=== PATIENT | female | born 1945 | race Caucasian/White ===

== ENCOUNTER 2016-07-28 17:13 | Inpatient (IN) | payer MEDICARE ==
[2016-07-28] MEDS ORDERED: IPRATROPIUM-ALBUTEROL 3 ML NEB INHALATION STA (17:16)
[2016-07-28] MEDS ORDERED: SODIUM CHLORIDE 0.9% 1,000 ML IV STA (17:16)
[2016-07-28] MEDS ORDERED: MAGNESIUM SULFATE-D5W PMX 1 GM in DEXTROSE/WATER 1 100ML.BAG IVPB STA (17:16)
--- NOTE | 2016-07-28 17:22 | ED ---
SOB HPI - General Stated Complaint: SOB Time Seen by Provider: 07/28/16 17:13 Source: patient, EMS, RN notes reviewed, old records reviewed Mode of arrival: EMS - History of Present Illness Initial Comments: This is a 71-year-old female with a history of COPD and chronic bronchitis was still smoking who presents with complaints of 9-10 days of shortness of just finished antibiotics this morning and was also on steroids. She complains of still being short of breath. She denies any overt chest pain. She does have a slight cough with clear phlegm. No overt fevers chills or sweats. She does feel hot at times. She was seen at a local outpatient clinic given IM steroids as well as DuoNeb treatment she was brought in by EMS when another DuoNeb treatment was done she still feeling short of breath still does have audible wheezing. Denies any chest pain or other symptoms at this time. MD Complaint: shortness of breath, cough - Related Data Home Medications Medication Instructions Recorded Confirmed Alendronate Sodium [Fosamax] 70 mg PO ENRIQUEZ 07/28/16 07/28/16 Calcium Carbonate/Vitamin D3 1 tab PO HS 07/28/16 07/28/16 [Calcium 600-Vit D3 200 Tablet] Calcium Carbonate/Vitamin D3 2 tab PO QAM 07/28/16 07/28/16 [Calcium 600-Vit D3 200 Tablet] Cetirizine HCl/Pseudoephedrine 1 tab PO BID PRN 07/28/16 07/28/16 [Zyrtec-D Tablet] Ipratropium-Albuterol Nebulize 3 ml INHALATION RT-QID 07/28/16 07/28/16 [Duoneb 0.5 mg-3 mg/3 ml Soln] Ipratropium/Albuterol Sulfate 1 puff INHALATION RT-QID PRN 07/28/16 07/28/16 [Combivent Respimat Inhaler] Levothyroxine Sodium [Synthroid] 88 mcg PO DAILY 07/28/16 07/28/16 Naproxen Sodium [Aleve] 220 mg PO BID PRN 07/28/16 07/28/16 Simvastatin [Zocor] 10 mg PO DAILY 07/28/16 07/28/16 metFORMIN HCL [Glucophage] 850 mg PO BID 07/28/16 07/28/16 Allergies Allergy/AdvReac Type Severity Reaction Status Date / Time bupropion [From Zyban] Allergy Rash/Hives Verified 07/28/16 17:26 cefaclor [From Ceclor] Allergy Rash/Hives Verified 07/28/16 17:26 Review of Systems ROS Statement: Those systems with pertinent positive or pertinent negative responses have been documented in the HPI. ROS Other: All systems not noted in ROS Statement are negative. General Exam - General Exam Comments Initial Comments: This is a well-developed well-nourished awake alert oriented history female she does appear to be dyspneic and does have audible wheezing. General appearance: alert, in no apparent distress Head exam: Present: atraumatic, normocephalic, normal inspection Eye exam: Present: normal appearance, PERRL, EOMI. Absent: scleral icterus, conjunctival injection, periorbital swelling ENT exam: Present: mucous membranes dry Neck exam: Present: normal inspection. Absent: tenderness, meningismus, lymphadenopathy Respiratory exam: Present: wheezes, accessory muscle use, decreased breath sounds. Absent: respiratory distress, rales, rhonchi, stridor Cardiovascular Exam: Present: regular rate, normal rhythm, normal heart sounds. Absent: systolic murmur, diastolic murmur, rubs, gallop, clicks GI/Abdominal exam: Present: soft, normal bowel sounds. Absent: distended, tenderness, guarding, rebound, rigid Extremities exam: Present: normal inspection, full ROM, normal capillary refill. Absent: tenderness, pedal edema, joint swelling, calf tenderness Back exam: Present: normal inspection Neurological exam: Present: alert, oriented X3, CN II-XII intact Psychiatric exam: Present: normal affect, normal mood Skin exam: Present: warm, dry, intact, normal color. Absent: rash Course Vital Signs 07/28/16 07/28/16 17:14 17:22 Temperature 97.7 F Pulse Rate 116 H Respiratory 24 Rate Blood Pressure 188/87 O2 Sat by Pulse 85 L 96 Oximetry Medical Decision Making - Lab Data Result diagrams: 07/28/16 17:20 07/28/16 17:20 Lab Results 07/28/16 07/28/16 07/28/16 Range/Units 17:20 17:20 17:20 WBC 15.2 H (3.8-10.6) k/uL RBC 5.25 (3.80-5.40) m/uL Hgb 15.3 (11.4-16.0) gm/dL Hct 47.9 H (34.0-46.0) % MCV 91.2 (80.0-100.0) fL MCH 29.1 (25.0-35.0) pg MCHC 31.9 (31.0-37.0) g/dL RDW 12.5 (11.5-15.5) % Plt Count 305 (150-450) k/uL Neutrophils % 78 % Lymphocytes % 14 % Monocytes % 6 % Eosinophils % 1 % Basophils % 1 % Neutrophils # 11.8 H (1.3-7.7) k/uL Lymphocytes # 2.1 (1.0-4.8) k/uL Monocytes # 0.8 (0-1.0) k/uL Eosinophils # 0.1 (0-0.7) k/uL Basophils # 0.1 (0-0.2) k/uL PT 10.4 (9.0-12.0) sec INR 1.0 (<1.1) APTT 24.0 (22.0-30.0) sec D-Dimer 0.31 (<0.60) mg/L FEU Sodium 141 (137-145) mmol/L Potassium 4.6 (3.5-5.1) mmol/L Chloride 99 (98-107) mmol/L Carbon Dioxide 34 H (22-30) mmol/L Anion Gap 8 mmol/L BUN 25 H (7-17) mg/dL Creatinine 0.90 (0.52-1.04) mg/dL Est GFR (MDRD) Af Amer >60 (>60 ml/min/1.73 sqM) Est GFR (MDRD) Non-Af >60 (>60 ml/min/1.73 sqM) Glucose 121 H (74-99) mg/dL Calcium 10.3 H (8.4-10.2) mg/dL Magnesium 1.7 (1.6-2.3) mg/dL Total Bilirubin 0.6 (0.2-1.3) mg/dL AST 20 (14-36) U/L ALT 31 (9-52) U/L Alkaline Phosphatase 84 (38-126) U/L NT-Pro-B Natriuret Pep pg/mL Total Protein 7.2 (6.3-8.2) g/dL Albumin 4.1 (3.5-5.0) g/dL 07/28/16 Range/Units 17:20 WBC (3.8-10.6) k/uL RBC (3.80-5.40) m/uL Hgb (11.4-16.0) gm/dL Hct (34.0-46.0) % MCV (80.0-100.0) fL MCH (25.0-35.0) pg MCHC (31.0-37.0) g/dL RDW (11.5-15.5) % Plt Count (150-450) k/uL Neutrophils % % Lymphocytes % % Monocytes % % Eosinophils % % Basophils % % Neutrophils # (1.3-7.7) k/uL Lymphocytes # (1.0-4.8) k/uL Monocytes # (0-1.0) k/uL Eosinophils # (0-0.7) k/uL Basophils # (0-0.2) k/uL PT (9.0-12.0) sec INR (<1.1) APTT (22.0-30.0) sec D-Dimer (<0.60) mg/L FEU Sodium (137-145) mmol/L Potassium (3.5-5.1) mmol/L Chloride (98-107) mmol/L Carbon Dioxide (22-30) mmol/L Anion Gap mmol/L BUN (7-17) mg/dL Creatinine (0.52-1.04) mg/dL Est GFR (MDRD) Af Amer (>60 ml/min/1.73 sqM) Est GFR (MDRD) Non-Af (>60 ml/min/1.73 sqM) Glucose (74-99) mg/dL Calcium (8.4-10.2) mg/dL Magnesium (1.6-2.3) mg/dL Total Bilirubin (0.2-1.3) mg/dL AST (14-36) U/L ALT (9-52) U/L Alkaline Phosphatase (38-126) U/L NT-Pro-B Natriuret Pep 61 pg/mL Total Protein (6.3-8.2) g/dL Albumin (3.5-5.0) g/dL - EKG Data EKG shows normal: sinus rhythm (Sinus rhythm a rate of 104. Interval 140 QRS duration 82 QT/QTC of 326/428 evidence of biatrial enlargement. No acute ST-T wave elevation or depressions noted.) Critical Care Time Critical Care Time: Yes Disposition Clinical Impression: Acute exacerbation of chronic obstructive airways disease, Adult respiratory distress syndrome, Failure of outpatient treatment Disposition: ADMITTED IP TO THIS HOSP Condition: Stable
[2016-07-28 17:38] LABS: Basophils # (A) 0.1 k/uL (0-0.2); Basophils % (A) 1 %; CH 29.2; CHCM 32.2; Eosinophils # (A) 0.1 k/uL (0-0.7); Eosinophils % (A) 1 %; HCT 47.9 % (34.0-46.0); HDW 2.56; HGB 15.3 gm/dL (11.4-16.0); Luc # (Auto) 0.19; Luc % (Auto) 1; Lymphocytes # (A) 2.1 k/uL (1.0-4.8); Lymphocytes % (A) 14 %; MCH 29.1 pg (25.0-35.0); MCHC 31.9 g/dL (31.0-37.0); MCV 91.2 fL (80.0-100.0); Mean Platelet Volume 6.5; Monocytes # (A) 0.8 k/uL (0-1.0); Monocytes % (A) 6 %; Neutrophils # (A) 11.8 k/uL (1.3-7.7); Neutrophils % (A) 78 %; RBC 5.25 m/uL (3.80-5.40); RDW 12.5 % (11.5-15.5); WBC 15.2 k/uL (3.8-10.6)
[2016-07-28 17:46] LABS: ALT 31 U/L (9-52); AST 20 U/L (14-36); Alkaline Phosphatase 84 U/L (38-126); Anion Gap 8 mmol/L; Blood Urea Nitrogen 25 mg/dL (7-17); Calcium 10.3 mg/dL (8.4-10.2); Carbon Dioxide 34 mmol/L (22-30); Chloride 99 mmol/L (98-107); Glucose 121 mg/dL (74-99); Magnesium 1.7 mg/dL (1.6-2.3); Non-African American GFR(MDRD) >60 (>60 ml/min/1.73 sqM); Potassium 4.6 mmol/L (3.5-5.1); Sodium 141 mmol/L (137-145); Total Bilirubin 0.6 mg/dL (0.2-1.3); Total Protein 7.2 g/dL (6.3-8.2)
[2016-07-28 17:51] LABS: Prothrombin Time 10.4 sec (9.0-12.0)
[2016-07-28 17:56] LABS: Creatine Kinase 70 U/L (30-135)
[2016-07-28 18:10] LABS: Troponin I <0.012 ng/mL (0.000-0.034)
[2016-07-28 18:13] LABS: Creatine Kinase MB 3.9 ng/mL (0.0-2.4)
[2016-07-28] MEDS ORDERED: LORATADINE-PSEUDOEPH 5-120 MG 1 EACH TAB.ER.12H PO PRN (18:16)
[2016-07-28] MEDS ORDERED: NON-FORMULARY DRUG (Alendronate Sodium [Fosamax] 70 MG) PO SCH (18:30)
[2016-07-28] MEDS ORDERED: IPRATROPIUM-ALBUTEROL 3 ML NEB INHALATION SCH (20:00)
[2016-07-28] MEDS: IPRATROPIUM-ALBUTEROL 3 ML NEB INHALATION SCH (20:16)
[2016-07-28] MEDS: CALCIUM CARB-VIT D 500MG-200UN 1 EACH TAB PO SCH (21:56)
[2016-07-28] MEDS: LEVOFLOXACIN 500 MG TAB PO SCH (21:57)
[2016-07-28] MEDS: metFORMIN 850 MG TAB PO SCH (21:57)
[2016-07-28 22:14] LABS: Glucose,Whole Blood 312 mg/dL (75-99)
[2016-07-28] MEDS: IPRATROPIUM-ALBUTEROL 3 ML NEB INHALATION PRN (22:53)
[2016-07-28] MEDS ORDERED: ACETAMINOPHEN TAB 500 MG TAB PO PRN (22:59)
[2016-07-28] MEDS ORDERED: TEMAZEPAM 15 MG CAP PO PRN (22:59)
--- NOTE | 2016-07-29 00:30 | XR ---
EXAM: XR Chest, 1 View CLINICAL HISTORY: Reason: pneumonia TECHNIQUE: Frontal view of the chest. COMPARISON: No relevant prior studies available. FINDINGS: Lungs: No consolidation. Calcified granuloma projecting over the left midlung. Pleural space: No pleural effusion. No pneumothorax. Heart: Unremarkable. No cardiomegaly. Mediastinum: Unremarkable. Bones/joints: Degenerative changes of the bilateral AC joints. IMPRESSION: No acute cardiopulmonary disease.
[2016-07-29 00:41] LABS: Glucose,Whole Blood 329 mg/dL (75-99)
[2016-07-29] MEDS: INSULIN LISPRO (humaLOG) 300 UNIT/3 ML VIAL SQ SCH ×5 (00:41→21:48)
[2016-07-29] MEDS: methylPREDNISolone SOD SUCCI 125 MG/2 ML VIAL IV SCH ×4 (01:00→18:00)
[2016-07-29 02:42] LABS: Glucose,Whole Blood 129 mg/dL (75-99)
[2016-07-29] MEDS: NAPROXEN 250 MG TAB PO PRN (02:47)
[2016-07-29] MEDS: LEVOTHYROXINE 88 MCG TAB PO SCH (05:32)
[2016-07-29 07:07] LABS: Glucose,Whole Blood 152 mg/dL (75-99)
[2016-07-29] MEDS ORDERED: FORMOTEROL FUMARATE 20 MCG/2 ML NEBU INHALATION SCH (08:00)
[2016-07-29] MEDS: PANTOPRAZOLE 40 MG TABLET PO SCH (08:30)
[2016-07-29] MEDS: HEPARIN SODIUM,PORCINE 5,000 UNIT/ML 1 ML VIAL SQ SCH ×2 (08:31→21:48)
[2016-07-29] MEDS: metFORMIN 850 MG TAB PO SCH ×2 (08:33→18:00)
[2016-07-29] MEDS: ATORVASTATIN 10 MG TAB PO SCH (08:33)
[2016-07-29] MEDS: CALCIUM CARB-VIT D 500MG-200UN 1 EACH TAB PO SCH ×2 (08:33→21:49)
[2016-07-29] MEDS: BUDESONIDE 1 MG/2 ML NEBU INHALATION SCH ×2 (09:20→19:55)
[2016-07-29] MEDS: IPRATROPIUM-ALBUTEROL 3 ML NEB INHALATION SCH ×4 (09:20→19:54)
--- NOTE | 2016-07-29 09:25 | P.HPIM ---
History of Present Illness H&P Date: 07/29/16 Chief Complaint: Dyspnea This is a history and physical on this 71-year-old white female who has essentially failed outpatient treatment related to COPD exacerbation. The patient's last week in the office, however there was some delay getting her medications and she did not improve once starting the medication. She smokes about half-pack cigarettes a day and has secondhand smoke exposure. She is now admitted after having decrease in pulse oximetry and dyspnea on exertion. Review of Systems Constitutional: Reports fatigue, Reports weakness Eyes: denies blurred vision, denies pain Ears, nose, mouth and throat: Denies headache, Denies sore throat Cardiovascular: Reports shortness of breath, Denies chest pain Respiratory: Reports as per HPI, Reports cough, Reports dyspnea Gastrointestinal: Denies abdominal pain, Denies diarrhea, Denies nausea, Denies vomiting Genitourinary: Denies dysuria, Denies hematuria Musculoskeletal: Denies myalgias Past Medical History Past Medical History: Asthma, COPD, Diabetes Mellitus, Eye Disorder, Thyroid Disorder Additional Past Medical History / Comment(s): Cataracts; planned surgery right eye 08/13/2016 History of Any Multi-Drug Resistant Organisms: None Reported Past Surgical History: Adenoidectomy, Appendectomy, Hysterectomy, Tonsillectomy Additional Past Surgical History / Comment(s): several lumpectomies-benign, D&C Past Anesthesia/Blood Transfusion Reactions: No Reported Reaction Past Psychological History: No Psychological Hx Reported Smoking Status: Current every day smoker Past Alcohol Use History: Occasional Past Drug Use History: None Reported - Past Family History Mother Family Medical History: Cancer Additional Family Medical History / Comment(s): Mac deg, blind; abdominal tumor ; colon cancer in old age, at 86 Father Family Medical History: Cancer Additional Family Medical History / Comment(s): Prostate CA mets to lungs Medications and Allergies Home Medications Medication Instructions Recorded Confirmed Type Alendronate Sodium [Fosamax] 70 mg PO ENRIQUEZ 07/28/16 07/28/16 History Calcium Carbonate/Vitamin D3 1 tab PO HS 07/28/16 07/28/16 History [Calcium 600-Vit D3 200 Tablet] Calcium Carbonate/Vitamin D3 2 tab PO QAM 07/28/16 07/28/16 History [Calcium 600-Vit D3 200 Tablet] Cetirizine HCl/Pseudoephedrine 1 tab PO BID PRN 07/28/16 07/28/16 History [Zyrtec-D Tablet] Ipratropium-Albuterol Nebulize 3 ml INHALATION RT-QID 07/28/16 07/28/16 History [Duoneb 0.5 mg-3 mg/3 ml Soln] Ipratropium/Albuterol Sulfate 1 puff INHALATION RT-QID PRN 07/28/16 07/28/16 History [Combivent Respimat Inhaler] Levothyroxine Sodium [Synthroid] 88 mcg PO DAILY 07/28/16 07/28/16 History Naproxen Sodium [Aleve] 220 mg PO BID PRN 07/28/16 07/28/16 History Simvastatin [Zocor] 10 mg PO DAILY 07/28/16 07/28/16 History metFORMIN HCL [Glucophage] 850 mg PO BID 07/28/16 07/28/16 History Allergies Allergy/AdvReac Type Severity Reaction Status Date / Time bupropion [From Zyban] Allergy Rash/Hives Verified 07/28/16 17:26 cefaclor [From Ceclor] Allergy Rash/Hives Verified 07/28/16 17:26 Physical Exam Vitals: Vital Signs Temp Pulse Pulse Resp BP BP Pulse Ox 07/29/16 07:00 96.8 F L 86 16 154/78 92 L 07/29/16 01:35 97.8 F 105 H 20 140/75 91 L 07/28/16 23:00 84 07/28/16 22:53 84 07/28/16 19:35 97.3 F L 104 H 20 138/71 89 L 07/28/16 18:39 97.6 F 99 16 169/94 95 07/28/16 18:19 99 Intake and Output 07/28/16 07/29/16 07/29/16 22:59 06:59 14:59 Intake Total 800 100 Balance 800 100 Intake: Oral 800 100 Other: # Voids 1 # Bowel Movements 0 0 Weight 81.647 kg - Constitutional General appearance: obese - EENT Eyes: EOMI - Neck Neck: no lymphadenopathy - Respiratory Respiratory: bilateral: wheezing - Cardiovascular Rhythm: regular - Gastrointestinal General gastrointestinal: soft, no tenderness - Neurologic Neurologic: CNII-XII intact - Psychiatric Psychiatric: A&O x's 3, appropriate affect, intact judgment & insight Results CBC & Chem 7: 07/28/16 17:20 07/28/16 17:20 Labs: Abnormal Lab Results - Last 24 Hours (Table) 07/28/16 07/29/16 07/29/16 Range/Units 21:47 00:36 02:36 POC Glucose (mg/dL) 312 H 329 H 129 H (75-99) mg/dL 07/29/16 Range/Units 07:05 POC Glucose (mg/dL) 152 H (75-99) mg/dL Thrombosis Risk Factor Assmnt - Choose All That Apply Any of the Below Risk Factors Present?: Yes Each Factor Represents 1 point: Abnormal pulmonary function (COPD), Obesity ( BMI >25) Other Risk Factors: Yes Each Risk Factor Represents 2 Points: Age 61-74 years Other congenital or acquired thrombophilia - If yes, enter type in comment: No Thrombosis Risk Factor Assessment Total Risk Factor Score: 4 Thrombosis Risk Factor Assessment Level: Moderate Risk Assessment and Plan (1) Tobacco abuse counseling Status: Acute (2) Acute exacerbation of chronic obstructive airways disease Status: Acute (3) Failure of outpatient treatment Status: Acute Plan: We'll go ahead and continue son Medrol with appropriate antibiotic treatment. Insulin sliding scale as necessary. Otherwise, anticipate improvement in the next 48 hours. Reconcile home medications as necessary. Check CBC and CMP in a.m. Time with Patient: Greater than 30
[2016-07-29 09:34] LABS: Basophils % (A) 0 %; CHCM 30.8; Eosinophils % (A) 0 %; HCT 47.4 % (34.0-46.0); HDW 2.41; HGB 14.6 gm/dL (11.4-16.0); Hypochromasia Slight; Luc # (Auto) 0.06; Luc % (Auto) 0; Lymphocytes # (A) 1.4 k/uL (1.0-4.8); Lymphocytes % (A) 10 %; MCH 29.2 pg (25.0-35.0); MCHC 30.9 g/dL (31.0-37.0); MCV 94.6 fL (80.0-100.0); Mean Platelet Volume 6.9; Monocytes # (A) 0.2 k/uL (0-1.0); Monocytes % (A) 1 %; Neutrophils # (A) 13.1 k/uL (1.3-7.7); Neutrophils % (A) 89 %; RBC 5.01 m/uL (3.80-5.40); RDW 12.8 % (11.5-15.5); WBC 14.8 k/uL (3.8-10.6); WBC (Perox) 14.78
[2016-07-29] MEDS: NICOTINE 14MG/24HR PATCH TRANSDERM SCH (09:57)
[2016-07-29 10:15] LABS: Anion Gap 11 mmol/L; Blood Urea Nitrogen 25 mg/dL (7-17); Calcium 9.7 mg/dL (8.4-10.2); Carbon Dioxide 32 mmol/L (22-30); Chloride 98 mmol/L (98-107); Glucose 214 mg/dL (74-99); Non-African American GFR(MDRD) >60 (>60 ml/min/1.73 sqM); Potassium 5.5 mmol/L (3.5-5.1); Sodium 141 mmol/L (137-145)
[2016-07-29 12:02] LABS: Glucose,Whole Blood 161 mg/dL (75-99)
[2016-07-29 13:35] LABS: Hemoglobin A1C 6.7 % (4.2-6.1)
--- NOTE | 2016-07-29 13:55 | HP ---
DATE OF ADMISSION: DATE OF SERVICE: 07/28/2016 I am covering for Dr. Puckett. CHIEF COMPLAINT: Shortness of breath HISTORY OF PRESENT ILLNESS: This 71-year-old woman with a past medical history of multiple medical COPD, history of diabetes, history of cataracts, history of planned on eye surgery on 08/13/2016, history of appendectomy, adenoidectomy, history of nicotine dependence, being followed by Dr. Puckett in the outpatient setting, not feeling well for the past several days. The patient initially had outpatient antibiotics and as well as tapering dose of steroids. Because of lack of improvement of shortness of breath patient came to [facility] and was admitted for further evaluation and treatment. There is no history of any fever, rigors. No history of headache, loss of consciousness or seizures at this time. The patient also has features of respiratory failure on admission. The pulse ox was 89% on 3-L. PAST MEDICAL HISTORY: History of COPD, history of asthma, history of nicotine dependence, history of diabetes mellitus, history hypothyroidism, cataracts, adenoidectomy, history of nicotine dependence. Medications prior to admission include home medications are: 1. Glucophage 850 mg p.o. b.i.d. 2. Zocor 10 mg p.o. daily. 3. Aleve 220 mcg p.o. b.i.d. p.r.n. 4. Synthroid 80 mcg p.o. daily. 5. Combivent 1 puff q.i.d. p.r.n. 6. DuoNeb q.i.d. 7. Zyrtec 1 b.i.d. p.r.n. 8. Calcium carbonate 1 tablet p.o. q.h.s. 9. Calcium with vitamin D q.a.m. 10. Fosamax 70 mg p.o. Friday. ALLERGIES: ZYBAN, CEFACLOR. FAMILY HISTORY: History of cancer, macular degeneration, abdominal tumor, colon cancer. SOCIAL HISTORY: History of smoking. Continued ongoing. No history of alcohol intake. REVIEW OF SYSTEMS: ENT: No diminishing hearing or diminished vision. CARDIOVASCULAR: No angina. RESPIRATORY: As mentioned earlier. GI: As mentioned earlier. : No dysuria. NERVOUS SYSTEM: No numbness or weakness. ALLERGY/IMMUNOLOGY: Asthma present. MUSCULOSKELETAL: As mentioned earlier. HEMATOLOGY/ONCOLOGY: No history of anemia. ENDOCRINE: History of diabetes and hypothyroidism present. CONSTITUTIONAL: As mentioned earlier. DERMATOLOGY: Negative. RHEUMATOLOGY: Negative. PSYCHIATRY: As mentioned earlier. PHYSICAL EXAMINATION: Patient is alert and oriented x3. Pulse is 104, blood pressure 130/70, respirations 20, temperature 97.3, pulse ox 89% on 3-L. The patient is extremely short of breath. Accessory muscles of respirations acting. Patient is unable to complete full sentence. CARDIOVASCULAR: S1, S2 normal. No S3, no S4. RESPIRATORY: Breath sounds diminished in the bases. Bilateral scattered rhonchi and expiratory wheezing and crackles also present. ABDOMEN: Soft, nontender. No mass palpable. LEGS: No edema. No swelling. NERVOUS SYSTEM: Higher function as mentioned. Moves all limbs. No focal motor deficits. LYMPHATIC: No lymphadenopathy in the neck, axillae or groin. SKIN: No ulcer, rash or bleeding. JOINTS: No active deforming arthropathy. LABS: WBC 15.2, sodium 141, potassium 4.6, glucose 312 and CK-MB 3.9. ASSESSMENT: 1. Chronic obstructive pulmonary disease and bronchial asthma, acute exacerbation with acute purulent tracheobronchitis with acute hypoxic respiratory failure present on admission with failure of outpatient treatment. 2. Increased WBC. 3. Diabetes mellitus type 2. 4. History of asthma, chronic obstructive pulmonary disease. 5. History of hypothyroidism. 6. History of cataracts. 7. History of adenoidectomy. 8. History of appendectomy. 9. History of continued ongoing nicotine dependence. 10. FULL CODE. RECOMMENDATIONS AND DISCUSSION: In this 71-year-old who presented with multiple complex medical issues, we will monitor the patient closely. Continue the current medications, continue the symptomatic treatment. Otherwise, at this time I recommend to continue with bronchodilators. Otherwise, also recommend steroids, IV insulin drip, monitor closely. Empiric antibiotics. Guarded prognosis because of multiple complex medical issues. Dr. Puckett will follow.
[2016-07-29 17:09] LABS: Glucose,Whole Blood 144 mg/dL (75-99)
[2016-07-29] MEDS: LEVOFLOXACIN 500 MG TAB PO SCH (18:00)
[2016-07-29 21:17] LABS: Glucose,Whole Blood 181 mg/dL (75-99)
[2016-07-29] MEDS: IPRATROPIUM-ALBUTEROL 3 ML NEB INHALATION PRN (23:31)
[2016-07-30] MEDS: ALPRAZolam 0.25 MG TAB PO PRN (00:11)
[2016-07-30] MEDS: methylPREDNISolone SOD SUCCI 125 MG/2 ML VIAL IV SCH ×4 (00:11→17:51)
[2016-07-30] MEDS: LEVOTHYROXINE 88 MCG TAB PO SCH (07:04)
[2016-07-30] MEDS: BUDESONIDE 1 MG/2 ML NEBU INHALATION SCH ×2 (07:38→19:44)
[2016-07-30] MEDS: IPRATROPIUM-ALBUTEROL 3 ML NEB INHALATION SCH ×4 (07:39→19:44)
[2016-07-30 07:41] LABS: Glucose,Whole Blood 162 mg/dL (75-99)
[2016-07-30] MEDS: INSULIN LISPRO (humaLOG) 300 UNIT/3 ML VIAL SQ SCH ×4 (08:25→21:20)
[2016-07-30] MEDS: HEPARIN SODIUM,PORCINE 5,000 UNIT/ML 1 ML VIAL SQ SCH ×2 (08:25→21:20)
[2016-07-30] MEDS: NICOTINE 14MG/24HR PATCH TRANSDERM SCH (08:26)
[2016-07-30] MEDS: PANTOPRAZOLE 40 MG TABLET PO SCH (08:26)
[2016-07-30] MEDS: metFORMIN 850 MG TAB PO SCH ×2 (08:26→17:51)
[2016-07-30] MEDS: CALCIUM CARB-VIT D 500MG-200UN 1 EACH TAB PO SCH ×2 (08:27→21:20)
[2016-07-30] MEDS: ATORVASTATIN 10 MG TAB PO SCH (08:27)
--- NOTE | 2016-07-30 08:44 | P.PN ---
Subjective Principal diagnosis: Acute exacerbation of COPD. This is a continue progress on a 8-year-old white female essentially been for acute exacerbation of COPD. She has requested consultation from Dr. Almodovar however, she has significant improvement with Solu-Medrol. She is voiding without difficulty. No fever or chills. But she actually had decent sleep yesterday. Again, we had a long discussion regarding smoking cessation. Objective - Vital Signs Vital signs: Vital Signs Temp 97 F L 07/30/16 07:00 Pulse 98 07/30/16 08:03 Resp 20 07/30/16 07:39 BP 128/60 07/30/16 07:00 Pulse Ox 95 07/30/16 07:00 Intake & Output 07/29/16 07/30/16 07/30/16 18:59 06:59 18:59 Intake Total 100 400 Balance 100 400 Weight 81.647 kg Intake: Oral 100 400 Other: # Voids 1 2 - Constitutional General appearance: Present: obese - EENT Eyes: Absent: abnormal pupil - Respiratory Respiratory: bilateral: diminished - Cardiovascular Rhythm: regular Heart sounds: normal: S1, S2 - Gastrointestinal General gastrointestinal: Present: soft. Absent: tenderness - Psychiatric Psychiatric: Present: A&O x's 3 - Labs CBC & Chem 7: 07/29/16 08:33 07/29/16 08:55 Labs: Abnormal Lab Results - Last 24 Hours (Table) 07/29/16 07/29/16 07/29/16 Range/Units 08:33 08:55 08:55 WBC 14.8 H (3.8-10.6) k/uL Hct 47.4 H (34.0-46.0) % MCHC 30.9 L (31.0-37.0) g/dL Neutrophils # 13.1 H (1.3-7.7) k/uL Potassium 5.5 H (3.5-5.1) mmol/L Carbon Dioxide 32 H (22-30) mmol/L BUN 25 H (7-17) mg/dL Glucose 214 H (74-99) mg/dL POC Glucose (mg/dL) (75-99) mg/dL Hemoglobin A1c 6.7 H (4.2-6.1) % 07/29/16 07/29/16 07/29/16 Range/Units 11:59 17:01 21:06 WBC (3.8-10.6) k/uL Hct (34.0-46.0) % MCHC (31.0-37.0) g/dL Neutrophils # (1.3-7.7) k/uL Potassium (3.5-5.1) mmol/L Carbon Dioxide (22-30) mmol/L BUN (7-17) mg/dL Glucose (74-99) mg/dL POC Glucose (mg/dL) 161 H 144 H 181 H (75-99) mg/dL Hemoglobin A1c (4.2-6.1) % 07/30/16 Range/Units 07:17 WBC (3.8-10.6) k/uL Hct (34.0-46.0) % MCHC (31.0-37.0) g/dL Neutrophils # (1.3-7.7) k/uL Potassium (3.5-5.1) mmol/L Carbon Dioxide (22-30) mmol/L BUN (7-17) mg/dL Glucose (74-99) mg/dL POC Glucose (mg/dL) 162 H (75-99) mg/dL Hemoglobin A1c (4.2-6.1) % Microbiology - Last 24 Hours (Table) 07/28/16 17:20 Blood Culture - Preliminary Blood No Growth after 24 hours Assessment and Plan (1) Tobacco abuse counseling Status: Acute (2) Acute exacerbation of chronic obstructive airways disease Status: Acute (3) Failure of outpatient treatment Status: Acute Plan: Continue Solu-Medrol 60 mg IV every 6 hours. Check CBC and CMP in a.m. per Consult Dr. Almodovar as requested. Appreciate input. See orders otherwise. Time with Patient: Less than 30
[2016-07-30 10:20] LABS: CH 29.1; CHCM 30.9; HCT 44.7 % (34.0-46.0); HDW 2.42; HGB 13.8 gm/dL (11.4-16.0); Hypochromasia Slight; MCH 29.1 pg (25.0-35.0); MCHC 30.8 g/dL (31.0-37.0); MCV 94.4 fL (80.0-100.0); Mean Platelet Volume 6.7; RBC 4.73 m/uL (3.80-5.40); RDW 12.9 % (11.5-15.5); WBC 20.2 k/uL (3.8-10.6)
[2016-07-30 11:00] LABS: Chloride 99 mmol/L (98-107); Glucose 256 mg/dL (74-99); Total Protein 6.5 g/dL (6.3-8.2)
[2016-07-30 11:01] LABS: ALT 31 U/L (9-52); AST 31 U/L (14-36); Alkaline Phosphatase 57 U/L (38-126); Anion Gap 10 mmol/L; Blood Urea Nitrogen 35 mg/dL (7-17); Calcium 9.6 mg/dL (8.4-10.2); Carbon Dioxide 30 mmol/L (22-30); Non-African American GFR(MDRD) >60 (>60 ml/min/1.73 sqM); Potassium 4.7 mmol/L (3.5-5.1); Sodium 139 mmol/L (137-145); Total Bilirubin 0.5 mg/dL (0.2-1.3)
[2016-07-30 12:38] LABS: Glucose,Whole Blood 190 mg/dL (75-99)
--- NOTE | 2016-07-30 14:09 | P.CNPUL ---
History of Present Illness Consult date: 07/30/16 Requesting physician: Sung Puckett Reason for consult: COPD Chief complaint: Shortness of breath, cough, congestion History of present illness: This is a very pleasant 71-year-old female patient who follows with Dr. Puckett as her primary care physician. She has a history of chronic obstructive pulmonary disease, chronic and ongoing nicotine addiction, diabetes mellitus, hypothyroidism. Possibly 1 week ago she developed increasing shortness of breath, cough and congestion. She was treated with steroids and azithromycin. She did not have much improvement and presented here on 07/28/2016 with worsening of symptoms. She has a loose nonproductive cough. No fever, chills or night sweats. Her chest x-ray revealed no acute pulmonary process. She's been obtaining good O2 saturations in the 90s on 3 L/m per nasal cannula. She' s been afebrile. Minimal leukocytosis. Hemodynamically stable. She is seen today in consultation on the regular medical floor. She is awake and alert in no acute distress. She states she is breathing somewhat easier today as compared to yesterday but not quite back to her baseline. She is dyspneic with minimal conversation and dyspneic on minimal exertion. Still quite bronchospastic and wheezy. Review of Systems 14 point review of system was conducted. All negative other than as mentioned in the HPI. Past Medical History Past Medical History: Asthma, COPD, Diabetes Mellitus, Eye Disorder, Thyroid Disorder Additional Past Medical History / Comment(s): Cataracts; planned surgery right eye 08/13/2016 History of Any Multi-Drug Resistant Organisms: None Reported Past Surgical History: Adenoidectomy, Appendectomy, Hysterectomy, Tonsillectomy Additional Past Surgical History / Comment(s): several lumpectomies-benign, D&C Past Anesthesia/Blood Transfusion Reactions: No Reported Reaction Past Psychological History: No Psychological Hx Reported Smoking Status: Current every day smoker Past Alcohol Use History: Occasional Past Drug Use History: None Reported - Past Family History Mother Family Medical History: Cancer Additional Family Medical History / Comment(s): Mac deg, blind; abdominal tumor ; colon cancer in old age, at 86 Father Family Medical History: Cancer Additional Family Medical History / Comment(s): Prostate CA mets to lungs Medications and Allergies Home Medications Medication Instructions Recorded Confirmed Type Alendronate Sodium [Fosamax] 70 mg PO ENRIQUEZ 07/28/16 07/28/16 History Calcium Carbonate/Vitamin D3 1 tab PO HS 07/28/16 07/28/16 History [Calcium 600-Vit D3 200 Tablet] Calcium Carbonate/Vitamin D3 2 tab PO QAM 07/28/16 07/28/16 History [Calcium 600-Vit D3 200 Tablet] Cetirizine HCl/Pseudoephedrine 1 tab PO BID PRN 07/28/16 07/28/16 History [Zyrtec-D Tablet] Ipratropium-Albuterol Nebulize 3 ml INHALATION RT-QID 07/28/16 07/28/16 History [Duoneb 0.5 mg-3 mg/3 ml Soln] Ipratropium/Albuterol Sulfate 1 puff INHALATION RT-QID PRN 07/28/16 07/28/16 History [Combivent Respimat Inhaler] Levothyroxine Sodium [Synthroid] 88 mcg PO DAILY 07/28/16 07/28/16 History Naproxen Sodium [Aleve] 220 mg PO BID PRN 07/28/16 07/28/16 History Simvastatin [Zocor] 10 mg PO DAILY 07/28/16 07/28/16 History metFORMIN HCL [Glucophage] 850 mg PO BID 07/28/16 07/28/16 History Allergies Allergy/AdvReac Type Severity Reaction Status Date / Time bupropion [From Zyban] Allergy Rash/Hives Verified 07/28/16 17:26 cefaclor [From Ceclor] Allergy Rash/Hives Verified 07/28/16 17:26 Physical Exam Vitals: Vital Signs Temp Pulse Pulse Resp BP Pulse Ox 07/30/16 11:44 100 07/30/16 11:27 100 07/30/16 08:03 98 07/30/16 07:39 100 20 07/30/16 07:00 97 F L 95 19 128/60 95 07/29/16 23:41 96 07/29/16 23:31 96 07/29/16 23:00 97.1 F L 108 H 20 134/67 93 L 07/29/16 20:14 100 07/29/16 19:55 104 H 92 L 07/29/16 16:41 92 07/29/16 16:28 100 07/29/16 16:00 113 H 16 07/29/16 15:00 96.5 F L 113 H 16 149/73 93 L Intake and Output 07/29/16 07/30/16 07/30/16 22:59 06:59 14:59 Intake Total 300 100 200 Balance 300 100 200 Intake: Oral 300 100 200 Other: # Voids 1 2 Weight 81.647 kg GENERAL EXAM: Alert, comfortable in no apparent distress. HEAD: Normocephalic. EYES: Normal reaction of pupils, equal size. NOSE: Clear with pink turbinates. THROAT: No erythema or exudates. NECK: No masses, no JVD. CHEST: No chest wall deformity. LUNGS: Equal air entry with bilateral wheezing. Diminished throughout. CVS: S1 and S2 normal with no audible murmurs, regular rhythm. ABDOMEN: No hepatosplenomegaly, normal bowel sounds, no guarding or rigidity. SPINE: No scoliosis or deformity SKIN: No rashes CENTRAL NERVOUS SYSTEM: No focal deficits, tone is normal in all 4 extremities. Results - Laboratory Findings CBC and BMP: 07/30/16 09:54 07/30/16 09:54 PT/INR, D-dimer PT 10.4 sec (9.0-12.0) 07/28/16 17:20 INR 1.0 (<1.1) 07/28/16 17:20 D-Dimer 0.31 mg/L FEU (<0.60) 07/28/16 17:20 Abnormal lab findings: Abnormal Labs 07/28/16 07/28/16 07/28/16 17:20 17:20 17:20 WBC 15.2 H Hct 47.9 H MCHC Neutrophils # 11.8 H Potassium Carbon Dioxide 34 H BUN 25 H Glucose 121 H POC Glucose (mg/dL) Hemoglobin A1c Calcium 10.3 H CK-MB (CK-2) 3.9 H* 07/28/16 07/29/16 07/29/16 21:47 00:36 02:36 WBC Hct MCHC Neutrophils # Potassium Carbon Dioxide BUN Glucose POC Glucose (mg/dL) 312 H 329 H 129 H Hemoglobin A1c Calcium CK-MB (CK-2) 07/29/16 07/29/16 07/29/16 07:05 08:33 08:55 WBC 14.8 H Hct 47.4 H MCHC 30.9 L Neutrophils # 13.1 H Potassium Carbon Dioxide BUN Glucose POC Glucose (mg/dL) 152 H Hemoglobin A1c 6.7 H Calcium CK-MB (CK-2) 07/29/16 07/29/16 07/29/16 08:55 11:59 17:01 WBC Hct MCHC Neutrophils # Potassium 5.5 H Carbon Dioxide 32 H BUN 25 H Glucose 214 H POC Glucose (mg/dL) 161 H 144 H Hemoglobin A1c Calcium CK-MB (CK-2) 07/29/16 07/30/16 07/30/16 21:06 07:17 09:54 WBC 20.2 H Hct MCHC 30.8 L Neutrophils # Potassium Carbon Dioxide BUN Glucose POC Glucose (mg/dL) 181 H 162 H Hemoglobin A1c Calcium CK-MB (CK-2) 07/30/16 07/30/16 09:54 12:19 WBC Hct MCHC Neutrophils # Potassium Carbon Dioxide BUN 35 H Glucose 256 H POC Glucose (mg/dL) 190 H Hemoglobin A1c Calcium CK-MB (CK-2) - Diagnostic Findings Chest x-ray: image reviewed (No acute pulmonary process.) Assessment and Plan Plan: Impression: #1 Acute exacerbation of chronic obstructive pulmonary disease. #2 Chronic and ongoing tobacco dependence. #3 Acute hypoxic respiratory failure secondary to above. #4 Diabetes mellitus. #5 Hypothyroidism. Plan: The patient was seen and evaluated by Dr. Almodovar. We'll go ahead and continue her treatment for COPD exacerbation including bronchodilators, Pulmicort and Perforomist inhalations twice a day, IV Solu-Medrol. She is on empiric antibiotics in the form of Levaquin. She is on heparin for DVT prophylaxis and Protonix for GI prophylaxis and she is educated regarding the importance of complete smoking cessation. At [facility] patch has been applied. We will titrate down her FiO2 will maintaining O2 saturations greater than 90%. She would benefit from mild workup in our office including full pulmonary function testing and 6 minute walk test to evaluate the severity of her COPD and make recommendations for her maintenance medications. In the interim we will increase her activity as tolerated. We'll continue to follow and make recommendations based on her clinical status. Time with Patient: Greater than 30
[2016-07-30 17:28] LABS: Glucose,Whole Blood 146 mg/dL (75-99)
[2016-07-30] MEDS: LEVOFLOXACIN 500 MG TAB PO SCH (17:51)
[2016-07-30 21:17] LABS: Glucose,Whole Blood 195 mg/dL (75-99)
[2016-07-31] MEDS: NAPROXEN 250 MG TAB PO PRN (00:42)
[2016-07-31] MEDS: ALPRAZolam 0.25 MG TAB PO PRN (00:43)
[2016-07-31] MEDS: methylPREDNISolone SOD SUCCI 125 MG/2 ML VIAL IV SCH ×2 (00:43→06:35)
[2016-07-31] MEDS: IPRATROPIUM-ALBUTEROL 3 ML NEB INHALATION SCH ×4 (07:19→20:08)
[2016-07-31] MEDS: BUDESONIDE 1 MG/2 ML NEBU INHALATION SCH ×2 (07:19→20:08)
[2016-07-31 07:22] LABS: Glucose,Whole Blood 139 mg/dL (75-99)
[2016-07-31] MEDS: ATORVASTATIN 10 MG TAB PO SCH (08:10)
[2016-07-31] MEDS: PANTOPRAZOLE 40 MG TABLET PO SCH (08:10)
[2016-07-31] MEDS: CALCIUM CARB-VIT D 500MG-200UN 1 EACH TAB PO SCH ×2 (08:10→21:53)
[2016-07-31] MEDS: HEPARIN SODIUM,PORCINE 5,000 UNIT/ML 1 ML VIAL SQ SCH ×2 (08:11→21:53)
[2016-07-31] MEDS: INSULIN LISPRO (humaLOG) 300 UNIT/3 ML VIAL SQ SCH ×4 (08:11→21:53)
[2016-07-31] MEDS: LEVOTHYROXINE 88 MCG TAB PO SCH (08:11)
[2016-07-31] MEDS: metFORMIN 850 MG TAB PO SCH ×2 (08:11→17:48)
[2016-07-31] MEDS: NICOTINE 14MG/24HR PATCH TRANSDERM SCH (08:11)
--- NOTE | 2016-07-31 08:26 | P.PN ---
Subjective Principal diagnosis: Exacerbation of COPD. This is a continuing progress on a 71-year-old white female with 30+ pack year smoking history who is essentially admitted for exacerbation of COPD. The patient states significant improvement after having 2 full days of son Chayo AGUILLON. Appreciate pulmonology input. No voiding difficulty. Appetite is nominal. Objective - Vital Signs Vital signs: Vital Signs Temp 97.2 F L 07/31/16 07:00 Pulse 104 H 07/31/16 07:45 Resp 17 07/31/16 07:00 BP 134/79 07/31/16 07:00 Pulse Ox 95 07/31/16 07:00 Intake & Output 07/30/16 07/31/16 07/31/16 18:59 06:59 18:59 Intake Total 200 340 Balance 200 340 Weight 81.647 kg Intake: Oral 200 340 Other: Voiding Method Toilet # Voids 4 0 - Constitutional General appearance: Present: obese - EENT Eyes: Absent: abnormal pupil - Respiratory Respiratory: bilateral: diminished - Cardiovascular Rhythm: regular - Gastrointestinal General gastrointestinal: Present: soft. Absent: tenderness - Neurologic Neurologic: Present: CNII-XII intact - Psychiatric Psychiatric: Present: A&O x's 3, appropriate affect - Labs CBC & Chem 7: 07/30/16 09:54 07/30/16 09:54 Labs: Abnormal Lab Results - Last 24 Hours (Table) 07/30/16 07/30/16 07/30/16 Range/Units 09:54 09:54 12:19 WBC 20.2 H (3.8-10.6) k/uL MCHC 30.8 L (31.0-37.0) g/dL BUN 35 H (7-17) mg/dL Glucose 256 H (74-99) mg/dL POC Glucose (mg/dL) 190 H (75-99) mg/dL 07/30/16 07/30/16 07/31/16 Range/Units 17:13 21:13 07:10 WBC (3.8-10.6) k/uL MCHC (31.0-37.0) g/dL BUN (7-17) mg/dL Glucose (74-99) mg/dL POC Glucose (mg/dL) 146 H 195 H 139 H (75-99) mg/dL Microbiology - Last 24 Hours (Table) 07/28/16 17:20 Blood Culture - Preliminary Blood No Growth after 48 hours Assessment and Plan (1) Tobacco abuse counseling Status: Acute (2) Acute exacerbation of chronic obstructive airways disease Status: Acute (3) Failure of outpatient treatment Status: Acute Plan: Cymetra taper today. Anticipate discharge in next 24-48 hours. Check CBC and CMP with appropriate magnesium level in the a.m. Appreciate pulmonology input. She orders otherwise. Time with Patient: Less than 30
[2016-07-31 10:08] LABS: CH 28.8; CHCM 30.5; HCT 46.3 % (34.0-46.0); HDW 2.47; HGB 14.2 gm/dL (11.4-16.0); Hypochromasia Moderate; MCHC 30.6 g/dL (31.0-37.0); MCV 94.8 fL (80.0-100.0); Mean Platelet Volume 7.5; RBC 4.88 m/uL (3.80-5.40); RDW 12.8 % (11.5-15.5); WBC 19.9 k/uL (3.8-10.6)
[2016-07-31] MEDS: methylPREDNISolone SOD SUCCI 40 MG/ML 1 ML VIAL IV SCH ×3 (10:15→23:41)
[2016-07-31 10:50] LABS: ALT 39 U/L (9-52); AST 31 U/L (14-36); Alkaline Phosphatase 62 U/L (38-126); Anion Gap 12 mmol/L; Blood Urea Nitrogen 39 mg/dL (7-17); Calcium 9.7 mg/dL (8.4-10.2); Carbon Dioxide 29 mmol/L (22-30); Chloride 99 mmol/L (98-107); Glucose 208 mg/dL (74-99); Non-African American GFR(MDRD) >60 (>60 ml/min/1.73 sqM); Potassium 5.2 mmol/L (3.5-5.1); Sodium 140 mmol/L (137-145); Total Bilirubin 0.6 mg/dL (0.2-1.3); Total Protein 6.7 g/dL (6.3-8.2)
[2016-07-31 11:35] LABS: Glucose,Whole Blood 190 mg/dL (75-99)
--- NOTE | 2016-07-31 16:54 | P.PN ---
Subjective This is a very pleasant 71-year-old female patient who follows with Dr. Puckett as her primary care physician. She has a history of chronic obstructive pulmonary disease, chronic and ongoing nicotine addiction, diabetes mellitus, hypothyroidism. Possibly 1 week ago she developed increasing shortness of breath, cough and congestion. She was treated with steroids and azithromycin. She did not have much improvement and presented here on 07/28/2016 with worsening of symptoms. She has a loose nonproductive cough. No fever, chills or night sweats. Her chest x-ray revealed no acute pulmonary process. She's been obtaining good O2 saturations in the 90s on 3 L/m per nasal cannula. She' s been afebrile. Minimal leukocytosis. Hemodynamically stable. She is seen today in consultation on the regular medical floor. She is awake and alert in no acute distress. She states she is breathing somewhat easier today as compared to yesterday but not quite back to her baseline. She is dyspneic with minimal conversation and dyspneic on minimal exertion. Still quite bronchospastic and wheezy. The patient was seen again today 07/31/2016 in follow-up on the regular medical floor. She is awake and alert in no acute distress. She is doing quite a bit better today as compared to yesterday but still not back to her baseline. She denies any worsening shortness of breath. She continues with a dry nonproductive cough. She is maintaining good O2 saturations in the low 90s on 2 L/m per nasal cannula. She's been afebrile. Blood cultures revealed no growth to date. Objective - Vital Signs Vital signs: Vital Signs Temp 97.2 F L 07/31/16 07:00 Pulse 104 H 07/31/16 16:40 Resp 17 07/31/16 07:00 BP 134/79 07/31/16 07:00 Pulse Ox 93 L 07/31/16 16:27 Intake & Output 07/30/16 07/31/16 07/31/16 18:59 06:59 18:59 Intake Total 200 340 Balance 200 340 Weight 81.647 kg Intake: Oral 200 340 Other: Voiding Method Toilet # Voids 4 0 2 - Exam GENERAL EXAM: Alert, comfortable in no apparent distress. HEAD: Normocephalic. EYES: Normal reaction of pupils, equal size. NOSE: Clear with pink turbinates. THROAT: No erythema or exudates. NECK: No masses, no JVD. CHEST: No chest wall deformity. LUNGS: Equal air entry with bilateral wheezing. Diminished throughout. CVS: S1 and S2 normal with no audible murmurs, regular rhythm. ABDOMEN: No hepatosplenomegaly, normal bowel sounds, no guarding or rigidity. SPINE: No scoliosis or deformity SKIN: No rashes CENTRAL NERVOUS SYSTEM: No focal deficits, tone is normal in all 4 extremities. Extremities: There is trace peripheral edema. No clubbing, no cyanosis. Peripheral pulses are intact. - Labs CBC & Chem 7: 07/31/16 09:06 07/31/16 09:06 Labs: Abnormal Lab Results - Last 24 Hours (Table) 07/30/16 07/30/16 07/31/16 Range/Units 17:13 21:13 07:10 WBC (3.8-10.6) k/uL Hct (34.0-46.0) % MCHC (31.0-37.0) g/dL Potassium (3.5-5.1) mmol/L BUN (7-17) mg/dL Glucose (74-99) mg/dL POC Glucose (mg/dL) 146 H 195 H 139 H (75-99) mg/dL 07/31/16 07/31/16 07/31/16 Range/Units 09:06 09:06 11:27 WBC 19.9 H (3.8-10.6) k/uL Hct 46.3 H (34.0-46.0) % MCHC 30.6 L (31.0-37.0) g/dL Potassium 5.2 H (3.5-5.1) mmol/L BUN 39 H (7-17) mg/dL Glucose 208 H (74-99) mg/dL POC Glucose (mg/dL) 190 H (75-99) mg/dL Microbiology - Last 24 Hours (Table) 07/28/16 17:20 Blood Culture - Preliminary Blood No Growth after 48 hours Assessment and Plan Plan: Impression: #1 Acute exacerbation of chronic obstructive pulmonary disease. #2 Chronic and ongoing tobacco dependence. #3 Acute hypoxic respiratory failure secondary to above. #4 Diabetes mellitus. #5 Hypothyroidism. Plan: The patient was seen and evaluated by Dr. Almodovar. We'll go ahead and continue her treatment for COPD exacerbation including bronchodilators, Pulmicort and Perforomist inhalations twice a day, IV Solu-Medrol. She is on empiric antibiotics in the form of Levaquin. She is improved today as compared to yesterday. Possible discharge tomorrow. We'll continue to follow and make further recommendations based on her clinical status.
[2016-07-31 17:42] LABS: Glucose,Whole Blood 171 mg/dL (75-99)
[2016-07-31] MEDS: LEVOFLOXACIN 500 MG TAB PO SCH (17:48)
[2016-07-31 21:26] LABS: Glucose,Whole Blood 138 mg/dL (75-99)
[2016-08-01] MEDS: NAPROXEN 250 MG TAB PO PRN (01:00)
[2016-08-01] MEDS: ALPRAZolam 0.25 MG TAB PO PRN (01:01)
[2016-08-01] MEDS: LEVOTHYROXINE 88 MCG TAB PO SCH (06:29)
[2016-08-01 07:54] LABS: Glucose,Whole Blood 138 mg/dL (75-99)
[2016-08-01] MEDS: BUDESONIDE 1 MG/2 ML NEBU INHALATION SCH ×2 (08:12→19:27)
[2016-08-01] MEDS: IPRATROPIUM-ALBUTEROL 3 ML NEB INHALATION SCH ×4 (08:12→19:27)
[2016-08-01] MEDS: NICOTINE 14MG/24HR PATCH TRANSDERM SCH (08:16)
[2016-08-01] MEDS: PANTOPRAZOLE 40 MG TABLET PO SCH (08:16)
[2016-08-01] MEDS: metFORMIN 850 MG TAB PO SCH ×2 (08:16→17:22)
[2016-08-01] MEDS: HEPARIN SODIUM,PORCINE 5,000 UNIT/ML 1 ML VIAL SQ SCH ×2 (08:16→20:39)
[2016-08-01] MEDS: CALCIUM CARB-VIT D 500MG-200UN 1 EACH TAB PO SCH ×2 (08:17→20:39)
[2016-08-01] MEDS: methylPREDNISolone SOD SUCCI 40 MG/ML 1 ML VIAL IV SCH ×2 (08:17→16:10)
[2016-08-01] MEDS: INSULIN LISPRO (humaLOG) 300 UNIT/3 ML VIAL SQ SCH ×4 (08:18→21:59)
[2016-08-01] MEDS: ATORVASTATIN 10 MG TAB PO SCH (08:18)
[2016-08-01 09:16] LABS: CH 28.5; CHCM 30.9; HCT 45.8 % (34.0-46.0); HDW 2.43; HGB 14.3 gm/dL (11.4-16.0); Hypochromasia Slight; MCHC 31.3 g/dL (31.0-37.0); MCV 92.8 fL (80.0-100.0); Mean Platelet Volume 6.9; RBC 4.94 m/uL (3.80-5.40); RDW 12.7 % (11.5-15.5); WBC 14.9 k/uL (3.8-10.6)
[2016-08-01 09:39] LABS: ALT 42 U/L (9-52); AST 26 U/L (14-36); Alkaline Phosphatase 56 U/L (38-126); Anion Gap 7 mmol/L; Blood Urea Nitrogen 43 mg/dL (7-17); Calcium 9.5 mg/dL (8.4-10.2); Carbon Dioxide 33 mmol/L (22-30); Chloride 100 mmol/L (98-107); Glucose 139 mg/dL (74-99); Non-African American GFR(MDRD) >60 (>60 ml/min/1.73 sqM); Potassium 5.1 mmol/L (3.5-5.1); Sodium 140 mmol/L (137-145); Total Bilirubin 0.7 mg/dL (0.2-1.3); Total Protein 6.4 g/dL (6.3-8.2)
[2016-08-01] MEDS: guaiFENesin 600 MG TABLET.ER PO SCH ×2 (10:07→20:39)
[2016-08-01 11:56] LABS: Glucose,Whole Blood 186 mg/dL (75-99)
--- NOTE | 2016-08-01 15:37 | P.PN ---
Subjective Principal diagnosis: Acute exacerbation of chronic obstructive pulmonary disease. This is a very pleasant 71-year-old female patient who follows with Dr. Puckett as her primary care physician. She has a history of chronic obstructive pulmonary disease, chronic and ongoing nicotine addiction, diabetes mellitus, hypothyroidism. Possibly 1 week ago she developed increasing shortness of breath, cough and congestion. She was treated with steroids and azithromycin. She did not have much improvement and presented here on 07/28/2016 with worsening of symptoms. She has a loose nonproductive cough. No fever, chills or night sweats. Her chest x-ray revealed no acute pulmonary process. She's been obtaining good O2 saturations in the 90s on 3 L/m per nasal cannula. She' s been afebrile. Minimal leukocytosis. Hemodynamically stable. She is seen today in consultation on the regular medical floor. She is awake and alert in no acute distress. She states she is breathing somewhat easier today as compared to yesterday but not quite back to her baseline. She is dyspneic with minimal conversation and dyspneic on minimal exertion. Still quite bronchospastic and wheezy. The patient was seen again today 07/31/2016 in follow-up on the regular medical floor. She is awake and alert in no acute distress. She is doing quite a bit better today as compared to yesterday but still not back to her baseline. She denies any worsening shortness of breath. She continues with a dry nonproductive cough. She is maintaining good O2 saturations in the low 90s on 2 L/m per nasal cannula. She's been afebrile. Blood cultures revealed no growth to date. The patient is seen again today 08/01/2016 in follow-up. She is awake and alert in no acute distress. She has been slow to progress. She's feels quite short of breath on minimal exertion today. We will continue with her current medications including bronchodilators, Pulmicort and IV Solu-Medrol. She's not quite ready for discharge. She is requiring 3 L/m per nasal cannula to maintain O2 saturations in the 90s. She did drop to 84% on room air. Objective - Vital Signs Vital signs: Vital Signs Temp 97.4 F L 08/01/16 07:00 Pulse 100 08/01/16 11:40 Resp 21 08/01/16 07:00 BP 141/80 08/01/16 07:00 Pulse Ox 94 L 08/01/16 08:13 Intake & Output 07/31/16 08/01/16 08/01/16 18:59 06:59 18:59 Intake Total 200 Balance 200 Intake: Oral 200 Other: # Voids 2 1 - Exam GENERAL EXAM: Alert, comfortable in no apparent distress. HEAD: Normocephalic. EYES: Normal reaction of pupils, equal size. NOSE: Clear with pink turbinates. THROAT: No erythema or exudates. NECK: No masses, no JVD. CHEST: No chest wall deformity. LUNGS: Equal air entry with bilateral wheezing. Diminished throughout. CVS: S1 and S2 normal with no audible murmurs, regular rhythm. ABDOMEN: No hepatosplenomegaly, normal bowel sounds, no guarding or rigidity. SPINE: No scoliosis or deformity SKIN: No rashes CENTRAL NERVOUS SYSTEM: No focal deficits, tone is normal in all 4 extremities. Extremities: There is trace peripheral edema. No clubbing, no cyanosis. Peripheral pulses are intact. - Labs CBC & Chem 7: 08/01/16 08:18 08/01/16 08:18 Labs: Abnormal Lab Results - Last 24 Hours (Table) 07/31/16 07/31/16 08/01/16 Range/Units 17:40 21:22 07:46 WBC (3.8-10.6) k/uL Carbon Dioxide (22-30) mmol/L BUN (7-17) mg/dL Glucose (74-99) mg/dL POC Glucose (mg/dL) 171 H 138 H 138 H (75-99) mg/dL 08/01/16 08/01/16 08/01/16 Range/Units 08:18 08:18 11:37 WBC 14.9 H (3.8-10.6) k/uL Carbon Dioxide 33 H (22-30) mmol/L BUN 43 H (7-17) mg/dL Glucose 139 H (74-99) mg/dL POC Glucose (mg/dL) 186 H (75-99) mg/dL Microbiology - Last 24 Hours (Table) 07/28/16 17:20 Blood Culture - Preliminary Blood No Growth after 72 hours Assessment and Plan Plan: Impression: #1 Acute exacerbation of chronic obstructive pulmonary disease. #2 Chronic and ongoing tobacco dependence. #3 Acute hypoxic respiratory failure secondary to above. #4 Diabetes mellitus. #5 Hypothyroidism. Plan: The patient was seen and evaluated by Dr. Almodovar. We'll go ahead and continue her treatment for COPD exacerbation including bronchodilators, Pulmicort inhalations twice a day, IV Solu-Medrol. She is on empiric antibiotics in the form of Levaquin. She has been slow to progress. A little worse today as compared to yesterday. She does drop to 84% O2 saturations on room air. She is maintaining a good O2 saturations in the 90s on 3 L currently. We'll continue to follow.
[2016-08-01] MEDS: LEVOFLOXACIN 500 MG TAB PO SCH (17:22)
[2016-08-01 17:50] LABS: Glucose,Whole Blood 128 mg/dL (75-99)
[2016-08-01 21:26] LABS: Glucose,Whole Blood 157 mg/dL (75-99)
[2016-08-02] MEDS: methylPREDNISolone SOD SUCCI 40 MG/ML 1 ML VIAL IV SCH ×4 (00:26→23:26)
[2016-08-02] MEDS: LEVOTHYROXINE 88 MCG TAB PO SCH (06:23)
[2016-08-02 07:26] LABS: Glucose,Whole Blood 146 mg/dL (75-99)
[2016-08-02] MEDS: CALCIUM CARB-VIT D 500MG-200UN 1 EACH TAB PO SCH ×2 (08:02→20:15)
[2016-08-02] MEDS: PANTOPRAZOLE 40 MG TABLET PO SCH (08:02)
[2016-08-02] MEDS: NICOTINE 14MG/24HR PATCH TRANSDERM SCH (08:02)
[2016-08-02] MEDS: HEPARIN SODIUM,PORCINE 5,000 UNIT/ML 1 ML VIAL SQ SCH ×2 (08:02→20:15)
[2016-08-02] MEDS: guaiFENesin 600 MG TABLET.ER PO SCH ×2 (08:02→20:15)
[2016-08-02] MEDS: metFORMIN 850 MG TAB PO SCH ×2 (08:02→17:00)
[2016-08-02] MEDS: ATORVASTATIN 10 MG TAB PO SCH (08:03)
[2016-08-02] MEDS: INSULIN LISPRO (humaLOG) 300 UNIT/3 ML VIAL SQ SCH ×4 (08:06→21:46)
[2016-08-02] MEDS: IPRATROPIUM-ALBUTEROL 3 ML NEB INHALATION SCH ×4 (08:23→19:21)
[2016-08-02] MEDS: BUDESONIDE 1 MG/2 ML NEBU INHALATION SCH ×2 (08:23→19:19)
--- NOTE | 2016-08-02 08:40 | P.PN ---
Subjective Principal diagnosis: This is a continue progress on a 71-year-old white female essentially admitted for exacerbation of COPD. She still is struggling in is requiring about 3 L of nasal oxygen. She states she is able and willing to go the bathroom but then gets somewhat worn out if she needs to take a shower. She does clinically states she feels better. No voiding difficulties are stated. Objective - Vital Signs Vital signs: Vital Signs Temp 97.3 F L 08/02/16 07:00 Pulse 102 H 08/02/16 08:25 Resp 20 08/02/16 07:00 BP 122/76 08/02/16 07:00 Pulse Ox 94 L 08/02/16 08:25 Intake & Output 08/01/16 08/02/16 08/02/16 18:59 06:59 18:59 Intake Total 360 Balance 360 Weight 81.647 kg Intake: Oral 360 Other: Voiding Method Toilet # Voids 3 1 - Constitutional General appearance: Present: obese - EENT Eyes: Absent: abnormal pupil - Respiratory Respiratory: bilateral: diminished, wheezing - Cardiovascular Rhythm: regular Heart sounds: normal: S1, S2 - Gastrointestinal General gastrointestinal: Present: soft. Absent: tenderness - Musculoskeletal Musculoskeletal: Present: generalized weakness - Psychiatric Psychiatric: Present: A&O x's 3, appropriate affect - Labs CBC & Chem 7: 08/01/16 08:18 08/01/16 08:18 Labs: Abnormal Lab Results - Last 24 Hours (Table) 08/01/16 08/01/16 08/01/16 Range/Units 08:18 08:18 11:37 WBC 14.9 H (3.8-10.6) k/uL Carbon Dioxide 33 H (22-30) mmol/L BUN 43 H (7-17) mg/dL Glucose 139 H (74-99) mg/dL POC Glucose (mg/dL) 186 H (75-99) mg/dL 08/01/16 08/01/16 08/02/16 Range/Units 17:39 21:12 07:14 WBC (3.8-10.6) k/uL Carbon Dioxide (22-30) mmol/L BUN (7-17) mg/dL Glucose (74-99) mg/dL POC Glucose (mg/dL) 128 H 157 H 146 H (75-99) mg/dL Microbiology - Last 24 Hours (Table) 07/28/16 17:20 Blood Culture - Preliminary Blood No Growth after 96 hours Assessment and Plan (1) Tobacco abuse counseling Status: Acute (2) Acute exacerbation of chronic obstructive airways disease Status: Acute (3) Failure of outpatient treatment Status: Acute Plan: Continue current regimen of treatment. Question need to bump up her Solu- Medrol back up to 60 mg every 6 hours. Appreciate pulmonology input. Dr. Marley's group will be covering for the weekend. Anticipate discharge in the next 48-72 hours if she continues this trajectory. Check CBC and CMP in a.m. Time with Patient: Less than 30
[2016-08-02 12:20] LABS: Glucose,Whole Blood 157 mg/dL (75-99)
[2016-08-02 13:15] VITALS: BMI 29.0
--- NOTE | 2016-08-02 14:14 | P.PN ---
Subjective Principal diagnosis: Acute exacerbation of chronic obstructive pulmonary disease. This is a very pleasant 71-year-old female patient who follows with Dr. Puckett as her primary care physician. She has a history of chronic obstructive pulmonary disease, chronic and ongoing nicotine addiction, diabetes mellitus, hypothyroidism. Possibly 1 week ago she developed increasing shortness of breath, cough and congestion. She was treated with steroids and azithromycin. She did not have much improvement and presented here on 07/28/2016 with worsening of symptoms. She has a loose nonproductive cough. No fever, chills or night sweats. Her chest x-ray revealed no acute pulmonary process. She's been obtaining good O2 saturations in the 90s on 3 L/m per nasal cannula. She' s been afebrile. Minimal leukocytosis. Hemodynamically stable. She is seen today in consultation on the regular medical floor. She is awake and alert in no acute distress. She states she is breathing somewhat easier today as compared to yesterday but not quite back to her baseline. She is dyspneic with minimal conversation and dyspneic on minimal exertion. Still quite bronchospastic and wheezy. The patient was seen again today 07/31/2016 in follow-up on the regular medical floor. She is awake and alert in no acute distress. She is doing quite a bit better today as compared to yesterday but still not back to her baseline. She denies any worsening shortness of breath. She continues with a dry nonproductive cough. She is maintaining good O2 saturations in the low 90s on 2 L/m per nasal cannula. She's been afebrile. Blood cultures revealed no growth to date. The patient is seen again today 08/01/2016 in follow-up. She is awake and alert in no acute distress. She has been slow to progress. She's feels quite short of breath on minimal exertion today. We will continue with her current medications including bronchodilators, Pulmicort and IV Solu-Medrol. She's not quite ready for discharge. She is requiring 3 L/m per nasal cannula to maintain O2 saturations in the 90s. She did drop to 84% on room air. The patient is seen again today 08/02/2016 and follow-up on the regular medical floor. She is awake and alert in no acute distress. She is breathing better today as compared to yesterday but still not quite back to her baseline. She does qualify for home oxygen and is being arranged prior to her discharge. She denies any worsening shortness of breath, cough or congestion. She is still dyspneic on minimal exertion. Objective - Vital Signs Vital signs: Vital Signs Temp 97.3 F L 08/02/16 07:00 Pulse 100 08/02/16 11:51 Resp 20 08/02/16 08:00 BP 122/76 08/02/16 07:00 Pulse Ox 94 L 08/02/16 08:25 Intake & Output 08/01/16 08/02/16 08/02/16 18:59 06:59 18:59 Intake Total 360 350 Balance 360 350 Weight 81.647 kg 81.647 kg Intake: Oral 360 350 Other: Voiding Method Toilet Toilet # Voids 3 1 - Exam GENERAL EXAM: Alert, comfortable in no apparent distress. HEAD: Normocephalic. EYES: Normal reaction of pupils, equal size. NOSE: Clear with pink turbinates. THROAT: No erythema or exudates. NECK: No masses, no JVD. CHEST: No chest wall deformity. LUNGS: Equal air entry with bilateral wheezing. Diminished throughout. CVS: S1 and S2 normal with no audible murmurs, regular rhythm. ABDOMEN: No hepatosplenomegaly, normal bowel sounds, no guarding or rigidity. SPINE: No scoliosis or deformity SKIN: No rashes CENTRAL NERVOUS SYSTEM: No focal deficits, tone is normal in all 4 extremities. Extremities: There is trace peripheral edema. No clubbing, no cyanosis. Peripheral pulses are intact. - Labs CBC & Chem 7: 08/01/16 08:18 08/01/16 08:18 Labs: Abnormal Lab Results - Last 24 Hours (Table) 08/01/16 08/01/16 08/02/16 Range/Units 17:39 21:12 07:14 POC Glucose (mg/dL) 128 H 157 H 146 H (75-99) mg/dL 08/02/16 Range/Units 11:54 POC Glucose (mg/dL) 157 H (75-99) mg/dL Microbiology - Last 24 Hours (Table) 07/28/16 17:20 Blood Culture - Preliminary Blood No Growth after 96 hours Assessment and Plan Plan: Impression: #1 Acute exacerbation of chronic obstructive pulmonary disease. #2 Chronic and ongoing tobacco dependence. #3 Acute hypoxic respiratory failure secondary to above. #4 Diabetes mellitus. #5 Hypothyroidism. Plan: The patient was seen and evaluated by Dr. Almodovar. We'll go ahead and continue her treatment for COPD exacerbation including bronchodilators, Pulmicort inhalations twice a day, IV Solu-Medrol. She is on empiric antibiotics in the form of Levaquin. She has been slow to progress. She is doing a little better today as compared to yesterday but not quite back to her baseline. She does drop to 84% O2 saturations on room air. Home oxygen has been arranged. Probable discharge in the a.m. We'll continue to follow.
[2016-08-02] MEDS: LEVOFLOXACIN 500 MG TAB PO SCH (17:00)
[2016-08-02 17:14] LABS: Glucose,Whole Blood 115 mg/dL (75-99)
[2016-08-02 21:05] LABS: Glucose,Whole Blood 180 mg/dL (75-99)
[2016-08-02] MEDS: NAPROXEN 250 MG TAB PO PRN ×2 (23:24)
[2016-08-02] MEDS: ALPRAZolam 0.25 MG TAB PO PRN ×2 (23:32)
[2016-08-02] MEDS: IPRATROPIUM-ALBUTEROL 3 ML NEB INHALATION PRN (23:33)
[2016-08-03] MEDS ORDERED: SODIUM CHLORIDE 0.9% 1,000 ML IV ONE (01:17)
[2016-08-03] MEDS: LEVOTHYROXINE 88 MCG TAB PO SCH (06:48)
[2016-08-03 07:25] LABS: Glucose,Whole Blood 138 mg/dL (75-99)
[2016-08-03] MEDS: IPRATROPIUM-ALBUTEROL 3 ML NEB INHALATION SCH ×4 (07:44→19:18)
[2016-08-03] MEDS: BUDESONIDE 1 MG/2 ML NEBU INHALATION SCH ×2 (07:44→19:16)
[2016-08-03] MEDS: methylPREDNISolone SOD SUCCI 40 MG/ML 1 ML VIAL IV SCH (08:02)
[2016-08-03] MEDS: NICOTINE 14MG/24HR PATCH TRANSDERM SCH (08:02)
[2016-08-03] MEDS: guaiFENesin 600 MG TABLET.ER PO SCH ×2 (08:03→21:28)
[2016-08-03] MEDS: HEPARIN SODIUM,PORCINE 5,000 UNIT/ML 1 ML VIAL SQ SCH ×2 (08:03→21:29)
[2016-08-03] MEDS: metFORMIN 850 MG TAB PO SCH ×2 (08:03→17:26)
[2016-08-03] MEDS: PANTOPRAZOLE 40 MG TABLET PO SCH (08:03)
[2016-08-03] MEDS: CALCIUM CARB-VIT D 500MG-200UN 1 EACH TAB PO SCH ×2 (08:04→21:28)
[2016-08-03] MEDS: INSULIN LISPRO (humaLOG) 300 UNIT/3 ML VIAL SQ SCH ×4 (08:05→21:27)
[2016-08-03] MEDS: ATORVASTATIN 10 MG TAB PO SCH (08:05)
[2016-08-03 12:49] LABS: Glucose,Whole Blood 144 mg/dL (75-99)
--- NOTE | 2016-08-03 14:29 | P.PN ---
Subjective Principal diagnosis: Acute exacerbation of chronic obstructive pulmonary disease. This is a very pleasant 71-year-old female patient who follows with Dr. Puckett as her primary care physician. She has a history of chronic obstructive pulmonary disease, chronic and ongoing nicotine addiction, diabetes mellitus, hypothyroidism. Possibly 1 week ago she developed increasing shortness of breath, cough and congestion. She was treated with steroids and azithromycin. She did not have much improvement and presented here on 07/28/2016 with worsening of symptoms. She has a loose nonproductive cough. No fever, chills or night sweats. Her chest x-ray revealed no acute pulmonary process. She's been obtaining good O2 saturations in the 90s on 3 L/m per nasal cannula. She' s been afebrile. Minimal leukocytosis. Hemodynamically stable. She is seen today in consultation on the regular medical floor. She is awake and alert in no acute distress. She states she is breathing somewhat easier today as compared to yesterday but not quite back to her baseline. She is dyspneic with minimal conversation and dyspneic on minimal exertion. Still quite bronchospastic and wheezy. The patient was seen again today 07/31/2016 in follow-up on the regular medical floor. She is awake and alert in no acute distress. She is doing quite a bit better today as compared to yesterday but still not back to her baseline. She denies any worsening shortness of breath. She continues with a dry nonproductive cough. She is maintaining good O2 saturations in the low 90s on 2 L/m per nasal cannula. She's been afebrile. Blood cultures revealed no growth to date. The patient is seen again today 08/01/2016 in follow-up. She is awake and alert in no acute distress. She has been slow to progress. She's feels quite short of breath on minimal exertion today. We will continue with her current medications including bronchodilators, Pulmicort and IV Solu-Medrol. She's not quite ready for discharge. She is requiring 3 L/m per nasal cannula to maintain O2 saturations in the 90s. She did drop to 84% on room air. The patient is seen again today 08/02/2016 and follow-up on the regular medical floor. She is awake and alert in no acute distress. She is breathing better today as compared to yesterday but still not quite back to her baseline. She does qualify for home oxygen and is being arranged prior to her discharge. She denies any worsening shortness of breath, cough or congestion. She is still dyspneic on minimal exertion. The patient is seen again today 08/03/2016 in follow-up in the regular medical floor. She is currently sitting up in at the bedside. She denies any worsening shortness of breath, cough or congestion. She has continued to utilize oxygen while ambulating as she does have desaturations into the 80s. She has had oxygen for home arranged and a concentrator was there yesterday. Objective - Vital Signs Vital signs: Vital Signs Temp 97.4 F L 08/03/16 07:00 Pulse 108 H 08/03/16 12:12 Resp 18 08/03/16 07:00 BP 136/75 08/03/16 07:00 Pulse Ox 97 08/03/16 07:00 Intake & Output 08/02/16 08/03/16 08/03/16 18:59 06:59 18:59 Intake Total 350 240 Balance 350 240 Weight 81.647 kg Intake: Oral 350 240 Other: Voiding Method Toilet # Voids 1 1 - Exam GENERAL EXAM: Alert, comfortable in no apparent distress. HEAD: Normocephalic. EYES: Normal reaction of pupils, equal size. NOSE: Clear with pink turbinates. THROAT: No erythema or exudates. NECK: No masses, no JVD. CHEST: No chest wall deformity. LUNGS: Equal air entry with bilateral wheezing. Diminished throughout. CVS: S1 and S2 normal with no audible murmurs, regular rhythm. ABDOMEN: No hepatosplenomegaly, normal bowel sounds, no guarding or rigidity. SPINE: No scoliosis or deformity SKIN: No rashes CENTRAL NERVOUS SYSTEM: No focal deficits, tone is normal in all 4 extremities. Extremities: There is trace peripheral edema. No clubbing, no cyanosis. Peripheral pulses are intact. - Labs CBC & Chem 7: 08/01/16 08:18 08/01/16 08:18 Labs: Abnormal Lab Results - Last 24 Hours (Table) 08/02/16 08/02/16 08/02/16 Range/Units 16:52 21:01 23:56 POC Glucose (mg/dL) 115 H 180 H (75-99) mg/dL Plasma Lactic Acid Cristi 3.6 H* (0.7-2.0) mmol/L 08/03/16 08/03/16 Range/Units 07:16 12:14 POC Glucose (mg/dL) 138 H 144 H (75-99) mg/dL Plasma Lactic Acid Cristi (0.7-2.0) mmol/L Microbiology - Last 24 Hours (Table) 07/28/16 17:20 Blood Culture - Preliminary Blood No Growth after 120 hours Assessment and Plan Plan: Impression: #1 Acute exacerbation of chronic obstructive pulmonary disease. #2 Chronic and ongoing tobacco dependence. #3 Acute hypoxic respiratory failure secondary to above. #4 Diabetes mellitus. #5 Hypothyroidism. Plan: The patient was seen and evaluated by Dr. Almodovar. We'll go ahead and continue her treatment for COPD exacerbation including bronchodilators, Pulmicort inhalations twice a day, IV Solu-Medrol. She is on empiric antibiotics in the form of Levaquin. She is doing better today as compared to yesterday but not quite back to her baseline. She does drop to 84% O2 saturations on room air. Home oxygen has been arranged. She could be discharged later today or tomorrow morning. We'll continue with a prednisone taper and complete her course of antibiotics. She'll be seen in our office in 1 week postdischarge. She is however encouraged to call sooner with any recurrence of symptoms or other questions or concerns.
[2016-08-03 17:01] LABS: Glucose,Whole Blood 149 mg/dL (75-99)
[2016-08-03] MEDS: LEVOFLOXACIN 500 MG TAB PO SCH (17:27)
--- NOTE | 2016-08-03 19:11 | PN ---
Mrs. Jernigan is a 71-year-old female with a past medical history of chronic obstructive pulmonary disease ongoing nicotine dependence, diabetes mellitus, hypothyroidism, admitted with the chief complaint of difficulty in breathing, cough and congestion. She is currently being treated for acute COPD exacerbation. She is showing improvement with IV steroids and breathing treatments but at a very slow rate. Overall, the patient states that her difficulty in breathing is better, but not back to her baseline as of now. REVIEW OF SYSTEMS: CONSTITUTIONAL: Denies having fever, chills, or rigors. RESPIRATORY: Slight improvement in difficulty in breathing. No cough. CARDIAC: No chest pain or palpitations. GI: No abdominal pain, nausea, vomiting, or diarrhea. : No dysuria or hematuria. Patient's medications have been reviewed. On examination, patient's vital signs temperature 97.8, heart rate 90 to 100. Respiratory rate 20, blood pressure 133/68, saturating at 93% on 3 liters of nasal cannula. GENERAL EXAMINATION: Obese female, lying in bed, appears to be no acute distress. HEAD: Atraumatic, and reactive to light. NECK: No JVD. No. CARDIAC: S1, S2 heard. LUNGS: Diminished breath sounds in all lung luevano. No wheezes. No crackles. ABDOMEN: Soft, nontender. Bowel sounds positive. Difficult to appreciate organomegaly due to huge body habitus. SKIN: No rash. DIRECTOR OF EXHIBITS: Alert, awake, oriented x3. No focal neurological deficits. PSYCHIATRIC: Appropriate mood and affect. Patient's labs: No new labs from this morning. ASSESSMENT AND PLAN: 1. Acute exacerbation of chronic obstructive pulmonary disease. 2. Acute hypoxic respiratory failure secondary to above. 3. Type 2 diabetes mellitus. 4. Hypothyroidism acquired. 5. Chronic nicotine dependence. 6. Hyperlipidemia. PLAN: The plan is to continue the patient on antibiotics in the form of Levaquin. The patient's IV steroids have been changed to p.o. prednisone tomorrow. Continue with breathing treatments. Continue the rest of her medication regimen and further recommendations to follow depending on the progress of the patient. Anticipate discharge in the next 24 to 48 hours.
[2016-08-03 20:58] LABS: Glucose,Whole Blood 136 mg/dL (75-99)
[2016-08-03] MEDS: diphenhydrAMINE 25 MG CAP PO PRN (22:43)
[2016-08-03] MEDS: NAPROXEN 250 MG TAB PO PRN (23:06)
[2016-08-03] MEDS: IPRATROPIUM-ALBUTEROL 3 ML NEB INHALATION PRN (23:46)
[2016-08-04] MEDS: LEVOTHYROXINE 88 MCG TAB PO SCH (06:40)
[2016-08-04] MEDS: BUDESONIDE 1 MG/2 ML NEBU INHALATION SCH ×2 (07:30→20:33)
[2016-08-04] MEDS: IPRATROPIUM-ALBUTEROL 3 ML NEB INHALATION SCH ×4 (07:30→20:33)
[2016-08-04 07:44] LABS: Glucose,Whole Blood 90 mg/dL (75-99)
[2016-08-04] MEDS: INSULIN LISPRO (humaLOG) 300 UNIT/3 ML VIAL SQ SCH ×4 (07:49→21:16)
[2016-08-04] MEDS: metFORMIN 850 MG TAB PO SCH ×2 (08:12→18:02)
[2016-08-04] MEDS: PANTOPRAZOLE 40 MG TABLET PO SCH (08:12)
[2016-08-04] MEDS: CALCIUM CARB-VIT D 500MG-200UN 1 EACH TAB PO SCH ×2 (08:12→21:17)
[2016-08-04] MEDS: NICOTINE 14MG/24HR PATCH TRANSDERM SCH (08:12)
[2016-08-04] MEDS: ATORVASTATIN 10 MG TAB PO SCH (08:12)
[2016-08-04] MEDS: HEPARIN SODIUM,PORCINE 5,000 UNIT/ML 1 ML VIAL SQ SCH ×2 (08:13→21:17)
[2016-08-04] MEDS: guaiFENesin 600 MG TABLET.ER PO SCH ×2 (08:13→21:17)
[2016-08-04] MEDS: predniSONE 20 MG TAB PO SCH (08:13)
[2016-08-04] MEDS ORDERED: Potassium Replacement Protocol 1 EACH MISC MISCELLANE PRN (08:43)
[2016-08-04] MEDS: diphenhydrAMINE 25 MG CAP PO PRN ×2 (08:50→23:42)
[2016-08-04] MEDS ORDERED: POTASSIUM CHLORIDE ER 20 MEQ TAB.ER PO SCH (09:00)
[2016-08-04] MEDS ORDERED: POTASSIUM CHLORIDE 10 MEQ, LIDOCAINE 2% INJ 10 MG in SODIUM CHLORIDE 0.9% 100 ML IV SCH (09:00)
[2016-08-04 09:42] LABS: Basophils % (A) 0 %; CH 28.9; CHCM 30.7; Eosinophils # (A) 0.1 k/uL (0-0.7); Eosinophils % (A) 0 %; HCT 46.6 % (34.0-46.0); HDW 2.32; HGB 14.3 gm/dL (11.4-16.0); Hypochromasia Slight; Luc # (Auto) 0.18; Luc % (Auto) 1; Lymphocytes # (A) 2.2 k/uL (1.0-4.8); Lymphocytes % (A) 15 %; MCH 29.1 pg (25.0-35.0); MCHC 30.8 g/dL (31.0-37.0); MCV 94.5 fL (80.0-100.0); Mean Platelet Volume 6.7; Monocytes % (A) 7 %; Neutrophils % (A) 76 %; RBC 4.93 m/uL (3.80-5.40); RDW 12.6 % (11.5-15.5); WBC 14.5 k/uL (3.8-10.6); WBC (Perox) 14.49
[2016-08-04 10:07] LABS: Anion Gap 6 mmol/L; Blood Urea Nitrogen 33 mg/dL (7-17); Calcium 9.4 mg/dL (8.4-10.2); Carbon Dioxide 38 mmol/L (22-30); Chloride 96 mmol/L (98-107); Glucose 134 mg/dL (74-99); Non-African American GFR(MDRD) >60 (>60 ml/min/1.73 sqM); Potassium 4.2 mmol/L (3.5-5.1); Sodium 140 mmol/L (137-145)
[2016-08-04 12:47] LABS: Glucose,Whole Blood 150 mg/dL (75-99)
--- NOTE | 2016-08-04 14:38 | P.PN ---
Subjective This is a very pleasant 71-year-old female patient who follows with Dr. Puckett as her primary care physician. She has a history of chronic obstructive pulmonary disease, chronic and ongoing nicotine addiction, diabetes mellitus, hypothyroidism. Possibly 1 week ago she developed increasing shortness of breath, cough and congestion. She was treated with steroids and azithromycin. She did not have much improvement and presented here on 07/28/2016 with worsening of symptoms. She has a loose nonproductive cough. No fever, chills or night sweats. Her chest x-ray revealed no acute pulmonary process. She's been obtaining good O2 saturations in the 90s on 3 L/m per nasal cannula. She' s been afebrile. Minimal leukocytosis. Hemodynamically stable. She is seen today in consultation on the regular medical floor. She is awake and alert in no acute distress. She states she is breathing somewhat easier today as compared to yesterday but not quite back to her baseline. She is dyspneic with minimal conversation and dyspneic on minimal exertion. Still quite bronchospastic and wheezy. The patient was seen again today 07/31/2016 in follow-up on the regular medical floor. She is awake and alert in no acute distress. She is doing quite a bit better today as compared to yesterday but still not back to her baseline. She denies any worsening shortness of breath. She continues with a dry nonproductive cough. She is maintaining good O2 saturations in the low 90s on 2 L/m per nasal cannula. She's been afebrile. Blood cultures revealed no growth to date. The patient is seen again today 08/01/2016 in follow-up. She is awake and alert in no acute distress. She has been slow to progress. She's feels quite short of breath on minimal exertion today. We will continue with her current medications including bronchodilators, Pulmicort and IV Solu-Medrol. She's not quite ready for discharge. She is requiring 3 L/m per nasal cannula to maintain O2 saturations in the 90s. She did drop to 84% on room air. The patient is seen again today 08/02/2016 and follow-up on the regular medical floor. She is awake and alert in no acute distress. She is breathing better today as compared to yesterday but still not quite back to her baseline. She does qualify for home oxygen and is being arranged prior to her discharge. She denies any worsening shortness of breath, cough or congestion. She is still dyspneic on minimal exertion. The patient is seen again today 08/03/2016 in follow-up in the regular medical floor. She is currently sitting up in at the bedside. She denies any worsening shortness of breath, cough or congestion. She has continued to utilize oxygen while ambulating as she does have desaturations into the 80s. She has had oxygen for home arranged and a concentrator was there yesterday. On the patient is feeling better. She is less short of breath. Discharge planning is in progress. We're arranging home O2 for this patient. No chest pain. No nausea or vomiting. No change in mental status. No new complaints otherwise for now. Objective - Vital Signs Vital signs: Vital Signs Temp 97.2 F L 08/04/16 07:00 Pulse 108 H 08/04/16 11:54 Resp 20 08/04/16 07:00 BP 106/62 08/04/16 07:00 Pulse Ox 96 08/04/16 07:00 Intake & Output 08/03/16 08/04/16 08/04/16 18:59 06:59 18:59 Intake Total 480 320 Balance 480 320 Weight 81.647 kg Intake: Oral 480 320 Other: Voiding Method Toilet # Voids 2 1 - Exam GENERAL EXAM: Alert, comfortable in no apparent distress. HEAD: Normocephalic. EYES: Normal reaction of pupils, equal size. NOSE: Clear with pink turbinates. THROAT: No erythema or exudates. NECK: No masses, no JVD. CHEST: No chest wall deformity. LUNGS: Equal air entry with bilateral wheezing. Diminished throughout. CVS: S1 and S2 normal with no audible murmurs, regular rhythm. ABDOMEN: No hepatosplenomegaly, normal bowel sounds, no guarding or rigidity. SPINE: No scoliosis or deformity SKIN: No rashes CENTRAL NERVOUS SYSTEM: No focal deficits, tone is normal in all 4 extremities. Extremities: There is trace peripheral edema. No clubbing, no cyanosis. Peripheral pulses are intact. - Labs CBC & Chem 7: 08/04/16 09:14 08/04/16 09:14 Labs: Abnormal Lab Results - Last 24 Hours (Table) 08/03/16 08/03/1617 Range/Units 16:51 20:56 09:14 WBC 14.5 H (3.8-10.6) k/uL Hct 46.6 H (34.0-46.0) % MCHC 30.8 L (31.0-37.0) g/dL Neutrophils # 11.0 H (1.3-7.7) k/uL Chloride (98-107) mmol/L Carbon Dioxide (22-30) mmol/L BUN (7-17) mg/dL Glucose (74-99) mg/dL POC Glucose (mg/dL) 149 H 136 H (75-99) mg/dL 08/04/16 08/04/16 Range/Units 09:14 12:34 WBC (3.8-10.6) k/uL Hct (34.0-46.0) % MCHC (31.0-37.0) g/dL Neutrophils # (1.3-7.7) k/uL Chloride 96 L (98-107) mmol/L Carbon Dioxide 38 H (22-30) mmol/L BUN 33 H (7-17) mg/dL Glucose 134 H (74-99) mg/dL POC Glucose (mg/dL) 150 H (75-99) mg/dL Microbiology - Last 24 Hours (Table) 07/28/16 17:20 Blood Culture - Final Blood No Growth after 144 hours Assessment and Plan Plan: Impression: #1 Acute exacerbation of chronic obstructive pulmonary disease. #2 Chronic and ongoing tobacco dependence. #3 Acute hypoxic respiratory failure secondary to above. #4 Diabetes mellitus. #5 Hypothyroidism. Plan The patient is improving. Will need to go home on home O2 along with a prednisone burst taper. Outpatient follow-up. Discharge planning per primary care. Anticipate discharge next 24-48 hours. Clinically improving.
[2016-08-04 17:18] LABS: Glucose,Whole Blood 158 mg/dL (75-99)
[2016-08-04] MEDS: LEVOFLOXACIN 500 MG TAB PO SCH (18:02)
--- NOTE | 2016-08-04 20:01 | PN ---
DATE OF SERVICE: 08/04/2016. INTERVAL HISTORY: Ms. Jernigan is a 71-year-old female with a past medical history of COPD , ongoing nicotine dependence, diabetes mellitus, hypothyroidism, admitted to the hospital with the chief complaint of difficulty breathing, cough and congestion. She is currently being treated for acute COPD exacerbation. She is currently showing improvement with IV steroids that are changed to p.o. steroids today. She is still on breathing treatments. Overall, patient states that her difficulty in breathing is better, but not back to her baseline. REVIEW OF SYSTEMS: CONSTITUTIONAL: Denies having fever, chills, or rigors. RESPIRATORY: Improvement in difficulty of breathing. No cough. CARDIAC: No chest pain or palpitations. GI: No abdominal pain, nausea, vomiting, or diarrhea. : No dysuria or hematuria. The patient's medications have been reviewed. On examination, patient's vital signs temperature 97.1, heart rate 90 to 100, respiratory rate 20, blood pressure 124/69, saturating at 95% on 2 liters of nasal cannula. GENERAL EXAMINATION: Obese female, lying in bed, appears to be no acute distress. HEAD: Atraumatic, normocephalic. NECK: No JVD. No thyromegaly. CARDIOVASCULAR: S1, S2 heard. LUNGS: Diminished breath sounds in all lung luevano. Slight wheeze, expiratory wheezes bilateral lung luevano. No crackles. ABDOMEN: Soft and nontender. Bowel sounds are positive. EXTREMITIES: No edema. SKIN: No rash. CLIENT DIRECTOR alert, awake, oriented x3. No focal neurological deficits. PSYCHIATRIC: Appropriate mood and affect. Patient's labs: White count of 14.5, hemoglobin 14.3, platelets of 240. Sodium 140, potassium 4.2, chloride 96, bicarb 38, BUN 33, creatinine 0.80. ASSESSMENT AND PLAN: 1. Acute exacerbation of chronic obstructive pulmonary disease. 2. Acute hypoxic respiratory failure secondary to #1. 3. Type 2 diabetes mellitus. 4. Hypothyroidism. 5. Gastroesophageal reflux disease. 6. Chronic nicotine dependence. 7. Hyperlipidemia. PLAN: The plan is to continue the patient on antibiotics in the form of Levaquin and she is changed to p.o. prednisone today. She still has mild bilateral expiratory wheezes. We will continue the current medication regimen and further recommendations to follow depending on the progress of the patient. MTDD
[2016-08-04 21:26] LABS: Glucose,Whole Blood 103 mg/dL (75-99)
[2016-08-04] MEDS: NAPROXEN 250 MG TAB PO PRN (23:42)
[2016-08-05] MEDS: LEVOTHYROXINE 88 MCG TAB PO SCH (06:30)
[2016-08-05] MEDS: INSULIN LISPRO (humaLOG) 300 UNIT/3 ML VIAL SQ SCH (07:36)
[2016-08-05] MEDS: BUDESONIDE 1 MG/2 ML NEBU INHALATION SCH (07:46)
[2016-08-05] MEDS: IPRATROPIUM-ALBUTEROL 3 ML NEB INHALATION SCH ×2 (07:47→12:16)
[2016-08-05 07:54] VITALS: BP 132/64; RESP 20; TEMP 97.1
[2016-08-05 08:06] LABS: Glucose,Whole Blood 85 mg/dL (75-99)
[2016-08-05] MEDS: metFORMIN 850 MG TAB PO SCH (08:09)
[2016-08-05] MEDS: PANTOPRAZOLE 40 MG TABLET PO SCH (08:09)
[2016-08-05] MEDS: NICOTINE 14MG/24HR PATCH TRANSDERM SCH (08:10)
[2016-08-05] MEDS: guaiFENesin 600 MG TABLET.ER PO SCH (08:10)
[2016-08-05] MEDS: HEPARIN SODIUM,PORCINE 5,000 UNIT/ML 1 ML VIAL SQ SCH (08:10)
[2016-08-05] MEDS: ATORVASTATIN 10 MG TAB PO SCH (08:10)
[2016-08-05] MEDS: CALCIUM CARB-VIT D 500MG-200UN 1 EACH TAB PO SCH (08:10)
[2016-08-05] MEDS: predniSONE 20 MG TAB PO SCH (08:11)
--- NOTE | 2016-08-05 08:26 | P.DS ---
Providers Date of admission: 07/28/16 18:13 Attending physician: Sung Puckett Consults: 07/30/16 08:41 Consult Physician Routine Consulting Provider: Cyndie Almodovar Consult Reason/Comments: acute exacerbation of COPD/patient has requested Do you want consulting provider notified?: Yes Primary care physician: Sung Puckett - Discharge Diagnosis(es) (1) Tobacco abuse counseling Current Visit: Yes Status: Acute (2) Acute exacerbation of chronic obstructive airways disease Current Visit: Yes Status: Acute (3) Failure of outpatient treatment Current Visit: Yes Status: Acute Hospital Course: This is a discharge summary this 71-year-old white female essentially admitted for exacerbation of COPD. The patient was stabilized after being placed on appropriate protocol pulmonology was consulted. She is unfortunately, being discharged on oxygen dependency. She'll follow-up with me in approximately 3 days or so. Patient Condition at Discharge: Stable Plan - Discharge Summary New Discharge Prescriptions: ALPRAZolam [Xanax] 0.25 mg PO TID PRN #60 tab PRN Reason: Anxiety Budesonide 1 mg INHALATION BID #60 neb guaiFENesin [Mucinex] 600 mg PO Q12HR #60 tab Nicotine 14Mg/24Hr Patch [Habitrol] 1 patch TRANSDERM DAILY #30 patch predniSONE 0 mg PO DIRECTED #18 tab Discharge Medication List Alendronate Sodium [Fosamax] 70 mg PO ENRIQUEZ 07/28/16 [History] Calcium Carbonate/Vitamin D3 [Calcium 600-Vit D3 200 Tablet] 1 tab PO HS [History] Calcium Carbonate/Vitamin D3 [Calcium 600-Vit D3 200 Tablet] 2 tab PO QAM [History] Cetirizine HCl/Pseudoephedrine [Zyrtec-D Tablet] 1 tab PO BID PRN 07/28/16 [ History] Ipratropium-Albuterol Nebulize [Duoneb 0.5 mg-3 mg/3 ml Soln] 3 ml INHALATION RT -QID 07/28/16 [History] Ipratropium/Albuterol Sulfate [Combivent Respimat Inhaler] 1 puff INHALATION RT- QID PRN 07/28/16 [History] Levothyroxine Sodium [Synthroid] 88 mcg PO DAILY 07/28/16 [History] Naproxen Sodium [Aleve] 220 mg PO BID PRN 07/28/16 [History] Simvastatin [Zocor] 10 mg PO DAILY 07/28/16 [History] metFORMIN HCL [Glucophage] 850 mg PO BID 07/28/16 [History] ALPRAZolam [Xanax] 0.25 mg PO TID PRN #60 tab 08/05/16 [Rx] Budesonide 1 mg INHALATION BID #60 neb 08/05/16 [Rx] Nicotine 14Mg/24Hr Patch [Habitrol] 1 patch TRANSDERM DAILY #30 patch 08/05/16 [ Rx] Pantoprazole [Protonix] 40 mg PO [id number] tab 08/05/16 [Rx] guaiFENesin [Mucinex] 600 mg PO Q12HR #60 tab 08/05/16 [Rx] predniSONE 0 mg PO DIRECTED #18 tab 08/05/16 [Rx] Follow up Appointment(s)/Referral(s): Sung Puckett MD [Primary Care Provider] - 3 Days Activity/Diet/Wound Care/Special Instructions: [facility] (Home Oxygen/ call once home to have concentrator delivered) #[phone]
[2016-08-05 09:31] LABS: Basophils % (A) 0 %; CHCM 30.6; Eosinophils # (A) 0.1 k/uL (0-0.7); Eosinophils % (A) 1 %; HCT 46.3 % (34.0-46.0); HDW 2.25; HGB 14.1 gm/dL (11.4-16.0); Hypochromasia Slight; Luc # (Auto) 0.17; Luc % (Auto) 1; Lymphocytes # (A) 2.7 k/uL (1.0-4.8); Lymphocytes % (A) 18 %; MCHC 30.4 g/dL (31.0-37.0); MCV 95.4 fL (80.0-100.0); Mean Platelet Volume 6.9; Monocytes # (A) 0.9 k/uL (0-1.0); Monocytes % (A) 6 %; Neutrophils # (A) 11.1 k/uL (1.3-7.7); Neutrophils % (A) 74 %; RBC 4.85 m/uL (3.80-5.40); RDW 12.8 % (11.5-15.5)
[2016-08-05 09:39] LABS: Blood Urea Nitrogen 33 mg/dL (7-17); Calcium 9.4 mg/dL (8.4-10.2); Chloride 94 mmol/L (98-107); Glucose 87 mg/dL (74-99); Non-African American GFR(MDRD) >60 (>60 ml/min/1.73 sqM); Potassium 4.6 mmol/L (3.5-5.1); Sodium 139 mmol/L (137-145)
[2016-08-05 09:44] LABS: Anion Gap 7 mmol/L; Carbon Dioxide 38 mmol/L (22-30)
[2016-08-05 12:19] LABS: Glucose,Whole Blood 130 mg/dL (75-99)
[2016-08-05 12:35] VITALS: PULSE 100
== END 2016-08-05 12:39 | disposition home or self-care (01) | DRG 189 ==
LOC: EC 17:13 → 4MS4W 18:13
PROVIDERS: ADMIT Family Medicine; ATTEND Family Medicine
DX: J96.01 Acute respiratory failure with hypoxia (principal); J44.1 Chronic obstructive pulmonary disease with (acute) exacerbation; E11.9 Type 2 diabetes mellitus without complications; J45.901 Unspecified asthma with (acute) exacerbation; F17.210 Nicotine dependence, cigarettes, uncomplicated; H26.9 Unspecified cataract; E03.9 Hypothyroidism, unspecified; E78.5 Hyperlipidemia, unspecified; K21.9 Gastro-esophageal reflux disease without esophagitis; Z77.22 Contact with and (suspected) exposure to environmental tobacco smoke (acute) (chronic); Z90.49 Acquired absence of other specified parts of digestive tract; Z90.710 Acquired absence of both cervix and uterus; Z79.84 Long term (current) use of oral hypoglycemic drugs; Z79.83 Long term (current) use of bisphosphonates; Z79.899 Other long term (current) drug therapy
CPT/HCPCS: 36415; 71010; 80048; 80053; 82550; 82553; 83036; 83605; 83735; 83880; 84484; 85025; 85027; 85379; 85610; 85730; 87040; 93005; 94640; 94760

== ENCOUNTER 2016-08-27 07:42 | Day surgery (SDC) | payer MEDICARE ==
[2016-08-22 15:56] VITALS: BMI 29.0
[~2016-08-27 07:42] MED LIST: LACTATED RINGERS 1,000 ML IV SCH; LIDOCAINE 1% 20 ML VIAL (10MG/ML) FOR IV START INTRADERMA PRN; ONDANSETRON 4 MG/2 ML VIAL IVP PRN
[2016-08-27] MEDS: CYCLOPENTOLATE 1% OPHTH SOLN 2 ML BTL OP ONE ×3 (08:43→09:01)
[2016-08-27] MEDS: FLURBIPROFEN 0.03% OPHTH DROPS 2.5 ML BTL OP ONE ×3 (08:46→09:04)
[2016-08-27 08:48] VITALS: RESP 16; TEMP 96.3
[2016-08-27] MEDS: PHENYLEPHRINE 10% OPHTH DROPS 5 ML BTL OP ONE ×3 (08:49→09:07)
[2016-08-27 08:55] LABS: Glucose,Whole Blood 123 mg/dL (75-99)
[2016-08-27] MEDS ORDERED: LIDOCAINE 1% INJ 10MG/ML (20 ML MDV) ONE (09:21)
[2016-08-27] MEDS ORDERED: PROPOFOL 10 MG/ML 20 ML VIAL IV ONE (09:21)
[2016-08-27] MEDS ORDERED: EPINEPHrine (PF) 0.5 ML in BALANCED SALT IRRIG SOLN COMB2 500 ML IRRIGATION ONE (09:31)
[2016-08-27] MEDS ORDERED: BALANCED SALT IRRIG SOLN COMB2 15 ML IRRIG.SOLN INTRAOCULA ONE (09:32)
[2016-08-27] MEDS ORDERED: HYALURONATE SODIUM INTRAOCULAR 1 EACH SYRINGE (10MG/ML) INTRAOCULA ONE (09:33)
[2016-08-27] MEDS ORDERED: TETRACAINE 0.5% OPHTH (PF) DROPS 4 ML BTL RIGHT EYE ONE (09:34)
--- NOTE | 2016-08-27 09:50 | P.OP ---
Date of Procedure: 08/27/16 Preoperative Diagnosis: Postoperative Diagnosis: Procedure(s) Performed: PREOPERATIVE DIAGNOSIS: Cataract, right eye. POSTOPERATIVE DIAGNOSIS: Cataract, right eye. OPERATION: Phacoemulsification cataract, right eye. DESCRIPTION OF PROCEDURE: The patient was taken to the preoperative holding area. Intravenous Propofol was given so as to bring about adequate sedation. The following mixture was given for local anesthesia: 5 mL of 2% lidocaine, 5 mL of 0.75% Marcaine, and 1 mL of Wydase. Approximately 4 mL was injected in the retrobulbar space of the surgical eye. Additional 1 mL was then directed to the temporal area of the surgical eye. This was performed to allow adequate neurological block of the facial muscles. The patient was revived and then taken into the operative room. The patient was prepped and draped in the usual sterile manner for the operative eye. A lid speculum was put into position. The conjunctiva was resected back from the limbus in the 12 o'clock position. Bleeding was controlled with electrocautery. A #69 blade was then used and a half-thickness scleral incision approximately 1-mm posterior to the limbus was made on bare sclera. This was shelved in the clear cornea using a crescent knife. The steep axis of astigmatism was marked using a pre-inked corneal marking device. Next a 15-degree blade was used to make a stab incision at the 3 o'clock position at the corneolimbal interface. Keratome blade was then used and the superior wound was extended into the anterior chamber. Viscoelastic was injected into the anterior chamber and to maintain its form. Next, a cystotome was used and a continuous anterior capsulotomy was made without difficulty. Hydrodissection using a blunt cannula and BSS was performed. Phaco probe was then employed and a groove extending from 12 to 6 o' clock in the lens was created. A Rufus wand was used through the stab incision so as to perform a divide and conquer technique. Next an irrigation aspiration probe was utilized and any residual cortex was removed from the eye. Again, viscoelastic was injected into the anterior chamber. An Shahram toric posterior chamber lens implant was placed in the cartridge and injected into the anterior chamber without difficulty. The Sinskey hook was utilized to spin the lens into position and this was again performed without any difficulty. The irrigation and aspiration probe was again employed and any residual viscoelastic was removed from the eye. Then BSS was injected into the limbal stab incision and the anterior chamber re-inflated. The conjunctiva was reapproximated using electrocautery. One drop of 0.25% Timoptic was placed over the corneal along with TobraDex ophthalmic ointment. Two sterile patches and a Jimenez eye shield were taped into position. The patient was transported to the recovery room in stable condition. Implants: Pathology: none sent Condition: stable Disposition: same day Indications for Procedure: Operative Findings: Description of Procedure:
[2016-08-27 10:12] VITALS: BP 122/80; PULSE 88
[2016-08-27] MEDS ORDERED: TIMOLOL 0.5% OPHTH SOLN (PF) 0.2 ML DROPERETTE OP ONE (23:00)
[2016-08-27] MEDS ORDERED: GENTAMICIN/PREDNISOL AC OPHTH OINT 3.5GM OPHTHALMIC ONE (23:00)
[2016-08-27] MEDS ORDERED: BUPIVACAINE (PF) 0.75% 5 ML, LIDOCAINE 4% (PF) 5 ML, HYALURONIDASE, HUMAN RECOMB 150 UNIT MISCELLANE ONE ×3 (23:00)
== END 2016-08-27 10:28 | disposition home or self-care (01) ==
LOC: OR 07:42
PROVIDERS: ATTEND Ophthalmology
DX: E11.36 Type 2 diabetes mellitus with diabetic cataract (principal); J44.9 Chronic obstructive pulmonary disease, unspecified; E07.9 Disorder of thyroid, unspecified; M19.90 Unspecified osteoarthritis, unspecified site; Z99.81 Dependence on supplemental oxygen; Z88.1 Allergy status to other antibiotic agents; Z88.8 Allergy status to other drugs, medicaments and biological substances; Z79.84 Long term (current) use of oral hypoglycemic drugs; Z79.83 Long term (current) use of bisphosphonates; Z79.52 Long term (current) use of systemic steroids; Z79.1 Long term (current) use of non-steroidal anti-inflammatories (NSAID); Z79.899 Other long term (current) drug therapy; Z87.891 Personal history of nicotine dependence; Z90.710 Acquired absence of both cervix and uterus; Z90.49 Acquired absence of other specified parts of digestive tract
CPT/HCPCS: 66984; V2787; C1780; J2001 ×2; J3470; J0171; J2704

== ENCOUNTER 2016-10-15 10:14 | Day surgery (SDC) | payer MEDICARE ==
[2016-10-09 10:42] VITALS: BMI 29.8
[~2016-10-15 10:14] MED LIST changes: -LIDOCAINE 1% 20 ML VIAL (10MG/ML) FOR IV START INTRADERMA PRN; -ONDANSETRON 4 MG/2 ML VIAL IVP PRN
[2016-10-15 11:22] VITALS: TEMP 98
[2016-10-15] MEDS: PHENYLEPHRINE 10% OPHTH DROPS 5 ML BTL OP ONE ×4 (11:23→11:43)
[2016-10-15] MEDS: CYCLOPENTOLATE 1% OPHTH SOLN 2 ML BTL OP ONE ×3 (11:26→11:46)
[2016-10-15] MEDS: FLURBIPROFEN 0.03% OPHTH DROPS 2.5 ML BTL OP ONE ×3 (11:29→11:49)
[2016-10-15] MEDS ORDERED: LIDOCAINE 1% 20 ML VIAL (10MG/ML) FOR IV START INTRADERMA ONE (11:31)
[2016-10-15 11:36] LABS: Glucose,Whole Blood 124 mg/dL (75-99)
[2016-10-15] MEDS ORDERED: MIDAZOLAM 2 MG/2 ML VIAL ONE (11:53)
[2016-10-15] MEDS ORDERED: PROPOFOL 10 MG/ML 20 ML VIAL IV ONE (11:53)
[2016-10-15] MEDS ORDERED: fentaNYL (PF) 50 MCG/ML 2 ML AMP ONE (11:53)
[2016-10-15] MEDS ORDERED: BALANCED SALT IRRIG SOLN COMB2 15 ML IRRIG.SOLN IRRIGATION ONE (12:08)
[2016-10-15] MEDS ORDERED: HYALURONATE SODIUM INTRAOCULAR 1 EACH SYRINGE (10MG/ML) INTRAOCULA ONE (12:08)
[2016-10-15] MEDS ORDERED: EPINEPHrine (PF) 0.5 ML in BALANCED SALT IRRIG SOLN COMB2 500 ML IRRIGATION ONE (12:09)
--- NOTE | 2016-10-15 12:19 | P.OP ---
Date of Procedure: 10/15/16 Preoperative Diagnosis: Postoperative Diagnosis: Procedure(s) Performed: PREOPERATIVE DIAGNOSIS: Cataract, left eye. POSTOPERATIVE DIAGNOSIS: Cataract, left eye. OPERATION: Phacoemulsification cataract, left eye. DESCRIPTION OF PROCEDURE: The patient was taken to the preoperative holding area. Intravenous Propofol was given so as to bring about adequate sedation. The following mixture was given for local anesthesia: 5 mL of 2% lidocaine, 5 mL of 0.75% Marcaine, and 1 mL of Wydase. Approximately 4 mL was injected in the retrobulbar space of the surgical eye. Additional 1 mL was then directed to the temporal area of the surgical eye. This was performed to allow adequate neurological block of the facial muscles. The patient was revived and then taken into the operative room. The patient was prepped and draped in the usual sterile manner for the operative eye. A lid speculum was put into position. The conjunctiva was resected back from the limbus in the 12 o'clock position. Bleeding was controlled with electrocautery. A #69 blade was then used and a half-thickness scleral incision approximately 1-mm posterior to the limbus was made on bare sclera. This was shelved in the clear cornea using a crescent knife. The steep axis of astigmatism was marked using a pre-inked corneal markinjg device. Next a 15-degree blade was used to make a stab incision at the 3 o'clock position at the corneolimbal interface. Keratome blade was then used and the superior wound was extended into the anterior chamber. Viscoelastic was injected into the anterior chamber and to maintain its form. Next, a cystotome was used and a continuous anterior capsulotomy was made without difficulty. Hydrodissection using a blunt cannula and BSS was performed. Phaco probe was then employed and a groove extending from 12 to 6 o' clock in the lens was created. A Rufus wand was used through the stab incision so as to perform a divide and conquer technique. Next an irrigation aspiration probe was utilized and any residual cortex was removed from the eye. Again, viscoelastic was injected into the anterior chamber. An Shahram toric posterior chamber lens implant was placed in the cartridge and injected into the anterior chamber without difficulty. The Sinskey hook was utilized to spin the lens into position and this was again performed without any difficulty. The irrigation and aspiration probe was again employed and any residual viscoelastic was removed from the eye. Then BSS was injected into the limbal stab incision and the anterior chamber re-inflated. The conjunctiva was reapproximated using electrocautery. One drop of 0.25% Timoptic was placed over the corneal along with TobraDex ophthalmic ointment. Two sterile patches and a Jimenez eye shield were taped into position. The patient was transported to the recovery room in stable condition. Implants: Pathology: none sent Condition: stable Disposition: same day Indications for Procedure: Operative Findings: Description of Procedure:
[2016-10-15 12:49] VITALS: BP 113/56; PULSE 90; RESP 20
[2016-10-15] MEDS ORDERED: GENTAMICIN/PREDNISOL AC OPHTH OINT 3.5GM OPHTHALMIC ONE (23:00)
[2016-10-15] MEDS ORDERED: TIMOLOL 0.5% OPHTH SOLN (PF) 0.2 ML DROPERETTE OP ONE (23:00)
[2016-10-15] MEDS ORDERED: BUPIVACAINE (PF) 0.75% 5 ML, LIDOCAINE 4% (PF) 5 ML, HYALURONIDASE, HUMAN RECOMB 150 UNIT MISCELLANE ONE ×3 (23:00)
== END 2016-10-15 13:00 | disposition home or self-care (01) ==
LOC: OR 10:14
PROVIDERS: ATTEND Ophthalmology
DX: H26.9 Unspecified cataract (principal); E11.9 Type 2 diabetes mellitus without complications; Z79.84 Long term (current) use of oral hypoglycemic drugs; E07.9 Disorder of thyroid, unspecified; J44.9 Chronic obstructive pulmonary disease, unspecified; F17.200 Nicotine dependence, unspecified, uncomplicated; G51.0 Bell's palsy; E78.5 Hyperlipidemia, unspecified; Z79.1 Long term (current) use of non-steroidal anti-inflammatories (NSAID); Z79.51 Long term (current) use of inhaled steroids; Z79.899 Other long term (current) drug therapy; Z88.1 Allergy status to other antibiotic agents; Z88.8 Allergy status to other drugs, medicaments and biological substances
CPT/HCPCS: 66984; V2787; C1780; J2001; J2250; J3470; J0171; J3010; J2704

== ENCOUNTER → 2016-11-04 | Outpatient (CLI) | payer MEDICARE ==
[2016-11-04 10:16] LABS: Blood Urea Nitrogen 24 mg/dL (7-17); Non-African American GFR(MDRD) >60 (>60 ml/min/1.73 sqM)
--- NOTE | 2016-11-04 11:08 | CT ---
EXAMINATION TYPE: CT chest w con DATE OF EXAM: 11/04/2016 COMPARISON: 01/01/2016 HISTORY: SOB, cough, pain CT DLP: 416.6 mGycm Automated exposure control for dose reduction was used. CONTRAST: CT scan of the chest is performed with IV Contrast, patient injected with 100 mL of Omnipaque 300. FINDINGS: LUNGS: Emphysematous changes in the lungs are noted. Subsegmental changes in the anterior segment rig ht upper lobe is most likely related to atelectasis. Density within the trachea may be related to muc ous or secretions. Previously noted pulmonary nodules appear to be stable. Pleural-based calcificatio n within the left lung as noted. No focal pneumonia. Calcified granuloma in the anterior segment of t he left upper lobe. MEDIASTINUM: There are no greater than 1 cm hilar or mediastinal lymph nodes. No pericardial effusi on is seen. Coronary artery atherosclerotic changes are seen. OTHER: Mild fatty infiltration of the liver noted. Small gallstone seen. There is nodularity as rega rd to the left adrenal gland and right adrenal gland measuring less than 5 mm and too small to charac terize. Degenerative change of the spine noted with a complete compression fracture appears chronic i n the midthoracic level and unchanged from the previous CT scan. Calcified thyroid nodules on the lef t. IMPRESSION: 1. COPD. Note is made that exam was performed with standard CT chest technique. Assessment for pulmon new embolism is nondiagnostic if there is concern for pulmonary embolism dedicated CTA would be recom mended 2. Previously described pulmonary nodules appear to be stable relative to the previous exam. 3. Stable cyst complete compression fracture mid to lower thoracic spine unchanged from previous exam compatible with chronic deformity. 4. Cholelithiasis. 5. Nonspecific subcentimeter adrenal October 13. 6. fatty infiltration of the liver. 7. coronary artery calcification.. 8. granulomas.
== END | disposition home or self-care (01) ==
LOC: RADCTMAIN 09:45
PROVIDERS: ATTEND Internal Medicine Critical Care Medicine
DX: J44.9 Chronic obstructive pulmonary disease, unspecified (principal); J84.10 Pulmonary fibrosis, unspecified; I25.10 Atherosclerotic heart disease of native coronary artery without angina pectoris; R91.1 Solitary pulmonary nodule
CPT/HCPCS: 82565; 84520; 71260; 36415; Q9967

== ENCOUNTER 2017-01-24 17:34 | Inpatient (IN) | payer MEDICARE ==
[2017-01-24] MEDS ORDERED: SODIUM CHLORIDE 0.9% 1,000 ML IV STA (17:52)
[2017-01-24] MEDS ORDERED: methylPREDNISolone SOD SUCCI 125 MG/2 ML VIAL IV STA (17:52)
[2017-01-24] MEDS ORDERED: ALBUTEROL NEBULIZED 2.5 MG/3 ML INHALATION STA (17:52)
[2017-01-24] MEDS ORDERED: SODIUM CHLORIDE 0.9% 500 ML IV STA (17:52)
[2017-01-24] MEDS ORDERED: AZITHROMYCIN 500 MG in SODIUM CHLORIDE 0.9% 250 ML IVPB STA (17:57)
[2017-01-24 18:07] LABS: Basophils # (A) 0.1 k/uL (0-0.2); Basophils % (A) 1 %; CH 29.3; CHCM 31.5; Eosinophils # (A) 0.3 k/uL (0-0.7); Eosinophils % (A) 3 %; HCT 29.1 % (34.0-46.0); HDW 2.81; Hypochromasia Slight; Luc # (Auto) 0.17; Luc % (Auto) 2; Lymphocytes # (A) 1.4 k/uL (1.0-4.8); Lymphocytes % (A) 14 %; MCH 30.2 pg (25.0-35.0); MCHC 32.2 g/dL (31.0-37.0); MCV 93.6 fL (80.0-100.0); Mean Platelet Volume 10.7; Monocytes # (A) 1.1 k/uL (0-1.0); Monocytes % (A) 11 %; Neutrophils % (A) 70 %; RBC 3.11 m/uL (3.80-5.40); RDW 14.4 % (11.5-15.5); WBC 10.1 k/uL (3.8-10.6); WBC (Perox) 10.85
[2017-01-24 18:16] LABS: HGB 9.4 gm/dL (11.4-16.0)
[2017-01-24] MEDS: IPRATROPIUM 0.5 MG/2.5 ML NEBU INHALATION STA ×2 (18:17→18:25)
[2017-01-24 18:34] LABS: Manual Review Performed
[2017-01-24 18:35] LABS: RBC Morphology Normal
[2017-01-24 18:50] LABS: Partial Thromboplastin Time 25.7 sec (22.0-30.0); Prothrombin Time 10.2 sec (9.0-12.0)
[2017-01-24 18:54] LABS: ALT 45 U/L (9-52); AST 20 U/L (14-36); Alkaline Phosphatase 80 U/L (38-126); Anion Gap 8 mmol/L; Blood Urea Nitrogen 9 mg/dL (7-17); Calcium 9.4 mg/dL (8.4-10.2); Carbon Dioxide 30 mmol/L (22-30); Chloride 99 mmol/L (98-107); Glucose 154 mg/dL (74-99); Magnesium 1.5 mg/dL (1.6-2.3); Non-African American GFR(MDRD) >60 (>60 ml/min/1.73 sqM); Potassium 4.3 mmol/L (3.5-5.1); Sodium 137 mmol/L (137-145); Total Bilirubin 0.5 mg/dL (0.2-1.3); Total Protein 6.1 g/dL (6.3-8.2)
--- NOTE | 2017-01-24 18:54 | ED ---
General Adult HPI - General Chief complaint: Shortness of Breath Stated complaint: RADHA Time Seen by Provider: 01/24/17 17:39 Source: patient, EMS, RN notes reviewed, old records reviewed Mode of arrival: EMS Limitations: no limitations - History of Present Illness Initial comments: This is a 71-year-old female to the ER for evaluation. Patient has a for evaluation regarding shortness of breath cough and congestion. Patient history of known COPD. Was just discharged from the hospital about a month ago and has progressive worsening of her so she stopped taking steroids. Patient denies fever does admit to increased cough and congestion [facility] patient states she has not continued to smoke. Denies chest pain no abdominal pain. No other complaints - Related Data Home Medications Medication Instructions Recorded Confirmed Alendronate Sodium [Fosamax] 70 mg PO ENRIQUEZ 07/28/16 01/24/17 Calcium Carbonate/Vitamin D3 1 tab PO HS 07/28/16 01/24/17 [Calcium 600-Vit D3 200 Tablet] Calcium Carbonate/Vitamin D3 2 tab PO QAM 07/28/16 01/24/17 [Calcium 600-Vit D3 200 Tablet] Ipratropium/Albuterol Sulfate 1 puff INHALATION RT-QID PRN 07/28/16 01/24/17 [Combivent Respimat Inhaler] Levothyroxine Sodium [Synthroid] 88 mcg PO DAILY 07/28/16 01/24/17 metFORMIN HCL [Glucophage] 850 mg PO BID 07/28/16 01/24/17 Simvastatin [Zocor] 10 mg PO DAILY 08/22/16 01/24/17 Albuterol Nebulized [Ventolin 2.5 mg INHALATION RT-QID PRN 10/09/16 01/24/17 Nebulized] Budesonide [Pulmicort] 0.5 mg INHALATION RT-BID 10/09/16 01/24/17 Furosemide [Lasix] 20 mg PO DAILY PRN 12/02/16 01/24/17 Ipratropium Nebulized [Atrovent 0.5 mg INHALATION RT-QID PRN 12/02/16 01/24/17 Nebulized] guaiFENesin-DM 600/30MG [Mucinex 1 tab PO Q12H PRN 12/02/16 01/24/17 Dm] ALPRAZolam [Xanax] 0.25 mg PO DAILY PRN 01/24/17 01/24/17 Cetirizine HCl/Pseudoephedrine 1 tab PO BID PRN 01/24/17 01/24/17 [Zyrtec-D Tablet] Cyclobenzaprine [Flexeril] 5 mg PO TID PRN 01/24/17 01/24/17 Glycopyrrolate/Formoterol Fum 1 puff INHALATION RT-BID 01/24/17 01/24/17 [Bevespi Aerosphere Inhaler] Allergies Allergy/AdvReac Type Severity Reaction Status Date / Time bupropion [From Zyban] Allergy Rash/Hives Verified 01/24/17 18:11 cefaclor [From Ceclor] Allergy Rash/Hives Verified 01/24/17 18:11 Review of Systems ROS Statement: Those systems with pertinent positive or pertinent negative responses have been documented in the HPI. ROS Other: All systems not noted in ROS Statement are negative. Past Medical History Past Medical History: Asthma, COPD, Diabetes Mellitus, Eye Disorder, Hyperlipidemia, Osteoarthritis (OA), Thyroid Disorder Additional Past Medical History / Comment(s): Cataracts; recent admission for exacerbation of COPD, home oxygen. 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 History of Any Multi-Drug Resistant Organisms: None Reported Past Surgical History: Adenoidectomy, Appendectomy, Breast Surgery, Hysterectomy , Tonsillectomy Additional Past Surgical History / Comment(s): several lumpectomies-benign, D&C , MARIO CATARACTS Past Anesthesia/Blood Transfusion Reactions: No Reported Reaction Past Psychological History: No Psychological Hx Reported Smoking Status: Former smoker Past Alcohol Use History: Rare Past Drug Use History: None Reported - Past Family History Mother Family Medical History: Cancer Additional Family Medical History / Comment(s): Mac deg, blind; abdominal tumor ; colon cancer in old age, at 86 Father Family Medical History: Cancer Additional Family Medical History / Comment(s): Prostate CA mets to lungs General Exam Limitations: no limitations General appearance: alert, in no apparent distress Head exam: Present: atraumatic, normocephalic, normal inspection Eye exam: Present: normal appearance, PERRL, EOMI. Absent: scleral icterus, conjunctival injection, periorbital swelling ENT exam: Present: normal exam, mucous membranes moist Neck exam: Present: normal inspection. Absent: tenderness, meningismus, lymphadenopathy Respiratory exam: Present: normal lung sounds bilaterally, wheezes. Absent: respiratory distress, rales, rhonchi, stridor Cardiovascular Exam: Present: normal rhythm, tachycardia, normal heart sounds. Absent: systolic murmur, diastolic murmur, rubs, gallop, clicks GI/Abdominal exam: Present: soft, normal bowel sounds. Absent: distended, tenderness, guarding, rebound, rigid Extremities exam: Present: normal inspection, full ROM, normal capillary refill. Absent: tenderness, pedal edema, joint swelling, calf tenderness Back exam: Present: normal inspection Neurological exam: Present: alert, oriented X3, CN II-XII intact Psychiatric exam: Present: normal affect, normal mood Skin exam: Present: warm, dry, intact, normal color. Absent: rash Course Vital Signs 01/24/17 01/24/17 01/24/17 17:36 17:39 17:52 Temperature 98.2 F Pulse Rate 126 H 117 H Respiratory 18 18 24 Rate Blood Pressure 163/74 O2 Sat by Pulse 93 L 95 Oximetry 01/24/17 01/24/17 01/24/17 18:15 18:25 18:35 Temperature 98.6 F Pulse Rate 110 H 110 H 112 H Respiratory 18 Rate Blood Pressure 139/68 O2 Sat by Pulse 98 Oximetry 01/24/17 01/24/17 01/24/17 18:36 18:55 19:06 Temperature Pulse Rate 112 H 114 H 126 H Respiratory 22 Rate Blood Pressure O2 Sat by Pulse 96 Oximetry - Reevaluation(s) Reevaluation #1: 01/24/17 19:16 Patient has no significant improvement after breathing treatment EKG Findings - EKG Comments: EKG Findings:: EKG shows sinus tachycardia rate 119, VA 132, QRS 80, QTC 433 Medical Decision Making - Medical Decision Making 71 female the ER for evaluation of shortness of breath, COPD exacerbation chronic and worsening. Patient be admitted for steroids IV fluids, continuous breathing treatments - Lab Data Result diagrams: 01/24/17 17:45 01/24/17 18:25 Lab Results 01/24/17 01/24/17 01/24/17 Range/Units 17:45 17:45 18:25 WBC 10.1 (3.8-10.6) k/uL RBC 3.11 L (3.80-5.40) m/uL Hgb 9.4 L D (11.4-16.0) gm/dL Hct 29.1 L (34.0-46.0) % MCV 93.6 (80.0-100.0) fL MCH 30.2 (25.0-35.0) pg MCHC 32.2 (31.0-37.0) g/dL RDW 14.4 (11.5-15.5) % Plt Count 196 (150-450) k/uL Neutrophils % 70 % Lymphocytes % 14 % Monocytes % 11 % Eosinophils % 3 % Basophils % 1 % Neutrophils # 7.0 (1.3-7.7) k/uL Lymphocytes # 1.4 (1.0-4.8) k/uL Monocytes # 1.1 H (0-1.0) k/uL Eosinophils # 0.3 (0-0.7) k/uL Basophils # 0.1 (0-0.2) k/uL Manual Slide Review Performed RBC Morphology Normal Hypochromasia Slight PT (9.0-12.0) sec INR (<1.2) APTT (22.0-30.0) sec Sodium 137 (137-145) mmol/L Potassium 4.3 (3.5-5.1) mmol/L Chloride 99 (98-107) mmol/L Carbon Dioxide 30 (22-30) mmol/L Anion Gap 8 mmol/L BUN 9 (7-17) mg/dL Creatinine 0.60 (0.52-1.04) mg/dL Est GFR (MDRD) Af Amer >60 (>60 ml/min/1.73 sqM) Est GFR (MDRD) Non-Af >60 (>60 ml/min/1.73 sqM) Glucose 154 H (74-99) mg/dL Calcium 9.4 (8.4-10.2) mg/dL Magnesium 1.5 L (1.6-2.3) mg/dL Total Bilirubin 0.5 (0.2-1.3) mg/dL AST 20 (14-36) U/L ALT 45 (9-52) U/L Alkaline Phosphatase 80 (38-126) U/L Total Creatine Kinase (30-135) U/L CK-MB (CK-2) (0.0-2.4) ng/mL CK-MB (CK-2) Rel Index Troponin I (0.000-0.034) ng/mL NT-Pro-B Natriuret Pep 39 pg/mL Total Protein 6.1 L (6.3-8.2) g/dL Albumin 3.4 L (3.5-5.0) g/dL 01/24/17 01/24/17 Range/Units 18:25 18:25 WBC (3.8-10.6) k/uL RBC (3.80-5.40) m/uL Hgb (11.4-16.0) gm/dL Hct (34.0-46.0) % MCV (80.0-100.0) fL MCH (25.0-35.0) pg MCHC (31.0-37.0) g/dL RDW (11.5-15.5) % Plt Count (150-450) k/uL Neutrophils % % Lymphocytes % % Monocytes % % Eosinophils % % Basophils % % Neutrophils # (1.3-7.7) k/uL Lymphocytes # (1.0-4.8) k/uL Monocytes # (0-1.0) k/uL Eosinophils # (0-0.7) k/uL Basophils # (0-0.2) k/uL Manual Slide Review RBC Morphology Hypochromasia PT 10.2 (9.0-12.0) sec INR 1.0 (<1.2) APTT 25.7 (22.0-30.0) sec Sodium (137-145) mmol/L Potassium (3.5-5.1) mmol/L Chloride (98-107) mmol/L Carbon Dioxide (22-30) mmol/L Anion Gap mmol/L BUN (7-17) mg/dL Creatinine (0.52-1.04) mg/dL Est GFR (MDRD) Af Amer (>60 ml/min/1.73 sqM) Est GFR (MDRD) Non-Af (>60 ml/min/1.73 sqM) Glucose (74-99) mg/dL Calcium (8.4-10.2) mg/dL Magnesium (1.6-2.3) mg/dL Total Bilirubin (0.2-1.3) mg/dL AST (14-36) U/L ALT (9-52) U/L Alkaline Phosphatase (38-126) U/L Total Creatine Kinase 58 (30-135) U/L CK-MB (CK-2) 2.3 (0.0-2.4) ng/mL CK-MB (CK-2) Rel Index 4.0 Troponin I <0.012 (0.000-0.034) ng/mL NT-Pro-B Natriuret Pep pg/mL Total Protein (6.3-8.2) g/dL Albumin (3.5-5.0) g/dL - Radiology Data Radiology results: report reviewed (Chest x-ray is negative for acute disease), image reviewed Disposition Clinical Impression: Acute exacerbation of chronic obstructive airways disease, Failure of outpatient treatment Disposition: ADMITTED IP TO THIS HOSP Condition: Fair Referrals: Sung Puckett MD [Primary Care Provider] - 1-2 days
[2017-01-24 18:55] LABS: Creatine Kinase 58 U/L (30-135)
[2017-01-24 19:07] LABS: Creatine Kinase MB 2.3 ng/mL (0.0-2.4); Troponin I <0.012 ng/mL (0.000-0.034)
--- NOTE | 2017-01-24 19:07 | XR ---
EXAMINATION TYPE: XR chest 1V portable DATE OF EXAM: 01/24/2017 COMPARISON: 12/02/2016 HISTORY: Short of breath TECHNIQUE: Single frontal view of the chest is obtained. FINDINGS: There is no heart failure nor confluent pneumonic infiltrate. There is coarsening of inter stitial markings. There are chest leads. There is no sign of pleural effusion. IMPRESSION: Mild pulmonary fibrotic changes. No change compared to old exam. No heart failure.
[2017-01-24] MEDS ORDERED: ALBUTEROL NEBULIZED 2.5 MG/3 ML INHALATION PRN (19:58)
[2017-01-24] MEDS ORDERED: IPRATROPIUM-ALBUTEROL 3 ML NEB INHALATION SCH (20:00)
[2017-01-24] MEDS: ALBUTEROL NEBULIZED 2.5 MG/3 ML INHALATION SCH (20:25)
[2017-01-24 21:16] LABS: Glucose,Whole Blood 221 mg/dL (75-99)
[2017-01-24] MEDS ORDERED: CYCLOBENZAPRINE 5 MG TAB PO PRN (21:34)
[2017-01-24] MEDS ORDERED: ALPRAZolam 0.25 MG TAB PO PRN (21:34)
[2017-01-24] MEDS: SODIUM CHLORIDE 0.9% 1,000 ML IV SCH (22:50)
[2017-01-24] MEDS: FUROSEMIDE 10 MG/ML 4 ML VIAL IV SCH (22:50)
[2017-01-24] MEDS: metFORMIN 850 MG TAB PO SCH (22:50)
[2017-01-24] MEDS: guaiFENesin-DM 600/30MG 1 EACH TAB.ER.12H PO PRN (22:50)
[2017-01-25] MEDS: methylPREDNISolone SOD SUCCI 125 MG/2 ML VIAL IV SCH ×4 (00:16→18:09)
[2017-01-25] MEDS: INSULIN ASPART 100 UNIT/ML 1 ML 10 ML VIAL SQ SCH ×5 (00:16→22:00)
[2017-01-25 02:43] LABS: Glucose,Whole Blood 247 mg/dL (75-99)
[2017-01-25] MEDS: SODIUM CHLORIDE 0.9% 1,000 ML IV SCH ×2 (06:22→21:59)
[2017-01-25] MEDS: LEVOTHYROXINE 88 MCG TAB PO SCH (06:32)
[2017-01-25 07:05] LABS: Glucose,Whole Blood 202 mg/dL (75-99)
[2017-01-25] MEDS: ALBUTEROL NEBULIZED 2.5 MG/3 ML INHALATION SCH ×4 (07:23→20:55)
[2017-01-25] MEDS ORDERED: INSULIN ASPART 100 UNIT/ML 1 ML 10 ML VIAL SQ SCH ×2 (07:30→23:35)
[2017-01-25] MEDS: ATORVASTATIN 10 MG TAB PO SCH (09:11)
[2017-01-25] MEDS: metFORMIN 850 MG TAB PO SCH ×2 (09:12→22:00)
[2017-01-25] MEDS: FUROSEMIDE 10 MG/ML 4 ML VIAL IV SCH ×2 (09:28→22:00)
[2017-01-25] MEDS: ENOXAPARIN 40 MG/0.4 ML SYRINGE SQ SCH (09:29)
[2017-01-25 11:11] VITALS: BMI 29.3
--- NOTE | 2017-01-25 11:44 | P.CNPUL ---
History of Present Illness Consult date: 01/25/17 Requesting physician: King Marley Reason for consult: dyspnea Chief complaint: Shortness of breath, cough, congestion History of present illness: This is a very pleasant 71-year-old female patient who follows with Dr. Puckett as her primary care physician. She has a history of diabetes mellitus, hypothyroidism, hyperlipidemia. She also has a history of severe oxygen dependent chronic obstructive pulmonary disease with a 50 year pack per day smoking history. She states she quit in July 2016. She follows with Dr. Almodovar in our office. He is recently discharged from here in November for COPD exacerbation. She states she was doing fairly well until her breath prednisone taper completed. Approximately 3-4 days ago she started having increasing shortness of breath cough and congestion. Wheezing with exertion. Presented here yesterday to the emergency room for the same. Chest x-ray does not reveal any acute pulmonary process. There is mild fibrotic changes. No leukocytosis. Afebrile. Maintaining O2 saturations in the 90s on 4 L/m per nasal cannula. She is hemodynamically stable. She has been initiated on Duo nebs, Symbicort and IV Solu-Medrol Review of Systems 14 point review of system was conducted. All negative other than as mentioned in the HPI. Past Medical History Past Medical History: Asthma, COPD, Diabetes Mellitus, Eye Disorder, Hyperlipidemia, Osteoarthritis (OA), Thyroid Disorder Additional Past Medical History / Comment(s): Cataracts; recent admission for exacerbation of COPD, home oxygen 3.5-4 LITERS [place]. 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, T-8 FX IN 2012 History of Any Multi-Drug Resistant Organisms: None Reported Past Surgical History: Adenoidectomy, Appendectomy, Breast Surgery, Hysterectomy , Tonsillectomy Additional Past Surgical History / Comment(s): several lumpectomies-benign, D&C , MARIO CATARACTS Past Anesthesia/Blood Transfusion Reactions: No Reported Reaction Smoking Status: Former smoker - Past Family History Mother Family Medical History: Cancer Additional Family Medical History / Comment(s): Mac deg, blind; abdominal tumor ; colon cancer in old age, at 86 Father Family Medical History: Cancer Additional Family Medical History / Comment(s): Prostate CA mets to lungs Medications and Allergies Home Medications Medication Instructions Recorded Confirmed Type Alendronate Sodium [Fosamax] 70 mg PO ENRIQUEZ 07/28/16 01/24/17 History Calcium Carbonate/Vitamin D3 1 tab PO HS 07/28/16 01/24/17 History [Calcium 600-Vit D3 200 Tablet] Calcium Carbonate/Vitamin D3 2 tab PO QAM 07/28/16 01/24/17 History [Calcium 600-Vit D3 200 Tablet] Ipratropium/Albuterol Sulfate 1 puff INHALATION RT-QID PRN 07/28/16 01/24/17 History [Combivent Respimat Inhaler] Levothyroxine Sodium [Synthroid] 88 mcg PO DAILY 07/28/16 01/24/17 History metFORMIN HCL [Glucophage] 850 mg PO BID 07/28/16 01/24/17 History Simvastatin [Zocor] 10 mg PO DAILY 08/22/16 01/24/17 History Albuterol Nebulized [Ventolin 2.5 mg INHALATION RT-QID PRN 10/09/16 01/24/17 History Nebulized] Budesonide [Pulmicort] 0.5 mg INHALATION RT-BID 10/09/16 01/24/17 History Furosemide [Lasix] 20 mg PO DAILY PRN 12/02/16 01/24/17 History Ipratropium Nebulized [Atrovent 0.5 mg INHALATION RT-QID PRN 12/02/16 01/24/17 History Nebulized] guaiFENesin-DM 600/30MG [Mucinex 1 tab PO Q12H PRN 12/02/16 01/24/17 History Dm] ALPRAZolam [Xanax] 0.25 mg PO DAILY PRN 01/24/17 01/24/17 History Cetirizine HCl/Pseudoephedrine 1 tab PO BID PRN 01/24/17 01/24/17 History [Zyrtec-D Tablet] Cyclobenzaprine [Flexeril] 5 mg PO TID PRN 01/24/17 01/24/17 History Glycopyrrolate/Formoterol Fum 1 puff INHALATION RT-BID 01/24/17 01/24/17 History [Bevespi Aerosphere Inhaler] Allergies Allergy/AdvReac Type Severity Reaction Status Date / Time bupropion [From Zyban] Allergy Rash/Hives Verified 01/24/17 18:11 cefaclor [From [facility]] Allergy Rash/Hives Verified 01/24/17 18:11 Physical Exam Vitals: Vital Signs Temp Pulse Pulse Pulse Resp BP BP 01/25/17 11:21 110 H 01/25/17 11:12 110 H 01/25/17 09:20 101 H 18 01/25/17 08:37 97.9 F 101 H 18 124/72 01/25/17 08:00 88 101 H 18 01/25/17 07:30 118 H 01/25/17 07:20 108 H 01/25/17 03:20 97.7 F 88 18 116/55 01/24/17 23:09 98.3 F 116 H 18 145/63 01/24/17 20:10 97.8 F 115 H 22 158/67 01/24/17 19:19 116 H 24 146/64 01/24/17 19:06 126 H 22 01/24/17 18:55 114 H 01/24/17 18:36 112 H 01/24/17 18:35 112 H 01/24/17 18:25 110 H 01/24/17 18:15 98.6 F 110 H 18 139/68 01/24/17 17:52 24 01/24/17 17:39 117 H 18 01/24/17 17:36 98.2 F 126 H 18 163/74 Pulse Ox 01/25/17 11:21 01/25/17 11:12 01/25/17 09:20 01/25/17 08:37 95 01/25/17 08:00 01/25/17 07:30 01/25/17 07:20 96 01/25/17 03:20 96 01/24/17 23:09 93 L 01/24/17 20:10 97 01/24/17 19:19 96 01/24/17 19:06 96 01/24/17 18:55 01/24/17 18:36 01/24/17 18:35 01/24/17 18:25 01/24/17 18:15 98 01/24/17 17:52 01/24/17 17:39 95 01/24/17 17:36 93 L Intake and Output 01/24/17 01/25/17 01/25/17 22:59 06:59 14:59 Intake Total 1000 Output Total 2800 Balance -1800 Intake: IV 1000 Sodium Chloride 0.9% 1, 1000 000 ml @ 100 mls/hr IV . Q10H [facility] Rx#:[id number] Output: Urine 2800 Uretheral (Mendez) 1800 Other: Voiding Method Bedpan Indwelling Catheter Weight 75.07 kg 82.5 kg 82.5 kg Patient Weight 01/26/17 06:59 Weight 82.5 kg GENERAL EXAM: Alert, fairly comfortable in no apparent distress. HEAD: Normocephalic. EYES: Normal reaction of pupils, equal size. NOSE: Clear with pink turbinates. THROAT: No erythema or exudates. NECK: No masses, no JVD. CHEST: No chest wall deformity. LUNGS: Equal air entry with no wheezing. Diminished. CVS: S1 and S2 normal with no audible murmur, regular rhythm. ABDOMEN: No hepatosplenomegaly, normal bowel sounds, no guarding or rigidity. SPINE: No scoliosis or deformity SKIN: No rashes CENTRAL NERVOUS SYSTEM: No focal deficits, tone is normal in all 4 extremities. EXTREMITIES: There is no peripheral edema. No clubbing, no cyanosis. Peripheral pulses are intact. Results - Laboratory Findings CBC and BMP: 01/24/17 17:45 01/24/17 18:25 PT/INR, D-dimer PT 10.2 sec (9.0-12.0) 01/24/17 18:25 INR 1.0 (<1.2) 01/24/17 18:25 Abnormal lab findings: Abnormal Labs 01/24/17 01/24/17 01/24/17 17:45 18:25 21:10 RBC 3.11 L Hgb 9.4 L D Hct 29.1 L Monocytes # 1.1 H Glucose 154 H POC Glucose (mg/dL) 221 H Magnesium 1.5 L Total Protein 6.1 L Albumin 3.4 L 01/25/17 01/25/17 02:41 07:04 RBC Hgb Hct Monocytes # Glucose POC Glucose (mg/dL) 247 H 202 H Magnesium Total Protein Albumin - Diagnostic Findings Chest x-ray: image reviewed Assessment and Plan Assessment: Impression: #1 Acute exacerbation of chronic obstructive pulmonary disease. #2 Chronic tobacco dependence, quit July 2016 after 50+ year pack per day smoking. #3 Acute on chronic hypoxic respiratory failure secondary to above. #4 Diabetes mellitus with steroid-induced hyperglycemia. #5 Hypothyroidism. #6 Anemia of unclear etiology. Plan: The patient was seen and evaluated by Dr. Cabrera. Her chest x-ray and labs were reviewed. Ahead and treat her for her COPD exacerbation. She is on DuoNeb inhalations, Symbicort and IV Solu-Medrol. No need for empiric antibiotics at this time. She is on Lovenox for DVT prophylaxis. We will increase her activity as tolerated. We'll continue to follow and make further recommendations based on her clinical status. I, the cosigning physician, have performed a history and physical examination on the patient. Lung sounds bilateral wheezing. Diminished throughout. Maintaining good O2 saturations in the 90s on liters per minute per nasal cannula.. I have discussed the assessment and plan of care with my nurse practitioner, Tanisha Garcia. I attest to the above consultation as dictated by her. Time with Patient: Greater than 30
[2017-01-25 12:03] LABS: Glucose,Whole Blood 262 mg/dL (75-99)
[2017-01-25] MEDS: guaiFENesin-DM 600/30MG 1 EACH TAB.ER.12H PO PRN (13:22)
[2017-01-25] MEDS ORDERED: LORATADINE 10 MG TAB PO PRN ×2 (15:28→16:09)
[2017-01-25] MEDS ORDERED: PSEUDOEPHEDRINE 12HR 120 MG TABLET.ER PO PRN (16:07)
--- NOTE | 2017-01-25 16:25 | HP ---
HISTORY AND PHYSICAL CHIEF COMPLAINT: Shortness of breath. HISTORY OF PRESENT ILLNESS: This 71-year-old woman with a past medical history of COPD, diabetes mellitus type 2, hypertension, hyperlipidemia, history of adenoidectomy, being followed by Dr. Puckett in the outpatient setting is complaining of shortness of breath and cough for the past several days, at least 3-1/2 weeks. The patient also seen by Dr. Almodovar in the outpatient setting. For the lack of improvement, the patient came to [facility] and admitted for further evaluation and treatment. The worsening started after stopping the steroids, according to her. The chest x-ray was done, which I personally reviewed, which showed mild pulmonary fibrotic changes. Otherwise, no other changes are noted. There is no history of any fever, rigors. No history of headache, loss of conscious or seizures. PAST MEDICAL HISTORY: Asthma, COPD, diabetes mellitus, hypertension, hyperlipidemia, adenoidectomy, appendectomy. MEDICATIONS: Home medications: 1. Glucophage 850 mg p.o. b.i.d. 2. Mucinex 1 tablet p.o. b.i.d. p.r.n. 3. Zocor 20 mg p.o. daily. 4. Synthroid 88 mg p.o. daily. 5. Combivent 1 puff q.i.d. p.r.n. 6. Atrovent 0.5 q.i.d. p.r.n. 7. Glycopyrrolate formoterol Bevespi 1 puff b.i.d. 8. Lasix 20 mg p.o. daily. 9. Flexeril 5 mg p.o. t.i.d. 10.Zyrtec 1 tablet p.o. b.i.d. p.r.n. 11.Calcium with vitamin D 1 tablet p.o. q.h.s. 12.Calcium carbonate with vitamin D 2 tablets q.a.m. 13.Pulmicort 0.5 mg b.i.d. 15.Ventolin 2.5 q.i.d. p.r.n. 16.Xanax 0.5 daily p.r.n. ALLERGIES: BUPROPION AND CEFACLOR. FAMILY HISTORY: History of cancer in the family. SOCIAL HISTORY: Previous history of smoking. Occasional alcohol intake. REVIEW OF SYSTEMS: ENT: No diminished hearing, diminished vision. CARDIOVASCULAR: No angina, palpitations. RESPIRATORY: As mentioned earlier. GI: No nausea, vomiting. : No dysuria. NERVOUS: No numbness or weakness. ALLERGY/IMMUNOLOGY: No asthma or hay fever. MUSCULOSKELETAL: As mentioned earlier. HEMATOLOGY/ONCOLOGY: No history of anemia. ENDOCRINE: No history of diabetes, hypothyroidism. CONSTITUTIONAL: As mentioned earlier. DERMATOLOGY: Negative. RHEUMATOLOGY: Negative. PSYCHIATRY: As mentioned earlier. PHYSICAL EXAMINATION: Alert and oriented x3. Pulse is 110, blood pressure is 124/72, respiration 18, temperature 97.9, pulse ox 94% on 4L. HEENT: Conjunctivae normal. Oral mucosa moist. NECK: No jugular venous distention. No carotid bruits. No lymph node enlargement. CARDIOVASCULAR: S1, S2 muffled. No S3. No S4. RESPIRATORY: Breath sounds diminished in the bases. A few scattered rhonchi and crackles. Expiratory wheezing also present. ABDOMEN: Soft, nontender. No mass palpable. LEGS: No edema. No swelling. NERVOUS SYSTEM: Higher functions as mentioned earlier. Moves all 4 limbs. No focal deficits LYMPHATIC: No lymphadenopathy in neck, axillae or groin. SKIN: No ulcers, rash or bleeding. LABS: CBC within normal limits. Glucose 154. Albumin 3.4. ASSESSMENT: 1. Chronic obstructive pulmonary disease acute exacerbation with acute purulent tracheobronchitis. 2. History of asthma, chronic obstructive pulmonary disease. 3. Diabetes mellitus type 2. 4. Hyperlipidemia. 5. Hypothyroidism. 6. Chronic hypoxic respiratory failure on home O2 3.5L to 4L. 7. History of adenoidectomy, appendectomy. RECOMMENDATIONS AND DISCUSSION: In this 71-year-old woman who presented with multiple complex medical issues, we will monitor the patient closely, continue the current medical management and symptomatic treatment. Will optimize the bronchodilator treatment, pulmonary consultation, steroids, antibiotics. Monitor blood sugars closely. DVT prophylaxis. Guarded prognosis because of multiple complex medical issues. Further recommendations to follow. MMODL / IJN: [id number] / MTDD
[2017-01-25 17:07] LABS: Glucose,Whole Blood 111 mg/dL (75-99)
[2017-01-25 20:20] LABS: Glucose,Whole Blood 245 mg/dL (75-99)
[2017-01-25] MEDS: SYMBICORT 160-4.5 MCG INHALER INHALATION SCH (20:55)
[2017-01-26] MEDS: methylPREDNISolone SOD SUCCI 125 MG/2 ML VIAL IV SCH ×3 (00:35→13:01)
[2017-01-26 02:35] LABS: Glucose,Whole Blood 147 mg/dL (75-99)
[2017-01-26] MEDS: LEVOTHYROXINE 88 MCG TAB PO SCH (06:24)
[2017-01-26 06:58] LABS: Basophils % (A) 0 %; CH 28.8; CHCM 31.1; Eosinophils % (A) 0 %; HCT 34.5 % (34.0-46.0); HDW 2.68; HGB 10.8 gm/dL (11.4-16.0); Hypochromasia Slight; Luc # (Auto) 0.07; Luc % (Auto) 0; Lymphocytes % (A) 6 %; MCH 29.1 pg (25.0-35.0); MCHC 31.2 g/dL (31.0-37.0); MCV 93.2 fL (80.0-100.0); Mean Platelet Volume 7.2; Monocytes # (A) 0.4 k/uL (0-1.0); Monocytes % (A) 2 %; Neutrophils # (A) 16.2 k/uL (1.3-7.7); Neutrophils % (A) 92 %; RDW 13.7 % (11.5-15.5); WBC 17.7 k/uL (3.8-10.6); WBC (Perox) 18.57
[2017-01-26 07:10] LABS: Anion Gap 4 mmol/L; Blood Urea Nitrogen 23 mg/dL (7-17); Carbon Dioxide 36 mmol/L (22-30); Chloride 99 mmol/L (98-107); Glucose 228 mg/dL (74-99); Non-African American GFR(MDRD) >60 (>60 ml/min/1.73 sqM); Potassium 4.8 mmol/L (3.5-5.1); Sodium 139 mmol/L (137-145)
[2017-01-26] MEDS: SYMBICORT 160-4.5 MCG INHALER INHALATION SCH ×2 (07:27→19:44)
[2017-01-26] MEDS: ALBUTEROL NEBULIZED 2.5 MG/3 ML INHALATION SCH ×4 (07:27→19:47)
[2017-01-26 07:30] LABS: Glucose,Whole Blood 224 mg/dL (75-99)
[2017-01-26] MEDS: ATORVASTATIN 10 MG TAB PO SCH (08:11)
[2017-01-26] MEDS: metFORMIN 850 MG TAB PO SCH ×2 (08:11→20:33)
[2017-01-26] MEDS: ENOXAPARIN 40 MG/0.4 ML SYRINGE SQ SCH (08:11)
[2017-01-26] MEDS: FUROSEMIDE 10 MG/ML 4 ML VIAL IV SCH ×2 (08:11→20:33)
[2017-01-26] MEDS: INSULIN ASPART 100 UNIT/ML 1 ML 10 ML VIAL SQ SCH ×4 (08:47→20:32)
--- NOTE | 2017-01-26 11:55 | P.PN ---
Subjective Progress Note Date: 01/26/17 Principal diagnosis: Acute exacerbation of COPD This is a very pleasant 71-year-old female patient who follows with Dr. Puckett as her primary care physician. She has a history of diabetes mellitus, hypothyroidism, hyperlipidemia. She also has a history of severe oxygen dependent chronic obstructive pulmonary disease with a 50 year pack per day smoking history. She states she quit in July 2016. She follows with Dr. Almodovar in our office. He is recently discharged from here in November for COPD exacerbation. She states she was doing fairly well until her breath prednisone taper completed. Approximately 3-4 days ago she started having increasing shortness of breath cough and congestion. Wheezing with exertion. Presented here yesterday to the emergency room for the same. Chest x-ray does not reveal any acute pulmonary process. There is mild fibrotic changes. No leukocytosis. Afebrile. Maintaining O2 saturations in the 90s on 4 L/m per nasal cannula. She is hemodynamically stable. She has been initiated on Duo nebs, Symbicort and IV Solu-Medrol Patient was reevaluated today on 01/2017, feeling better, breathing a lot easier, no cough no wheezing, continues to have shortness of breath which is chronic with any activity. Compared to how she felt on admission, patient tells me today that she is feeling much better. Remains on IV Solu-Medrol, remains on multiple bronchodilators, and the patient will likely could be considered for discharge planning in the next 24-48 hours. Objective - Vital Signs Vital signs: Vital Signs Temp 97.9 F 01/26/17 07:12 Pulse 96 01/26/17 11:26 Resp 16 01/26/17 09:23 BP 125/64 01/26/17 07:12 Pulse Ox 99 01/26/17 07:12 Intake & Output 01/25/17 01/26/17 01/26/17 18:59 06:59 18:59 Intake Total 560 Output Total 1999 1000 Balance -1999 -440 Weight 82.5 kg 83.4 kg Intake: IV 360 Sodium Chloride 0.9% 1, 360 000 ml @ 40 mls/hr IV . Q24H [facility] Rx#:[id number] Oral 200 Output: Urine 1999 999 Uretheral (Mendez) 1999 999 Other: Voiding Method Indwelling Catheter Indwelling Catheter Indwelling Catheter # Voids 1 # Bowel Movements 1 - Exam GENERAL EXAM: Alert, fairly comfortable in no apparent distress. HEAD: Normocephalic. EYES: Normal reaction of pupils, equal size. NOSE: Clear with pink turbinates. THROAT: No erythema or exudates. NECK: No masses, no JVD. CHEST: No chest wall deformity. LUNGS: Diminished breath sounds at the bases, no rhonchi crackles or wheezes. CVS: S1 and S2 normal with no audible murmur, regular rhythm. ABDOMEN: No hepatosplenomegaly, normal bowel sounds, no guarding or rigidity. SPINE: No scoliosis or deformity SKIN: No rashes CENTRAL NERVOUS SYSTEM: No focal deficits, tone is normal in all 4 extremities. EXTREMITIES: There is no peripheral edema. No clubbing, no cyanosis. Peripheral pulses are intact. - Labs CBC & Chem 7: 01/26/17 06:31 01/26/17 06:31 Labs: Abnormal Lab Results - Last 24 Hours (Table) 01/24/17 01/25/17 01/25/17 Range/Units 17:45 12:00 17:06 WBC (3.8-10.6) k/uL RBC (3.80-5.40) m/uL Hgb (11.4-16.0) gm/dL Neutrophils # (1.3-7.7) k/uL Carbon Dioxide (22-30) mmol/L BUN (7-17) mg/dL Glucose (74-99) mg/dL POC Glucose (mg/dL) 262 H 111 H (75-99) mg/dL Hemoglobin A1c 7.3 H (4.0-6.0) % 01/25/17 01/26/17 01/26/17 Range/Units 20:18 02:14 06:31 WBC 17.7 H (3.8-10.6) k/uL RBC 3.70 L (3.80-5.40) m/uL Hgb 10.8 L (11.4-16.0) gm/dL Neutrophils # 16.2 H (1.3-7.7) k/uL Carbon Dioxide (22-30) mmol/L BUN (7-17) mg/dL Glucose (74-99) mg/dL POC Glucose (mg/dL) 245 H 147 H (75-99) mg/dL Hemoglobin A1c (4.0-6.0) % 01/26/17 01/26/17 Range/Units 06:31 07:25 WBC (3.8-10.6) k/uL RBC (3.80-5.40) m/uL Hgb (11.4-16.0) gm/dL Neutrophils # (1.3-7.7) k/uL Carbon Dioxide 36 H (22-30) mmol/L BUN 23 H (7-17) mg/dL Glucose 228 H (74-99) mg/dL POC Glucose (mg/dL) 224 H (75-99) mg/dL Hemoglobin A1c (4.0-6.0) % Microbiology - Last 24 Hours (Table) 01/24/17 18:25 Blood Culture - Preliminary Blood No Growth after 24 hours Assessment and Plan Assessment: #1 Acute exacerbation of chronic obstructive pulmonary disease. #2 Chronic tobacco dependence, quit July 2016 after 50+ year pack per day smoking. #3 Acute on chronic hypoxic respiratory failure secondary to above. #4 Diabetes mellitus with steroid-induced hyperglycemia. #5 Hypothyroidism. #6 Anemia of unclear etiology. Recommendation: Continue present meds as listed, continue IV Solu-Medrol, antibiotics, steroids, consider discharge planning in the next 24 hours. However the patient needs to be on a higher dose of prednisone tapered over a prolonged period of time. Patient is not to stop the prednisone until she follows up with Dr. Almodovar. Time with Patient: Less than 30
[2017-01-26 12:00] LABS: Glucose,Whole Blood 253 mg/dL (75-99)
[2017-01-26] MEDS ORDERED: NON-FORMULARY DRUG (Alendronate Sodium [Fosamax] 70 MG) PO SCH (15:28)
[2017-01-26 17:44] LABS: Glucose,Whole Blood 176 mg/dL (75-99)
--- NOTE | 2017-01-26 17:51 | PN ---
PROGRESS NOTE I am covering for Dr. Puckett. DATE OF SERVICE: 01/26/2017 This 71-year-old woman who was admitted with shortness of breath and COPD exacerbation. Also has history of asthma, also. Patient being closely monitored. No chest pain. No palpitations. No fever. PHYSICAL EXAM: Alert and oriented x3. The pulse is 92, blood pressure is 125/64, respirations 16, temp 97.9, pulse ox 98% on 4 L. HEENT: Conjunctivae normal. Neck: No jugular venous distention. Cardiovascular: S1, S2 muffled. Respiratory: Breath sounds diminished in the bases. A few scattered rhonchi and crackles. ABDOMEN: Soft, nontender. No mass palpable. Legs no edema. No swelling. Central nervous system: Higher functions as mentioned earlier. Moves all four limbs. No focal motor deficits. Lymphatics: No lymph nodes palpable in the neck, axillae or groin. Skin: No ulcers, rashes or bleeding. LABS: WBC 7.2, hemoglobin 10.8. Accu-Cheks noted. ASSESSMENT: 1. Chronic obstructive pulmonary disease acute exacerbation with acute purulent tracheobronchitis. 2. History of asthma, chronic obstructive pulmonary disease. 3. Diabetes type 2. 4. Hyperlipidemia. 5. Hypothyroid. 6. Chronic hypoxic respiratory failure on home O2 3.5 L 4 L. 7. History of adenoidectomy, appendectomy. RECOMMENDATIONS AND DISCUSSION: Recommend to continue current medications, current management and symptomatic treatment. Continue bronchodilators. We will recommend to cut down the steroids to 40 IV q.8h and continue to monitor. Otherwise Dr. Puckett will follow tomorrow. MMODL / IJN: [id number] /
[2017-01-26] MEDS: SODIUM CHLORIDE 0.9% 1,000 ML IV SCH (18:49)
[2017-01-26 20:24] LABS: Glucose,Whole Blood 223 mg/dL (75-99)
[2017-01-26] MEDS: methylPREDNISolone SOD SUCCI 40 MG/ML 1 ML VIAL IV SCH (23:29)
[2017-01-27] MEDS: LEVOTHYROXINE 88 MCG TAB PO SCH (06:07)
[2017-01-27 07:18] LABS: Glucose,Whole Blood 213 mg/dL (75-99)
[2017-01-27] MEDS: ATORVASTATIN 10 MG TAB PO SCH (07:51)
[2017-01-27] MEDS: INSULIN ASPART 100 UNIT/ML 1 ML 10 ML VIAL SQ SCH ×4 (07:51→21:06)
[2017-01-27] MEDS: FUROSEMIDE 10 MG/ML 4 ML VIAL IV SCH ×2 (07:51→21:06)
[2017-01-27] MEDS: metFORMIN 850 MG TAB PO SCH ×2 (07:51→21:06)
[2017-01-27] MEDS: ENOXAPARIN 40 MG/0.4 ML SYRINGE SQ SCH (07:51)
[2017-01-27] MEDS: methylPREDNISolone SOD SUCCI 40 MG/ML 1 ML VIAL IV SCH ×3 (07:52→23:42)
--- NOTE | 2017-01-27 08:02 | P.PN ---
Subjective Progress Note Date: 01/27/17 Principal diagnosis: Exacerbation of COPD This is a continue pressure 71-year-old white female essentially admitted for exacerbation of COPD. She states that she was actually cleaning very ninfa closets and had exacerbation. She, usually is a 3.5 L of oxygen at home and she still is struggling. Otherwise, no voiding difficulties. Objective - Vital Signs Vital signs: Vital Signs Temp 98.1 F 01/26/17 21:24 Pulse 106 H 01/26/17 21:24 Resp 20 01/26/17 21:24 BP 143/90 01/26/17 21:24 Pulse Ox 97 01/26/17 21:24 Intake & Output 01/26/17 01/27/17 01/27/17 18:59 06:59 18:59 Intake Total 240 620 Output Total 1650 1750 Balance -1410 -1130 Weight 82 kg Intake: Intake, IV Titration 320 Amount Sodium Chloride 0.9% 1, 320 000 ml @ 40 mls/hr IV . Q24H [facility] Rx#:[id number] Oral 240 300 Output: Urine 1650 1750 Other: Voiding Method Indwelling Catheter Indwelling Catheter # Voids 1 # Bowel Movements 1 - Constitutional General appearance: Present: obese - EENT Eyes: Absent: abnormal pupil - Respiratory Respiratory: bilateral: diminished, prolonged expiration - Cardiovascular Rhythm: regular Abnormal Heart Sounds: Absent: S3 Gallop - Gastrointestinal General gastrointestinal: Present: soft. Absent: tenderness - Neurologic Neurologic: Present: CNII-XII intact - Labs CBC & Chem 7: 01/26/17 06:31 01/26/17 06:31 Labs: Abnormal Lab Results - Last 24 Hours (Table) 01/26/17 01/26/17 01/26/17 Range/Units 11:59 17:42 20:23 POC Glucose (mg/dL) 253 H 176 H 223 H (75-99) mg/dL 01/27/17 Range/Units 07:17 POC Glucose (mg/dL) 213 H (75-99) mg/dL Microbiology - Last 24 Hours (Table) 01/24/17 18:25 Blood Culture - Preliminary Blood No Growth after 48 hours Assessment and Plan (1) Acute exacerbation of chronic obstructive airways disease Current Visit: Yes Status: Acute Code(s): J44.1 - CHRONIC OBSTRUCTIVE PULMONARY DISEASE W (ACUTE) EXACERBATION SNOMED Code(s): 858422534 (2) Failure of outpatient treatment Current Visit: Yes Status: Acute Code(s): Z78.9 - OTHER SPECIFIED HEALTH STATUS SNOMED Code(s): 983902299 (3) Adult respiratory distress syndrome Current Visit: No Status: Acute Code(s): J80 - ACUTE RESPIRATORY DISTRESS SYNDROME SNOMED Code(s): 94744150 (4) Tobacco abuse counseling Current Visit: No Status: Acute Code(s): Z71.6 - TOBACCO ABUSE COUNSELING SNOMED Code(s): 396367480 Plan: Continue current regimen of treatment. Slowly weaned from steroids therapy. Been Discussion regarding her prognosis which is very guarded given her overall baseline. Check CBC and CMP in a.m. Time with Patient: Greater than 30
[2017-01-27] MEDS: SYMBICORT 160-4.5 MCG INHALER INHALATION SCH ×2 (09:15→19:40)
[2017-01-27] MEDS: ALBUTEROL NEBULIZED 2.5 MG/3 ML INHALATION SCH ×4 (09:15→19:40)
[2017-01-27 09:29] LABS: Basophils % (A) 0 %; CH 28.8; CHCM 30.8; Eosinophils % (A) 0 %; HCT 34.3 % (34.0-46.0); HDW 2.62; HGB 10.8 gm/dL (11.4-16.0); Hypochromasia Moderate; Luc # (Auto) 0.11; Luc % (Auto) 1; Lymphocytes # (A) 0.9 k/uL (1.0-4.8); Lymphocytes % (A) 6 %; MCH 29.6 pg (25.0-35.0); MCHC 31.4 g/dL (31.0-37.0); MCV 94.2 fL (80.0-100.0); Mean Platelet Volume 7.6; Monocytes # (A) 0.6 k/uL (0-1.0); Monocytes % (A) 4 %; Neutrophils # (A) 13.8 k/uL (1.3-7.7); Neutrophils % (A) 89 %; RBC 3.64 m/uL (3.80-5.40); RDW 13.8 % (11.5-15.5); WBC 15.5 k/uL (3.8-10.6); WBC (Perox) 16.19
[2017-01-27 09:40] LABS: Anion Gap 10 mmol/L; Blood Urea Nitrogen 31 mg/dL (7-17); Carbon Dioxide 35 mmol/L (22-30); Chloride 95 mmol/L (98-107); Glucose 215 mg/dL (74-99); Non-African American GFR(MDRD) 58 (>60 ml/min/1.73 sqM); Potassium 4.2 mmol/L (3.5-5.1); Sodium 140 mmol/L (137-145)
[2017-01-27 11:27] LABS: Glucose,Whole Blood 177 mg/dL (75-99)
--- NOTE | 2017-01-27 12:21 | P.PN ---
Subjective Progress Note Date: 01/27/17 Principal diagnosis: COPD exacerbation Progress note dated 01/27/2017 71-year-old female admitted on January 24 with a COPD exacerbation. She sees our partner in the office. Her primary physician is Dr. Puckett. Doing much better. Still very short of breath with any activity. Does have some tight tightness in her chest coughing and wheezing. Not producing much or any phlegm. Again feeling much better. Hopefully for discharge in next day or 2. Has really been seen by the primary. No plans for discharge today according to him. Medications are reviewed. X-rays and labs are reviewed. Everything seems appropriate. Objective - Vital Signs Vital signs: Vital Signs Temp 97.6 F 01/27/17 07:00 Pulse 107 H 01/27/17 09:25 Resp 18 01/27/17 08:00 BP 127/62 01/27/17 07:00 Pulse Ox 97 01/27/17 09:15 Intake & Output 01/26/17 01/27/17 01/27/17 18:59 06:59 18:59 Intake Total 240 620 Output Total 1650 1750 Balance -1410 -1130 Weight 82 kg Intake: Intake, IV Titration 320 Amount Sodium Chloride 0.9% 1, 320 000 ml @ 40 mls/hr IV . Q24H [facility] Rx#:[id number] Oral 240 300 Output: Urine 1650 1750 Other: Voiding Method Indwelling Catheter Indwelling Catheter Bedside Commode # Voids 1 # Bowel Movements 1 1 - Exam No acute distress, oriented 3. HEENT examination is grossly unremarkable. Mucous membranes are moist. No oral lesions. Neck supple. Full range of motion. No adenopathy or thyromegaly. Neck veins are flat. Cardiovascular examination reveals regular rhythm rate. S1-S2 normal. No S3- S4 or murmur. Lungs reveal severely diminished breath sounds. A few scattered rhonchi. No wheezes or crackles. Abdomen soft bowel sounds are heard. No masses or tenderness. Extremities are intact. No cyanosis clubbing or edema. Skin without rash. Neurologic examination is nonfocal. - Labs CBC & Chem 7: 01/27/17 07:00 01/27/17 07:00 Labs: Abnormal Lab Results - Last 24 Hours (Table) 01/26/17 01/26/17 01/27/17 Range/Units 17:42 20:23 07:00 WBC 15.5 H (3.8-10.6) k/uL RBC 3.64 L (3.80-5.40) m/uL Hgb 10.8 L (11.4-16.0) gm/dL Neutrophils # 13.8 H (1.3-7.7) k/uL Lymphocytes # 0.9 L (1.0-4.8) k/uL Chloride (98-107) mmol/L Carbon Dioxide (22-30) mmol/L BUN (7-17) mg/dL Glucose (74-99) mg/dL POC Glucose (mg/dL) 176 H 223 H (75-99) mg/dL 01/27/17 01/27/17 01/27/17 Range/Units 07:00 07:17 11:17 WBC (3.8-10.6) k/uL RBC (3.80-5.40) m/uL Hgb (11.4-16.0) gm/dL Neutrophils # (1.3-7.7) k/uL Lymphocytes # (1.0-4.8) k/uL Chloride 95 L (98-107) mmol/L Carbon Dioxide 35 H (22-30) mmol/L BUN 31 H (7-17) mg/dL Glucose 215 H (74-99) mg/dL POC Glucose (mg/dL) 213 H 177 H (75-99) mg/dL Microbiology - Last 24 Hours (Table) 01/24/17 18:25 Blood Culture - Preliminary Blood No Growth after 48 hours Assessment and Plan (1) Diabetes mellitus Current Visit: Yes Status: Acute Code(s): E11.9 - TYPE 2 DIABETES MELLITUS WITHOUT COMPLICATIONS SNOMED Code(s): 70942083 (2) Hypothyroidism Current Visit: Yes Status: Acute Code(s): E03.9 - HYPOTHYROIDISM, UNSPECIFIED SNOMED Code(s): 50608981 (3) Hypoxemia Current Visit: Yes Status: Acute Code(s): R09.02 - HYPOXEMIA SNOMED Code(s ): 473943780 (4) Tobacco dependence Current Visit: Yes Status: Acute Code(s): F17.200 - NICOTINE DEPENDENCE, UNSPECIFIED, UNCOMPLICATED SNOMED Code(s): 53414848 (5) Anemia Current Visit: Yes Status: Acute Code(s): D64.9 - ANEMIA, UNSPECIFIED SNOMED Code(s): 014025381 (6) Acute exacerbation of chronic obstructive airways disease Current Visit: Yes Status: Acute Code(s): J44.1 - CHRONIC OBSTRUCTIVE PULMONARY DISEASE W (ACUTE) EXACERBATION SNOMED Code(s): 584753253 (7) Tobacco abuse counseling Current Visit: No Status: Acute Code(s): Z71.6 - TOBACCO ABUSE COUNSELING SNOMED Code(s): 611775897 Plan: Plan dated 01/27/2017 The patient's doing well. I the patient is improving albeit slowly. Current medications. Hopefully the patient can be discharged in the next day or so. The patient should be discharged home on prednisone with a burst and taper beginning with 40 or 50 mg a day for 4 days and tapering down by 10 mg every fourth day. The patient should follow with Dr. Almodovar in the office. Time with Patient: Less than 30
[2017-01-27 17:17] LABS: Glucose,Whole Blood 229 mg/dL (75-99)
[2017-01-27 20:03] LABS: Glucose,Whole Blood 304 mg/dL (75-99)
[2017-01-28] MEDS: LEVOTHYROXINE 88 MCG TAB PO SCH (06:19)
[2017-01-28] MEDS: SYMBICORT 160-4.5 MCG INHALER INHALATION SCH (07:17)
[2017-01-28] MEDS: ALBUTEROL NEBULIZED 2.5 MG/3 ML INHALATION SCH ×3 (07:17→15:20)
[2017-01-28 07:19] LABS: Glucose,Whole Blood 251 mg/dL (75-99)
[2017-01-28 07:48] LABS: CH 29.3; HCT 36.8 % (34.0-46.0); HDW 2.77; HGB 11.4 gm/dL (11.4-16.0); Hypochromasia Moderate; MCH 29.4 pg (25.0-35.0); MCV 94.8 fL (80.0-100.0); Mean Platelet Volume 6.8; RBC 3.89 m/uL (3.80-5.40); RDW 12.7 % (11.5-15.5); WBC 15.6 k/uL (3.8-10.6)
[2017-01-28] MEDS: ENOXAPARIN 40 MG/0.4 ML SYRINGE SQ SCH (08:11)
[2017-01-28] MEDS: metFORMIN 850 MG TAB PO SCH (08:11)
[2017-01-28] MEDS: FUROSEMIDE 10 MG/ML 4 ML VIAL IV SCH (08:11)
[2017-01-28] MEDS: ATORVASTATIN 10 MG TAB PO SCH (08:12)
[2017-01-28] MEDS: methylPREDNISolone SOD SUCCI 40 MG/ML 1 ML VIAL IV SCH (08:13)
[2017-01-28] MEDS: SODIUM CHLORIDE 0.9% 1,000 ML IV SCH (08:14)
[2017-01-28] MEDS: INSULIN ASPART 100 UNIT/ML 1 ML 10 ML VIAL SQ SCH ×2 (08:32→13:06)
[2017-01-28 08:39] LABS: ALT 38 U/L (9-52); AST 20 U/L (14-36); Alkaline Phosphatase 64 U/L (38-126); Anion Gap 7 mmol/L; Blood Urea Nitrogen 32 mg/dL (7-17); Calcium 9.3 mg/dL (8.4-10.2); Carbon Dioxide 38 mmol/L (22-30); Chloride 95 mmol/L (98-107); Glucose 226 mg/dL (74-99); Non-African American GFR(MDRD) >60 (>60 ml/min/1.73 sqM); Potassium 4.5 mmol/L (3.5-5.1); Sodium 140 mmol/L (137-145); Total Bilirubin 0.3 mg/dL (0.2-1.3); Total Protein 6.2 g/dL (6.3-8.2)
[2017-01-28 12:28] LABS: Glucose,Whole Blood 191 mg/dL (75-99)
--- NOTE | 2017-01-28 12:49 | P.DS ---
Providers Date of admission: 01/24/17 19:16 Attending physician: Sung Puckett Consults: 01/24/17 19:13 Consult Physician Routine Consulting Provider: Cyndie Almodovar Consult Reason/Comments: known Do you want consulting provider notified?: Yes Primary care physician: Sung Puckett - Discharge Diagnosis(es) (1) Acute exacerbation of chronic obstructive airways disease Current Visit: Yes Status: Acute (2) Failure of outpatient treatment Current Visit: Yes Status: Acute (3) Adult respiratory distress syndrome Current Visit: No Status: Acute (4) Tobacco abuse counseling Current Visit: No Status: Acute Hospital Course: This is a discharge summary a 71-year-old white female essentially admitted for exacerbation of COPD. She placed on appropriate protocol. Pulmonology was consulted and the patient was stabilized. Unfortunately, she requires high level oxygen as a home treatment. I discussed with her trying to figure out the right form of humidification. She is discharged in guarded condition to follow-up with me in approximately 5-7 days. Patient Condition at Discharge: Fair Plan - Discharge Summary Discharge Rx Participant: No New Discharge Prescriptions: New predniSONE 10 mg PO DAILY #60 tab Continue Calcium Carbonate/Vitamin D3 [Calcium 600-Vit D3 200 Tablet] 2 tab PO QAM Ipratropium/Albuterol Sulfate [Combivent Respimat Inhaler] 1 puff INHALATION RT-QID PRN PRN Reason: Shortness Of Breath Alendronate Sodium [Fosamax] 70 mg PO ENRIQUEZ metFORMIN HCL [Glucophage] 850 mg PO BID Levothyroxine Sodium [Synthroid] 88 mcg PO DAILY Calcium Carbonate/Vitamin D3 [Calcium 600-Vit D3 200 Tablet] 1 tab PO HS Simvastatin [Zocor] 10 mg PO DAILY Albuterol Nebulized [Ventolin Nebulized] 2.5 mg INHALATION RT-QID PRN PRN Reason: Shortness Of Breath Budesonide [Pulmicort] 0.5 mg INHALATION RT-BID Ipratropium Nebulized [Atrovent Nebulized] 0.5 mg INHALATION RT-QID PRN PRN Reason: Shortness Of Breath guaiFENesin-DM 600/30MG [Mucinex Dm] 1 tab PO Q12H PRN PRN Reason: Congestion Furosemide [Lasix] 20 mg PO DAILY PRN PRN Reason: edema Cetirizine HCl/Pseudoephedrine [Zyrtec-D Tablet] 1 tab PO BID PRN PRN Reason: Congestion ALPRAZolam [Xanax] 0.25 mg PO DAILY PRN PRN Reason: Anxiety Glycopyrrolate/Formoterol Fum [Bevespi Aerosphere Inhaler] 1 puff INHALATION RT-BID Cyclobenzaprine [Flexeril] 5 mg PO TID PRN PRN Reason: Muscle Spasm Discharge Medication List Alendronate Sodium [Fosamax] 70 mg PO ENRIQUEZ 07/28/16 [History] Calcium Carbonate/Vitamin D3 [Calcium 600-Vit D3 200 Tablet] 1 tab PO HS [History] Calcium Carbonate/Vitamin D3 [Calcium 600-Vit D3 200 Tablet] 2 tab PO QAM [History] Ipratropium/Albuterol Sulfate [Combivent Respimat Inhaler] 1 puff INHALATION RT- QID PRN 07/28/16 [History] Levothyroxine Sodium [Synthroid] 88 mcg PO DAILY 07/28/16 [History] metFORMIN HCL [Glucophage] 850 mg PO BID 07/28/16 [History] Simvastatin [Zocor] 10 mg PO DAILY 08/22/16 [History] Albuterol Nebulized [Ventolin Nebulized] 2.5 mg INHALATION RT-QID PRN 10/09/16 [ History] Budesonide [Pulmicort] 0.5 mg INHALATION RT-BID 10/09/16 [History] Furosemide [Lasix] 20 mg PO DAILY PRN 12/02/16 [History] Ipratropium Nebulized [Atrovent Nebulized] 0.5 mg INHALATION RT-QID PRN [History] guaiFENesin-DM 600/30MG [Mucinex Dm] 1 tab PO Q12H PRN 12/02/16 [History] ALPRAZolam [Xanax] 0.25 mg PO DAILY PRN 01/24/17 [History] Cetirizine HCl/Pseudoephedrine [Zyrtec-D Tablet] 1 tab PO BID PRN 01/24/17 [ History] Cyclobenzaprine [Flexeril] 5 mg PO TID PRN 01/24/17 [History] Glycopyrrolate/Formoterol Fum [Bevespi Aerosphere Inhaler] 1 puff INHALATION RT- BID 01/24/17 [History] predniSONE 10 mg PO DAILY #60 tab 01/28/17 [Rx] Follow up Appointment(s)/Referral(s): Sung Puckett MD [Primary Care Provider] - 1-2 days [facility], [NON-STAFF] -
[2017-01-28] MEDS ORDERED: predniSONE 50 MG TAB PO SCH (13:30)
--- NOTE | 2017-01-28 13:46 | P.PN ---
Subjective Progress Note Date: 01/28/17 Principal diagnosis: Acute exacerbation of COPD, acute on chronic hypoxic rest failure secondary to COPD This is a very pleasant 71-year-old female patient who follows with Dr. Puckett as her primary care physician. She has a history of diabetes mellitus, hypothyroidism, hyperlipidemia. She also has a history of severe oxygen dependent chronic obstructive pulmonary disease with a 50 year pack per day smoking history. She states she quit in July 2016. She follows with Dr. Almodovar in our office. He is recently discharged from here in November for COPD exacerbation. She states she was doing fairly well until her breath prednisone taper completed. Approximately 3-4 days ago she started having increasing shortness of breath cough and congestion. Wheezing with exertion. Presented here yesterday to the emergency room for the same. Chest x-ray does not reveal any acute pulmonary process. There is mild fibrotic changes. No leukocytosis. Afebrile. Maintaining O2 saturations in the 90s on 4 L/m per nasal cannula. She is hemodynamically stable. She has been initiated on Duo nebs, Symbicort and IV Solu-Medrol Patient was reevaluated today on 01/2017, feeling better, breathing a lot easier, no cough no wheezing, continues to have shortness of breath which is chronic with any activity. Compared to how she felt on admission, patient tells me today that she is feeling much better. Remains on IV Solu-Medrol, remains on multiple bronchodilators, and the patient will likely could be considered for discharge planning in the next 24-48 hours. On 01/28/2017 patient states she is improved, she can more air. She is on 4 L of oxygen per nasal cannula with O2 sat 95-97%. Lung sounds are extremely diminished throughout the lung [place], no rhonchi no wheezes or rales auscultated. No significant sputum production. Patient has been afebrile. She still has episodes of desaturation with activity, accompanied by tachycardia , but recovers with rest. From pulmonary standpoint she has reached her baseline, and stable for discharge home on her maintenance inhalers and medications and a prednisone taper starting at 50 mg daily. Follow-up with Dr. Almodovar in the office in one week. Objective - Vital Signs Vital signs: Vital Signs Temp 97.4 F L 01/28/17 07:00 Pulse 113 H 01/28/17 11:16 Resp 20 01/28/17 08:10 BP 112/79 01/28/17 07:00 Pulse Ox 97 01/28/17 07:00 Intake & Output 01/27/17 01/28/17 01/28/17 18:59 06:59 18:59 Intake Total 280 320 Output Total 200 Balance 280 320 -200 Weight 81.5 kg Intake: Intake, IV Titration 280 320 Amount Sodium Chloride 0.9% 1, 280 320 000 ml @ 40 mls/hr IV . Q24H [facility] Rx#:[id number] Output: Urine 200 Other: Voiding Method Bedside Commode Bedside Commode Bedside Commode # Voids 3 3 1 # Bowel Movements 1 - Exam GENERAL EXAM: Alert, fairly comfortable in no apparent distress. HEAD: Normocephalic. EYES: Normal reaction of pupils, equal size. NOSE: Clear with pink turbinates. THROAT: No erythema or exudates. NECK: No masses, no JVD. CHEST: No chest wall deformity. LUNGS: Diminished breath sounds at the bases, no rhonchi crackles or wheezes. CVS: S1 and S2 normal with no audible murmur, regular rhythm. ABDOMEN: No hepatosplenomegaly, normal bowel sounds, no guarding or rigidity. SPINE: No scoliosis or deformity SKIN: No rashes CENTRAL NERVOUS SYSTEM: No focal deficits, tone is normal in all 4 extremities. EXTREMITIES: There is no peripheral edema. No clubbing, no cyanosis. Peripheral pulses are intact. - Labs CBC & Chem 7: 01/28/17 07:22 01/28/17 07:22 Labs: Abnormal Lab Results - Last 24 Hours (Table) 01/27/17 01/27/17 01/28/17 Range/Units 17:13 20:02 07:17 WBC (3.8-10.6) k/uL Plt Count (150-450) k/uL Chloride (98-107) mmol/L Carbon Dioxide (22-30) mmol/L BUN (7-17) mg/dL Glucose (74-99) mg/dL POC Glucose (mg/dL) 229 H 304 H 251 H (75-99) mg/dL Total Protein (6.3-8.2) g/dL Albumin (3.5-5.0) g/dL 11/14/17 11/14/17 11/14/17 Range/Units 07:22 07:22 12:19 WBC 15.6 H (3.8-10.6) k/uL Plt Count 456 H (150-450) k/uL Chloride 95 L (98-107) mmol/L Carbon Dioxide 38 H (22-30) mmol/L BUN 32 H (7-17) mg/dL Glucose 226 H (74-99) mg/dL POC Glucose (mg/dL) 191 H (75-99) mg/dL Total Protein 6.2 L (6.3-8.2) g/dL Albumin 3.3 L (3.5-5.0) g/dL Microbiology - Last 24 Hours (Table) 01/24/17 18:25 Blood Culture - Preliminary Blood No Growth after 72 hours Assessment and Plan Plan: #1 Acute exacerbation of chronic obstructive pulmonary disease. #2 Chronic tobacco dependence, quit July 2016 after 50+ year pack per day smoking. #3 Acute on chronic hypoxic respiratory failure secondary to above. #4 Diabetes mellitus with steroid-induced hyperglycemia. #5 Hypothyroidism. #6 Anemia of unclear etiology. Recommendation: Patient has significant improved from pulmonary standpoint, almost at her baseline. Patient is stable for discharge home from pulmonary standpoint on prednisone slow taper starting at 50 mg daily. Patient is not to stop the prednisone until she follows up with Dr. Almodovar. I performed a history & physical examination of the patient and discussed their management with my nurse practitioner, Halle Saucedo. I reviewed the nurse practitioner's note and agree with the documented findings and plan of care. Lung sounds are extremely diminished, no rhonchi, no wheezes. Stable for discharge home today, follow up with Dr. Almodovar in the office in one week. The findings and the impression was discussed with the patient. I attest to the documentation by the nurse practitioner. Time with Patient: Less than 30
[2017-01-28 14:59] VITALS: BP 127/76; RESP 18; TEMP 97.8
[2017-01-28 15:36] VITALS: PULSE 111
[2017-01-28 17:22] LABS: Glucose,Whole Blood 181 mg/dL (75-99)
== END 2017-01-28 17:50 | disposition home or self-care (01) | DRG 190 ==
LOC: SUPCPDRO 17:34 → EC 17:34 → 5MS5E 19:16
PROVIDERS: ADMIT Family Medicine; ATTEND Family Medicine
DX: J44.1 Chronic obstructive pulmonary disease with (acute) exacerbation (principal); J96.21 Acute and chronic respiratory failure with hypoxia; E11.65 Type 2 diabetes mellitus with hyperglycemia; I10 Essential (primary) hypertension; G51.0 Bell's palsy; D64.9 Anemia, unspecified; T38.0X5A Adverse effect of glucocorticoids and synthetic analogues, initial encounter; E78.5 Hyperlipidemia, unspecified; R00.0 Tachycardia, unspecified; E03.9 Hypothyroidism, unspecified; Z79.899 Other long term (current) drug therapy; Z79.84 Long term (current) use of oral hypoglycemic drugs; Z90.49 Acquired absence of other specified parts of digestive tract; Z90.89 Acquired absence of other organs; Z71.6 Tobacco abuse counseling; Z98.41 Cataract extraction status, right eye; Z99.81 Dependence on supplemental oxygen; Z98.42 Cataract extraction status, left eye; Z87.891 Personal history of nicotine dependence; Z80.0 Family history of malignant neoplasm of digestive organs; Z82.1 Family history of blindness and visual loss; Z79.83 Long term (current) use of bisphosphonates; Z80.42 Family history of malignant neoplasm of prostate; Z80.1 Family history of malignant neoplasm of trachea, bronchus and lung; Z90.710 Acquired absence of both cervix and uterus
CPT/HCPCS: 36415; 71010; 80048; 80053; 82550; 82553; 83036; 83605; 83735; 83880; 84484; 85025; 85027; 85610; 85730; 87040; 93005; 94640; 94644; 94760; 96361; 96365; 96375; 99285

== ENCOUNTER 2017-08-21 06:36 | Day surgery (SDC) | payer MEDICARE ==
[2017-08-18 12:39] VITALS: BMI 28.5
[~2017-08-21 06:36] MED LIST changes: +LIDOCAINE 1% 20 ML VIAL (10MG/ML) FOR IV START INTRADERMA PRN; +MIDAZOLAM 2 MG/2 ML VIAL IV PRN
[2017-08-21] MEDS ORDERED: LACTATED RINGERS 1,000 ML IV ONE (07:00)
[2017-08-21 07:05] VITALS: RESP 18; TEMP 97.7
[2017-08-21 07:11] LABS: Glucose,Whole Blood 128 mg/dL (75-99)
[2017-08-21] MEDS ORDERED: GLUCAGON 1 MG/ML VIAL ONE (07:45)
[2017-08-21] MEDS ORDERED: PROPOFOL 10 MG/ML 20 ML VIAL IV ONE (07:45)
--- NOTE | 2017-08-21 07:54 | P.GSHP ---
History of Present Illness H&P Date: 08/21/17 Chief Complaint: Screening colonoscopy This is a 72-year-old female who presents today for screening colonoscopy. A shunt has had complaints of rectal bleeding. Past Medical History Past Medical History: Asthma, COPD, Diabetes Mellitus, Hyperlipidemia, Osteoarthritis (OA), Thyroid Disorder Additional Past Medical History / Comment(s): recent admission for exacerbation of COPD, home oxygen 3 [place]ITERS [place]. 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, T-8 FX IN 2013 History of Any Multi-Drug Resistant Organisms: None Reported Past Surgical History: Adenoidectomy, Appendectomy, Breast Surgery, Hysterectomy , Tonsillectomy Additional Past Surgical History / Comment(s): several lumpectomies-benign, D&C , MARIO CATARACTS Past Anesthesia/Blood Transfusion Reactions: No Reported Reaction Smoking Status: Former smoker - Past Family History Mother Family Medical History: Cancer Additional Family Medical History / Comment(s): Mac deg, blind; abdominal tumor ; colon cancer in old age, at 86 Father Family Medical History: Cancer Additional Family Medical History / Comment(s): Prostate CA mets to lungs Medications and Allergies Home Medications Medication Instructions Recorded Confirmed Type Alendronate Sodium [Fosamax] 70 mg PO ENRIQUEZ 07/28/16 08/21/17 History Ipratropium/Albuterol Sulfate 1 puff INHALATION TID PRN 07/28/16 08/21/17 History [Combivent Respimat Inhaler] Levothyroxine Sodium [Synthroid] 88 mcg PO DAILY 07/28/16 08/21/17 History metFORMIN HCL [Glucophage] 1,000 mg PO BID 07/28/16 08/21/17 History Budesonide [Pulmicort] 0.5 mg INHALATION RT-BID 10/09/16 08/21/17 History Furosemide [Lasix] 20 mg PO DAILY PRN 12/02/16 08/21/17 History Ipratropium Nebulized [Atrovent 0.5 mg INHALATION RT-QID PRN 12/02/16 08/21/17 History Nebulized] Glycopyrrolate/Formoterol Fum 2 puff INHALATION RT-BID 01/24/17 08/21/17 History [Bevespi Aerosphere Inhaler] Atorvastatin [Lipitor] 40 mg PO DAILY 08/18/17 08/21/17 History Diltiazem Cd [Cardizem Cd] 120 mg PO DAILY 08/18/17 08/21/17 History Empagliflozin [Jardiance] 10 mg PO DAILY 08/18/17 08/21/17 History Allergies Allergy/AdvReac Type Severity Reaction Status Date / Time bupropion [From Zyban] Allergy Rash/Hives Verified 08/21/17 07:00 cefaclor [From Ceclor] Allergy Rash/Hives Verified 08/21/17 07:00 Surgical - Exam Vital Signs Temp Pulse Resp BP Pulse Ox 97.7 F 95 18 127/72 96 08/21/17 07:02 08/21/17 07:02 08/21/17 07:02 08/21/17 07:02 08/21/17 07:02 - General well developed, no distress - Eyes PERRL - ENT normal pinna - Neck no masses - Respiratory normal expansion - Cardiovascular Rhythm: regular - Abdomen Abdomen: soft, non tender Results - Labs Abnormal Lab Results - Last 24 Hours (Table) 08/21/17 Range/Units 07:06 POC Glucose (mg/dL) 128 H (75-99) mg/dL Assessment and Plan Assessment: GI bleed. We'll perform colonoscopy.
[2017-08-21 08:42] VITALS: BP 146/80; PULSE 91
--- NOTE | 2017-08-21 10:27 | P.OP ---
Date of Procedure: 08/21/17 Preoperative Diagnosis: GI bleed Postoperative Diagnosis: GI bleed Procedure(s) Performed: Colonoscopy Anesthesia: MAC Surgeon: Lucien Warner Pathology: other (Multiple colonic polyps) Condition: stable Disposition: PACU Description of Procedure: The patient's placed on the endoscopy table in the lateral position. She received IV sedation. Digital rectal exam was performed this was normal. The possible colonoscope was then placed patient anus passed rotator colon. The ileocecal valve was visualized. The cecum there was a small polyp seen this removed with the cold forcep. Scope was then withdrawn and the area of had a flexure there was another polyp seen this removed with a cold forcep. Scope was then brought back and at the 65 cm hitesh there was another polyp seen this was removed with the snare biopsy another polyp was seen in the 55 cm hitesh and this was very large and unable to be removed with the snare. A biopsy of the polyp was performed. The polyp occupying approximately two thirds of the lumen of the colon. Scope was brought back and at the 50 cm hitesh there was another polyp seen this removed with cold forcep. Scope was withdrawn and then in the sigmoid colon there is diverticular changes. Scope then brought back the rectum this appeared normal. Scope was withdrawn for patient..
== END 2017-08-21 09:14 | disposition home or self-care (01) ==
LOC: ORWHC2ENDO 06:36
PROVIDERS: ATTEND Surgery
DX: D12.0 Benign neoplasm of cecum (principal); D12.3 Benign neoplasm of transverse colon; D12.6 Benign neoplasm of colon, unspecified; D37.4 Neoplasm of uncertain behavior of colon; E11.9 Type 2 diabetes mellitus without complications; E78.5 Hyperlipidemia, unspecified; E07.9 Disorder of thyroid, unspecified; I10 Essential (primary) hypertension; M19.90 Unspecified osteoarthritis, unspecified site; J44.1 Chronic obstructive pulmonary disease with (acute) exacerbation; Z88.1 Allergy status to other antibiotic agents; Z88.8 Allergy status to other drugs, medicaments and biological substances; Z79.83 Long term (current) use of bisphosphonates; Z79.890 Hormone replacement therapy; Z79.84 Long term (current) use of oral hypoglycemic drugs; Z79.51 Long term (current) use of inhaled steroids; Z79.899 Other long term (current) drug therapy; Z99.81 Dependence on supplemental oxygen; Z87.891 Personal history of nicotine dependence; Z90.49 Acquired absence of other specified parts of digestive tract; Z80.0 Family history of malignant neoplasm of digestive organs; Z80.42 Family history of malignant neoplasm of prostate; Z80.1 Family history of malignant neoplasm of trachea, bronchus and lung
CPT/HCPCS: 88305; 45380; 45385; J1610; J2704; 44404

== ENCOUNTER → 2017-09-18 | Outpatient (CLI) | payer MEDICARE ==
[2017-09-18 15:06] LABS: HCT 38.8 % (34.0-46.0); HGB 11.9 gm/dL (11.4-16.0); Hypochromasia Slight; MCH 27.4 pg (25.0-35.0); MCHC 30.7 g/dL (31.0-37.0); MCV 89.3 fL (80.0-100.0); Mean Platelet Volume 6.9; Platelet Count 308 k/uL (150-450); RBC 4.34 m/uL (3.80-5.40); RDW 14.1 % (11.5-15.5); WBC 10.4 k/uL (3.8-10.6)
[2017-09-18 15:11] LABS: Potassium 4.1 mmol/L (3.5-5.1)
== END | disposition home or self-care (01) ==
LOC: LABPAT 14:21
PROVIDERS: ATTEND Surgery
DX: Z01.812 Encounter for preprocedural laboratory examination (principal); K63.5 Polyp of colon
CPT/HCPCS: 80051; 85027

== ENCOUNTER 2017-09-25 08:00 | Inpatient (IN) | payer MEDICARE ==
[2017-09-18 12:41] VITALS: BMI 27.8
[~2017-09-25 08:00] MED LIST changes: +CLINDAMYCIN 900 MG in DEXTROSE 5% IN WATER 50 ML IVPB ONE; +DEXAMETHASONE SOD PHOSPHATE 10 MG/ML 1 ML VIAL IV ONE; +GENTAMICIN 400 MG in SODIUM CHLORIDE 0.9% 100 ML IVPB ONE; +HEPARIN SODIUM,PORCINE 5,000 UNIT/ML 1 ML VIAL SQ ONE; +HYDROmorphone 0.5 MG/0.5 ML SYRINGE IVP PRN; +IPRATROPIUM-ALBUTEROL 3 ML NEB INHALATION SCH; -LACTATED RINGERS 1,000 ML IV SCH; -LIDOCAINE 1% 20 ML VIAL (10MG/ML) FOR IV START INTRADERMA PRN; +ONDANSETRON 4 MG/2 ML VIAL IVP ONE
[2017-09-25 10:02] LABS: Glucose,Whole Blood 124 mg/dL (75-99)
--- NOTE | 2017-09-25 10:15 | P.GSHP ---
History of Present Illness H&P Date: 09/25/17 Chief Complaint: Colon polyps Cyst 72-year-old female who presents today for low anterior resection. Patient had a previous colonoscopy performed which showed a very large colonic polyp which could not be removed via the colonoscope. 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 Patient rents today for low anterior section for colonic polyps. Past Medical History Past Medical History: Asthma, COPD, Diabetes Mellitus, Hyperlipidemia, Osteoarthritis (OA), Thyroid Disorder Additional Past Medical History / Comment(s): HX HYPERTHYROID, HAD IODINE TX. ON home oxygen 3 [place]. 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 T-8 COMPRESSION FX IN 2012. EDEMA MARIO ANKLES, LT WORSE. MULT COLON POLYPS 08/21/17. History of Any Multi-Drug Resistant Organisms: None Reported Past Surgical History: Adenoidectomy, Appendectomy, Breast Surgery, Hysterectomy , Tonsillectomy Additional Past Surgical History / Comment(s): Several lumpectomies MARIO - benign , D&C, MARIO CATARACTS; COLONOSCOPY 08/21/17 Past Anesthesia/Blood Transfusion Reactions: No Reported Reaction Smoking Status: Former smoker - Past Family History Mother Family Medical History: Cancer Additional Family Medical History / Comment(s): Mac deg, blind; abdominal tumor ; colon cancer in old age, at 86 Father Family Medical History: Cancer Additional Family Medical History / Comment(s): Prostate CA mets to lungs Medications and Allergies Home Medications Medication Instructions Recorded Confirmed Type Alendronate Sodium [Fosamax] 70 mg PO ENRIQUEZ 07/28/16 09/18/17 History Ipratropium/Albuterol Sulfate 1 puff INHALATION TID PRN 07/28/16 09/18/17 History [Combivent Respimat Inhaler] Levothyroxine Sodium [Synthroid] 88 mcg PO DAILY 07/28/16 09/25/17 History metFORMIN HCL [Glucophage] 1,000 mg PO BID 07/28/16 09/18/17 History Budesonide [Pulmicort] 0.5 mg INHALATION RT-BID 10/09/16 09/18/17 History Furosemide [Lasix] 20 mg PO DAILY PRN 12/02/16 09/18/17 History Glycopyrrolate/Formoterol Fum 2 puff INHALATION RT-BID 01/24/17 09/18/17 History [Bevespi Aerosphere Inhaler] Atorvastatin [Lipitor] 40 mg PO DAILY 08/18/17 09/18/17 History Diltiazem Cd [Cardizem Cd] 120 mg PO DAILY 08/18/17 09/25/17 History Empagliflozin [Jardiance] 10 mg PO DAILY 08/18/17 09/18/17 History Ipratropium-Albuterol Nebulize 3 ml INHALATION TID PRN 09/18/17 09/18/17 History [Duoneb 0.5 mg-3 mg/3 ml Soln] guaiFENesin-DM 600/30MG [Mucinex 1 each PO Q12HR PRN 09/18/17 09/18/17 History Dm] Ipratropium/Albuterol Sulfate 1 puff INHALATION DAILY 09/25/17 09/25/17 History [Combivent Respimat Inhaler] Allergies Allergy/AdvReac Type Severity Reaction Status Date / Time bupropion [From Zyban] Allergy Rash/Hives Verified 09/25/17 09:39 cefaclor [From Ceclor] Allergy Rash/Hives Verified 09/25/17 09:39 formoterol [From Perforomist] Allergy Rapid Verified 09/25/17 09:39 Heart Rate, LOW O2 SATURATION Surgical - Exam Vital Signs Temp Pulse Resp BP Pulse Ox 98.4 F 84 18 123/58 99 09/25/17 09:31 09/25/17 09:31 09/25/17 09:31 09/25/17 09:31 09/25/17 09:31 - General well developed, no distress - Eyes PERRL - ENT normal pinna - Neck no masses - Respiratory normal expansion - Cardiovascular Rhythm: regular - Abdomen Abdomen: soft, non tender Results - Labs 09/25/17 09:36 Abnormal Lab Results - Last 24 Hours (Table) 09/25/17 Range/Units 09:42 POC Glucose (mg/dL) 124 H (75-99) mg/dL Diabetes panel 09/25/17 Range/Units 09:36 Potassium 3.8 (3.5-5.1) mmol/L Pituitary panel 09/25/17 Range/Units 09:36 Potassium 3.8 (3.5-5.1) mmol/L Adrenal panel 09/25/17 Range/Units 09:36 Potassium 3.8 (3.5-5.1) mmol/L Assessment and Plan Assessment: Colonic polyp. We'll perform O anterior section. Patient aware the risks of surgery including bleeding, wound infection and possible colostomy.
[2017-09-25] MEDS ORDERED: NALOXONE 0.4 MG/ML 1 ML VIAL IV PRN (10:17)
[2017-09-25] MEDS: LACTATED RINGERS 1,000 ML IV SCH (10:22)
[2017-09-25] MEDS ORDERED: LIDOCAINE 1% 20 ML VIAL (10MG/ML) FOR IV START INTRADERMA ONE (10:31)
[2017-09-25] MEDS ORDERED: PROPOFOL 10 MG/ML 20 ML VIAL IV ONE (10:37)
[2017-09-25] MEDS ORDERED: LIDOCAINE 1% INJ 10MG/ML (20 ML MDV) ONE (10:37)
[2017-09-25] MEDS ORDERED: PHENYLEPHRINE-0.9% NACL SYG 1 MG/10 ML SYRINGE ONE (10:37)
[2017-09-25] MEDS ORDERED: fentaNYL (PF) 50 MCG/ML 2 ML AMP ONE (10:37)
[2017-09-25] MEDS ORDERED: NEOSTIGMINE 1 MG/ML 10 ML VIAL ONE (10:37)
[2017-09-25] MEDS ORDERED: MIDAZOLAM 2 MG/2 ML VIAL ONE (10:37)
[2017-09-25] MEDS ORDERED: GLYCOPYRROLATE 0.2 MG/ML 2 ML VIAL ONE (10:37)
[2017-09-25] MEDS ORDERED: SUCCINYLCHOLINE CHLORIDE 100 MG/5 ML SYR IV ONE (10:37)
[2017-09-25] MEDS ORDERED: ePHEDrine SULFATE/0.9% NACL/PF 50 MG/5 ML SYRINGE IV ONE (10:37)
[2017-09-25] MEDS ORDERED: ROCURONIUM BROMIDE 10 MG/ML 10 ML VIAL IV ONE (10:37)
[2017-09-25] MEDS ORDERED: LACTATED RINGERS 1,000 ML IV ONE (11:52)
[2017-09-25] MEDS ORDERED: ONDANSETRON 4 MG/2 ML VIAL IVP PRN (11:54)
[2017-09-25] MEDS ORDERED: BENZOCAINE/MENTHOL LOZENG 1 EACH LOZENGE MUCOUS MEM PRN (11:54)
[2017-09-25] MEDS ORDERED: METOCLOPRAMIDE 5 MG/ML 2 ML VIAL IVP PRN (11:54)
--- NOTE | 2017-09-25 12:01 | P.OP ---
Date of Procedure: 09/25/17 Preoperative Diagnosis: Colon polyp Postoperative Diagnosis: Colon polyp Procedure(s) Performed: Exploratory laparotomy Takedown of splenic flexure Transverse colectomy Anesthesia: KENYA Surgeon: Lucien Warner Pathology: other (Transverse colon polyp) Condition: stable Disposition: PACU Description of Procedure: The patient's placed the operative table in the supine position. Her abdomen was prepped and draped in usual sterile fashion. The abdomen was entered through a midline incision. The Montez wound protector was used. The Bookwalter tract with wound. The colon was examined. And in the mid transverse colon there was evidence of a tattoo hitesh on the colon. The polyp could be palpated through the colonic wall. At this point the splenic flexure was taken down using the Enseal device and cautery. And then the left colon was mobilized. The transverse colon was transected using the linear stapler proximally and distally to the polyp. And then using the AMARI and TA staplers a [id number] functional end-to-end staple anastomosis created. A 3-0 GI silk sutures placed as a crotch stitch. The abdomen was irrigated. There is no bleeding seen. There is no other evidence of any colonic abnormality. The abdomen was then closed using clean and sterile. OPS suture was used to close the fascia. The skin was closed archie. Patient sent to recovery in stable condition.
[2017-09-25 12:42] LABS: Glucose,Whole Blood 140 mg/dL (75-99)
[2017-09-25] MEDS: ROPIVACAINE 250 MG, fentaNYL (PF) 1,250 MCG in SODIUM CHLORIDE 0.9% 175 ML EPIDURAL PRN (13:03)
[2017-09-25 17:18] LABS: Basophils % (A) 0 %; Eosinophils % (A) 0 %; HCT 39.3 % (34.0-46.0); HGB 12.4 gm/dL (11.4-16.0); Hypochromasia Slight; Lymphocytes # (A) 0.7 k/uL (1.0-4.8); Lymphocytes % (A) 4 %; MCH 27.9 pg (25.0-35.0); MCHC 31.5 g/dL (31.0-37.0); MCV 88.4 fL (80.0-100.0); Mean Platelet Volume 7.1; Monocytes # (A) 0.8 k/uL (0-1.0); Monocytes % (A) 5 %; Neutrophils # (A) 16.5 k/uL (1.3-7.7); Neutrophils % (A) 91 %; Platelet Count 310 k/uL (150-450); RBC 4.44 m/uL (3.80-5.40); RDW 14.1 % (11.5-15.5); WBC 18.1 k/uL (3.8-10.6)
[2017-09-25 17:23] LABS: Anion Gap 7 mmol/L; Blood Urea Nitrogen 11 mg/dL (7-17); Calcium 8.9 mg/dL (8.4-10.2); Carbon Dioxide 32 mmol/L (22-30); Chloride 101 mmol/L (98-107); Glucose 170 mg/dL (74-99); Potassium 4.8 mmol/L (3.5-5.1); Sodium 140 mmol/L (137-145)
[2017-09-25 17:43] LABS: Glucose,Whole Blood 174 mg/dL (75-99)
[2017-09-25] MEDS ORDERED: IPRATROPIUM-ALBUTEROL 3 ML NEB INHALATION PRN ×3 (19:55→20:26)
[2017-09-25] MEDS ORDERED: guaiFENesin-DM 600/30MG 1 EACH TAB.ER.12H PO PRN (19:55)
[2017-09-25] MEDS ORDERED: FUROSEMIDE 20 MG TAB PO PRN (19:55)
[2017-09-25] MEDS: HEPARIN SODIUM,PORCINE 5,000 UNIT/ML 1 ML VIAL SQ SCH (19:55)
[2017-09-25 20:05] LABS: Glucose,Whole Blood 285 mg/dL (75-99)
[2017-09-25] MEDS: BUDESONIDE 0.5 MG/2 ML NEBU INHALATION SCH (20:20)
[2017-09-25] MEDS: FORMOTEROL FUMARATE 20 MCG/2 ML NEBU INHALATION SCH (20:22)
[2017-09-25] MEDS: IPRATROPIUM-ALBUTEROL 3 ML NEB INHALATION SCH (20:26)
[2017-09-25] MEDS: D5-0.45% NACL WITH KCL 20MEQ/L 1,000 ML IV SCH ×2 (21:42→22:12)
[2017-09-25] MEDS: FAMOTIDINE 20 MG/2 ML VIAL IV SCH (21:42)
[2017-09-25] MEDS: ATORVASTATIN 40 MG TAB PO SCH (21:42)
[2017-09-25] MEDS: INSULIN ASPART 100 UNIT/ML 1 ML 10 ML VIAL SQ SCH (21:44)
[2017-09-26] MEDS: HEPARIN SODIUM,PORCINE 5,000 UNIT/ML 1 ML VIAL SQ SCH ×3 (00:08→17:49)
[2017-09-26 03:33] LABS: Hemoglobin A1C 6.2 % (4.0-6.0)
[2017-09-26] MEDS: D5-0.45% NACL WITH KCL 20MEQ/L 1,000 ML IV SCH ×3 (05:32→22:42)
[2017-09-26] MEDS: LEVOTHYROXINE 88 MCG TAB PO SCH (05:32)
[2017-09-26] MEDS: FORMOTEROL FUMARATE 20 MCG/2 ML NEBU INHALATION SCH ×3 (07:03→20:40)
[2017-09-26] MEDS: BUDESONIDE 0.5 MG/2 ML NEBU INHALATION SCH ×2 (07:03→20:23)
[2017-09-26] MEDS: IPRATROPIUM-ALBUTEROL 3 ML NEB INHALATION SCH ×3 (07:03→20:22)
--- NOTE | 2017-09-26 07:09 | P.PN ---
Progress Note - Text 09/26 657am 72-year-old female status post low anterior resection. Patient has an epidural catheter for postop pain control with the solution running at 5 mL an hour. She has 0 pain at rest with a minor discomfort in moving and coughing. She has no motor or sensory deficits. Plan to continue epidural infusion
[2017-09-26 07:10] LABS: Glucose,Whole Blood 214 mg/dL (75-99)
--- NOTE | 2017-09-26 08:05 | P.CONS ---
History of Present Illness - Reason for Consult Consult date: 09/26/17 Postop medical management. Requesting physician: Lucien Warner - Chief Complaint Status post resection of colon polyp. - History of Present Illness This is a continue prednisone/consultation note on a 72-year-old white female who is postop day #1 for 1 Navin resection secondary to large colon polyp. 6 significant family history of colon polyp is noted. She hasn't underlying baseline of severe COPD which is improved with pulmonary rehab. Patient is now seen postoperatively with minimal pain. No flatus is noted. No significant fever or chills. No nausea, vomiting or diarrhea. She seems to be tolerating clear liquids at this time. Review of Systems Constitutional: Reports as per HPI Eyes: denies blurred vision, denies pain Ears, nose, mouth and throat: Denies headache, Denies sore throat Cardiovascular: Denies chest pain, Denies shortness of breath Respiratory: Reports cough, Reports home oxygen Gastrointestinal: Denies abdominal pain, Denies diarrhea, Denies nausea, Denies vomiting Genitourinary: Denies dysuria, Denies hematuria Musculoskeletal: Denies myalgias Past Medical History Past Medical History: Asthma, COPD, Diabetes Mellitus, Hyperlipidemia, Osteoarthritis (OA), Thyroid Disorder Additional Past Medical History / Comment(s): HX HYPERTHYROID, HAD IODINE TX. ON home oxygen 3 LITERS [place]. 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 T-8 COMPRESSION FX IN 2012. EDEMA MARIO ANKLES, LT WORSE. MULT COLON POLYPS 08/21/17. 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 Past Drug Use History: None Reported - Past Family History Mother Family Medical History: Cancer Additional Family Medical History / Comment(s): Mac deg, blind; abdominal tumor ; colon cancer in old age, at 86 Father Family Medical History: Cancer Additional Family Medical History / Comment(s): Prostate CA mets to lungs Medications and Allergies Home Medications Medication Instructions Recorded Confirmed Type Alendronate Sodium [Fosamax] 70 mg PO ENRIQUEZ 07/28/16 09/25/17 History Ipratropium/Albuterol Sulfate 1 puff INHALATION RT-TID PRN 07/28/16 09/25/17 History [Combivent Respimat Inhaler] Levothyroxine Sodium [Synthroid] 88 mcg PO DAILY 07/28/16 09/25/17 History Budesonide [Pulmicort] 0.5 mg INHALATION RT-BID 10/09/16 09/25/17 History Furosemide [Lasix] 20 mg PO DAILY PRN 12/02/16 09/25/17 History Glycopyrrolate/Formoterol Fum 2 puff INHALATION RT-BID 01/24/17 09/25/17 History [Bevespi Aerosphere Inhaler] Atorvastatin [Lipitor] 40 mg PO DAILY 08/18/17 09/25/17 History Diltiazem Cd [Cardizem Cd] 120 mg PO DAILY 08/18/17 09/25/17 History Empagliflozin [Jardiance] 10 mg PO DAILY 08/18/17 09/25/17 History Ipratropium-Albuterol Nebulize 3 ml INHALATION RT-TID PRN 09/18/17 09/25/17 History [Duoneb 0.5 mg-3 mg/3 ml Soln] guaiFENesin-DM 600/30MG [Mucinex 1 tab PO Q12HR PRN 09/18/17 09/25/17 History Dm] Ipratropium/Albuterol Sulfate 1 puff INHALATION RT-DAILY 09/25/17 09/25/17 History [Combivent Respimat Inhaler] metFORMIN HCL 1,000 mg PO BID 09/25/17 09/25/17 History Allergies Allergy/AdvReac Type Severity Reaction Status Date / Time bupropion [From Zyban] Allergy Rash/Hives Verified 09/25/17 16:51 cefaclor [From Ceclor] Allergy Rash/Hives Verified 09/25/17 16:51 formoterol [From Perforomist] Allergy Rapid Verified 09/25/17 16:51 Heart Rate, LOW O2 SATURATION Physical Exam Vitals: Vital Signs Temp Pulse Pulse Resp BP Pulse Ox 09/26/17 07:17 78 09/26/17 07:03 76 09/26/17 05:21 98.8 F 87 17 101/62 95 09/25/17 21:10 98.9 F 93 16 100/55 94 L 09/25/17 20:33 84 09/25/17 20:20 83 09/25/17 18:06 98 F 80 16 109/88 97 09/25/17 16:31 81 16 119/70 97 09/25/17 15:31 83 16 126/59 97 09/25/17 15:05 83 16 103/58 96 09/25/17 14:45 81 16 122/56 98 09/25/17 14:15 80 18 119/58 95 09/25/17 13:30 82 16 128/63 95 09/25/17 13:04 79 16 134/62 94 L 09/25/17 12:45 81 16 142/63 96 09/25/17 12:30 79 16 152/70 100 09/25/17 12:15 81 16 155/70 100 09/25/17 12:06 97.8 F 83 16 160/72 100 09/25/17 09:47 98.4 F 84 18 123/58 99 09/25/17 09:31 98.4 F 84 18 123/58 99 Intake and Output 09/25/17 09/26/17 09/26/17 22:59 06:59 14:59 Output Total 200 700 Balance -200 -700 Output: Urine 200 700 Other: Voiding Method Indwelling Catheter - Constitutional General appearance: no no acute distress, obese - EENT Eyes: EOMI - Neck Neck: no lymphadenopathy - Respiratory Respiratory: bilateral: diminished - Cardiovascular Rhythm: regular Heart sounds: normal: S1, S2 Abnormal Heart Sounds: no S3 Gallop - Gastrointestinal General gastrointestinal: soft, no tenderness - Integumentary Integumentary: no cellulitis - Neurologic Neurologic: CNII-XII intact - Psychiatric Psychiatric: A&O x's 3, no appropriate affect Results CBC & Chem 7: 09/25/17 16:55 09/25/17 16:55 Labs: Abnormal Lab Results - Last 24 Hours (Table) 09/25/17 09/25/17 09/25/17 Range/Units 09:42 12:40 16:55 WBC 18.1 H (3.8-10.6) k/uL Neutrophils # 16.5 H (1.3-7.7) k/uL Lymphocytes # 0.7 L (1.0-4.8) k/uL Carbon Dioxide (22-30) mmol/L Glucose (74-99) mg/dL POC Glucose (mg/dL) 124 H 140 H (75-99) mg/dL 09/25/17 09/25/17 09/25/17 Range/Units 16:55 17:22 20:04 WBC (3.8-10.6) k/uL Neutrophils # (1.3-7.7) k/uL Lymphocytes # (1.0-4.8) k/uL Carbon Dioxide 32 H (22-30) mmol/L Glucose 170 H (74-99) mg/dL POC Glucose (mg/dL) 174 H 285 H (75-99) mg/dL 09/26/17 Range/Units 07:09 WBC (3.8-10.6) k/uL Neutrophils # (1.3-7.7) k/uL Lymphocytes # (1.0-4.8) k/uL Carbon Dioxide (22-30) mmol/L Glucose (74-99) mg/dL POC Glucose (mg/dL) 214 H (75-99) mg/dL Assessment and Plan (1) COPD (chronic obstructive pulmonary disease) Current Visit: Yes Status: Acute Code(s): J44.9 - CHRONIC OBSTRUCTIVE PULMONARY DISEASE, UNSPECIFIED SNOMED Code(s): 89385685 (2) Colon polyp Current Visit: Yes Status: Acute Code(s): K63.5 - POLYP OF COLON SNOMED Code(s): 41753299 (3) Hypothyroidism Current Visit: No Status: Acute Code(s): E03.9 - HYPOTHYROIDISM, UNSPECIFIED SNOMED Code(s): 09639712 Plan: Continue to follow postoperatively. Dr. Donell gutierrez is covering for the weekend. Check CBC and CMP in a.m. per Pain control per anesthesia/surgery. Reconcile home medications. We will anticipate discharge in 3-4 days if she follows appropriate postoperative course.
[2017-09-26] MEDS: INSULIN ASPART 100 UNIT/ML 1 ML 10 ML VIAL SQ SCH ×4 (08:09→20:19)
[2017-09-26] MEDS: DILTIAZEM CD 120 MG CAP.ER.24H PO SCH (08:11)
[2017-09-26] MEDS: ATORVASTATIN 40 MG TAB PO SCH (08:11)
[2017-09-26] MEDS: metFORMIN 500 MG TAB PO SCH ×2 (08:11→17:48)
[2017-09-26] MEDS: FAMOTIDINE 20 MG/2 ML VIAL IV SCH ×2 (08:12→21:19)
[2017-09-26] MEDS: Empagliflozin [Jardiance] PO SCH (08:14)
[2017-09-26] MEDS: LACTATED RINGERS 1,000 ML IV SCH (08:20)
[2017-09-26 12:03] LABS: Glucose,Whole Blood 202 mg/dL (75-99)
--- NOTE | 2017-09-26 14:42 | P.PN ---
Progress Note - Text Progress Note Date: 09/26/17 The patient's postoperative day 1 from transverse colectomy for colonic polyp. She's doing quite well. She has minimal complaints of was of pain. On exam her vital signs are stable. Her abdomen soft. Her incision site is clean dry and intact. Patient will continue clear liquid diet. Dr. Xie will be covering me the remainder of her admission..
[2017-09-26 17:08] LABS: Glucose,Whole Blood 154 mg/dL (75-99)
[2017-09-26 20:08] LABS: Glucose,Whole Blood 121 mg/dL (75-99)
[2017-09-27] MEDS: HEPARIN SODIUM,PORCINE 5,000 UNIT/ML 1 ML VIAL SQ SCH ×3 (00:26→17:27)
[2017-09-27] MEDS: LEVOTHYROXINE 88 MCG TAB PO SCH (06:29)
[2017-09-27] MEDS: FORMOTEROL FUMARATE 20 MCG/2 ML NEBU INHALATION SCH (07:27)
[2017-09-27] MEDS: IPRATROPIUM-ALBUTEROL 3 ML NEB INHALATION SCH ×4 (07:27→21:01)
[2017-09-27] MEDS: BUDESONIDE 0.5 MG/2 ML NEBU INHALATION SCH ×2 (07:27→21:00)
[2017-09-27 07:32] LABS: Glucose,Whole Blood 132 mg/dL (75-99)
[2017-09-27] MEDS: D5-0.45% NACL WITH KCL 20MEQ/L 1,000 ML IV SCH ×3 (07:49→17:26)
[2017-09-27] MEDS: metFORMIN 500 MG TAB PO SCH ×2 (07:59→17:27)
[2017-09-27] MEDS: INSULIN ASPART 100 UNIT/ML 1 ML 10 ML VIAL SQ SCH ×4 (07:59→21:41)
[2017-09-27] MEDS: ATORVASTATIN 40 MG TAB PO SCH (07:59)
[2017-09-27] MEDS: DILTIAZEM CD 120 MG CAP.ER.24H PO SCH (07:59)
[2017-09-27] MEDS: FAMOTIDINE 20 MG/2 ML VIAL IV SCH ×2 (08:00→21:52)
[2017-09-27] MEDS: Empagliflozin [Jardiance] PO SCH (08:00)
--- NOTE | 2017-09-27 11:12 | P.PN ---
Subjective Progress Note Date: 09/27/17 The patient is a 72-year-old female status post transverse colectomy by Dr. Warner. She reports nausea. No vomiting. She passed flatus once. She has the prevena wound Vac. No fevers or chills. She is tolerating liquids. Epidural is still present. Objective - Vital Signs Vital signs: Vital Signs Temp 98.0 F 09/27/17 05:00 Pulse 82 09/27/17 07:37 Resp 16 09/27/17 05:00 BP 113/58 09/27/17 05:00 Pulse Ox 97 09/27/17 05:00 Intake & Output 09/26/17 09/27/17 09/27/17 18:59 06:59 18:59 Output Total 900 Balance -900 Weight 78.109 kg Output: Urine 900 Uretheral (Mendez) 900 Other: Voiding Method Indwelling Catheter Indwelling Catheter - Exam ABDOMEN: Soft, nontender, nondistended. Dressing without cellulitis. Prevena wound VAC intact. GENERAL: Well developed and in no acute distress. Pleasant. HEENT: No sclera icterus. Extraocular movements grossly intact. Moist buccal mucosa. Head is atraumatic, normocephalic. Hears conversational speech. No nasal drainage. NECK: Supple without lymphadenopathy. CHEST: Non-labored respirations and equal bilateral excursions. CARDIOVASCULAR: Regular rate and rhythm. Palpable 2+ radial pulses. MUSCULOSKELETAL: No clubbing, cyanosis or edema. NEUROLOGIC: No focal or lateralizing signs. PSYCH: Appropriate affect. Alert and oriented to person, place and time. SKIN: Good skin turgor. Well perfused. - Labs CBC & Chem 7: 09/25/17 16:55 09/25/17 16:55 Labs: Abnormal Lab Results - Last 24 Hours (Table) 09/26/17 09/26/17 09/26/17 Range/Units 12:02 17:06 20:07 POC Glucose (mg/dL) 202 H 154 H 121 H (75-99) mg/dL 09/27/17 Range/Units 07:20 POC Glucose (mg/dL) 132 H (75-99) mg/dL Assessment and Plan (1) COPD (chronic obstructive pulmonary disease) Current Visit: Yes Status: Acute Code(s): J44.9 - CHRONIC OBSTRUCTIVE PULMONARY DISEASE, UNSPECIFIED SNOMED Code(s): 30988049 (2) Colon polyp Current Visit: Yes Status: Acute Code(s): K63.5 - POLYP OF COLON SNOMED Code(s): 58193364 (3) Diabetes mellitus Current Visit: No Status: Acute Code(s): E11.9 - TYPE 2 DIABETES MELLITUS WITHOUT COMPLICATIONS SNOMED Code(s): 48175565 (4) History of colectomy Current Visit: Yes Status: Acute Code(s): Z90.49 - ACQUIRED ABSENCE OF OTHER SPECIFIED PARTS OF DIGESTIVE TRACT SNOMED Code(s): 749977330 Plan: 1. Epidural discontinuation per anesthesia protocol. 2. Reglan for nausea. 3. Entereg for ileus. 4. Ambulation advised. 5. Repeat CBC and BMP for correction of electrolyte dyscrasia.
[2017-09-27] MEDS ORDERED: SCOPOLAMINE 1.5MG/72HR PATCH TRANSDERM STA (11:13)
[2017-09-27 11:21] LABS: Glucose,Whole Blood 140 mg/dL (75-99)
[2017-09-27] MEDS: METOCLOPRAMIDE 5 MG/ML 2 ML VIAL IVP SCH ×2 (12:02→17:27)
[2017-09-27] MEDS: ROPIVACAINE 250 MG, fentaNYL (PF) 1,250 MCG in SODIUM CHLORIDE 0.9% 175 ML EPIDURAL PRN (12:18)
[2017-09-27 17:14] LABS: Glucose,Whole Blood 155 mg/dL (75-99)
--- NOTE | 2017-09-27 18:56 | P.PN ---
Progress Note - Text Progress Note Date: 09/27/17 Postoperative day # 2 status post transverse colectomy/epidural catheter placed for postoperative analgesia, patient doing well epidural site okay, patient currently on combination of epidural infusion solution of ropivacaine 0.0625% and Dilaudid 20 g per mL the infusion rate at 5 ml per hour , patient had no motor deficit epidural site okay , vital signs stable ,VAS 2-3 / 10 , Assessment and plan= post operative day #2 patient doing well ,pain well controlled , there is no anesthesia related complications
[2017-09-27 21:36] LABS: Glucose,Whole Blood 127 mg/dL (75-99)
[2017-09-27] MEDS: ALVIMOPAN 12 MG CAPSULE PO SCH (21:51)
--- NOTE | 2017-09-27 22:16 | P.PN ---
Subjective Progress Note Date: 09/27/17 Principal diagnosis: Colon polyps Patient is a 72-year-old white female with a known history of COPD was admitted to hospital for transverse colectomy on 09/25/2017 due to large colon polyp. Patient has secured family history of colon polyp. 09/27/2017 Patient is currently on epidural which is being DC'd for anesthesia. Still complaining of nausea. Otherwise tolerating liquid diet. No fever no chills. No commerce of chest pain or shortness of breath. Patient is able to pass flatness this morning. No other acute overnight issues. All other review of systems negative except the above Current medications reviewed Objective - Vital Signs Vital signs: Vital Signs Temp 98.1 F 09/27/17 14:40 Pulse 78 09/27/17 16:37 Resp 16 09/27/17 14:40 BP 116/56 09/27/17 14:40 Pulse Ox 99 09/27/17 14:40 Intake & Output 09/26/17 09/27/17 09/27/17 18:59 06:59 18:59 Output Total 900 Balance -900 Weight 78.109 kg Output: Urine 900 Uretheral (Mendez) 900 Other: Voiding Method Indwelling Catheter Indwelling Catheter Indwelling Catheter - Exam PHYSICAL EXAMINATION: Patient is lying in the bed comfortably, no acute distress, awake alert and oriented.. HEENT: Normocephalic. Neck is supple. Pupils reactive. Nostrils clear. Oral cavity is moist. Ears reveal no drainage. Neck reveals no JVD, carotid bruits, or thyromegaly. CHEST EXAMINATION: Trachea is central. Symmetrical expansion. Lung luevano clear to auscultation and percussion. CARDIAC: Normal S1, S2 with no gallops. No murmurs ABDOMEN: Soft. Bowel sounds present. Patient does have a wound VAC. No organomegaly. No abdominal bruits. Extremities: reveal no edema. No clubbing or cyanosis Neurologically awake, alert, oriented x3 with well-coordinated movements. No focal deficits noted Skin: No rash or skin lesions. Psychiatric: Coperative. Nonsuicidal Musculoskeletal: No joint swelling or deformity. Normal range of motion. - Labs CBC & Chem 7: 09/25/17 16:55 09/25/17 16:55 Labs: Abnormal Lab Results - Last 24 Hours (Table) 07/09/27/17 09/27/17 Range/Units 20:07 07:20 11:19 POC Glucose (mg/dL) 121 H 132 H 140 H (75-99) mg/dL 09/27/17 Range/Units 17:11 POC Glucose (mg/dL) 155 H (75-99) mg/dL Assessment and Plan Assessment: Status post transverse colectomy due to large colon polyp Family history of colon polyp COPD stable condition with the breathing treatments Hypothyroidism Diabetes type 2 [id number] Hyperlipidemia Hypertension DVT prophylaxis Plan: Patient will be continued on clear liquid diet and IV fluids. Continue with Cardizem and metformin. As well as levothyroxine. Pain management. And DVT prophylaxis. Continue the current management and further recommendations based on the clinical course. Time with Patient: Greater than 30
[2017-09-28] MEDS: HEPARIN SODIUM,PORCINE 5,000 UNIT/ML 1 ML VIAL SQ SCH ×4 (00:52→23:17)
[2017-09-28] MEDS: METOCLOPRAMIDE 5 MG/ML 2 ML VIAL IVP SCH ×5 (00:52→23:17)
[2017-09-28] MEDS: LEVOTHYROXINE 88 MCG TAB PO SCH (06:05)
[2017-09-28] MEDS: D5-0.45% NACL WITH KCL 20MEQ/L 1,000 ML IV SCH ×3 (06:06→18:27)
[2017-09-28] MEDS ORDERED: Alendronate Sodium [Fosamax] 70 MG PO SCH (06:30)
[2017-09-28 07:18] LABS: Glucose,Whole Blood 132 mg/dL (75-99)
[2017-09-28] MEDS: INSULIN ASPART 100 UNIT/ML 1 ML 10 ML VIAL SQ SCH ×4 (07:29→20:57)
[2017-09-28 07:39] LABS: Basophils % (A) 0 %; Eosinophils # (A) 0.2 k/uL (0-0.7); Eosinophils % (A) 2 %; HCT 32.2 % (34.0-46.0); Hypochromasia Moderate; Lymphocytes # (A) 1.5 k/uL (1.0-4.8); Lymphocytes % (A) 17 %; MCH 27.1 pg (25.0-35.0); MCHC 30.3 g/dL (31.0-37.0); MCV 89.3 fL (80.0-100.0); Mean Platelet Volume 7.2; Monocytes # (A) 0.7 k/uL (0-1.0); Monocytes % (A) 8 %; Neutrophils # (A) 6.4 k/uL (1.3-7.7); Neutrophils % (A) 72 %; Platelet Count 244 k/uL (150-450); WBC 8.9 k/uL (3.8-10.6)
[2017-09-28 07:45] LABS: HGB 9.8 gm/dL (11.4-16.0)
[2017-09-28] MEDS: IPRATROPIUM-ALBUTEROL 3 ML NEB INHALATION SCH ×3 (07:49→20:30)
[2017-09-28 07:55] LABS: Anion Gap 5 mmol/L; Blood Urea Nitrogen 5 mg/dL (7-17); Calcium 8.5 mg/dL (8.4-10.2); Carbon Dioxide 28 mmol/L (22-30); Chloride 107 mmol/L (98-107); Glucose 129 mg/dL (74-99); Potassium 4.9 mmol/L (3.5-5.1); Sodium 140 mmol/L (137-145)
[2017-09-28] MEDS: BUDESONIDE 0.5 MG/2 ML NEBU INHALATION SCH ×2 (07:56→20:30)
[2017-09-28] MEDS: Empagliflozin [Jardiance] PO SCH (08:22)
[2017-09-28] MEDS: metFORMIN 500 MG TAB PO SCH ×2 (08:25→17:31)
[2017-09-28] MEDS: ALVIMOPAN 12 MG CAPSULE PO SCH ×2 (08:25→20:57)
[2017-09-28] MEDS: FAMOTIDINE 20 MG/2 ML VIAL IV SCH ×2 (08:25→21:30)
[2017-09-28] MEDS: DILTIAZEM CD 120 MG CAP.ER.24H PO SCH (08:25)
[2017-09-28] MEDS: ATORVASTATIN 40 MG TAB PO SCH (08:25)
--- NOTE | 2017-09-28 11:35 | P.PN ---
Subjective Progress Note Date: 09/28/17 The patient is a 72-year-old female status post transverse colectomy by Dr. Warner. Her nausea has resolved after adjustment of her medications. Epidural intact. Pain is well controlled. She is yet to ambulate. She reports increased rumbling in the stomach consistent with resumption of bowel function. Objective - Vital Signs Vital signs: Vital Signs Temp 98.7 F 09/28/17 07:09 Pulse 94 09/28/17 08:08 Resp 16 09/28/17 07:09 BP 112/53 09/28/17 07:09 Pulse Ox 94 L 09/28/17 07:09 Intake & Output 09/27/17 09/28/17 09/28/17 18:59 06:59 18:59 Intake Total 1000 Output Total 900 2150 Balance -900 -1150 Intake: Intake, IV Titration 1000 Amount D5-0.45% NaCl with KCl 1000 20Meq/l 1,000 ml @ 125 mls/hr IV .Q8H [facility] Rx#: [id number] Output: Urine 900 2150 Uretheral (Mendez) 900 Other: Voiding Method Indwelling Catheter Indwelling Catheter Indwelling Catheter - Exam ABDOMEN: Soft, nontender, nondistended. Dressing without cellulitis. Prevena wound VAC intact. GENERAL: Well developed and in no acute distress. Pleasant. HEENT: No sclera icterus. Extraocular movements grossly intact. Moist buccal mucosa. Head is atraumatic, normocephalic. Hears conversational speech. No nasal drainage. NECK: Supple without lymphadenopathy. CHEST: Non-labored respirations and equal bilateral excursions. CARDIOVASCULAR: Regular rate and rhythm. Palpable 2+ radial pulses. MUSCULOSKELETAL: No clubbing, cyanosis or edema. NEUROLOGIC: No focal or lateralizing signs. PSYCH: Appropriate affect. Alert and oriented to person, place and time. SKIN: Good skin turgor. Well perfused. - Labs CBC & Chem 7: 09/28/17 07:09 09/28/17 07:09 Labs: Abnormal Lab Results - Last 24 Hours (Table) 09/27/17 09/27/17 09/28/17 Range/Units 17:11 21:35 07:08 RBC (3.80-5.40) m/uL Hgb (11.4-16.0) gm/dL Hct (34.0-46.0) % MCHC (31.0-37.0) g/dL BUN (7-17) mg/dL Glucose (74-99) mg/dL POC Glucose (mg/dL) 155 H 127 H 132 H (75-99) mg/dL 09/28/17 09/28/17 Range/Units 07:09 07:09 RBC 3.60 L (3.80-5.40) m/uL Hgb 9.8 L D (11.4-16.0) gm/dL Hct 32.2 L (34.0-46.0) % MCHC 30.3 L (31.0-37.0) g/dL BUN 5 L (7-17) mg/dL Glucose 129 H (74-99) mg/dL POC Glucose (mg/dL) (75-99) mg/dL Assessment and Plan (1) COPD (chronic obstructive pulmonary disease) Current Visit: Yes Status: Acute Code(s): J44.9 - CHRONIC OBSTRUCTIVE PULMONARY DISEASE, UNSPECIFIED SNOMED Code(s): 04147449 (2) Colon polyp Current Visit: Yes Status: Acute Code(s): K63.5 - POLYP OF COLON SNOMED Code(s): 48179797 (3) Diabetes mellitus Current Visit: No Status: Acute Code(s): E11.9 - TYPE 2 DIABETES MELLITUS WITHOUT COMPLICATIONS SNOMED Code(s): 49501905 (4) History of colectomy Current Visit: Yes Status: Acute Code(s): Z90.49 - ACQUIRED ABSENCE OF OTHER SPECIFIED PARTS OF DIGESTIVE TRACT SNOMED Code(s): 877796056 Plan: 1. Laboratory blood work is improved. 2. Remove epidural by tomorrow. 3. Start soft diet today. 4. Oral pain medications available. 5. Anticipated disposition home in 24-48 hours.
[2017-09-28 11:48] LABS: Glucose,Whole Blood 181 mg/dL (75-99)
--- NOTE | 2017-09-28 14:05 | P.PN ---
Subjective Progress Note Date: 09/28/17 Principal diagnosis: Colon polyps Patient is a 72-year-old white female with a known history of COPD was admitted to hospital for transverse colectomy on 09/25/2017 due to large colon polyp. Patient has secured family history of colon polyp. 09/27/2017 Patient is currently on epidural which is being DC'd for anesthesia. Still complaining of nausea. Otherwise tolerating liquid diet. No fever no chills. No commerce of chest pain or shortness of breath. Patient is able to pass flatness this morning. No other acute overnight issues. 09/28/2017 Patient denied any complaints of nausea. Patient did pass flatness. Having rambling sound in the stomach and otherwise tolerating oral diet. Advance is soft and now. Patient is being continued on epidural. Anesthesia and the surgery is following. All other review of systems negative except the above Current medications reviewed Objective - Vital Signs Vital signs: Vital Signs Temp 98.7 F 09/28/17 07:09 Pulse 94 09/28/17 08:08 Resp 16 09/28/17 07:09 BP 112/53 09/28/17 07:09 Pulse Ox 94 L 09/28/17 07:09 Intake & Output 09/27/17 09/28/17 09/28/17 18:59 06:59 18:59 Intake Total 1000 Output Total 900 2150 Balance -900 -1150 Intake: Intake, IV Titration 1000 Amount D5-0.45% NaCl with KCl 1000 20Meq/l 1,000 ml @ 125 mls/hr IV .Q8H [facility] Rx#: [id number] Output: Urine 900 2150 Uretheral (Mendez) 900 Other: Voiding Method Indwelling Catheter Indwelling Catheter Indwelling Catheter - Exam PHYSICAL EXAMINATION: Patient is lying in the bed comfortably, no acute distress, awake alert and oriented.. HEENT: Normocephalic. Neck is supple. Pupils reactive. Nostrils clear. Oral cavity is moist. Ears reveal no drainage. Neck reveals no JVD, carotid bruits, or thyromegaly. CHEST EXAMINATION: Trachea is central. Symmetrical expansion. Lung luevano clear to auscultation and percussion. CARDIAC: Normal S1, S2 with no gallops. No murmurs ABDOMEN: Soft. Bowel sounds present. Patient does have a wound VAC. No organomegaly. No abdominal bruits. Extremities: reveal no edema. No clubbing or cyanosis Neurologically awake, alert, oriented x3 with well-coordinated movements. No focal deficits noted Skin: No rash or skin lesions. Psychiatric: Coperative. Nonsuicidal Musculoskeletal: No joint swelling or deformity. Normal range of motion. - Labs CBC & Chem 7: 09/28/17 07:09 09/28/17 07:09 Labs: Abnormal Lab Results - Last 24 Hours (Table) 09/27/17 09/27/17 09/28/17 Range/Units 17:11 21:35 07:08 RBC (3.80-5.40) m/uL Hgb (11.4-16.0) gm/dL Hct (34.0-46.0) % MCHC (31.0-37.0) g/dL BUN (7-17) mg/dL Glucose (74-99) mg/dL POC Glucose (mg/dL) 155 H 127 H 132 H (75-99) mg/dL 09/28/17 09/28/17 09/28/17 Range/Units 07:09 07:09 10:52 RBC 3.60 L (3.80-5.40) m/uL Hgb 9.8 L D (11.4-16.0) gm/dL Hct 32.2 L (34.0-46.0) % MCHC 30.3 L (31.0-37.0) g/dL BUN 5 L (7-17) mg/dL Glucose 129 H (74-99) mg/dL POC Glucose (mg/dL) 181 H (75-99) mg/dL Assessment and Plan Assessment: Status post transverse colectomy due to large colon polyp Family history of colon polyp COPD stable condition with the breathing treatments Hypothyroidism Diabetes type 2 [id number] Hyperlipidemia Hypertension DVT prophylaxis Plan: Patient will be continued on clear liquid diet and IV fluids. Advance to soft diet. Continue with Cardizem and metformin. As well as levothyroxine. Pain management. And DVT prophylaxis. Continue the current management and further recommendations based on the clinical course. Time with Patient: Greater than 30
--- NOTE | 2017-09-28 14:35 | P.PN ---
Progress Note - Text Progress Note Date: 09/28/17 Postoperative day # 3 status post low anterior resection /epidural catheter placed for postoperative analgesia, patient doing well epidural site okay, patient currently on combination of epidural infusion solution of Ropivacaine 0.0625% and Dilaudid 20 g per mL the infusion rate at 5 ml per hour , patient had no motor deficit epidural site okay , vital signs stable ,VAS 2/ 10 , Assessment and plan= post operative day #3 patient doing well ,pain well controlled , there is no anesthesia related complications
[2017-09-28 17:13] LABS: Glucose,Whole Blood 143 mg/dL (75-99)
[2017-09-28] MEDS: TAMSULOSIN 0.4 MG CAP.ER.24H PO SCH (17:31)
[2017-09-28 20:28] LABS: Glucose,Whole Blood 144 mg/dL (75-99)
[2017-09-29] MEDS: METOCLOPRAMIDE 5 MG/ML 2 ML VIAL IVP SCH ×4 (06:21→23:50)
[2017-09-29] MEDS: LEVOTHYROXINE 88 MCG TAB PO SCH (06:21)
[2017-09-29] MEDS: D5-0.45% NACL WITH KCL 20MEQ/L 1,000 ML IV SCH ×2 (06:21→12:17)
[2017-09-29] MEDS: BUDESONIDE 0.5 MG/2 ML NEBU INHALATION SCH ×2 (07:15→20:44)
[2017-09-29] MEDS: IPRATROPIUM-ALBUTEROL 3 ML NEB INHALATION SCH ×3 (07:15→20:44)
[2017-09-29 07:30] LABS: Glucose,Whole Blood 177 mg/dL (75-99)
[2017-09-29] MEDS: INSULIN ASPART 100 UNIT/ML 1 ML 10 ML VIAL SQ SCH ×4 (07:48→21:50)
[2017-09-29] MEDS: ATORVASTATIN 40 MG TAB PO SCH (07:50)
[2017-09-29] MEDS: HEPARIN SODIUM,PORCINE 5,000 UNIT/ML 1 ML VIAL SQ SCH ×3 (07:50→23:10)
[2017-09-29] MEDS: Empagliflozin [Jardiance] PO SCH (07:50)
[2017-09-29] MEDS: DILTIAZEM CD 120 MG CAP.ER.24H PO SCH (07:50)
[2017-09-29] MEDS: FAMOTIDINE 20 MG/2 ML VIAL IV SCH ×3 (07:50→23:48)
[2017-09-29] MEDS: ALVIMOPAN 12 MG CAPSULE PO SCH ×2 (07:50→21:49)
[2017-09-29] MEDS: metFORMIN 500 MG TAB PO SCH ×2 (07:50→17:06)
--- NOTE | 2017-09-29 07:56 | P.PN ---
Subjective Progress Note Date: 09/29/17 Discontinue proximal [id number]-srb white female essentially admitted postoperative day #4 for colon polyp removal. Bowel movement and flatus is noted. She is tolerating diet at this time. Potassium is now stabilizing. We will go ahead and saline/Hep-Lock her IV at this time. Urine output is appropriate. No significant chest pain or shortness of breath. Objective - Vital Signs Vital signs: Vital Signs Temp 98.2 F 09/29/17 06:31 Pulse 90 09/29/17 07:28 Resp 20 09/29/17 06:31 BP 115/54 09/29/17 06:31 Pulse Ox 98 09/29/17 06:31 Intake & Output 09/28/17 09/29/17 09/29/17 18:59 06:59 18:59 Output Total 1400 Balance -1400 Output: Urine 1400 Uretheral (Mendez) 1400 Other: Voiding Method Indwelling Catheter Indwelling Catheter # Bowel Movements 1 - Constitutional General appearance: Present: average body habitus - EENT Eyes: Absent: abnormal pupil - Respiratory Respiratory: bilateral: diminished - Cardiovascular Rhythm: regular Heart sounds: normal: S1, S2 Abnormal Heart Sounds: Absent: S3 Gallop - Gastrointestinal General gastrointestinal: Present: soft. Absent: tenderness - Musculoskeletal Musculoskeletal: Present: gait normal - Psychiatric Psychiatric: Present: A&O x's 3 - Labs CBC & Chem 7: 09/28/17 07:09 09/28/17 07:09 Labs: Abnormal Lab Results - Last 24 Hours (Table) 09/28/17 09/28/17 09/28/17 Range/Units 07:09 10:52 16:58 BUN 5 L (7-17) mg/dL Glucose 129 H (74-99) mg/dL POC Glucose (mg/dL) 181 H 143 H (75-99) mg/dL 09/28/17 09/29/17 Range/Units 20:26 07:12 BUN (7-17) mg/dL Glucose (74-99) mg/dL POC Glucose (mg/dL) 144 H 177 H (75-99) mg/dL Assessment and Plan (1) COPD (chronic obstructive pulmonary disease) Current Visit: Yes Status: Acute Code(s): J44.9 - CHRONIC OBSTRUCTIVE PULMONARY DISEASE, UNSPECIFIED SNOMED Code(s): 14121301 (2) Colon polyp Current Visit: Yes Status: Acute Code(s): K63.5 - POLYP OF COLON SNOMED Code(s): 54517971 (3) Hypothyroidism Current Visit: No Status: Acute Code(s): E03.9 - HYPOTHYROIDISM, UNSPECIFIED SNOMED Code(s): 68829379 Plan: Continue current regimen of treatment. DC epidural placed on appropriate oral medication per surgery. Diet seems to be tolerated. Discharge in a.m. if continues this trajectory. See orders otherwise.
[2017-09-29 08:16] LABS: Basophils % (A) 0 %; Eosinophils # (A) 0.2 k/uL (0-0.7); Eosinophils % (A) 2 %; HCT 32.7 % (34.0-46.0); HGB 10.2 gm/dL (11.4-16.0); Hypochromasia Moderate; Lymphocytes # (A) 1.9 k/uL (1.0-4.8); Lymphocytes % (A) 20 %; MCH 27.7 pg (25.0-35.0); MCHC 31.1 g/dL (31.0-37.0); Mean Platelet Volume 7.2; Monocytes # (A) 0.7 k/uL (0-1.0); Monocytes % (A) 7 %; Neutrophils # (A) 6.4 k/uL (1.3-7.7); Neutrophils % (A) 69 %; Platelet Count 265 k/uL (150-450); RBC 3.67 m/uL (3.80-5.40); RDW 14.1 % (11.5-15.5); WBC 9.3 k/uL (3.8-10.6)
[2017-09-29 12:06] LABS: Glucose,Whole Blood 104 mg/dL (75-99)
[2017-09-29 14:37] LABS: Glucose,Whole Blood 111 mg/dL (75-99)
[2017-09-29] MEDS: TAMSULOSIN 0.4 MG CAP.ER.24H PO SCH (17:06)
[2017-09-29] MEDS: HYDROcodone/APAP 5-325MG 1 EACH TAB PO PRN (17:06)
[2017-09-29 17:14] LABS: Glucose,Whole Blood 122 mg/dL (75-99)
--- NOTE | 2017-09-29 18:31 | P.PN ---
Subjective Progress Note Date: 09/29/17 The patient is a 72-year-old female status post transverse colectomy by Dr. Warner. She has urinated. She had 3 bowel movements. She had some intolerance to her regular diet. She passed flatus. No fevers or chills. Her family is at bedside who reports follow-up with her surgeon this week. Objective - Vital Signs Vital signs: Vital Signs Temp 98.5 F 09/29/17 13:51 Pulse 90 09/29/17 13:51 Resp 16 09/29/17 13:51 BP 169/73 09/29/17 13:51 Pulse Ox 97 09/29/17 13:51 Intake & Output 09/28/17 09/29/17 09/29/17 18:59 06:59 18:59 Output Total 1400 Balance -1400 Output: Urine 1400 Uretheral (Mendez) 1400 Other: Voiding Method Indwelling Catheter Indwelling Catheter Toilet # Bowel Movements 1 - Exam ABDOMEN: Soft, nontender, nondistended. Dressing without cellulitis. Prevena wound VAC intact. GENERAL: Well developed and in no acute distress. Pleasant. HEENT: No sclera icterus. Extraocular movements grossly intact. Moist buccal mucosa. Head is atraumatic, normocephalic. Hears conversational speech. No nasal drainage. NECK: Supple without lymphadenopathy. CHEST: Non-labored respirations and equal bilateral excursions. CARDIOVASCULAR: Regular rate and rhythm. Palpable 2+ radial pulses. MUSCULOSKELETAL: No clubbing, cyanosis or edema. NEUROLOGIC: No focal or lateralizing signs. PSYCH: Appropriate affect. Alert and oriented to person, place and time. SKIN: Good skin turgor. Well perfused. - Labs CBC & Chem 7: 09/29/17 07:35 09/28/17 07:09 Labs: Abnormal Lab Results - Last 24 Hours (Table) 09/28/17 09/29/17 09/29/17 Range/Units 20:26 07:12 07:35 RBC 3.67 L (3.80-5.40) m/uL Hgb 10.2 L (11.4-16.0) gm/dL Hct 32.7 L (34.0-46.0) % POC Glucose (mg/dL) 144 H 177 H (75-99) mg/dL 09/29/17 09/29/1718 Range/Units 11:45 14:17 17:03 RBC (3.80-5.40) m/uL Hgb (11.4-16.0) gm/dL Hct (34.0-46.0) % POC Glucose (mg/dL) 104 H 111 H 122 H (75-99) mg/dL Assessment and Plan (1) COPD (chronic obstructive pulmonary disease) Current Visit: Yes Status: Acute Code(s): J44.9 - CHRONIC OBSTRUCTIVE PULMONARY DISEASE, UNSPECIFIED SNOMED Code(s): 38474301 (2) Colon polyp Current Visit: Yes Status: Acute Code(s): K63.5 - POLYP OF COLON SNOMED Code(s): 35866513 (3) Diabetes mellitus Current Visit: No Status: Acute Code(s): E11.9 - TYPE 2 DIABETES MELLITUS WITHOUT COMPLICATIONS SNOMED Code(s): 75055178 (4) History of colectomy Current Visit: Yes Status: Acute Code(s): Z90.49 - ACQUIRED ABSENCE OF OTHER SPECIFIED PARTS OF DIGESTIVE TRACT SNOMED Code(s): 449875876 Plan: 1. Anticipate discharge home however on full liquid diet. 2. Wound care instructions include continue with wound VAC which may be discontinued at the office. 3. Discharge home tomorrow. 4. Discharge instructions reviewed with patient and family.
[2017-09-29 20:09] LABS: Glucose,Whole Blood 111 mg/dL (75-99)
[2017-09-30] MEDS: METOCLOPRAMIDE 5 MG/ML 2 ML VIAL IVP SCH (06:18)
[2017-09-30] MEDS: LEVOTHYROXINE 88 MCG TAB PO SCH (06:18)
[2017-09-30 06:39] LABS: Glucose,Whole Blood 133 mg/dL (75-99)
--- NOTE | 2017-09-30 06:46 | P.DS ---
Providers Date of admission: 09/25/17 08:39 Expected date of discharge: 09/30/17 Attending physician: Lucien Warner Consults: 09/25/17 11:54 Consult Physician Routine Consulting Provider: Sung Puckett Consult Reason/Comments: Medical management Do you want consulting provider notified?: Yes Primary care physician: Sung Puckett - Discharge Diagnosis(es) (1) COPD (chronic obstructive pulmonary disease) Current Visit: Yes Status: Acute (2) Colon polyp Current Visit: Yes Status: Acute (3) Diabetes mellitus Current Visit: No Status: Acute (4) History of colectomy Current Visit: Yes Status: Acute Hospital Course: The patient underwent transverse colectomy by for malignant colon polyp. Postprocedure, she had an epidural. Prior to discharge. Pain was controlled. She tolerated liquid diet. Procedures: Colectomy Patient Condition at Discharge: Stable Plan - Discharge Summary Discharge Rx Participant: No New Discharge Prescriptions: New Docusate [Colace] 100 mg PO BID #20 capsule HYDROcodone/APAP 7.5-325MG [[place] 7.5-325] 1 tab PO Q4H PRN 3 Days #18 tab PRN Reason: Pain Continue Ipratropium/Albuterol Sulfate [Combivent Respimat Inhaler] 1 puff INHALATION RT-TID PRN PRN Reason: Shortness Of Breath Alendronate Sodium [Fosamax] 70 mg PO ENRIQUEZ Levothyroxine Sodium [Synthroid] 88 mcg PO DAILY Budesonide [Pulmicort] 0.5 mg INHALATION RT-BID Furosemide [Lasix] 20 mg PO DAILY PRN PRN Reason: edema Glycopyrrolate/Formoterol Fum [Bevespi Aerosphere Inhaler] 2 puff INHALATION RT-BID Diltiazem Cd [Cardizem CD] 120 mg PO DAILY Atorvastatin [Lipitor] 40 mg PO DAILY Empagliflozin [Jardiance] 10 mg PO DAILY guaiFENesin-DM 600/30MG [Mucinex Dm] 1 tab PO Q12HR PRN PRN Reason: LUNG CONGESTION Ipratropium-Albuterol Nebulize [Duoneb 0.5 mg-3 mg/3 ml Soln] 3 ml INHALATION RT-TID PRN PRN Reason: Shortness Of Breath Ipratropium/Albuterol Sulfate [Combivent Respimat Inhaler] 1 puff INHALATION RT-DAILY metFORMIN HCL 1,000 mg PO BID Discharge Medication List Alendronate Sodium [Fosamax] 70 mg PO ENRIQUEZ 07/28/16 [History] Ipratropium/Albuterol Sulfate [Combivent Respimat Inhaler] 1 puff INHALATION RT- TID PRN 07/28/16 [History] Levothyroxine Sodium [Synthroid] 88 mcg PO DAILY 07/28/16 [History] Budesonide [Pulmicort] 0.5 mg INHALATION RT-BID 10/09/16 [History] Furosemide [Lasix] 20 mg PO DAILY PRN 12/02/16 [History] Glycopyrrolate/Formoterol Fum [Bevespi Aerosphere Inhaler] 2 puff INHALATION RT- BID 01/24/17 [History] Atorvastatin [Lipitor] 40 mg PO DAILY 08/18/17 [History] Diltiazem Cd [Cardizem CD] 120 mg PO DAILY 08/18/17 [History] Empagliflozin [Jardiance] 10 mg PO DAILY 08/18/17 [History] Ipratropium-Albuterol Nebulize [Duoneb 0.5 mg-3 mg/3 ml Soln] 3 ml INHALATION RT -TID PRN 09/18/17 [History] guaiFENesin-DM 600/30MG [Mucinex Dm] 1 tab PO Q12HR PRN 09/18/17 [History] Ipratropium/Albuterol Sulfate [Combivent Respimat Inhaler] 1 puff INHALATION RT- DAILY 09/25/17 [History] metFORMIN HCL 1,000 mg PO BID 09/25/17 [History] Docusate [Colace] 100 mg PO BID #20 capsule 09/26/17 [Rx] HYDROcodone/APAP 7.5-325MG [[place] 7.5-325] 1 tab PO Q4H PRN 3 Days #18 tab 09/26 [Rx] Follow up Appointment(s)/Referral(s): Lucien Warner MD [STAFF PHYSICIAN] - 1 Week Patient Instructions/Handouts: Colectomy (GEN), Colectomy Diet (DC) Activity/Diet/Wound Care/Special Instructions: Sponge bath only with wound VAC. No bath tub soaks. No showering with dressing. No lifting over 5 pounds in 2 weeks. Discharge Disposition: HOME WITH HOME HEALTH SERVICES
[2017-09-30] MEDS: DILTIAZEM CD 120 MG CAP.ER.24H PO SCH (08:25)
[2017-09-30] MEDS: ALVIMOPAN 12 MG CAPSULE PO SCH (08:26)
[2017-09-30] MEDS: metFORMIN 500 MG TAB PO SCH (08:26)
[2017-09-30] MEDS: ATORVASTATIN 40 MG TAB PO SCH (08:26)
[2017-09-30] MEDS: INSULIN ASPART 100 UNIT/ML 1 ML 10 ML VIAL SQ SCH (08:29)
[2017-09-30] MEDS: FAMOTIDINE 20 MG/2 ML VIAL IV SCH (08:30)
[2017-09-30] MEDS: HEPARIN SODIUM,PORCINE 5,000 UNIT/ML 1 ML VIAL SQ SCH (08:31)
[2017-09-30 08:50] LABS: Basophils % (A) 0 %; Eosinophils # (A) 0.1 k/uL (0-0.7); Eosinophils % (A) 1 %; HCT 35.9 % (34.0-46.0); HGB 11.1 gm/dL (11.4-16.0); Hypochromasia Slight; Lymphocytes # (A) 1.1 k/uL (1.0-4.8); Lymphocytes % (A) 12 %; MCH 27.2 pg (25.0-35.0); MCV 87.5 fL (80.0-100.0); Mean Platelet Volume 7.2; Monocytes # (A) 0.4 k/uL (0-1.0); Monocytes % (A) 5 %; Neutrophils # (A) 7.3 k/uL (1.3-7.7); Neutrophils % (A) 81 %; Platelet Count 288 k/uL (150-450); RDW 14.1 % (11.5-15.5); WBC 9.1 k/uL (3.8-10.6)
[2017-09-30 09:07] LABS: ALT 27 U/L (9-52); AST 14 U/L (14-36); Albumin 3.4 g/dL (3.5-5.0); Alkaline Phosphatase 73 U/L (38-126); Anion Gap 6 mmol/L; Blood Urea Nitrogen 6 mg/dL (7-17); Calcium 9.9 mg/dL (8.4-10.2); Carbon Dioxide 30 mmol/L (22-30); Chloride 102 mmol/L (98-107); Glucose 146 mg/dL (74-99); Potassium 4.9 mmol/L (3.5-5.1); Sodium 138 mmol/L (137-145); Total Bilirubin 0.6 mg/dL (0.2-1.3); Total Protein 5.7 g/dL (6.3-8.2)
[2017-09-30] MEDS: BUDESONIDE 0.5 MG/2 ML NEBU INHALATION SCH (10:13)
[2017-09-30] MEDS: Empagliflozin [Jardiance] PO SCH (10:13)
[2017-09-30] MEDS: IPRATROPIUM-ALBUTEROL 3 ML NEB INHALATION SCH (10:13)
[2017-09-30] MEDS: HYDROcodone/APAP 5-325MG 1 EACH TAB PO PRN (10:39)
[2017-09-30 12:34] VITALS: BP 143/64; PULSE 82; RESP 20; TEMP 97
== END 2017-09-30 12:18 | disposition home health service (06) | DRG 331 ==
LOC: 2ORMAIN 08:39 → 5MS5E 16:42
PROVIDERS: ADMIT Surgery; ATTEND Surgery
PROC: 0DBL0ZZ Excision of Transverse Colon, Open Approach (ICD-10-PCS; principal; 2017-09-25 10:40)
DX: K63.5 Polyp of colon (principal); J44.9 Chronic obstructive pulmonary disease, unspecified; E11.9 Type 2 diabetes mellitus without complications; E03.9 Hypothyroidism, unspecified; E78.5 Hyperlipidemia, unspecified; I10 Essential (primary) hypertension; Z83.71 Family history of colonic polyps; Z79.83 Long term (current) use of bisphosphonates; Z79.84 Long term (current) use of oral hypoglycemic drugs; Z79.899 Other long term (current) drug therapy; Z79.890 Hormone replacement therapy; Z80.0 Family history of malignant neoplasm of digestive organs; Z87.891 Personal history of nicotine dependence; Z90.710 Acquired absence of both cervix and uterus; Z99.81 Dependence on supplemental oxygen
CPT/HCPCS: 80048; 80053; 83036; 84132; 85025; 86850; 86900; 86901; 88309; 94640

== ENCOUNTER 2017-10-06 10:43 | Emergency (ER) | payer MEDICARE ==
[2017-10-06 10:57] VITALS: RESP 18
[2017-10-06] MEDS ORDERED: SODIUM CHLORIDE 0.9% 500 ML IV ONE (11:34)
--- NOTE | 2017-10-06 12:04 | ED ---
General Adult HPI <Luis F Valiente - Last Filed: 10/06/17 14:47> - General Source: patient, RN notes reviewed Mode of arrival: wheelchair Limitations: no limitations <Maury Pena - Last Filed: 10/06/17 14:50> - General Chief complaint: Wound/Laceration Stated complaint: Leaking from incision/post surgery Time Seen by Provider: 10/06/17 11:01 - History of Present Illness Initial comments: This a 72-year-old female presents emergency Department chief complaint of abdominal pain. Patient states that she had a bowel resection [address] Warner for colon polyp. Patient states that she had a large amount of drainage which was bloody tinged clear drainage. She also states that she's been having on and off fevers and which she was advised to take Tylenol for. Patient states that she does have some pain and swelling to the incision site she also noticed some increased redness. Patient states she has appointment tomorrow and which she was supposed to have her archie removed. Patient states that she called today in his office advised her to come emergency department. (Maury Pena) - Related Data Home Medications Medication Instructions Recorded Confirmed Alendronate Sodium [Fosamax] 70 mg PO ENRIQUEZ 07/28/16 10/06/17 Ipratropium/Albuterol Sulfate 1 puff INHALATION RT-TID PRN 07/28/16 10/06/17 [Combivent Respimat Inhaler] Levothyroxine Sodium [Synthroid] 88 mcg PO DAILY 07/28/16 10/06/17 Budesonide [Pulmicort] 0.5 mg INHALATION RT-BID 10/09/16 10/06/17 Furosemide [Lasix] 20 mg PO DAILY PRN 12/02/16 10/06/17 Glycopyrrolate/Formoterol Fum 2 puff INHALATION RT-BID 01/24/17 10/06/17 [Bevespi Aerosphere Inhaler] Atorvastatin [Lipitor] 40 mg PO DAILY 08/18/17 10/06/17 Diltiazem Cd [Cardizem CD] 120 mg PO DAILY 08/18/17 10/06/17 Empagliflozin [Jardiance] 10 mg PO DAILY 08/18/17 10/06/17 Ipratropium-Albuterol Nebulize 3 ml INHALATION RT-TID PRN 09/18/17 10/06/17 [Duoneb 0.5 mg-3 mg/3 ml Soln] guaiFENesin-DM 600/30MG [Mucinex 1 tab PO Q12HR PRN 09/18/17 10/06/17 Dm] Ipratropium/Albuterol Sulfate 1 puff INHALATION RT-DAILY 09/25/17 10/06/17 [Combivent Respimat Inhaler] metFORMIN HCL 1,000 mg PO BID 09/25/17 10/06/17 Previous Rx's Medication Instructions Recorded Docusate [Colace] 100 mg PO BID #20 capsule 09/26/17 HYDROcodone/APAP 7.5-325MG [[place] 1 tab PO Q4H PRN 3 Days #18 tab 09/26/17 7.5-325] Allergies Allergy/AdvReac Type Severity Reaction Status Date / Time bupropion [From Zyban] Allergy Rash/Hives Verified 10/06/17 11:42 cefaclor [From Ceclor] Allergy Rash/Hives Verified 10/06/17 11:42 formoterol [From Perforomist] Allergy Rapid Verified 10/06/17 11:42 Heart Rate, LOW O2 SATURATION Review of Systems ROS Other: All systems not noted in ROS Statement are negative. <Luis F Valiente - Last Filed: 10/06/17 14:47> ROS Other: All systems not noted in ROS Statement are negative. <Maury Pena - Last Filed: 10/06/17 14:50> ROS Statement: Those systems with pertinent positive or pertinent negative responses have been documented in the HPI. Past Medical History Past Medical History: Asthma, COPD, Diabetes Mellitus, Hyperlipidemia, Osteoarthritis (OA), Thyroid Disorder Additional Past Medical History / Comment(s): HX HYPERTHYROID, HAD IODINE [place]. [place] home oxygen [place]ITERS [place] 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 T-8 COMPRESSION FX IN 2012. EDEMA MARIO ANKLES, LT WORSE. MULT COLON POLYPS 08/21/17. History of Any Multi-Drug Resistant Organisms: None Reported Past Surgical History: Adenoidectomy, Appendectomy, Bowel Resection, Breast Surgery, Hysterectomy, Tonsillectomy Additional Past Surgical History / Comment(s): Several lumpectomies MARIO - benign , D&C, MARIO CATARACTS; COLONOSCOPY 08/21/17 Past Anesthesia/Blood Transfusion Reactions: No Reported Reaction Past Psychological History: No Psychological Hx Reported Smoking Status: Former smoker Past Alcohol Use History: Rare Past Drug Use History: None Reported - Past Family History Mother Family Medical History: Cancer Additional Family Medical History / Comment(s): Mac deg, blind; abdominal tumor ; colon cancer in old age, at 86 Father Family Medical History: Cancer Additional Family Medical History / Comment(s): Prostate CA mets to lungs <Maury Pena - Last Filed: 10/06/17 14:50> General Exam Limitations: no limitations General appearance: alert, in no apparent distress Neck exam: Present: normal inspection. Absent: tenderness, meningismus, lymphadenopathy Respiratory exam: Present: normal lung sounds bilaterally. Absent: respiratory distress, wheezes, rales, rhonchi, stridor Cardiovascular Exam: Present: regular rate, normal rhythm, normal heart sounds. Absent: systolic murmur, diastolic murmur, rubs, gallop, clicks GI/Abdominal exam: Present: soft, tenderness, normal bowel sounds, other (There is a midline incision with archie noted there is mild swelling to the middle lower aspect with surrounding induration mild erythema). Absent: distended, guarding, rebound, rigid Skin exam: Present: warm, dry, intact, normal color. Absent: rash <Maury Pena - Last Filed: 10/06/17 14:50> Course <Luis F Valiente - Last Filed: 10/06/17 14:47> <Maury Pena - Last Filed: 10/06/17 14:50> Vital Signs 10/06/17 10/06/17 10:53 13:22 Temperature 98.1 F 98.3 F Pulse Rate 78 67 Respiratory 18 18 Rate Blood Pressure 112/59 114/53 O2 Sat by Pulse 93 L 100 Oximetry - Reevaluation(s) Reevaluation #1: 10/06/17 14:48 PA supervision: I personally saw and examined the patient and I have reviewed and agree with the PA findings including all diagnostic interpretations and treatment plans as written less otherwise stated. Patient did demonstrate evidence clinically of a hematoma/seroma to the mid to lower surgical site surgery site is intact archie are intact no drainage at this time. Minimal evidence of any erythema. No localized increased temperature at this time. I did discuss case Dr. Warner who will see the patient in the office tomorrow. ( Luis F Valiente) Medical Decision Making - Lab Data Result diagrams: 10/06/17 12:02 10/06/17 12:02 <Luis F Valiente - Last Filed: 10/06/17 14:47> - Lab Data Result diagrams: 10/06/17 12:02 10/06/17 12:02 <Maury Pena - Last Filed: 10/06/17 14:50> - Medical Decision Making 72-year-old female presented for drainage from her incision site. Patient was found have a sternal versus, on CT. Patient's case discussed with Dr. Warner. Patient will follow-up tomorrow return parameters were discussed. ( Maury Pena) - Lab Data Lab Results 10/06/17 10/06/17 10/06/17 Range/Units 12:02 12:02 12:02 WBC 11.7 H (3.8-10.6) k/uL RBC 4.14 (3.80-5.40) m/uL Hgb 11.2 L (11.4-16.0) gm/dL Hct 36.4 (34.0-46.0) % MCV 88.0 (80.0-100.0) fL MCH 27.1 (25.0-35.0) pg MCHC 30.8 L (31.0-37.0) g/dL RDW 14.3 (11.5-15.5) % Plt Count 338 (150-450) k/uL Neutrophils % 79 % Lymphocytes % 13 % Monocytes % 6 % Eosinophils % 1 % Basophils % 0 % Neutrophils # 9.2 H (1.3-7.7) k/uL Lymphocytes # 1.5 (1.0-4.8) k/uL Monocytes # 0.7 (0-1.0) k/uL Eosinophils # 0.2 (0-0.7) k/uL Basophils # 0.0 (0-0.2) k/uL Hypochromasia Slight PT (9.0-12.0) sec INR (<1.2) APTT (22.0-30.0) sec Sodium 138 (137-145) mmol/L Potassium 3.6 (3.5-5.1) mmol/L Chloride 100 (98-107) mmol/L Carbon Dioxide 30 (22-30) mmol/L Anion Gap 8 mmol/L BUN 11 (7-17) mg/dL Creatinine 0.70 (0.52-1.04) mg/dL Est GFR (CKD-EPI)AfAm >90 (>60 ml/min/1.73 sqM) Est GFR (CKD-EPI)NonAf 87 (>60 ml/min/1.73 sqM) Glucose 121 H (74-99) mg/dL Plasma Lactic Acid Cristi 0.9 (0.7-2.0) mmol/L Calcium 8.6 (8.4-10.2) mg/dL Total Bilirubin 0.6 (0.2-1.3) mg/dL AST 16 (14-36) U/L ALT 32 (9-52) U/L Alkaline Phosphatase 71 (38-126) U/L Total Protein 5.8 L (6.3-8.2) g/dL Albumin 3.5 (3.5-5.0) g/dL 10/06/17 Range/Units 12:02 WBC (3.8-10.6) k/uL RBC (3.80-5.40) m/uL Hgb (11.4-16.0) gm/dL Hct (34.0-46.0) % MCV (80.0-100.0) fL MCH (25.0-35.0) pg MCHC (31.0-37.0) g/dL RDW (11.5-15.5) % Plt Count (150-450) k/uL Neutrophils % % Lymphocytes % % Monocytes % % Eosinophils % % Basophils % % Neutrophils # (1.3-7.7) k/uL Lymphocytes # (1.0-4.8) k/uL Monocytes # (0-1.0) k/uL Eosinophils # (0-0.7) k/uL Basophils # (0-0.2) k/uL Hypochromasia PT 10.0 (9.0-12.0) sec INR 1.0 (<1.2) APTT 20.9 L (22.0-30.0) sec Sodium (137-145) mmol/L Potassium (3.5-5.1) mmol/L Chloride (98-107) mmol/L Carbon Dioxide (22-30) mmol/L Anion Gap mmol/L BUN (7-17) mg/dL Creatinine (0.52-1.04) mg/dL Est GFR (CKD-EPI)AfAm (>60 ml/min/1.73 sqM) Est GFR (CKD-EPI)NonAf (>60 ml/min/1.73 sqM) Glucose (74-99) mg/dL Plasma Lactic Acid Cristi (0.7-2.0) mmol/L Calcium (8.4-10.2) mg/dL Total Bilirubin (0.2-1.3) mg/dL AST (14-36) U/L ALT (9-52) U/L Alkaline Phosphatase (38-126) U/L Total Protein (6.3-8.2) g/dL Albumin (3.5-5.0) g/dL Disposition <Luis F Valiente - Last Filed: 10/06/17 14:47> Is patient prescribed a controlled substance at d/c from ED?: No Time of Disposition: 14:50 <Maury Pena - Last Filed: 10/06/17 14:50> Clinical Impression: Postoperative seroma Disposition: HOME SELF-CARE Condition: Stable Instructions: Surgical Site Infections (ED), Postoperative Bleeding (ED) Additional Instructions: Please return to the Emergency Department if symptoms worsen or any other concerns. Referrals: Sung Puckett MD [Primary Care Provider] - 1-2 days Lucien Warner MD [STAFF PHYSICIAN] - 1-2 days
[2017-10-06 12:24] LABS: Basophils % (A) 0 %; Eosinophils # (A) 0.2 k/uL (0-0.7); Eosinophils % (A) 1 %; HCT 36.4 % (34.0-46.0); HGB 11.2 gm/dL (11.4-16.0); Hypochromasia Slight; Lymphocytes # (A) 1.5 k/uL (1.0-4.8); Lymphocytes % (A) 13 %; MCH 27.1 pg (25.0-35.0); MCHC 30.8 g/dL (31.0-37.0); Mean Platelet Volume 7.1; Monocytes # (A) 0.7 k/uL (0-1.0); Monocytes % (A) 6 %; Neutrophils # (A) 9.2 k/uL (1.3-7.7); Neutrophils % (A) 79 %; Platelet Count 338 k/uL (150-450); RBC 4.14 m/uL (3.80-5.40); RDW 14.3 % (11.5-15.5); WBC 11.7 k/uL (3.8-10.6)
[2017-10-06 12:26] LABS: ALT 32 U/L (9-52); AST 16 U/L (14-36); Albumin 3.5 g/dL (3.5-5.0); Alkaline Phosphatase 71 U/L (38-126); Anion Gap 8 mmol/L; Blood Urea Nitrogen 11 mg/dL (7-17); Calcium 8.6 mg/dL (8.4-10.2); Carbon Dioxide 30 mmol/L (22-30); Chloride 100 mmol/L (98-107); Glucose 121 mg/dL (74-99); Potassium 3.6 mmol/L (3.5-5.1); Sodium 138 mmol/L (137-145); Total Bilirubin 0.6 mg/dL (0.2-1.3); Total Protein 5.8 g/dL (6.3-8.2)
[2017-10-06 12:31] LABS: Partial Thromboplastin Time 20.9 sec (22.0-30.0)
--- NOTE | 2017-10-06 14:01 | CT ---
EXAMINATION TYPE: CT abdomen pelvis w con DATE OF EXAM: 10/06/2017 COMPARISON: None INDICATION: Patient complains of fluid leaking from post op incision., Pain DLP: 615.6 mGycm, Automated exposure control for dose reduction was used. CONTRAST: 100 mL of Isovue 300. Study performed without Oral Contrast TECHNIQUE: Axial images were obtained from above the diaphragm to the pubic rami in the axial plane a t 5 mm thick sections. Reconstructed images are reviewed on the computer in the coronal plane. FINDINGS: Limited CT sections are obtained the lung bases. The lung bases are clear. There is a 0.5 cm nodule in the base of the right middle lobe. This may lie along the major fissure. Series 4 image 2. Visual ized lung bases are otherwise clear. CT ABDOMEN: Liver: Normal Spleen: Normal Pancreas: Normal Adrenal glands: The adrenal glands are normal. Gallbladder: Normal Kidneys: No masses are evident. No hydronephrosis is present. No cysts are present. Delayed images were obtained through the kidneys, which remain unremarkable. Aorta: Vascular calcification is within the aorta. Inferior vena cava: Normal. CT PELVIS: Post bowel surgery is evident within the left midabdomen. The colon proximal and distal to the anasto mosis has some mild wall thickening which may be related to post operative edema. Some ischemic chappell es not excluded. Mild inflammatory changes are adjacent. Obstruction is not identified. Air extends t o the distal colon. Note is made of a couple of diverticuli within the sigmoid colon region. Study is without oral contrast. Post surgical skin archie are present. There is some fluid within the subcutaneous tissues. A small hematoma or seroma could be considered. Some layering in the supine views evident in the periumbilica l region of this collection. Appendix: Normal as visualized. Urinary bladder: Normal. Genitourinary structures: Uterus and ovaries are not identified. Osseous structures: No suspicious lytic or sclerotic lesions. IMPRESSIONS: 1. Some wall thickening with minimal stranding adjacent to the mid transverse colon region appears t o correspond to the patient's surgery site. Findings are likely postoperative. Mild ischemia however is not excluded. 2. No evidence of bowel obstruction. Remaining portions of the abdomen and pelvis study appear unrema rkable. 3. Suspected hematoma in the subcutaneous tissues below the surgical skin archie.
[2017-10-06 15:00] VITALS: BP 107/59; PULSE 70; TEMP 98.5
== END 2017-10-06 15:00 | disposition home or self-care (01) ==
LOC: EC 10:43
DX: K91.872 Postprocedural seroma of a digestive system organ or structure following a digestive system procedure (principal); R10.9 Unspecified abdominal pain; R50.9 Fever, unspecified; J44.9 Chronic obstructive pulmonary disease, unspecified; E11.9 Type 2 diabetes mellitus without complications; E78.5 Hyperlipidemia, unspecified; E05.90 Thyrotoxicosis, unspecified without thyrotoxic crisis or storm; Z87.891 Personal history of nicotine dependence; Z79.51 Long term (current) use of inhaled steroids; Z79.899 Other long term (current) drug therapy; Z88.1 Allergy status to other antibiotic agents; Z88.8 Allergy status to other drugs, medicaments and biological substances; Z90.49 Acquired absence of other specified parts of digestive tract; Z98.890 Other specified postprocedural states
CPT/HCPCS: 36415; 80053; 83605; 85025; 85610; 85730; 87040; 74177; 99284; Q9967

== ENCOUNTER → 2018-07-09 | Outpatient (CLI) | payer MEDICARE ==
--- NOTE | 2018-07-10 08:21 | NM ---
EXAMINATION TYPE: NM hepatobiliary w CCK DATE OF EXAM: 07/09/2018 COMPARISON: CT abdomen pelvis dated 10/06/2017 HISTORY: Abdominal pain, chronic cholecystitis TECHNIQUE: After the intravenous administration of 4.46 mCi Tc 99m Mebrofenin hepatobiliary scintigra phy is performed. Immediate images post injection. FINDINGS: There is satisfactory initial accumulation of tracer by the liver. The gallbladder is visualized wit hin 10 minutes. The small bowel activity is noted within 18 minutes. At one hour CCK was administer ed, patient was injected with 1.66 mcg of Kinevac, and gallbladder ejection fraction is calculated at 87 %, elevated. Therefore there is no scintigraphic evidence of cystic or common bile duct obstruct ion to suggest acute cholecystitis or gallbladder dyskinesia. IMPRESSION: Abnormally elevated biliary ejection fraction compatible with biliary hyperkinesia. No sc intigraphic evidence of acute or chronic cholecystitis.
== END | disposition home or self-care (01) ==
LOC: RADNMMAIN 13:34
PROVIDERS: ATTEND Surgery
DX: K82.8 Other specified diseases of gallbladder (principal)
CPT/HCPCS: 78227; A9537; J2805

== ENCOUNTER → 2018-11-02 | Day surgery (SDC) | payer MEDICARE ==
[2018-10-28 11:00] VITALS: BMI 29.0
[~2018-11-02] MED LIST changes: -CLINDAMYCIN 900 MG in DEXTROSE 5% IN WATER 50 ML IVPB ONE; -DEXAMETHASONE SOD PHOSPHATE 10 MG/ML 1 ML VIAL IV ONE; -GENTAMICIN 400 MG in SODIUM CHLORIDE 0.9% 100 ML IVPB ONE; -HEPARIN SODIUM,PORCINE 5,000 UNIT/ML 1 ML VIAL SQ ONE; -HYDROmorphone 0.5 MG/0.5 ML SYRINGE IVP PRN; -IPRATROPIUM-ALBUTEROL 3 ML NEB INHALATION SCH; +LACTATED RINGERS 1,000 ML IV SCH; +LIDOCAINE 1% 20 ML VIAL (10MG/ML) FOR IV START INTRADERMA PRN; +LIDOCAINE 1% INJ 10MG/ML (20 ML MDV) ONE; -MIDAZOLAM 2 MG/2 ML VIAL IV PRN; -ONDANSETRON 4 MG/2 ML VIAL IVP ONE; +PROPOFOL 10 MG/ML 20 ML VIAL IV ONE
[2018-11-02 07:19] VITALS: TEMP 97.8
[2018-11-02 07:24] LABS: Glucose,Whole Blood 118 mg/dL (75-99)
--- NOTE | 2018-11-02 07:52 | P.GSHP ---
History of Present Illness H&P Date: 11/02/18 Chief Complaint: History of colon polyps This a 73-year-old female with previous history of colon polyps. She is undergone partial colectomy for colon polyps in the past. Past Medical History Past Medical History: Asthma, COPD, Diabetes Mellitus, Hyperlipidemia, Hypertension, Osteoarthritis (OA), Thyroid Disorder Additional Past Medical History / Comment(s): HX HYPERTHYROID, HAD IODINE [place]. [place] home oxygen [place] 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 T-8 COMPRESSION FX IN 2012. EDEMA MARIO ANKLES, LT WORSE. MULT COLON POLYPS 08/21/17. History of Any Multi-Drug Resistant Organisms: None Reported Past Surgical History: Adenoidectomy, Appendectomy, Bowel Resection, Breast Surgery, Hysterectomy, Tonsillectomy Additional Past Surgical History / Comment(s): Several lumpectomies MARIO - benign, D&C, MARIO CATARACTS; COLONOSCOPY 08/21/17 Past Anesthesia/Blood Transfusion Reactions: No Reported Reaction Smoking Status: Former smoker - Past Family History Mother Family Medical History: Cancer Additional Family Medical History / Comment(s): Mac deg, blind; abdominal tumor; colon cancer in old age, at 86 Father Family Medical History: Cancer Additional Family Medical History / Comment(s): Prostate CA mets to lungs Medications and Allergies Home Medications Medication Instructions Recorded Confirmed Type Ipratropium/Albuterol Sulfate 1 puff INHALATION RT-TID PRN 07/28/16 11/02/18 History [Combivent Respimat Inhaler] Levothyroxine Sodium [Synthroid] 88 mcg PO DAILY 07/28/16 11/02/18 History Budesonide [Pulmicort] 0.5 mg INHALATION RT-BID 10/09/16 11/02/18 History Furosemide [Lasix] 20 mg PO DAILY PRN 12/02/16 11/02/18 History Atorvastatin [Lipitor] 40 mg PO DAILY 08/18/17 11/02/18 History Diltiazem Cd [Cardizem CD] 120 mg PO DAILY 08/18/17 11/02/18 History Ipratropium-Albuterol Nebulize 3 ml INHALATION RT-TID PRN 09/18/17 11/02/18 History [Duoneb 0.5 mg-3 mg/3 ml Soln] metFORMIN HCL 1,000 mg PO BID 09/25/17 11/02/18 History Docusate [Colace] 100 mg PO BID #20 capsule 09/26/17 11/02/18 Rx Calcium Citrate/Vitamin D3 1 each PO DAILY 10/28/18 11/02/18 History [Calcitrate + Vit D Caplet] Cetirizine HCl [Zyrtec] 10 mg PO DAILY 10/28/18 11/02/18 History Famotidine 40 mg PO HS 10/28/18 11/02/18 History Multivit-Min/Iron/Folic/Lutein 1 tab PO DAILY 10/28/18 11/02/18 History [Centrum Silver Women Tablet] Tiotropium Br/Olodaterol HCl 1 spray INHALATION DAILY 10/28/18 11/02/18 History [Stiolto Respimat Inhal [place]] Allergies Allergy/AdvReac Type Severity Reaction Status Date / Time bupropion [From Zyban] Allergy Rash/Hives Verified 11/02/18 07:17 cefaclor [From Ceclor] Allergy Rash/Hives Verified 11/02/18 07:17 formoterol [From Perforomist] Allergy Rapid Verified 11/02/18 07:17 Heart Rate, LOW O2 SATURATION Surgical - Exam Vital Signs Temp Pulse Resp BP Pulse Ox 97.8 F 71 16 119/59 99 11/02/18 07:17 11/02/18 07:17 11/02/18 07:17 11/02/18 07:17 11/02/18 07:17 - General well developed, well nourished, no distress - Eyes PERRL - ENT normal pinna - Neck no masses - Respiratory normal expansion - Cardiovascular Rhythm: regular - Abdomen Abdomen: soft, non tender Results - Labs Abnormal Lab Results - Last 24 Hours (Table) 11/02/18 Range/Units 07:19 POC Glucose (mg/dL) 118 H (75-99) mg/dL Assessment and Plan Plan: History of colon polyps. We'll perform colonoscopy.
--- NOTE | 2018-11-02 08:11 | P.OP ---
Date of Procedure: 11/02/18 Preoperative Diagnosis: History of colon polyp Postoperative Diagnosis: External hemorrhoids Diverticulosis Transverse colon polyp Procedure(s) Performed: Colonoscopy Anesthesia: MAC Surgeon: Lucien Warner Pathology: other (Transverse colon polyp) Condition: stable Disposition: PACU Description of Procedure: The patient's placed on the endoscopy table in the lateral position. She received IV sedation. Digital rectal exam was performed which revealed external hemorrhoids. The flexible colonoscope was then placed patient anus passed throughout the entire colon. The ileocecal valve was visualized. Patient a previous right collecting. The ileocolonic anastomosis visualized. The in the transverse colon there was a small sessile polyp was removed with the cold forcep. Scope was withdrawn remainder of the transverse colon appeared normal. In the descending and sigmoid colon there is moderate diverticular changes. Scope was then brought back the rectum this appeared normal. Scope was withdrawn from the anus.
[2018-11-02 08:16] VITALS: RESP 18
[2018-11-02 08:29] VITALS: BP 122/70; PULSE 74
== END ==
LOC: ORWHC2ENDO 06:43
PROVIDERS: ATTEND Surgery
DX: K63.5 Polyp of colon (principal); Z86.010 Personal history of colon polyps; K64.4 Residual hemorrhoidal skin tags; K57.30 Diverticulosis of large intestine without perforation or abscess without bleeding; I10 Essential (primary) hypertension; E78.5 Hyperlipidemia, unspecified; Z99.81 Dependence on supplemental oxygen; J44.9 Chronic obstructive pulmonary disease, unspecified; E11.9 Type 2 diabetes mellitus without complications; E07.9 Disorder of thyroid, unspecified; M19.90 Unspecified osteoarthritis, unspecified site; Z88.1 Allergy status to other antibiotic agents; Z88.8 Allergy status to other drugs, medicaments and biological substances; Z79.84 Long term (current) use of oral hypoglycemic drugs; Z79.890 Hormone replacement therapy; Z79.51 Long term (current) use of inhaled steroids; Z79.899 Other long term (current) drug therapy; Z87.891 Personal history of nicotine dependence; Z80.0 Family history of malignant neoplasm of digestive organs; Z80.42 Family history of malignant neoplasm of prostate; Z80.1 Family history of malignant neoplasm of trachea, bronchus and lung
CPT/HCPCS: 88305; 45380; J2001; J2704

== ENCOUNTER → 2019-02-03 | Outpatient (CLI) | payer MEDICARE ==
--- NOTE | 2019-02-03 12:58 | XR ---
EXAMINATION TYPE: XR chest 2V DATE OF EXAM: 02/03/2019 COMPARISON: 01/24/17 HISTORY: Shortness of breath TECHNIQUE: Frontal and lateral views of the chest are obtained. FINDINGS: There is no focal air space opacity, pleural effusion, or pneumothorax seen. Diffuse inter sitial prominence. The cardiac silhouette size is enlarged. The osseous structures are intact. Nodu lar density seen overlying the left cardiac border, anterior within the chest on the lateral view. Th ere is increased anterior posterior diameter chest compatible with underlying COPD. Multiple compress ion deformities are again noted. IMPRESSION: 1. COPD and chronic diffuse interstitial prominence. 2. Left lower lung nodular density, possibly within the lingula CT is recommended for further charact erization.
== END | disposition home or self-care (01) ==
LOC: RADXRMAIN 11:57
PROVIDERS: ATTEND Family Medicine
DX: J98.4 Other disorders of lung (principal); J44.9 Chronic obstructive pulmonary disease, unspecified
CPT/HCPCS: 71046

== ENCOUNTER → 2019-02-22 | Outpatient (CLI) | payer MEDICARE ==
--- NOTE | 2019-02-22 13:05 | CT ---
EXAMINATION TYPE: CT chest wo con DATE OF EXAM: 02/22/2019 COMPARISON: 11/04/2016 HISTORY: Abnormal cxr, abnormal density left lower lobe, per patient. CT DLP: 316.6 mGycm, Automated exposure control for dose reduction was used. CONTRAST: Performed injected with 0 mL of Isovue 300. TECHNIQUE: Axial images were obtained at 5 mm thick sections. Reconstructed images are reviewed on [employer] computer in the coronal plane. FINDINGS: Portion of the thyroid visualized is normal. A 0.3 cm density at the left apex is stable. There is a subtle density within the periphery of the ri ght upper lobe measuring 0.4 cm. Series 4 image 12. This appears to been present previously. There is a stable calcification along the left mid lung border measuring 1.5 x 0.9 cm. Additional large calci fications in the anterior lingula at the base measuring 1.1 cm. There is a pleural-based thickening in the lateral left lung base measuring 3.2 x 1.2 cm. There are a djacent 0.9 and 0.6 cm densities within the lingula above the diaphragm. These are new. There is an area of spiculation which is increased in size in the anterior right upper lung field fernanda suring 1.7 x 2.3 cm. Series 4 image 15. Additional workup of this area is recommended. This area may be suspicious for neoplasm. No enlarged mediastinal or hilar adenopathy is evident. The ascending aorta diameter at the level o f the main pulmonary artery is 3.5 cm. The main pulmonary artery diameter at the bifurcation is 3.1 cm. Coronary artery calcifications present. Limited CT sections are obtained through the upper abdomen. Abdomen is essentially unremarkable. IMPRESSIONS: 1. New pleural-based lesions at the left lung base. 2. Increased size of spiculated mass within the right upper lobe. 3. Additional smaller areas appear stable scattered within the bilateral lungs.
== END | disposition home or self-care (01) ==
LOC: RADCTMAIN 11:17
PROVIDERS: ATTEND Family Medicine
DX: J94.9 Pleural condition, unspecified (principal); R91.8 Other nonspecific abnormal finding of lung field; Z88.1 Allergy status to other antibiotic agents; Z88.8 Allergy status to other drugs, medicaments and biological substances
CPT/HCPCS: 71250

== ENCOUNTER → 2019-03-19 | Outpatient (CLI) | payer MEDICARE ==
--- NOTE | 2019-03-21 16:14 | PE ---
EXAMINATION TYPE: PET CT fusion skull to thigh DATE OF EXAM: 03/19/2019 COMPARISON: CT chest 02/22/2019 Prior PET/CT: No prior PET/CT HISTORY: Lung nodule TECHNIQUE: Following the intravenous administration of 11.97 mCi of F-18 FDG, whole body images are performed from the skull base to the midthigh. Images are reviewed on the computer in the coronal, a xial, and sagittal planes. Reconstructed rotating images are created on independent workstation and reviewed on the computer. A localization and attenuation correction CT is performed in conjunction with the PET scan. DLP: 430.70 mGycm SCAN: Initial Blood glucose: 197 mg/dL Average Mediastinum SUV: 1.57 Average Liver SUV: 2.48 FINDINGS: NECK: No abnormal uptake THORAX: The punctate density above the right diaphragm has an SUV value of 0.37, image 105. The chappell es within the right midlung have an SUV value of 0.42 . Additional pleural based calcifications are present on the left. No abnormal radiotracer is present within these regions. ABDOMEN: No abnormal uptake is evident PELVIS: No abnormal uptake. OSSEOUS STRUCTURES: No abnormal uptake LOCALIZATION CT: Changes in the right middle lobe appears stable. COMPARISON: No significant interval changes IMPRESSION: 1. Probably benign findings right midlung. Short-term follow-up CT chest in 3 months is recommended.
== END | disposition home or self-care (01) ==
LOC: RADPETMAIN 15:26
PROVIDERS: ATTEND Internal Medicine Critical Care Medicine
DX: R91.1 Solitary pulmonary nodule (principal)
CPT/HCPCS: 78815; A9552

== ENCOUNTER → 2019-10-27 | Outpatient (CLI) | payer MEDICARE ==
--- NOTE | 2019-10-27 12:50 | CT ---
EXAMINATION TYPE: CT chest wo con DATE OF EXAM: 10/27/2019 COMPARISON: Prior chest CT 02/22/2019, PET/CT 813-2019 HISTORY: follow up COPD CT DLP: 490 mGycm. Automated Exposure Control for Dose Reduction was Utilized. TECHNIQUE: CT scan of the thorax is performed without IV contrast. FINDINGS: LUNGS: Spiculated density right upper lobe with extension to the pleural surface with some areas of a ssociated lucency, abnormal soft tissue measures approximate 2.7 cm in AP dimension by 2.3 cm in ceph alad to caudal dimension by 2.2 cm in transverse dimension. There is a nodule present within the righ t lower lobe on axial image #38 measuring 6 to 7 mm which is stable in size compared to prior exam. T he calcified left sided nodule and pleural calcifications are again noted. There is no pleural effusi on or pneumothorax seen. The tracheobronchial tree is patent. MEDIASTINUM: Lack of IV contrast is noted to limit evaluation for mediastinal and especially hilar ad enopathy. There are no definitive greater than 1 cm hilar or mediastinal lymph nodes. No cardiomega ly or pericardial effusion is seen. OTHER: There are coronary artery calcifications present. There is a dense gallstone within the depen dent portion of the gallbladder. Low-attenuation within the liver likely represents hepatic steatosis . Multiple thoracic compression fractures are present with resulting kyphosis similar to prior exam. IMPRESSION: Spiculated right upper lobe lesion has increased in size. Findings worrisome for bronchog enic carcinoma. Probable old granulomatous disease. Hepatic steatosis and cholelithiasis.
== END | disposition home or self-care (01) ==
LOC: RADCTMAIN 09:49
PROVIDERS: ATTEND Family Medicine
DX: R91.8 Other nonspecific abnormal finding of lung field (principal); J44.9 Chronic obstructive pulmonary disease, unspecified; Z88.1 Allergy status to other antibiotic agents; Z88.8 Allergy status to other drugs, medicaments and biological substances
CPT/HCPCS: 71250

== ENCOUNTER 2020-02-17 21:38 | Inpatient (IN) | payer MEDICARE ==
[2020-02-17] MEDS ORDERED: SODIUM CHLORIDE 0.9% 1,000 ML IV STA (22:26)
[2020-02-17] MEDS ORDERED: SODIUM CHLORIDE 0.9% 500 ML 500 ML IV STA (22:26)
[2020-02-17] MEDS ORDERED: MORPHINE SULFATE 4 MG/ML SYRINGE IVP STA (22:28)
--- NOTE | 2020-02-17 22:39 | ED ---
General Adult HPI - General Chief complaint: Shortness of Breath Stated complaint: SOB Time Seen by Provider: 02/17/20 21:58 Source: patient, EMS, RN notes reviewed, old records reviewed Mode of arrival: EMS Limitations: no limitations - History of Present Illness Initial comments: 74-year-old female with a history of lung cancer undergoing radiation treatments presents emergency department today complaining of weakness shortness of breath and multiple falls. Patient reports that after having a CAT scan completed outpatient today she returned home and had an episode where she fell tripping over her feet rolling her ankle and complaining of lower back pain from the fall. She denied any head or neck injury. Patient states that she is been very weak having multiple falls at home a past few days. She states that she has had chronic shortness of breath since the being diagnosed with a lung mass in 2017. Her radiation oncologist is Dr. Velasco. - Related Data Home Medications Medication Instructions Recorded Confirmed Ipratropium/Albuterol Sulfate 1 puff INHALATION RT-TID PRN 07/28/16 02/17/20 [Combivent Respimat Inhaler] Levothyroxine Sodium [Synthroid] 88 mcg PO DAILY 07/28/16 02/17/20 Budesonide [Pulmicort] 0.5 mg INHALATION RT-BID 10/09/16 02/17/20 Furosemide [Lasix] 10 mg PO DAILY 12/02/16 02/17/20 Atorvastatin [Lipitor] 40 mg PO DAILY 08/18/17 02/17/20 Diltiazem Cd [Cardizem CD] 120 mg PO DAILY 08/18/17 02/17/20 Ipratropium-Albuterol Nebulize 3 ml INHALATION RT-TID PRN 09/18/17 02/17/20 [Duoneb 0.5 mg-3 mg/3 ml Soln] metFORMIN HCL 2,000 mg PO DAILY 09/25/17 02/17/20 Calcium Citrate/Vitamin D3 1 each PO DAILY 10/28/18 02/17/20 [Calcitrate + Vit D Caplet] Cetirizine HCl [Zyrtec] 10 mg PO DAILY 10/28/18 02/17/20 Famotidine 40 mg PO HS 10/28/18 02/17/20 Tiotropium Br/Olodaterol HCl 1 spray INHALATION RT-DAILY 10/28/18 02/17/20 [Stiolto Respimat Inhal Ottosen] ALPRAZolam [Xanax] 0.25 mg PO DAILY PRN 02/17/20 02/17/20 Acetaminophen [Tylenol Arthritis] 650 mg PO DAILY PRN 02/17/20 02/17/20 Albuterol Sulfate [Albuterol 1 - 2 puff INHALATION RT-Q4H PRN 02/17/20 02/17/20 Sulfate Hfa] DULoxetine HCL [Cymbalta] 60 mg PO DAILY 02/17/20 02/17/20 Multivitamins, Thera [Multivitamin 1 tab PO DAILY 02/17/20 02/17/20 (formulary)] guaiFENesin [Mucinex] 1,200 mg PO Q12H PRN 02/17/20 02/17/20 metFORMIN HCL [Glucophage] 1,000 mg PO HS 02/17/20 02/17/20 Allergies Allergy/AdvReac Type Severity Reaction Status Date / Time bupropion [From Zyban] Allergy Rash/Hives Verified 02/17/20 22:34 cefaclor [From Ceclor] Allergy Rash/Hives Verified 02/17/20 22:34 formoterol [From Perforomist] Allergy Rapid Verified 02/17/20 22:34 Heart Rate, LOW O2 SATURATION Review of Systems ROS Statement: Those systems with pertinent positive or pertinent negative responses have been documented in the HPI. ROS Other: All systems not noted in ROS Statement are negative. Past Medical History Past Medical History: Asthma, COPD, Diabetes Mellitus, Hyperlipidemia, Hypertension, Osteoarthritis (OA), Thyroid Disorder Additional Past Medical History / Comment(s): HX HYPERTHYROID, HAD IODINE TX. ON home oxygen 3 LITERS N/C. 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 T-8 COMPRESSION FX IN 2012. EDEMA MARIO ANKLES, LT WORSE. MULT COLON POLYPS 08/21/17. History of Any Multi-Drug Resistant Organisms: None Reported Past Surgical History: Adenoidectomy, Appendectomy, Bowel Resection, Breast Surgery, Hysterectomy, Tonsillectomy Additional Past Surgical History / Comment(s): Several lumpectomies MARIO - benign, D&C, MARIO CATARACTS; COLONOSCOPY 08/21/17 Past Anesthesia/Blood Transfusion Reactions: No Reported Reaction Past Psychological History: No Psychological Hx Reported Past Alcohol Use History: Rare Past Drug Use History: None Reported - Past Family History Mother Family Medical History: Cancer Additional Family Medical History / Comment(s): Mac deg, blind; abdominal tumor; colon cancer in old age, at 86 Father Family Medical History: Cancer Additional Family Medical History / Comment(s): Prostate CA mets to lungs General Exam - General Exam Comments Initial Comments: 74 year old female, debilitated. Limitations: no limitations General appearance: alert, in no apparent distress Head exam: Present: atraumatic, normocephalic, normal inspection Eye exam: Present: normal appearance, PERRL, EOMI. Absent: scleral icterus, conjunctival injection, periorbital swelling ENT exam: Present: normal exam, mucous membranes moist Neck exam: Present: normal inspection. Absent: tenderness, meningismus, lymph adenopathy Respiratory exam: Present: normal lung sounds bilaterally. Absent: respiratory distress, wheezes, rales, rhonchi, stridor Cardiovascular Exam: Present: regular rate, normal rhythm GI/Abdominal exam: Present: soft, normal bowel sounds. Absent: distended, tenderness, guarding, rebound, rigid Extremities exam: Present: normal inspection, full ROM, normal capillary refill, other (Patient is some bruising over the right urbina and). Absent: tenderness, pedal edema, joint swelling, calf tenderness Back exam: Present: normal inspection, tenderness (Tenderness to lumbar spine) Neurological exam: Present: alert, oriented X3, CN II-XII intact Psychiatric exam: Present: normal affect, normal mood Skin exam: Present: warm, dry, intact, normal color. Absent: rash Course Vital Signs 02/17/20 02/17/20 02/17/20 21:39 23:30 23:48 Temperature 97.7 F Pulse Rate 92 89 Respiratory 20 25 H 16 Rate Blood Pressure 162/65 143/62 O2 Sat by Pulse 99 100 Oximetry EKG Findings - EKG Comments: EKG Findings:: EKG performed at 2201. Sinus rhythm incomplete right bundle- branch block. 4. EKG. Ventricular rate of 87 bpm.. Interval is 140 ms. QRS duration is 160 ms. QT QTC 370/445 ms. Medical Decision Making - Medical Decision Making 74-year-old female presents emergency department today for evaluation for multiple falls shortness of breath. Bleeding of lower back pain and bruising over the right leg today from fall this afternoon after returning from CAT scan out patiently. She reports that she's been having a hard time at home due to multiple falls. Patient reports a general poor appetite and weakness. This time lab work was reviewed. She does have evidence of high CO2. Her oxygen has been 99% on 3 L which is chronic for Patient. She does have diminished lung sounds. Patient has known history of lung mass. Patient had a computed tomography scan today showing new L2 compression fracture which could be resulting from spreading of metastatic disease versus multiple falls. She does have tenderness over the area. Patient is given IV pain medication does report some relief and resting in bed. Labs are otherwise reviewed and no significant abnormalities. I discussed concern for weakness and multiple falls as well as compression fractures from likely spreading metastatic disease. - Lab Data Result diagrams: 02/17/20 23:14 02/17/20 23:14 Lab Results 02/17/20 02/17/20 02/17/20 Range/Units 23:14 23:14 23:14 WBC (3.8-10.6) k/uL RBC (3.80-5.40) m/uL Hgb (11.4-16.0) gm/dL Hct (34.0-46.0) % MCV (80.0-100.0) fL MCH (25.0-35.0) pg MCHC (31.0-37.0) g/dL RDW (11.5-15.5) % Plt Count (150-450) k/uL MPV Neutrophils % % Lymphocytes % % Monocytes % % Eosinophils % % Basophils % % Neutrophils # (1.3-7.7) k/uL Lymphocytes # (1.0-4.8) k/uL Monocytes # (0-1.0) k/uL Eosinophils # (0-0.7) k/uL Basophils # (0-0.2) k/uL Hypochromasia PT 9.8 (9.0-12.0) sec INR 0.9 (<1.2) APTT 23.3 (22.0-30.0) sec Sodium 134 L (137-145) mmol/L Potassium 4.8 (3.5-5.1) mmol/L Chloride 81 L (98-107) mmol/L Carbon Dioxide 52 H* (22-30) mmol/L Anion Gap 1 mmol/L BUN 24 H (7-17) mg/dL Creatinine 0.47 L (0.52-1.04) mg/dL Est GFR (CKD-EPI)AfAm >90 (>60 ml/min/1.73 sqM) Est GFR (CKD-EPI)NonAf >90 (>60 ml/min/1.73 sqM) Glucose 146 H (74-99) mg/dL Plasma Lactic Acid Cristi (0.7-2.0) mmol/L Calcium 9.2 (8.4-10.2) mg/dL Magnesium 1.8 (1.6-2.3) mg/dL Total Bilirubin 0.6 (0.2-1.3) mg/dL AST 31 (14-36) U/L ALT 23 (4-34) U/L Alkaline Phosphatase 116 (38-126) U/L Troponin I <0.012 (0.000-0.034) ng/mL Total Protein 6.5 (6.3-8.2) g/dL Albumin 3.6 (3.5-5.0) g/dL Urine Color Urine Appearance (Clear) Urine pH (5.0-8.0) Ur Specific V[place] (1.001-1.035) Urine Protein (Negative) Urine Glucose (UA) (Negative) Urine Ketones (Negative) Urine Blood (Negative) Urine Nitrite (Negative) Urine Bilirubin (Negative) Urine Urobilinogen (<2.0) mg/dL Ur Leukocyte Esterase (Negative) Urine RBC (0-5) /hpf Urine WBC (0-5) /hpf Ur Squamous Epith Cells (0-4) /hpf Urine Mucus (None) /hpf 02/17/20 02/17/20 02/17/20 Range/Units 23:14 23:14 23:19 WBC 14.7 H (3.8-10.6) k/uL RBC 3.67 L (3.80-5.40) m/uL Hgb 10.9 L (11.4-16.0) gm/dL Hct 34.1 (34.0-46.0) % MCV 92.8 (80.0-100.0) fL MCH 29.8 (25.0-35.0) pg MCHC 32.1 (31.0-37.0) g/dL RDW 12.5 (11.5-15.5) % Plt Count 227 (150-450) k/uL MPV 7.2 Neutrophils % 87 % Lymphocytes % 5 % Monocytes % 5 % Eosinophils % 1 % Basophils % 1 % Neutrophils # 12.8 H (1.3-7.7) k/uL Lymphocytes # 0.7 L (1.0-4.8) k/uL Monocytes # 0.7 (0-1.0) k/uL Eosinophils # 0.2 (0-0.7) k/uL Basophils # 0.1 (0-0.2) k/uL Hypochromasia Slight PT (9.0-12.0) sec INR (<1.2) APTT (22.0-30.0) sec Sodium (137-145) mmol/L Potassium (3.5-5.1) mmol/L Chloride (98-107) mmol/L Carbon Dioxide (22-30) mmol/L Anion Gap mmol/L BUN (7-17) mg/dL Creatinine (0.52-1.04) mg/dL Est GFR (CKD-EPI)AfAm (>60 ml/min/1.73 sqM) Est GFR (CKD-EPI)NonAf (>60 ml/min/1.73 sqM) Glucose (74-99) mg/dL Plasma Lactic Acid Cristi 0.9 (0.7-2.0) mmol/L Calcium (8.4-10.2) mg/dL Magnesium (1.6-2.3) mg/dL Total Bilirubin (0.2-1.3) mg/dL AST (14-36) U/L ALT (4-34) U/L Alkaline Phosphatase (38-126) U/L Troponin I (0.000-0.034) ng/mL Total Protein (6.3-8.2) g/dL Albumin (3.5-5.0) g/dL Urine Color Yellow Urine Appearance Clear (Clear) Urine pH 6.0 (5.0-8.0) Ur Specific [place] 1.023 (1.001-1.035) Urine Protein 1+ H (Negative) Urine Glucose (UA) Negative (Negative) Urine Ketones Trace H (Negative) Urine Blood Negative (Negative) Urine Nitrite Negative (Negative) Urine Bilirubin Negative (Negative) Urine Urobilinogen <2.0 (<2.0) mg/dL Ur Leukocyte Esterase Moderate H (Negative) Urine RBC 6 H (0-5) /hpf Urine WBC 19 H (0-5) /hpf Ur Squamous Epith Cells 1 (0-4) /hpf Urine Mucus Rare H (None) /hpf - Radiology Data Radiology results: report reviewed CXR shows Left lower lobe nodule. Right upper lobe nodule. No heart failure. No evidence of bronchopneumonia. No Fracture seen on right tib-fib. Lumbar spine xr shows L2 compression fracture new compared to the PET scan on 03/19/2019. Compression of fracture compared to the computed tomography scan and of the chest on 10/27/2019. Outpatient computed tomography scan from today show spiculated right lung nodule stable for most recent CT but knew and enlarged from older studies. Adrenal mass. Neoplasm now strongly suspected. Interval acute subacute compression fracture through L2 vertebra. Demineralization with multilevel chronic compression fractures redemonstrated. Disposition Clinical Impression: Acute exacerbation of chronic obstructive airways disease, Compression fracture, Weakness, Multiple falls, Lung mass Disposition: ADMITTED IP TO THIS HOSP Condition: Stable Is patient prescribed a controlled substance at d/c from ED?: No Referrals: Sung Puckett MD [Primary Care Provider] - 1-2 days Time of Disposition: 01:05
[2020-02-17 23:26] LABS: Basophils # (A) 0.1 k/uL (0-0.2); Basophils % (A) 1 %; Eosinophils # (A) 0.2 k/uL (0-0.7); Eosinophils % (A) 1 %; HCT 34.1 % (34.0-46.0); HGB 10.9 gm/dL (11.4-16.0); Hypochromasia Slight; Lymphocytes # (A) 0.7 k/uL (1.0-4.8); Lymphocytes % (A) 5 %; MCH 29.8 pg (25.0-35.0); MCHC 32.1 g/dL (31.0-37.0); MCV 92.8 fL (80.0-100.0); Mean Platelet Volume 7.2; Monocytes # (A) 0.7 k/uL (0-1.0); Monocytes % (A) 5 %; Neutrophils # (A) 12.8 k/uL (1.3-7.7); Neutrophils % (A) 87 %; Platelet Count 227 k/uL (150-450); RBC 3.67 m/uL (3.80-5.40); RDW 12.5 % (11.5-15.5); WBC 14.7 k/uL (3.8-10.6)
[2020-02-17 23:29] LABS: Appearance,Urine Clear (Clear); Bilirubin,Urine Negative (Negative); Blood,Urine Negative (Negative); Color,Urine Yellow; Glucose,Urine (UA) Negative (Negative); Ketones,Urine Trace (Negative); Leukocyte Esterase,Urine Moderate (Negative); Mucus,Urine Rare /hpf; Nitrite,Urine Negative (Negative); Protein,Urine 1+ (Negative); RBC,Urine 6 /hpf (0-5); Specific Gravity,Urine 1.023 (1.001-1.035); Squamous Epithelial Cell,Urine 1 /hpf (0-4); Urobilinogen,Urine <2.0 mg/dL (<2.0); WBC,Urine 19 /hpf (0-5)
[2020-02-17 23:35] LABS: INR 0.9 (<1.2); Partial Thromboplastin Time 23.3 sec (22.0-30.0); Prothrombin Time 9.8 sec (9.0-12.0)
[2020-02-17 23:36] LABS: ALT 23 U/L (4-34); AST 31 U/L (14-36); African American GFR (CKD) >90 (>60 ml/min/1.73 sqM); Albumin 3.6 g/dL (3.5-5.0); Alkaline Phosphatase 116 U/L (38-126); Blood Urea Nitrogen 24 mg/dL (7-17); Calcium 9.2 mg/dL (8.4-10.2); Chloride 81 mmol/L (98-107); Glucose 146 mg/dL (74-99); Magnesium 1.8 mg/dL (1.6-2.3); Non-African American GFR(CKD) >90 (>60 ml/min/1.73 sqM); Potassium 4.8 mmol/L (3.5-5.1); Sodium 134 mmol/L (137-145); Total Bilirubin 0.6 mg/dL (0.2-1.3); Total Protein 6.5 g/dL (6.3-8.2)
[2020-02-17 23:42] LABS: Anion Gap 1 mmol/L
--- NOTE | 2020-02-17 23:47 | XR ---
EXAMINATION TYPE: XR chest 1V portable DATE OF EXAM: 02/17/2020 COMPARISON: 02/03/2019 HISTORY: Lung cancer. Weakness. TECHNIQUE: FINDINGS: There is no heart failure. There is 2 cm nodular density behind the heart in the left lower lobe. There are chest leads. Costophrenic angles are clear. This possible 1 cm uterine nodule right upper lobe. There is some calcification adjacent to the pleura in the left lateral chest wall that co uld be a granuloma. Bony thorax appears intact. IMPRESSION: Left lower lobe nodule. Right upper lobe nodule. No heart failure. No evidence of broncho pneumonia.
--- NOTE | 2020-02-17 23:48 | XR ---
EXAMINATION TYPE: XR tibia fibula RT DATE OF EXAM: 02/17/2020 COMPARISON: NONE HISTORY: Short of breath weakness. Pain. Fall. TECHNIQUE: 2 views FINDINGS: The tibia and fibula appear intact. Ankle mortise is anatomic. Knee joint is intact. There is an Achilles calcaneal spur. IMPRESSION: No fracture seen.
--- NOTE | 2020-02-17 23:52 | XR ---
EXAMINATION TYPE: XR lumbar spine 2 or 3V DATE OF EXAM: 02/17/2020 COMPARISON: NONE HISTORY: Short of breath. Weakness. Pain. TECHNIQUE: Views FINDINGS: Lumbar vertebra have normal alignment. There is 70% wedging of the L1 vertebral body. There is osteopenia. The other lumbar vertebra appear intact. Abdominal aorta is atheromatous. Posterior e lements are intact. Sacroiliac joints are not included. IMPRESSION: L2 compression fracture appears new compared to the PET CT scan of 03/19/2019. There is pro gression of the fracture compared to the chest CT scan of 10/27/2019.
[2020-02-17 23:54] LABS: Carbon Dioxide 52 mmol/L (22-30)
[2020-02-18] MEDS ORDERED: methylPREDNISolone SOD SUCCI 125 MG/2 ML VIAL IV STA (00:59)
[2020-02-18] MEDS ORDERED: ACETAMINOPHEN TAB 325 MG TAB PO PRN (01:06)
[2020-02-18] MEDS ORDERED: NALOXONE 0.4 MG/ML 1 ML VIAL IV PRN (01:06)
[2020-02-18] MEDS ORDERED: guaiFENesin 600 MG TABLET.ER PO PRN (01:07)
[2020-02-18] MEDS ORDERED: NON FORMULARY DRUG (Ipratropium/Albuterol Sulfate [Combivent Respimat Inhaler] 1 INHALER M INHALATION PRN (01:07)
[2020-02-18] MEDS ORDERED: ALPRAZolam 0.25 MG TAB PO PRN (01:07)
[2020-02-18] MEDS ORDERED: NON FORMULARY DRUG (Acetaminophen [Tylenol Arthritis] 650 MG Tablet.Er) PO PRN (01:07)
[2020-02-18] MEDS: LEVOTHYROXINE 88 MCG TAB PO SCH (06:37)
[2020-02-18] MEDS: LORATADINE 10 MG TAB PO SCH (07:38)
[2020-02-18] MEDS: MULTIVITAMINS, THERA 1 EACH TAB PO SCH (07:39)
[2020-02-18] MEDS: ATORVASTATIN 40 MG TAB PO SCH (07:40)
[2020-02-18] MEDS: DILTIAZEM CD 120 MG CAP.ER.24H PO SCH (07:40)
[2020-02-18] MEDS: DULoxetine HCL 60 MG CAPSULE.DR PO SCH (07:40)
[2020-02-18] MEDS: SODIUM CHLORIDE 0.9% 1,000 ML IV SCH ×2 (07:45→17:37)
--- NOTE | 2020-02-18 08:45 | P.HPIM ---
History of Present Illness H&P Date: 02/18/20 Chief Complaint: Status post multiple falls. Back pain This is a history and physical and a 74-year-old white female with history of COPD lung carcinoma who has been having difficulty ambulating. She fell and has significant pain. X-rays are negative as far as tibia but her back does show new L2 compression fracture and she is admitted for pain control. Also we will have orthopedics see the patient. She does have an underlying element of COPD and is struggling but I suspect this is close to her baseline. No voiding difficulties. Review of Systems Constitutional: Denies chills, Denies fever Eyes: denies blurred vision, denies pain Ears, nose, mouth and throat: Denies headache, Denies sore throat Cardiovascular: Reports as per HPI Respiratory: Reports as per HPI, Reports dyspnea, Reports home oxygen Gastrointestinal: Denies abdominal pain, Denies diarrhea, Denies nausea, Denies vomiting Genitourinary: Denies dysuria, Denies hematuria Musculoskeletal: Denies myalgias Past Medical History Past Medical History: Asthma, COPD, Diabetes Mellitus, Hyperlipidemia, Hypertension, Osteoarthritis (OA), Thyroid Disorder Additional Past Medical History / Comment(s): HX HYPERTHYROID, HAD IODINE TX. ON home oxygen 3 LITERS [place]. 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 T-8 COMPRESSION FX IN 2012. EDEMA MARIO ANKLES, LT WORSE. MULT COLON POLYPS 08/21/17. History of Any Multi-Drug Resistant Organisms: None Reported Past Surgical History: Adenoidectomy, Appendectomy, Bowel Resection, Breast Surgery, Hysterectomy, Tonsillectomy Additional Past Surgical History / Comment(s): Several lumpectomies MARIO - benign, D&C, MARIO CATARACTS; COLONOSCOPY 08/21/17 Past Anesthesia/Blood Transfusion Reactions: No Reported Reaction Past Psychological History: No Psychological Hx Reported Past Alcohol Use History: Rare Past Drug Use History: None Reported - Past Family History Mother Family Medical History: Cancer Additional Family Medical History / Comment(s): Mac deg, blind; abdominal tumor; colon cancer in old age, at 86 Father Family Medical History: Cancer Additional Family Medical History / Comment(s): Prostate CA mets to lungs Medications and Allergies Home Medications Medication Instructions Recorded Confirmed Type Ipratropium/Albuterol Sulfate 1 puff INHALATION RT-TID PRN 05/14/17 12/03/20 History [Combivent Respimat Inhaler] Levothyroxine Sodium [Synthroid] 88 mcg PO DAILY 07/28/16 02/17/20 History Budesonide [Pulmicort] 0.5 mg INHALATION RT-BID 10/09/16 02/17/20 History Furosemide [Lasix] 10 mg PO DAILY 12/02/16 02/17/20 History Atorvastatin [Lipitor] 40 mg PO DAILY 08/18/17 02/17/20 History Diltiazem Cd [Cardizem CD] 120 mg PO DAILY 08/18/17 02/17/20 History Ipratropium-Albuterol Nebulize 3 ml INHALATION RT-TID PRN 09/18/17 02/17/20 History [Duoneb 0.5 mg-3 mg/3 ml Soln] metFORMIN HCL 2,000 mg PO DAILY 09/25/17 02/17/20 History Calcium Citrate/Vitamin D3 1 each PO DAILY 10/28/18 02/17/20 History [Calcitrate + Vit D Caplet] Cetirizine HCl [Zyrtec] 10 mg PO DAILY 10/28/18 02/17/20 History Famotidine 40 mg PO HS 10/28/18 02/17/20 History Tiotropium Br/Olodaterol HCl 1 spray INHALATION RT-DAILY 10/28/18 02/17/20 History [Stiolto Respimat Inhal Bath] ALPRAZolam [Xanax] 0.25 mg PO DAILY PRN 02/17/20 02/17/20 History Acetaminophen [Tylenol Arthritis] 650 mg PO DAILY PRN 02/17/20 02/17/20 History Albuterol Sulfate [Albuterol 1 - 2 puff INHALATION RT-Q4H PRN 02/17/20 02/17/20 History Sulfate Hfa] DULoxetine HCL [Cymbalta] 60 mg PO DAILY 02/17/20 02/17/20 History Multivitamins, Thera [Multivitamin 1 tab PO DAILY 02/17/20 02/17/20 History (formulary)] guaiFENesin [Mucinex] 1,200 mg PO Q12H PRN 02/17/20 02/17/20 History metFORMIN HCL [Glucophage] 1,000 mg PO HS 02/17/20 02/17/20 History Allergies Allergy/AdvReac Type Severity Reaction Status Date / Time bupropion [From Zyban] Allergy Rash/Hives Verified 02/17/20 22:34 cefaclor [From Ceclor] Allergy Rash/Hives Verified 02/17/20 22:34 formoterol [From Perforomist] Allergy Rapid Verified 02/17/20 22:34 Heart Rate, LOW O2 SATURATION Physical Exam Vitals: Vital Signs Temp Pulse Pulse Resp BP BP Pulse Ox 02/18/20 07:32 97.9 F 93 19 126/62 100 02/18/20 05:42 16 02/18/20 04:00 97.7 F 88 16 138/80 100 02/17/20 23:48 89 16 143/62 100 02/17/20 23:30 25 H 02/17/20 21:39 97.7 F 92 20 162/65 99 Intake and Output 02/17/20 02/18/20 02/18/20 22:59 06:59 14:59 Other: Weight 62.596 kg - Constitutional General appearance: mild distress - EENT Eyes: EOMI - Neck Neck: no lymphadenopathy - Respiratory Respiratory: bilateral: diminished - Cardiovascular Rhythm: regular Heart sounds: normal: S1, S2 Abnormal Heart Sounds: no S3 Gallop - Gastrointestinal General gastrointestinal: soft, no tenderness - Integumentary Integumentary: no cellulitis - Musculoskeletal Musculoskeletal: generalized weakness - Psychiatric Psychiatric: A&O x's 3, appropriate affect Results CBC & Chem 7: 02/17/20 23:14 02/17/20 23:14 Labs: Abnormal Lab Results - Last 24 Hours (Table) 02/17/20 02/17/20 02/17/20 Range/Units 23:14 23:14 23:19 WBC 14.7 H (3.8-10.6) k/uL RBC 3.67 L (3.80-5.40) m/uL Hgb 10.9 L (11.4-16.0) gm/dL Neutrophils # 12.8 H (1.3-7.7) k/uL Lymphocytes # 0.7 L (1.0-4.8) k/uL Sodium 134 L (137-145) mmol/L Chloride 81 L (98-107) mmol/L Carbon Dioxide 52 H* (22-30) mmol/L BUN 24 H (7-17) mg/dL Creatinine 0.47 L (0.52-1.04) mg/dL Glucose 146 H (74-99) mg/dL Urine Protein 1+ H (Negative) Urine Ketones Trace H (Negative) Ur Leukocyte Esterase Moderate H (Negative) Urine RBC 6 H (0-5) /hpf Urine WBC 19 H (0-5) /hpf Urine Mucus Rare H (None) /hpf Assessment and Plan (1) Compression fracture Current Visit: Yes Status: Acute Code(s): ZXR2811 - SNOMED Code(s): 472580074 (2) Lung mass Current Visit: Yes Status: Acute Code(s): R91.8 - OTHER NONSPECIFIC ABNORMAL FINDING OF LUNG FIELD SNOMED Code(s): 561122799 (3) Multiple falls Current Visit: Yes Status: Acute Code(s): R29.6 - REPEATED FALLS SNOMED Code(s): 189624423 (4) Weakness Current Visit: Yes Status: Acute Code(s): R53.1 - WEAKNESS SNOMED Code(s): 95214602 (5) COPD (chronic obstructive pulmonary disease) Current Visit: No Status: Acute Code(s): J44.9 - CHRONIC OBSTRUCTIVE PULMONARY DISEASE, UNSPECIFIED SNOMED Code(s): 67910830 (6) Diabetes mellitus Current Visit: No Status: Acute Code(s): E11.9 - TYPE 2 DIABETES MELLITUS WITHOUT COMPLICATIONS SNOMED Code(s): 16272763 (7) History of colectomy Current Visit: No Status: Acute Code(s): Z90.49 - ACQUIRED ABSENCE OF OTHER SPECIFIED PARTS OF DIGESTIVE TRACT SNOMED Code(s): 535064428 Plan: Reconcile home medications. Go ahead and continue morphine for pain control. Consult pulmonology or COPD elements. Orthopedics is also consulted for back pain. Prognosis is guarded. See orders otherwise. Time with Patient: Greater than 30
[2020-02-18] MEDS ORDERED: metFORMIN 500 MG TAB PO SCH (09:00)
[2020-02-18] MEDS ORDERED: CALCIUM CITRATE PO SCH (09:00)
[2020-02-18] MEDS ORDERED: FUROSEMIDE 20 MG TAB PO SCH (09:00)
[2020-02-18] MEDS ORDERED: VITAMIN D3 PO SCH (09:00)
[2020-02-18] MEDS ORDERED: [UNRECOGNIZED DRUG - OTHER] PO SCH (09:00)
[2020-02-18] MEDS ORDERED: PANTOPRAZOLE 40 MG/10 ML VIAL IV SCH (09:00)
[2020-02-18] MEDS: BUDESONIDE 0.5 MG/2 ML NEBU INHALATION SCH ×2 (09:11→20:32)
[2020-02-18] MEDS: IPRATROPIUM 0.5 MG/2.5 ML NEBU INHALATION SCH ×4 (09:11→20:33)
[2020-02-18] MEDS: MORPHINE SULFATE 4 MG/ML SYRINGE IV PRN (10:04)
--- NOTE | 2020-02-18 10:47 | XR ---
Right ankle HISTORY: Trauma and pain 3 views of the right ankle, correlation right leg 02/17/2020 There is a plantar calcaneal spur. Enthesophyte present at the insertion of Achilles tendon. Bone min eralization is reduced. Alignment is maintained, joint spaces are normal. There is soft tissue swelli ng present. IMPRESSION: No fracture or dislocation is evident, follow-up as indicated in 7-10 days for persistent symptoms.
--- NOTE | 2020-02-18 14:17 | CT ---
EXAMINATION TYPE: CT thor lumbar spine wo con DATE OF EXAM: 02/18/2020 COMPARISON: MRI 02/18/2020 HISTORY: Lumbar compression fracture CT DLP: 1181.2 mGycm Automated exposure control for dose reduction was used. TECHNIQUE: Axial images 1 mm thick sections. Reconstructed images in the coronal and sagittal plane. FINDINGS: Thoracic spine: There is a compression deformity of T6. No posterior wall displacement is evident. Appears to be 70% loss of vertebral body height. Anterior wedging is evident. No posterior wall displacement is evident . There is a severe compression deformity with complete loss of anterior vertebral body height at T8. S ome mild posterior wall displacement centrally estimated at 0.3 cm may be present. No AP spinal canal stenosis present. Cord contact is not clearly identified. T9 may has some mild superior endplate compression. No vertebral body height loss is evident. There is compression deformity of the superior endplate of T11 with mild loss of vertebral body heigh t with some mild inferior endplate change may be present. No spinal canal stenosis is present. Some mild loss of disc height at the level of the compression deformities may be present. No focal di sc herniation or significant disc bulge is evident. Lumbar spine: There is a compression deformity of L2 with 60% loss of vertebral body height. Mild ant erior vertebral body height loss is evident. There is approximately 0.8 cm posterior wall displacemen t into the spinal canal. AP spinal canal stenosis is not evident. Remaining lumbar vertebral body heights are preserved. Alignment appears preserved. Disc heights are preserved. IMPRESSION: 1. MULTILEVEL THORACIC AND LUMBAR VERTEBRAL COMPRESSION DEFORMITIES. GREATEST POSTERIOR WALL DISPLACE MENT IS AT L2 WITH APPROXIMATELY 0.8 CM POSTERIOR WALL DISPLACEMENT AND T8 VERTEBRAL BODY DISPLACEMEN T OF APPROXIMATELY 0.3 CM.. 2. THERE ARE ADDITIONAL MILDER COMPRESSION DEFORMITIES AT T11, T9, T7
--- NOTE | 2020-02-18 14:25 | MR ---
EXAMINATION TYPE: MR cspine/tspine/lspine wo/w DATE OF EXAM: 02/18/2020 COMPARISON: CT thoracic and lumbar spine from earlier today. PET/CT March 19, 2019. HISTORY: Falls, weakness, lung ca TECHNIQUE: Multiplanar, multisequence imaging of cervical, thoracic, and lumbar spine are performed w ithout and with IV contrast, patient injected with 6.5 cc of gadolinium. FINDINGS: C-SPINE: FINDINGS: Coronal images show levoconvex scoliosis centered near the cervicothoracic junction. Sagitt al images of the cervical spine show the craniocervical junction to appear within normal limits. The cervical and upper thoracic spinal cord is normal in caliber and signal. There is slight grade 1 ret rolisthesis C5 on C6. The vertebral body and intravertebral disk heights are normal. The bone marro w signal intensity is within normal limits. No suspicious postcontrast enhancement. Axial and sagittal images show multilevel focal posterior disc herniations efface the anterior thecal sac C3-4 through the C7-T1 levels. Motion artifact degradation on axial images is noted. There are f acet degenerative changes at several levels related to multilevel neural foraminal narrowing. Largest disc herniation herniations C3-C4 through C6-C7 level. IMPRESSION: Scoliosis and multilevel degenerative changes as detailed above. No suspicious focal lesi ons or enhancement. T-SPINE: Spinal cord shows normal course, caliber, and signal as it courses the thoracic spine. Moderate to se ab chronic compression fracture T6 level. Severe compression fracture T8 level. Mild compression f racture T11 level. Slight posterior retropulsion mildly effaces the anterior thecal sac T8 level. Dis c space heights are fairly well maintained. Bone marrow signal intensity fairly well preserved except for low signal in the severely compressed T8 fracture without suspicious enhancement. No suspicious soft tissue mass. Review of the axial images shows new left adrenal 2.6 cm mass axial image 2. IMPRESSION: Multilevel compression type fracture deformities redemonstrated with progression from Mar PET/CT. No convincing evidence of pathologic fracture. New left adrenal metastatic lesion. L-SPINE: FINDINGS: Sagittal images of the lumbar spine show new moderate compression type fracture with diffus e abnormal T1 signal through the L2 vertebra with areas of abnormal enhancement worrisome for patholo gic type fracture given patient's history of lung cancer. Exam is suboptimal as there is motion artif act degradation. Small focus of enhancement in the posterior spinal canal at this level sagittal imag e 7 is not reproduced on axial images. Slight posterior retropulsion effacing anterior spinal canal. Mild disc space narrowing L3-L4 and L4-L5 levels with posterior disc herniation slightly effacing the anterior thecal sac. Rounded lesion anterior L3 vertebra of low T1 and T2 signal without enhancement favors benign etiology. Mild to moderate multilevel anterior spurring. Conus medullaris is normal in position IMPRESSION: Moderate compression type fracture L2 suspected pathologic with abnormal underlying bone marrow signal intensity and enhancement. Suboptimal due to motion artifact degradation.
[2020-02-18 16:33] LABS: Glucose,Whole Blood 220 mg/dL (75-99)
--- NOTE | 2020-02-18 17:25 | P.CNPUL ---
History of Present Illness Consult date: 02/18/20 Reason for consult: other Chief complaint: Back pain History of present illness: 74-year-old white female patient with known history of advanced COPD, on home oxygen at 3 L, chronic shortness of breath, diabetes mellitus type 2, hypothyroidism, hyperlipidemia. Patient has extensive smoking history, she carries [id number] smoking history. She quit in 2017. She follows with Dr. Almodovar in the pulmonary clinic. Patient has a spiculated right upper lobe lesion and that they capacity in the left lower lobe, in March 2019 patient had a PET scan that showed no metabolic activity in the right upper lobe, repeat surveillance computed tomography scan of the chest was done on 10/27/2019, with progressive enlargement of the right upper lobe lesion, which is spiculated, and looking more suspicious for malignancy. However the patient is not a candidate for biopsy or surgical resection. She was referred to Dr. Charles Velasco from radiation oncology possible radiation treatment of the right upper lobe lesion which has grown in size. Patient came to the hospital on 02/17/2020 patient came in to the emergency department per EMS with complaints of worsening weakness, back pain, multiple falls, she states she could not walk, she denied being more short of breath than usual. She had a CAT scan and an outpatient basis today. She returned home and had an episode where she fell tripping over her feet rolling her ankle in complaining of lower back pain from the fall. Denies any head or neck injury. She's been very weak, suffering multiple falls at home for the past few days. Chest x-ray shows left lower lobe nodule, right upper lobe nodule, no evidence of heart failure and no evidence of bronchopne umonia. X-ray of the tib-fib showing no fracture. Lumbar spine showed L2 compression fracture that appears to be new . She the previous PET scan from 03/19/2019. In the was progression of the fracture compared the chest CT of only 10/27/2019. Ankle x-ray of the right ankle showing no fracture or dislocation. MR of the C-spine, T-spine, L-spine showed scoliosis, multilevel degenerative changes, no suspicious focal lesion, multilevel compression fracture deformities redemonstrated with progression from March 2019/CT, no convincing evidence of pathologic fracture, new left adrenal metastatic lesion. Moderate compression type fracture L2 suspected pathologic with abnormal underlying bone marrow signal intensity and enhancement, suboptimal due to motion artifact and degradation. CT of the thoracic and lumbar spine with multilevel thoracic and lumbar vertebral compression deformities, greatest posterior wall displacement is at L2 with approximately 0.8 cm posterior wall displacement and T8 vertebral body displacement of approximately 0.3 cm, and there are additional mild compression deformities at T11, T9, T7. Labs showed white blood cell count of 14.7, hemoglobin is 10.9, INR 0.9, sodium is 134, potassium is 4.8, chloride is 81, CO2 22, BUN of 5024, creatinine 0.47, lactic a didi was 0.9, LFTs within normal limits, troponin was less than 0.012, urinalysis showed trace ketones, moderate leuks, and a slightly increased white blood cells with the possibility of urinary tract infection. She has been afebrile, she is currently on 3 L of oxygen with a pulse of 99%, hemodynamically she stable. Urine culture was sent, patient has received 500 mL in fluid bolus, she seems fairly comfortable resting in the gurney in the emergency department, she denies any worsening dyspnea, she states she is at her baseline, and complaint is her lower back pain Review of Systems All systems: negative Constitutional: Denies chills, Denies fever Eyes: denies blurred vision, denies pain Ears, nose, mouth and throat: Denies headache, Denies sore throat Cardiovascular: Denies chest pain, Denies shortness of breath Respiratory: Reports dyspnea, Denies cough Gastrointestinal: Denies abdominal pain, Denies diarrhea, Denies nausea, Denies vomiting Genitourinary: Denies dysuria, Denies hematuria Musculoskeletal: Reports low back pain, Denies myalgias Integumentary: Denies pruritus, Denies rash Neurological: Denies numbness, Denies weakness Psychiatric: Denies anxiety, Denies depression Endocrine: Denies fatigue, Denies weight change Past Medical History Past Medical History: Asthma, COPD, Diabetes Mellitus, Hyperlipidemia, Hypertension, Osteoarthritis (OA), Thyroid Disorder Additional Past Medical History / Comment(s): HX HYPERTHYROID, HAD IODINE TX. ON home oxygen 3 LITERS N/C. 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 T-8 COMPRESSION FX IN 2013. EDEMA MARIO ANKLES, LT WORSE. MULT COLON POLYPS 08/21/17. History of Any Multi-Drug Resistant Organisms: None Reported Past Surgical History: Adenoidectomy, Appendectomy, Bowel Resection, Breast Surgery, Hysterectomy, Tonsillectomy Additional Past Surgical History / Comment(s): Several lumpectomies MARIO - benign, D&C, MARIO CATARACTS; COLONOSCOPY 08/21/17 Past Anesthesia/Blood Transfusion Reactions: No Reported Reaction Past Psychological History: No Psychological Hx Reported Past Alcohol Use History: Rare Past Drug Use History: None Reported - Past Family History Mother Family Medical History: Cancer Additional Family Medical History / Comment(s): Mac deg, blind; abdominal tumor; colon cancer in old age, at 86 Father Family Medical History: Cancer Additional Family Medical History / Comment(s): Prostate CA mets to lungs Medications and Allergies Home Medications Medication Instructions Recorded Confirmed Type Ipratropium/Albuterol Sulfate 1 puff INHALATION RT-TID PRN 07/28/16 02/17/20 History [Combivent Respimat Inhaler] Levothyroxine Sodium [Synthroid] 88 mcg PO DAILY 07/28/16 02/17/20 History Budesonide [Pulmicort] 0.5 mg INHALATION RT-BID 10/09/16 02/17/20 History Furosemide [Lasix] 10 mg PO DAILY 12/02/16 02/17/20 History Atorvastatin [Lipitor] 40 mg PO DAILY 08/18/17 02/17/20 History Diltiazem Cd [Cardizem CD] 120 mg PO DAILY 08/18/17 02/17/20 History Ipratropium-Albuterol Nebulize 3 ml INHALATION RT-TID PRN 09/18/17 02/17/20 History [Duoneb 0.5 mg-3 mg/3 ml Soln] metFORMIN HCL 2,000 mg PO DAILY 09/25/17 02/17/20 History Calcium Citrate/Vitamin D3 1 each PO DAILY 10/28/18 02/17/20 History [Calcitrate + Vit D Caplet] Cetirizine HCl [Zyrtec] 10 mg PO DAILY 10/28/18 02/17/20 History Famotidine 40 mg PO HS 10/28/18 02/17/20 History Tiotropium Br/Olodaterol HCl 1 spray INHALATION RT-DAILY 10/28/18 02/17/20 History [Stiolto Respimat Inhal [place]] ALPRAZolam [Xanax] 0.25 mg PO DAILY PRN 02/17/20 02/17/20 History Acetaminophen [Tylenol Arthritis] 650 mg PO DAILY PRN 02/17/20 02/17/20 History Albuterol Sulfate [Albuterol 1 - 2 puff INHALATION RT-Q4H PRN 02/17/20 02/17/20 History Sulfate Hfa] DULoxetine HCL [Cymbalta] 60 mg PO DAILY 02/17/20 02/17/20 History Multivitamins, Thera [Multivitamin 1 tab PO DAILY 02/17/20 02/17/20 History (formulary)] guaiFENesin [Mucinex] 1,200 mg PO Q12H PRN 02/17/20 02/17/20 History metFORMIN HCL [Glucophage] 1,000 mg PO HS 02/17/20 02/17/20 History Allergies Allergy/AdvReac Type Severity Reaction Status Date / Time bupropion [From Zyban] Allergy Rash/Hives Verified 02/17/20 22:34 cefaclor [From Ceclor] Allergy Rash/Hives Verified 02/17/20 22:34 formoterol [From Perforomist] Allergy Rapid Verified 02/17/20 22:34 Heart Rate, LOW O2 SATURATION Physical Exam Vitals: Vital Signs Temp Pulse Pulse Resp BP BP Pulse Ox 02/18/20 14:00 97.9 F 91 129/74 99 02/18/20 09:27 92 02/18/20 09:11 92 02/18/20 07:32 97.9 F 93 19 126/62 100 02/18/20 07:15 19 02/18/20 05:42 16 02/18/20 04:00 97.7 F 88 16 138/80 100 02/17/20 23:48 89 16 143/62 100 02/17/20 23:30 25 H 02/17/20 21:39 97.7 F 92 20 162/65 99 GENERAL EXAM: Alert, very pleasant, chronically ill-looking, 74-year-old white female, 3 L of oxygen and pulse ox of 90%, fairly comfortable, resting in a gurney in the emergency department, comfortable in no apparent distress. HEAD: Normocephalic/atraumatic. EYES: Normal reaction of pupils, equal size. Conjunctiva pink, sclera white. NOSE: Clear with pink turbinates. THROAT: No erythema or exudates. NECK: No masses, no JVD, no thyroid enlargement, no adenopathy. CHEST: No chest wall deformity. Symmetrical expansion. LUNGS: Equal air entry with no crackles, wheeze, rhonchi or dullness. CVS: Regular rate and rhythm, normal S1 and S2, no gallops, no murmurs, no rubs ABDOMEN: Soft, nontender. No hepatosplenomegaly, normal bowel sounds, no guarding or rigidity. EXTREMITIES: No clubbing, no edema, no cyanosis, 2+ pulses and upper and lower extremities. MUSCULOSKELETAL: Muscle strength and tone normal. SPINE: No scoliosis or deformity SKIN: No rashes CENTRAL NERVOUS SYSTEM: Alert and oriented -3. No focal deficits, tone is normal in all 4 extremities. PSYCHIATRIC: Alert and oriented -3. Appropriate affect. Intact judgment and insight. Results - Laboratory Findings CBC and BMP: 02/17/20 23:14 02/17/20 23:14 PT/INR, D-dimer PT 9.8 sec (9.0-12.0) 02/17/20 23:14 INR 0.9 (<1.2) 02/17/20 23:14 Abnormal lab findings: Abnormal Labs 02/17/20 02/17/20 02/17/20 23:14 23:14 23:19 WBC 14.7 H RBC 3.67 L Hgb 10.9 L Neutrophils # 12.8 H Lymphocytes # 0.7 L Sodium 134 L Chloride 81 L Carbon Dioxide 52 H* BUN 24 H Creatinine 0.47 L Glucose 146 H POC Glucose (mg/dL) Urine Protein 1+ H Urine Ketones Trace H Ur Leukocyte Esterase Moderate H Urine RBC 6 H Urine WBC 19 H Urine Mucus Rare H 02/18/20 16:31 WBC RBC Hgb Neutrophils # Lymphocytes # Sodium Chloride Carbon Dioxide BUN Creatinine Glucose POC Glucose (mg/dL) 220 H Urine Protein Urine Ketones Ur Leukocyte Esterase Urine RBC Urine WBC Urine Mucus - Diagnostic Findings Chest x-ray: report reviewed, image reviewed CT scan - chest: report reviewed, image reviewed Additional studies: EKG reviewed, x-ray of the right tib-fib, lumbar spine x-ray, right ankle x- ray, MRI of the cervical, thoracic, lumbar spine, and CT of the thoracic, lumbar spine reviewed Assessment and Plan Plan: Assessment: #1. Weakness and multiple falls at home #2. Low back pain, lumbar spine x-ray showing new L2 compression fracture, MRI of the cervical, thoracic and lumbar spine shows moderate compression type fractures at L2 with suspected pathologic fracture, with abnormal underlying bone marrow signal intensity and enhancement. There was a new left adrenal metastatic lesion #3. Multiple thoracic and lumbar vertebral compression deformities #4. Known history of right upper lobe nodule, that showed no metabolic activity on the PET scan from March 2019, however follow-up computed tomography scan from 10/27/2019 showed progressive enlargement of the right upper lobe lesion which is spiculated, increasing in size, and suspicious for malignancy, patient also has left lower lobe nodule. Patient was a poor candidate for biopsy or surgical resection related to poor lung function, patient was getting radiation treatments to the right upper lobe lesion #5. Chronic hypoxic respiratory failure usually wears 3 L of oxygen on a regular basis #6. Severe chronic obstructive pulmonary disease, maintained on a combination of STiolto, Combivent, Duoneb, Pulmicort #7. Sensitive history of smoking, carries [id number] smoking history, in remission since July 2016 #8. Diabetes mellitus type 2 #9. Hypothyroidism #10. Osteoarthritis #11. History of of colon polyps #12. Possible urinary tract infection #13. Mild hyponatremia, possibly hypovolemic, metabolic alcalosis, possibility of dehydration Plan: Continue current medical treatment, bronchodilators, patient is being checked for quit 20 older she denies any fever or chills, she denies any worsening dyspnea, she states her breathing is at baseline, she states her main complaint is her lower back pain, and multiple falls at home. Patient has received some IV fluids in the emergency department, vital signs are stable, no fever or chills, we'll send the pro-calcitonin level, will await urine culture, continue with morphine pain control, orthopedic surgery has been consulted MRI of the lumbar spine showed stability of L2 pathologic fracture, and a new left adrenal metastatic lesion, we'll consult radiation oncology. Patient had previously been determined for candidate for biopsy or surgery, we'll continue with s upportive treatment. I performed a history & physical examination of the patient and discussed their management with my nurse practitioner, Halle Saucedo. I reviewed the nurse practitioner's note and agree with the documented findings and plan of care. Lung sounds are positive for diminished breath sounds. The findings and the impression was discussed with the patient. I attest to the documentation by the nurse practitioner. Time with Patient: Greater than 30
[2020-02-18] MEDS: INSULIN ASPART (NovoLOG) 100 UNIT/ML VIAL SQ SCH ×2 (17:27→23:11)
[2020-02-18] MEDS: HEPARIN SODIUM,PORCINE 5,000 UNIT/ML 1 ML VIAL SQ SCH ×2 (17:37→23:12)
[2020-02-18] MEDS: IPRATROPIUM-ALBUTEROL 3 ML NEB INHALATION PRN (20:33)
[2020-02-18 20:39] LABS: Glucose,Whole Blood 138 mg/dL (75-99)
[2020-02-18] MEDS ORDERED: FAMOTIDINE 20 MG TAB PO SCH (21:00)
[2020-02-18] MEDS: metFORMIN 500 MG TAB PO SCH (23:11)
[2020-02-18 23:12] LABS: Glucose,Whole Blood 147 mg/dL (75-99)
[2020-02-18] MEDS: IBUPROFEN 400 MG TAB PO PRN (23:38)
[2020-02-19] MEDS: SODIUM CHLORIDE 0.9% 1,000 ML IV SCH ×3 (02:31→22:03)
[2020-02-19 06:48] LABS: Basophils # (A) 0.1 k/uL (0-0.2); Basophils % (A) 0 %; Eosinophils % (A) 0 %; HCT 30.4 % (34.0-46.0); HGB 9.8 gm/dL (11.4-16.0); Lymphocytes # (A) 0.9 k/uL (1.0-4.8); Lymphocytes % (A) 6 %; MCH 29.9 pg (25.0-35.0); MCHC 32.2 g/dL (31.0-37.0); MCV 92.9 fL (80.0-100.0); Mean Platelet Volume 7.6; Monocytes # (A) 0.7 k/uL (0-1.0); Monocytes % (A) 5 %; Neutrophils # (A) 13.1 k/uL (1.3-7.7); Neutrophils % (A) 88 %; Platelet Count 228 k/uL (150-450); RBC 3.28 m/uL (3.80-5.40); RDW 12.6 % (11.5-15.5)
[2020-02-19] MEDS: IPRATROPIUM 0.5 MG/2.5 ML NEBU INHALATION SCH ×4 (08:00→19:23)
[2020-02-19] MEDS: BUDESONIDE 0.5 MG/2 ML NEBU INHALATION SCH ×2 (08:00→19:22)
[2020-02-19 08:56] LABS: Glucose,Whole Blood 202 mg/dL (75-99)
[2020-02-19] MEDS: INSULIN ASPART (NovoLOG) 100 UNIT/ML VIAL SQ SCH ×4 (08:59→22:02)
[2020-02-19] MEDS: LEVOTHYROXINE 88 MCG TAB PO SCH (09:00)
[2020-02-19] MEDS: metFORMIN 500 MG TAB PO SCH ×2 (09:00→22:01)
[2020-02-19] MEDS: PANTOPRAZOLE 40 MG TABLET PO SCH (09:00)
[2020-02-19] MEDS: DULoxetine HCL 60 MG CAPSULE.DR PO SCH (09:01)
[2020-02-19] MEDS: LORATADINE 10 MG TAB PO SCH (09:01)
[2020-02-19] MEDS: ATORVASTATIN 40 MG TAB PO SCH (09:01)
[2020-02-19] MEDS: HEPARIN SODIUM,PORCINE 5,000 UNIT/ML 1 ML VIAL SQ SCH ×3 (09:01→22:03)
[2020-02-19] MEDS: DILTIAZEM CD 120 MG CAP.ER.24H PO SCH (09:02)
[2020-02-19] MEDS: KETOROLAC 15 MG/ML 1 ML VIAL IVP PRN (09:02)
[2020-02-19] MEDS: MULTIVITAMINS, THERA 1 EACH TAB PO SCH (09:02)
--- NOTE | 2020-02-19 09:06 | P.CNOR ---
History of Present Illness - [facility] Consult date: 02/19/20 Consult reason: fracture History of present illness: This is a 74-year-old female with history of COPD lung carcinoma who has been having difficulty ambulating. She fell last week Jimmy and has significant pain ever since. Patient has a significant history of lung carcinoma multiple thoracic spine compression fractures and low back pain. She states that the pain has gotten worse and that she is not able to ambulate secondary to the pain. She denies any tolerable bladder incontinence. She denies any perineal numbness or tingling. She denies any weakness in her lower extremities but simply states she cannot walk because of pain. Review of Systems 14 points review of systems completed and as stated in HPI, all other systems reviewed are negative. Past Medical History Past Medical History: Asthma, COPD, Diabetes Mellitus, Hyperlipidemia, Hypertension, Osteoarthritis (OA), Thyroid Disorder Additional Past Medical History / Comment(s): HX HYPERTHYROID, HAD IODINE TX. ON home oxygen 3 LITERS N/C. 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 T-8 COMPRESSION FX IN 2012. EDEMA MARIO ANKLES, LT WORSE. MULT COLON POLYPS 08/21/17. History of Any Multi-Drug Resistant Organisms: None Reported Past Surgical History: Adenoidectomy, Appendectomy, Bowel Resection, Breast Surgery, Hysterectomy, Tonsillectomy Additional Past Surgical History / Comment(s): Several lumpectomies MARIO - benign, D&C, MARIO CATARACTS; COLONOSCOPY 08/21/17 Past Anesthesia/Blood Transfusion Reactions: No Reported Reaction Past Psychological History: No Psychological Hx Reported Smoking Status: Former smoker Past Alcohol Use History: Rare Additional Past Alcohol Use History / Comment(s): quit smoking July 2016, smoked <ppd, smoked for 50 yrs. Past Drug Use History: None Reported - Past Family History Mother Family Medical History: Cancer Additional Family Medical History / Comment(s): Mac deg, blind; abdominal tumor; colon cancer in old age, at 86 Father Family Medical History: Cancer Additional Family Medical History / Comment(s): Prostate CA mets to lungs Medications and Allergies Home Medications Medication Instructions Recorded Confirmed Type Ipratropium/Albuterol Sulfate 1 puff INHALATION RT-TID PRN 07/28/16 02/17/20 History [Combivent Respimat Inhaler] Levothyroxine Sodium [Synthroid] 88 mcg PO DAILY 07/28/16 02/17/20 History Budesonide [Pulmicort] 0.5 mg INHALATION RT-BID 10/09/16 02/17/20 History Furosemide [Lasix] 10 mg PO DAILY 12/02/16 02/17/20 History Atorvastatin [Lipitor] 40 mg PO DAILY 08/18/17 02/17/20 History Diltiazem Cd [Cardizem CD] 120 mg PO DAILY 08/18/17 02/17/20 History Ipratropium-Albuterol Nebulize 3 ml INHALATION RT-TID PRN 09/18/17 02/17/20 History [Duoneb 0.5 mg-3 mg/3 ml Soln] metFORMIN HCL 2,000 mg PO DAILY 09/25/17 02/17/20 History Calcium Citrate/Vitamin D3 1 each PO DAILY 10/28/18 02/17/20 History [Calcitrate + Vit D Caplet] Cetirizine HCl [Zyrtec] 10 mg PO DAILY 10/28/18 02/17/20 History Famotidine 40 mg PO HS 10/28/18 02/17/20 History Tiotropium Br/Olodaterol HCl 1 spray INHALATION RT-DAILY 10/28/18 02/17/20 History [Stiolto Respimat Inhal [place]] ALPRAZolam [Xanax] 0.25 mg PO DAILY PRN 02/17/20 02/17/20 History Acetaminophen [Tylenol Arthritis] 650 mg PO DAILY PRN 02/17/20 02/17/20 History Albuterol Sulfate [Albuterol 1 - 2 puff INHALATION RT-Q4H PRN 02/17/20 02/17/20 History Sulfate Hfa] DULoxetine HCL [Cymbalta] 60 mg PO DAILY 02/17/20 02/17/20 History Multivitamins, Thera [Multivitamin 1 tab PO DAILY 02/17/20 02/17/20 History (formulary)] guaiFENesin [Mucinex] 1,200 mg PO Q12H PRN 02/17/20 02/17/20 History metFORMIN HCL [Glucophage] 1,000 mg PO HS 02/17/20 02/17/20 History Allergies Allergy/AdvReac Type Severity Reaction Status Date / Time bupropion [From Zyban] Allergy Rash/Hives Verified 02/17/20 22:34 cefaclor [From Ceclor] Allergy Rash/Hives Verified 02/17/20 22:34 formoterol [From Perforomist] Allergy Rapid Verified 02/17/20 22:34 Heart Rate, LOW O2 SATURATION Physical Examination Osteopathic Statement: *. No significant issues noted on an osteopathic structural exam other than those noted in the History and Physical/Consult. GEN: AOX3, NAD VSS Inspection: Patient appears slightly unkempt but is well-nourished well-hydrated is in no acute distress at this time Palpation: Patient has tenderness to palpation of her lumbar spine. She has no tennis palpation of her cervical or thoracic spine at this time. She has positive ballottement's within her lumbar spine. Motor: 5/5 shoulder abd/EF/EE/WF/intrinsics 4+/5 DF/PF/EHL/FHL/HF/KE/KF patient is generally weak secondary to her condition and pain at this time but there are no focal deficits. Reflexes: 2/4 DTR all upper and LE Sensation intact to light touch in C5-T1 as well as L2-S1 distribution Jones's: Negative bilaterally Clonus: Negative bilaterally Babinski: Date of bilaterally Cranial nerves II through XII are grossly grossly intact. Her overall sagittal balance is slightly positive secondary to her previous compression fractures however she is able to lay flat without any issues. Her coronal balance is maintained. She is unable to ambulate secondary to pain at this time. She is intact diadokinesis. She has intact pulses distally 2 out of 4 in all extremities. She has tenderness to palpation over the right ankle but she has full range of motion of her bilateral ankles knees and hips without pain. She also has intact range of motion without pain of her wrists elbows and shoulders bilaterally. There is some ecchymosis and bruising over her left knee however this is nonpainful nontender. She does have some swelling about her right ankle as well. X-rays of this were negative. Results CT of CT and L-spine was reviewed as well as MRI of her CT and L-spine. This demonstrates multiple levels of compression deformities with a thoracic gibbus formation and kyphosis secondary to these fracture deformities and vertebral plana. These are most prominent around the T5 T8 and T10 regions. There is an acute on chronic fracture of T11 however this is simply the upper endplate and there is no further compression. There is an acute fracture compression type of the L2 vertebral body which shows edema on MRI scan. Computed tomography scan confirms this as well. Her overall alignment is positive sagittal balance with maintained coronal balance. Lumbar spine shows a normal lordosis and well- maintained alignment however her thoracic spine has severe kyphosis secondary to the multiple levels of vertebral fracture and vertebral plana which is likely secondary to her neoplasm. - Labs Labs: Abnormal Lab Results - Last 24 Hours (Table) 02/18/20 02/18/20 02/18/20 Range/Units 16:31 20:38 23:10 WBC (3.8-10.6) k/uL RBC (3.80-5.40) m/uL Hgb (11.4-16.0) gm/dL Hct (34.0-46.0) % Neutrophils # (1.3-7.7) k/uL Lymphocytes # (1.0-4.8) k/uL POC Glucose (mg/dL) 220 H 138 H 147 H (75-99) mg/dL 02/19/20 Range/Units 06:37 WBC 15.0 H (3.8-10.6) k/uL RBC 3.28 L (3.80-5.40) m/uL Hgb 9.8 L (11.4-16.0) gm/dL Hct 30.4 L (34.0-46.0) % Neutrophils # 13.1 H (1.3-7.7) k/uL Lymphocytes # 0.9 L (1.0-4.8) k/uL POC Glucose (mg/dL) (75-99) mg/dL Microbiology - Last 24 Hours (Table) 02/17/20 23:14 Blood Culture - Preliminary Blood No Growth after 24 hours 02/17/20 23:19 Urine Culture - Preliminary Urine,Clean Catch H & H 02/17/20 02/19/20 Range/Units 23:14 06:37 Hgb 10.9 L 9.8 L (11.4-16.0) gm/dL Hct 34.1 30.4 L (34.0-46.0) % Coagulation 02/17/20 Range/Units 23:14 INR 0.9 (<1.2) Result Diagrams: 02/19/20 06:37 02/17/20 23:14 Assessment and Plan Assessment: 74-year-old female with low back pain 1. T6 T8 T11 vertebral compression fractures, chronic 2. L2 vertebral compression fracture, acute 3. History of lung carcinoma 4. Complex medical patient Plan: -Appreciate consult -CT and MRI reviewed -Pain control when necessary -LSO ordered -GI and DVT prophylaxis as appropriate -PT/OT -We can attempt to mobilize the patient with a brace and pain control if this is inadequate then would consider kyphoplasty of L2 vertebral body.
[2020-02-19 10:15] LABS: ALT 21 U/L (8-44); AST 22 U/L (13-35); African American GFR (CKD) 104.8 (60.0-200.0); Albumin/Globulin Ratio 1.89 (1.60-3.17); Alkaline Phosphatase 98 U/L (41-126); BUN/Creat Ratio 31.67 Ratio (12.00-20.00); Calcium 9.2 mg/dL (8.7-10.3); Chloride 87 mmol/L (96-109); Globulin 1.8 g/dL (1.6-3.3); Glucose 118 mg/dL (70-110); Non-African American GFR(CKD) 90.4 (60.0-200.0); Potassium 5.1 mmol/L (3.5-5.5); Sodium 140 mmol/L (135-145); Total Bilirubin 0.4 mg/dL (0.2-1.2); Total Protein 5.2 g/dL (6.2-8.2)
[2020-02-19 12:28] LABS: Glucose,Whole Blood 119 mg/dL (75-99)
[2020-02-19 13:09] VITALS: BMI 22.2
--- NOTE | 2020-02-19 14:30 | P.PN ---
Subjective Progress Note Date: 02/19/20 Principal diagnosis: Weakness, multiple falls at home 74-year-old white female patient with known history of advanced COPD, on home oxygen at 3 L, chronic shortness of breath, diabetes mellitus type 2, hypothyroidism, hyperlipidemia. Patient has extensive smoking history, she carries [id number] smoking history. She quit in 2017. She follows with Dr. Almodovar in the pulmonary clinic. Patient has a spiculated right upper lobe lesion and that they capacity in the left lower lobe, in March 2019 patient had a PET scan that showed no metabolic activity in the right upper lobe, repeat surveillance computed tomography scan of the chest was done on 10/27/2019, with progressive enlargement of the right upper lobe lesion, which is spiculated, and looking more suspicious for malignancy. However the patient is not a candidate for biopsy or surgical resection. She was referred to Dr. Charles Velasco from radiation oncology possible radiation treatment of the right upper lobe lesion which has grown in size. Patient came to the hospital on 02/17/2020 patient came in to the emergency department per EMS with complaints of worsening weakness, back pain, multiple falls, she states she could not walk, she denied being more short of breath than usual. She had a CAT scan and an outpatient basis today. She returned home and had an episode where she fell tripping over her feet rolling her ankle in complaining of lower back pain from the fall. Denies any head or neck injury. She's been very weak, suffering multiple falls at home for the past few days. Chest x-ray shows left lower lobe nodule, right upper lobe nodule, no evidence of heart failure and no evidence of bronchopneumonia. X-ray of the tib-fib showing no fracture. Lumbar spine showed L2 compression fracture that appears to be new . She the previous PET scan from 03/19/2019. In the was progression of the fracture compared the chest CT of only 10/27/2019. Ankle x-ray of the right ankle showing no fracture or dislocation. MR of the C-spine, T-spine, L-spine showed scoliosis, multilevel degenerative changes, no suspicious focal lesion, multilevel compression fracture deformities redemonstrated with progression from March 2019/CT, no convincing evidence of pathologic fracture, new left adrenal metastatic lesion. Moderate compression type fracture L2 suspected pathologic with abnormal underlying bone marrow signal intensity and enhancement, suboptimal due to motion artifact and degradation. CT of the thoracic and lumbar spine with multilevel thoracic and lumbar vertebral compression deformities, greatest posterior wall displacement is at L2 with approximately 0.8 cm posterior wall displacement and T8 vertebral body displacement of approximately 0.3 cm, and there are additional mild compression deformities at T11, T9, T7. Labs showed white blood cell count of 14.7, hemoglobin is 10.9, INR 0.9, sodium is 134, potassium is 4.8, chloride is 81, CO2 22, BUN of 5024, creatinine 0.47, lactic acid was 0.9, LFTs within normal limits, troponin was less than 0.012, urinalysis showed trace ketones, moderate leuks, and a slightly increased white blood cells with the possibility of urinary tract infection. She has been afebrile, she is currently on 3 L of oxygen with a pulse of 99%, hemodynamically she stable. Urine culture was sent, patient has received 500 mL in fluid bolus, she seems fairly comfortable resting in the [place] in the emergency department, she denies any worsening dyspnea, she states she is at her baseline, and complaint is her lower back pain The patient is seen today 02/19/2020 in follow-up on the regular medical floor. She is currently resting comfortably in bed. Awake and alert in no acute distress. He is still having complaints of low back pain. No worsening shortness of breath, cough or congestion. 18 O2 saturations in the 90s on 3 L/m per nasal cannula. She's been afebrile. Hemodynamically stable. Blood culture reveals no growth. Urine culture reveals no growth. White count 15.0. Hemoglobin 9.8. Sodium 140. Potassium 5.1. I curb greater than 40. Creatinine 0.6. She remains on bronchodilators. 9 normal sinus 75 ML's per hour. Objective - Vital Signs Vital signs: Vital Signs Temp 98.7 F 02/18/20 20:10 Pulse 101 H 02/19/20 08:14 Resp 16 02/19/20 08:14 BP 124/70 02/18/20 20:10 Pulse Ox 94 L 02/19/20 08:01 Intake & Output 02/18/20 02/19/20 02/19/20 18:59 06:59 18:59 Weight 62.596 kg 62.596 kg Other: Voiding Method Bedpan Bedpan # Voids 1 1 - Exam GENERAL EXAM: Alert, very pleasant, chronically ill-looking, 74-year-old white female, 3 L of oxygen and pulse ox of 94%, fairly comfortable, in no apparent distress. HEAD: Normocephalic/atraumatic. EYES: Normal reaction of pupils, equal size. Conjunctiva pink, sclera white. NOSE: Clear with pink turbinates. THROAT: No erythema or exudates. NECK: No masses, no JVD, no thyroid enlargement, no adenopathy. CHEST: No chest wall deformity. Symmetrical expansion. LUNGS: Equal air entry with no crackles, wheeze, rhonchi or dullness. CVS: Regular rate and rhythm, normal S1 and S2, no gallops, no murmurs, no rubs ABDOMEN: Soft, nontender. No hepatosplenomegaly, normal bowel sounds, no guarding or rigidity. EXTREMITIES: No clubbing, no edema, no cyanosis, 2+ pulses and upper and lower extremities. MUSCULOSKELETAL: Muscle strength and tone normal. SPINE: No scoliosis or deformity SKIN: No rashes CENTRAL NERVOUS SYSTEM: Alert and oriented -3. No focal deficits, tone is normal in all 4 extremities. PSYCHIATRIC: Alert and oriented -3. Appropriate affect. Intact judgment and insight. - Labs CBC & Chem 7: 02/19/20 06:37 02/19/20 06:37 Labs: Abnormal Lab Results - Last 24 Hours (Table) 02/18/20 02/18/20 02/18/20 Range/Units 16:31 20:38 23:10 WBC (3.8-10.6) k/uL RBC (3.80-5.40) m/uL Hgb (11.4-16.0) gm/dL Hct (34.0-46.0) % Neutrophils # (1.3-7.7) k/uL Lymphocytes # (1.0-4.8) k/uL Chloride (96-109) mmol/L Carbon Dioxide (21.6-31.8) mmol/L BUN/Creatinine Ratio (12.00-20.00) Ratio Glucose (70-110) mg/dL POC Glucose (mg/dL) 220 H 138 H 147 H (75-99) mg/dL Total Protein (6.2-8.2) g/dL Albumin (3.80-4.90) g/dL 02/19/20 02/19/20 02/19/20 Range/Units 06:37 06:37 08:54 WBC 15.0 H (3.8-10.6) k/uL RBC 3.28 L (3.80-5.40) m/uL Hgb 9.8 L (11.4-16.0) gm/dL Hct 30.4 L (34.0-46.0) % Neutrophils # 13.1 H (1.3-7.7) k/uL Lymphocytes # 0.9 L (1.0-4.8) k/uL Chloride 87 L (96-109) mmol/L Carbon Dioxide >40.0 H* (21.6-31.8) mmol/L BUN/Creatinine Ratio 31.67 H (12.00-20.00) Ratio Glucose 118 H (70-110) mg/dL POC Glucose (mg/dL) 202 H (75-99) mg/dL Total Protein 5.2 L (6.2-8.2) g/dL Albumin 3.40 L (3.80-4.90) g/dL 02/19/20 Range/Units 12:27 WBC (3.8-10.6) k/uL RBC (3.80-5.40) m/uL Hgb (11.4-16.0) gm/dL Hct (34.0-46.0) % Neutrophils # (1.3-7.7) k/uL Lymphocytes # (1.0-4.8) k/uL Chloride (96-109) mmol/L Carbon Dioxide (21.6-31.8) mmol/L BUN/Creatinine Ratio (.00-20.00) Ratio Glucose (70-110) mg/dL POC Glucose (mg/dL) 119 H (75-99) mg/dL Total Protein (6.2-8.2) g/dL Albumin (3.80-4.90) g/dL Microbiology - Last 24 Hours (Table) 02/17/20 23:19 Urine Culture - Final Urine,Clean Catch 02/17/20 23:14 Blood Culture - Preliminary Blood No Growth after 24 hours Assessment and Plan Assessment: 1 Weakness and multiple falls at home 2 Low back pain, lumbar spine x-ray showing new L2 compression fracture, MRI of the cervical, thoracic and lumbar spine shows moderate compression type fractures at L2 with suspected pathologic fracture, with abnormal underlying bone marrow signal intensity and enhancement. There was a new left adrenal metastatic lesion 3 Multiple thoracic and lumbar vertebral compression deformities 4 Known history of right upper lobe nodule, that showed no metabolic activity on the PET scan from March 2019, however follow-up computed tomography scan from 10/27/2019 showed progressive enlargement of the right upper lobe lesion which is spiculated, increasing in size, and suspicious for malignancy, patient also has left lower lobe nodule. 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 Salvador Currently stable from the pulmonary standpoint Continue bronchodilators CoVID screen negative We will continue to follow I, the cosigning physician, performed a history & physical examination of the patient. Lungs sounds are clear. Maintaining good O2 saturations in the 90s on 3 L/m per nasal cannula. I discussed the assessment and plan of care with my nurse practitioner, Tanisha Garcia. I attest to the above note as dictated by her.
[2020-02-19 16:48] LABS: Glucose,Whole Blood 173 mg/dL (75-99)
[2020-02-19 21:40] LABS: Glucose,Whole Blood 197 mg/dL (75-99)
[2020-02-20] MEDS: KETOROLAC 15 MG/ML 1 ML VIAL IVP PRN (02:21)
[2020-02-20] MEDS: SODIUM CHLORIDE 0.9% 1,000 ML IV SCH (02:22)
[2020-02-20] MEDS: LEVOTHYROXINE 88 MCG TAB PO SCH (06:19)
[2020-02-20 06:42] LABS: Basophils % (A) 0 %; Eosinophils # (A) 0.3 k/uL (0-0.7); Eosinophils % (A) 2 %; HCT 33.1 % (34.0-46.0); HGB 10.1 gm/dL (11.4-16.0); Hypochromasia Slight; Lymphocytes # (A) 1.3 k/uL (1.0-4.8); Lymphocytes % (A) 8 %; MCH 28.7 pg (25.0-35.0); MCHC 30.7 g/dL (31.0-37.0); MCV 93.4 fL (80.0-100.0); Mean Platelet Volume 7.4; Monocytes # (A) 0.8 k/uL (0-1.0); Monocytes % (A) 5 %; Neutrophils # (A) 13.1 k/uL (1.3-7.7); Neutrophils % (A) 84 %; Platelet Count 256 k/uL (150-450); RBC 3.54 m/uL (3.80-5.40); RDW 12.9 % (11.5-15.5); WBC 15.5 k/uL (3.8-10.6)
[2020-02-20 07:34] LABS: Glucose,Whole Blood 119 mg/dL (75-99)
[2020-02-20] MEDS: BUDESONIDE 0.5 MG/2 ML NEBU INHALATION SCH ×2 (07:45→19:44)
[2020-02-20] MEDS: IPRATROPIUM 0.5 MG/2.5 ML NEBU INHALATION SCH ×4 (07:45→19:44)
[2020-02-20] MEDS: INSULIN ASPART (NovoLOG) 100 UNIT/ML VIAL SQ SCH ×4 (09:26→21:59)
[2020-02-20] MEDS: DILTIAZEM CD 120 MG CAP.ER.24H PO SCH (09:53)
[2020-02-20] MEDS: metFORMIN 500 MG TAB PO SCH ×2 (09:53→19:51)
[2020-02-20] MEDS: LORATADINE 10 MG TAB PO SCH (09:53)
[2020-02-20] MEDS: PANTOPRAZOLE 40 MG TABLET PO SCH (09:54)
[2020-02-20] MEDS: MULTIVITAMINS, THERA 1 EACH TAB PO SCH (09:54)
[2020-02-20] MEDS: DULoxetine HCL 60 MG CAPSULE.DR PO SCH (09:54)
[2020-02-20] MEDS: ATORVASTATIN 40 MG TAB PO SCH (09:54)
[2020-02-20] MEDS: HEPARIN SODIUM,PORCINE 5,000 UNIT/ML 1 ML VIAL SQ SCH ×2 (09:54→16:33)
[2020-02-20 10:33] LABS: African American GFR (CKD) 104.8 (60.0-200.0); BUN/Creat Ratio 33.33 Ratio (12.00-20.00); Non-African American GFR(CKD) 90.4 (60.0-200.0)
--- NOTE | 2020-02-20 11:35 | P.PN ---
Subjective Progress Note Date: 02/19/20 Principal diagnosis: L2 compression fracture Ms. Jernigan is a 74-year-old female with a past medical history of advanced COPD on 3 L of home oxygen, diabetes mellitus, hypothyroidism, hyperlipidemia coming to the hospital with a chief complaint of worsening weakness back pain and multiple falls. Patient had x-rays done showing lumbar spine L2 compression fracture which appears to be new. MR i.e. of the C-spine, T-spine, L-spine showed scoliosis, mild [place] level degenerative changes no suspicion for focal lesion, multilevel compression fracture deformities remote demonstrated a progression from March 2019. And a new left atrial metastatic lesion. Moderate compression type fracture L2 suspected pathological with abnormal underlying bone marrow signal intensity and enhancement. So orthopedics have been consulted. On 02/19/2020- patient is lying in bed. No acute events reported by nursing staff. Patient complains of low back pain intensity 5-6 x 10. She states that the pain medication is helping her. She still did not get out of the bed this morning. Patient denies having any chest pain cough. Her difficulty in breathing is at baseline and she is on 3 L of oxygen at home. On reviewing the vitals temperature 97.4, heart rate 98, blood pressure 125/72, saturating 93% on 3 L of nasal cannula. Reviewing the labs white count of 15, hemoglobin 9.8. Sodium 140, potassium 5.1, chloride 87, bicarb more than 40. Objective - Vital Signs Vital signs: Vital Signs Temp 98.7 F 02/18/20 20:10 Pulse 101 H 02/19/20 08:14 Resp 16 02/19/20 08:14 BP 124/70 02/18/20 20:10 Pulse Ox 94 L 02/19/20 08:01 Intake & Output 02/18/20 02/19/20 02/19/20 18:59 06:59 18:59 Weight 62.596 kg Other: Voiding Method Bedpan # Voids 1 1 - Exam PHYSICAL EXAMINATION: Patient is in no acute distress, awake alert and oriented.. HEENT: Normocephalic. Neck is supple. Pupils reactive. Oral cavity is moist. Neck reveals no JVD, carotid bruits, or thyromegaly. CHEST EXAMINATION: Lung luevano clear to auscultation and percussion. CARDIAC: Normal S1, S2 with no gallops. No murmurs ABDOMEN: Soft. Bowel sounds normal. No organomegaly. No abdominal bruits. Extremities: no peripheral edema Neurologically awake, alert, oriented x3 No focal deficits noted Psychiatric: Coperative. normal mood an effect Musculoskeletal: Unable to get out of bed due to pain - Labs CBC & Chem 7: 02/20/20 06:26 02/20/20 06:26 Labs: Abnormal Lab Results - Last 24 Hours (Table) 02/18/20 02/18/20 02/18/20 Range/Units 16:31 20:38 23:10 WBC (3.8-10.6) k/uL RBC (3.80-5.40) m/uL Hgb (11.4-16.0) gm/dL Hct (34.0-46.0) % Neutrophils # (1.3-7.7) k/uL Lymphocytes # (1.0-4.8) k/uL Chloride (96-109) mmol/L Carbon Dioxide (21.6-31.8) mmol/L BUN/Creatinine Ratio (12.00-20.00) Ratio Glucose (70-110) mg/dL POC Glucose (mg/dL) 220 H 138 H 147 H (75-99) mg/dL Total Protein (6.2-8.2) g/dL Albumin (3.80-4.90) g/dL 02/19/20 02/19/20 02/19/20 Range/Units 06:37 06:37 08:54 WBC 15.0 H (3.8-10.6) k/uL RBC 3.28 L (3.80-5.40) m/uL Hgb 9.8 L (11.4-16.0) gm/dL Hct 30.4 L (34.0-46.0) % Neutrophils # 13.1 H (1.3-7.7) k/uL Lymphocytes # 0.9 L (1.0-4.8) k/uL Chloride 87 L (96-109) mmol/L Carbon Dioxide >40.0 H* (21.6-31.8) mmol/L BUN/Creatinine Ratio 31.67 H (12.00-20.00) Ratio Glucose 118 H (70-110) mg/dL POC Glucose (mg/dL) 202 H (75-99) mg/dL Total Protein 5.2 L (6.2-8.2) g/dL Albumin 3.40 L (3.80-4.90) g/dL Microbiology - Last 24 Hours (Table) 02/17/20 23:14 Blood Culture - Preliminary Blood No Growth after 24 hours 02/17/20 23:19 Urine Culture - Preliminary Urine,Clean Catch Assessment and Plan Assessment: ASSESSMENT L2 compression fracture Left adrenal metastatic lesion Multiple thoracic and lumbar vertebral compression deformities Multiple lung nodules Chronic hypoxic respiratory failure on 3 L of oxygen at home Severe COPD Significant smoking history with 30 pack years Type 2 diabetes mellitus Hypothyroidism Osteoarthritis History of colon polyps PLAN: Orthopedics evaluated the patient and suggested brace and pain control for now. If these modalities aren't adequate, then they would consider kyphoplasty of L2 vertebral body. Patient has been resumed on her home medications which will be continued. Overall prognosis is poor. Further recommendations depending on the progress of the patient.
[2020-02-20] MEDS: IBUPROFEN 400 MG TAB PO PRN ×2 (12:00→19:51)
[2020-02-20 12:27] LABS: Glucose,Whole Blood 195 mg/dL (75-99)
--- NOTE | 2020-02-20 14:59 | P.PN ---
Subjective Progress Note Date: 02/20/20 Principal diagnosis: Weakness, multiple falls at home 74-year-old white female patient with known history of advanced COPD, on home oxygen at 3 L, chronic shortness of breath, diabetes mellitus type 2, hypothyroidism, hyperlipidemia. Patient has extensive smoking history, she carries [id number] smoking history. She quit in 2017. She follows with Dr. Almodovar in the pulmonary clinic. Patient has a spiculated right upper lobe lesion and that they capacity in the left lower lobe, in March 2019 patient had a PET scan that showed no metabolic activity in the right upper lobe, repeat surveillance computed tomography scan of the chest was done on 10/27/2019, with progressive enlargement of the right upper lobe lesion, which is spiculated, and looking more suspicious for malignancy. However the patient is not a candidate for biopsy or surgical resection. She was referred to Dr. Charles Velasco from radiation oncology possible radiation treatment of the right upper lobe lesion which has grown in size. Patient came to the hospital on 02/17/2020 patient came in to the emergency department per EMS with complaints of worsening weakness, back pain, multiple falls, she states she could not walk, she denied being more short of breath than usual. She had a CAT scan and an outpatient basis today. She returned home and had an episode where she fell tripping over her feet rolling her ankle in complaining of lower back pain from the fall. Denies any head or neck injury. She's been very weak, suffering multiple falls at home for the past few days. Chest x-ray shows left lower lobe nodule, right upper lobe nodule, no evidence of heart failure and no evidence of bronchopneumonia. X-ray of the tib-fib showing no fracture. Lumbar spine showed L2 compression fracture that appears to be new . She the previous PET scan from 03/19/2019. In the was progression of the fracture compared the chest CT of only 10/27/2019. Ankle x-ray of the right ankle showing no fracture or dislocation. MR of the C-spine, T-spine, L-spine showed scoliosis, multilevel degenerative changes, no suspicious focal lesion, multilevel compression fracture deformities redemonstrated with progression from March 2019/CT, no convincing evidence of pathologic fracture, new left adrenal metastatic lesion. Moderate compression type fracture L2 suspected pathologic with abnormal underlying bone marrow signal intensity and enhancement, suboptimal due to motion artifact and degradation. CT of the thoracic and lumbar spine with multilevel thoracic and lumbar vertebral compression deformities, greatest posterior wall displacement is at L2 with approximately 0.8 cm posterior wall displacement and T8 vertebral body displacement of approximately 0.3 cm, and there are additional mild compression deformities at T11, T9, T7. Labs showed white blood cell count of 14.7, hemoglobin is 10.9, INR 0.9, sodium is 134, potassium is 4.8, chloride is 81, CO2 22, BUN of 5024, creatinine 0.47, lactic acid was 0.9, LFTs within normal limits, troponin was less than 0.012, urinalysis showed trace ketones, moderate leuks, and a slightly increased white blood cells with the possibility of urinary tract infection. She has been afebrile, she is currently on 3 L of oxygen with a pulse of 99%, hemodynamically she stable. Urine culture was sent, patient has received 500 mL in fluid bolus, she seems fairly comfortable resting in the [place] in the emergency department, she denies any worsening dyspnea, she states she is at her baseline, and complaint is her lower back pain The patient is seen today 02/19/2020 in follow-up on the regular medical floor. She is currently resting comfortably in bed. Awake and alert in no acute distress. He is still having complaints of low back pain. No worsening shortness of breath, cough or congestion. 18 O2 saturations in the 90s on 3 L/m per nasal cannula. She's been afebrile. Hemodynamically stable. Blood culture reveals no growth. Urine culture reveals no growth. White count 15.0. Hemoglobin 9.8. Sodium 140. Potassium 5.1. I curb greater than 40. Creatinine 0.6. She remains on bronchodilators. 9 normal sinus 75 ML's per hour. The patient is seen today 02/20/2020 in follow-up on the regular medical floor. She is currently sitting up in a chair at the bedside. Awake and alert in no acute distress. Maintaining good O2 saturations in the 90s on 3 L/m per nasal cannula. She's been afebrile. A culture reveals no growth. Urine culture reveals no growth. White count 15.5. Hemoglobin 10.1. Sodium 137. Potassium 4.0. Bicarb 40. Creatinine 0.6. Objective - Vital Signs Vital signs: Vital Signs Temp 97.6 F 02/20/20 04:26 Pulse 100 02/20/20 11:15 Resp 19 02/20/20 04:26 BP 131/73 02/20/20 04:26 Pulse Ox 96 02/20/20 04:26 Intake & Output 02/19/20 02/20/20 02/20/20 18:59 06:59 18:59 Intake Total 436 1050 240 Balance 436 1050 240 Weight 62.596 kg Intake: Intake, IV Titration 800 Amount Sodium Chloride 0.9% 1, 800 000 ml @ 20 mls/hr IV . Q24H [facility] Rx#:[id number] Oral 236 250 240 Other 200 Other: Voiding Method Bedpan Bedpan # Voids 1 3 1 # Bowel Movements 1 1 - Exam GENERAL EXAM: Alert, chronically ill-looking, 74-year-old white female, 3 L of oxygen and pulse ox of 96%, fairly comfortable, in no apparent distress. HEAD: Normocephalic/atraumatic. EYES: Normal reaction of pupils, equal size. Conjunctiva pink, sclera white. NOSE: Clear with pink turbinates. THROAT: No erythema or exudates. NECK: No masses, no JVD, no thyroid enlargement, no adenopathy. CHEST: No chest wall deformity. Symmetrical expansion. LUNGS: Equal air entry with no crackles, wheeze, rhonchi or dullness. CVS: Regular rate and rhythm, normal S1 and S2, no gallops, no murmurs, no rubs ABDOMEN: Soft, nontender. No hepatosplenomegaly, normal bowel sounds, no guarding or rigidity. EXTREMITIES: No clubbing, no edema, no cyanosis, 2+ pulses and upper and lower extremities. MUSCULOSKELETAL: Muscle strength and tone normal. SPINE: No scoliosis or deformity SKIN: No rashes CENTRAL NERVOUS SYSTEM: No focal deficits, tone is normal in all 4 extremities. PSYCHIATRIC: Alert and oriented -3. Appropriate affect. Intact judgment and insight. - Labs CBC & Chem 7: 02/20/20 06:26 02/20/20 06:26 Labs: Abnormal Lab Results - Last 24 Hours (Table) 02/19/20 02/19/20 02/20/20 Range/Units 16:46 21:37 06:26 WBC 15.5 H (3.8-10.6) k/uL RBC 3.54 L (3.80-5.40) m/uL Hgb 10.1 L (11.4-16.0) gm/dL Hct 33.1 L (34.0-46.0) % MCHC 30.7 L (31.0-37.0) g/dL Neutrophils # 13.1 H (1.3-7.7) k/uL Chloride (96-109) mmol/L Carbon Dioxide (21.6-31.8) mmol/L BUN/Creatinine Ratio (12.00-20.00) Ratio Glucose (70-110) mg/dL POC Glucose (mg/dL) 173 H 197 H (75-99) mg/dL 02/20/20 02/20/20 02/20/20 Range/Units 06:26 07:33 12:25 WBC (3.8-10.6) k/uL RBC (3.80-5.40) m/uL Hgb (11.4-16.0) gm/dL Hct (34.0-46.0) % MCHC (31.0-37.0) g/dL Neutrophils # (1.3-7.7) k/uL Chloride 89 L (96-109) mmol/L Carbon Dioxide 40.0 H (21.6-31.8) mmol/L BUN/Creatinine Ratio 33.33 H (12.00-20.00) Ratio Glucose 114 H (70-110) mg/dL POC Glucose (mg/dL) 119 H 195 H (75-99) mg/dL Microbiology - Last 24 Hours (Table) 02/17/20 23:14 Blood Culture - Preliminary Blood No Growth after 48 hours 02/17/20 23:19 Urine Culture - Final Urine,Clean Catch Assessment and Plan Assessment: 1 Weakness and multiple falls at home 2 Low back pain, lumbar spine x-ray showing new L2 compression fracture, MRI of the cervical, thoracic and lumbar spine shows moderate compression type fractures at L2 with suspected pathologic fracture, with abnormal underlying bone marrow signal intensity and enhancement. There was a new left adrenal metastatic lesion 3 Multiple thoracic and lumbar vertebral compression deformities 4 Known history of right upper lobe nodule, that showed no metabolic activity on the PET scan from March 2019, however follow-up computed tomography scan from 10/27/2019 showed progressive enlargement of the right upper lobe lesion which is spiculated, increasing in size, and suspicious for malignancy, patient also has left lower lobe nodule. Patient was a poor candidate for biopsy or surgical resection related to poor lung function, patient was getting radiation treatments to the right upper lobe lesion 5 Chronic hypoxic respiratory failure usually wears 3 L of oxygen on a regular basis 6 Severe chronic obstructive pulmonary disease, maintained on a combination of STiolto, Combivent, Duoneb, Pulmicort 7 Sensitive history of smoking, carries [id number] smoking history, in remission since July 2016 8 Diabetes mellitus type 2 9 Hypothyroidism 10 Osteoarthritis 11 History of of colon polyps 12 Possible urinary tract infection 13 Mild hyponatremia, possibly hypovolemic, metabolic alcalosis, possibility of dehydration. Recovered. Sodium 137. Plan: The patient was seen and evaluated by Dr. Salvador Currently stable from the pulmonary standpoint Continue bronchodilators Home once cleared medically I, the cosigning physician, performed a history & physical examination of the patient. Lungs sounds are clear. Maintaining good O2 saturations in the 90s on 3 L/m per nasal cannula. I discussed the assessment and plan of care with my nurse practitioner, Tanisha Garcia. I attest to the above note as dictated by her.
[2020-02-20] MEDS: IPRATROPIUM-ALBUTEROL 3 ML NEB INHALATION PRN (16:37)
[2020-02-20 17:10] LABS: Glucose,Whole Blood 158 mg/dL (75-99)
[2020-02-20 20:43] LABS: Glucose,Whole Blood 234 mg/dL (75-99)
[2020-02-21] MEDS: HEPARIN SODIUM,PORCINE 5,000 UNIT/ML 1 ML VIAL SQ SCH ×4 (00:08→21:30)
--- NOTE | 2020-02-21 01:38 | P.PN ---
Subjective Progress Note Date: 02/20/20 Principal diagnosis: L2 compression fracture Ms. Jernigan is a 74-year-old female with a past medical history of advanced COPD on 3 L of home oxygen, diabetes mellitus, hypothyroidism, hyperlipidemia coming to the hospital with a chief complaint of worsening weakness back pain and multiple falls. Patient had x-rays done showing lumbar spine L2 compression fracture which appears to be new. MR i.e. of the C-spine, T-spine, L-spine showed scoliosis, mild [place] level degenerative changes no suspicion for focal lesion, multilevel compression fracture deformities remote demonstrated a progression from March 2019. And a new left atrial metastatic lesion. Moderate compression type fracture L2 suspected pathological with abnormal underlying bone marrow signal intensity and enhancement. So orthopedics have been consulted. On 02/19/2020- patient is lying in bed. No acute events reported by nursing staff. Patient complains of low back pain intensity 5-6 x 10. She states that the pain medication is helping her. She still did not get out of the bed this morning. Patient denies having any chest pain cough. Her difficulty in breathing is at baseline and she is on 3 L of oxygen at home. On reviewing the vitals temperature 97.4, heart rate 98, blood pressure 125/72, saturating 93% on 3 L of nasal cannula. Reviewing the labs white count of 15, hemoglobin 9.8. Sodium 140, potassium 5.1, chloride 87, bicarb more than 40. On 02/20/2020 patient was seen and examined. She is comfortably lying in bed appears to be in no acute distress. Patient states that she continues to have low back pain. She said that she will try to get up and sit in a chair today. On reviewing the vitals temperature 98.2 heart rate 90s 200s respiratory rate 12-15 blood pressure 128 x 73 and saturating at 96% on 4 L of nasal cannula. Reviewing her labs white count of 15.5 hemoglobin 10.6. Sodium 137, potassium 4, chloride 89, bicarb 4. BUN is 20 and creatinine is 0.6. Active Medications Acetaminophen (Acetaminophen Tab 325 Mg Tab) 650 mg PO Q6HR PRN PRN Reason: Mild Pain or Fever > 100.5 Albuterol/Ipratropium (Ipratropium-Albuterol 3 Ml Neb) 3 ml INHALATION RT-TID PRN PRN Reason: Shortness Of Breath Last Admin: 02/20/20 16:37 Dose: 3 ml Documented by: Alprazolam (Alprazolam 0.25 Mg Tab) 0.25 mg PO DAILY PRN PRN Reason: Anxiety Last Admin: 02/19/20 13:58 Dose: 0.25 mg Documented by: Atorvastatin Calcium (Atorvastatin 40 Mg Tab) 40 mg PO DAILY [facility] Last Admin: 02/20/20 09:54 Dose: 40 mg Documented by: Budesonide (Budesonide 0.5 Mg/2 Ml Nebu) 0.5 mg INHALATION RT-BID [facility] Last Admin: 02/20/20 19:44 Dose: 0.5 mg Documented by: Diltiazem HCl (Diltiazem Cd 120 Mg Cap.Er.24h) 120 mg PO DAILY [facility] Last Admin: 02/20/20 09:53 Dose: 120 mg Documented by: Duloxetine HCl (Duloxetine Hcl 60 Mg Capsule.Dr) 60 mg PO DAILY [facility] Last Admin: 02/20/20 09:54 Dose: 60 mg Documented by: Guaifenesin (Guaifenesin 600 Mg Tablet.Er) 1,200 mg PO Q12H PRN PRN Reason: seasonal allergies Heparin Sodium (Porcine) (Heparin Sodium,Porcine 5,000 Unit/Ml 1 Ml Vial) 5,000 unit SQ Q8HR [facility] Last Admin: 02/21/20 00:08 Dose: 5,000 unit Documented by: Sodium Chloride (Saline 0.9%) 1,000 mls @ 20 mls/hr IV .Q24H [facility] Last Admin: 02/20/20 02:22 Dose: 20 mls/hr Documented by: Sodium Chloride (Saline 0.9%) 1,000 mls @ 75 mls/hr IV .[id number] [facility] Last Admin: 02/19/20 22:03 Dose: 75 mls/hr Documented by: Ibuprofen (Ibuprofen 400 Mg Tab) 400 mg PO Q6HR PRN PRN Reason: Mild Pain or Fever > 100.5 Last Admin: 02/20/20 19:51 Dose: 400 mg Documented by: Insulin Aspart (Insulin Aspart (Novolog) 100 Unit/Ml Vial) 0 unit SQ ACHS [facility]; Protocol Last Admin: 02/20/20 21:59 Dose: 3 unit Documented by: Ipratropium [place] (Ipratropium 0.5 Mg/2.5 Ml Nebu) 0.5 mg INHALATION RT-QID [facility] Last Admin: 02/20/20 19:44 Dose: 0.5 mg Documented by: Levothyroxine Sodium (Levothyroxine 88 Mcg Tab) 88 mcg PO DAILY@0630 [facility] Last Admin: 02/20/20 06:19 Dose: 88 mcg Documented by: Loratadine (Loratadine 10 Mg Tab) 10 mg PO DAILY [facility] Last Admin: 02/20/20 09:53 Dose: 10 mg Documented by: Metformin HCl (Metformin 500 Mg Tab) 1,000 mg PO [facility] Last Admin: 02/20/20 19:51 Dose: 1,000 mg Documented by: Metformin HCl (Metformin 500 Mg Tab) 1,000 mg PO [facility] Last Admin: 02/20/20 09:53 Dose: 1,000 mg Documented by: Morphine Sulfate (Morphine Sulfate 4 Mg/Ml Syringe) 4 mg IV Q4HR PRN PRN Reason: Severe Pain Last Admin: 02/18/20 10:04 Dose: 4 mg Documented by: Multivitamins (Multivitamins, Thera 1 Each Tab) 1 each PO DAILY [facility] Last Admin: 02/20/20 09:54 Dose: 1 each Documented by: Naloxone HCl (Naloxone 0.4 Mg/Ml 1 Ml Vial) 0.2 mg IV Q2M PRN PRN Reason: Opioid Reversal Pantoprazole Sodium (Pantoprazole 40 Mg Tablet) 40 mg PO [facility] Last Admin: 02/20/20 09:54 Dose: 40 mg Documented by: Objective - Vital Signs Vital signs: Vital Signs Temp 97.6 F 02/20/20 04:26 Pulse 96 02/20/20 07:54 Resp 19 02/20/20 04:26 BP 131/73 02/20/20 04:26 Pulse Ox 96 02/20/20 04:26 Intake & Output 02/19/20 02/20/20 02/20/20 18:59 06:59 18:59 Intake Total 436 1050 240 Balance 436 1050 240 Weight 62.596 kg Intake: Intake, IV Titration 800 Amount Sodium Chloride 0.9% 1, 800 000 ml @ 20 mls/hr IV . Q24H [facility] Rx#:[id number] Oral 236 250 240 Other 200 Other: Voiding Method Bedpan Bedpan # Voids 1 3 1 # Bowel Movements 1 1 - Exam PHYSICAL EXAMINATION: Patient is in no acute distress, awake alert and oriented. HEENT: Normocephalic. Neck is supple. Pupils reactive. Oral cavity is moist. Neck reveals no JVD, carotid bruits, or thyromegaly. CHEST EXAMINATION: Lung luevano clear to auscultation and percussion. CARDIAC: Normal S1, S2 with no gallops. No murmurs ABDOMEN: Soft. Bowel sounds normal. No organomegaly. No abdominal bruits. Extremities: no peripheral edema Neurologically awake, alert, oriented x3 No focal deficits noted Psychiatric: Coperative. normal mood an effect Musculoskeletal: Sitting up in bed - Labs CBC & Chem 7: 02/20/20 06:26 02/20/20 06:26 Labs: Abnormal Lab Results - Last 24 Hours (Table) 02/19/20 02/19/20 02/19/20 Range/Units 12:27 16:46 21:37 WBC (3.8-10.6) k/uL RBC (3.80-5.40) m/uL Hgb (11.4-16.0) gm/dL Hct (34.0-46.0) % MCHC (31.0-37.0) g/dL Neutrophils # (1.3-7.7) k/uL Chloride (96-109) mmol/L Carbon Dioxide (21.6-31.8) mmol/L BUN/Creatinine Ratio (12.00-20.00) Ratio Glucose (70-110) mg/dL POC Glucose (mg/dL) 119 H 173 H 197 H (75-99) mg/dL 02/20/20 02/20/20 02/20/20 Range/Units 06:26 06:26 07:33 WBC 15.5 H (3.8-10.6) k/uL RBC 3.54 L (3.80-5.40) m/uL Hgb 10.1 L (11.4-16.0) gm/dL Hct 33.1 L (34.0-46.0) % MCHC 30.7 L (31.0-37.0) g/dL Neutrophils # 13.1 H (1.3-7.7) k/uL Chloride 89 L (96-109) mmol/L Carbon Dioxide 40.0 H (21.6-31.8) mmol/L BUN/Creatinine Ratio 33.33 H (12.00-20.00) Ratio Glucose 114 H (70-110) mg/dL POC Glucose (mg/dL) 119 H (75-99) mg/dL Microbiology - Last 24 Hours (Table) 02/17/20 23:14 Blood Culture - Preliminary Blood No Growth after 48 hours 02/17/20 23:19 Urine Culture - Final Urine,Clean Catch Assessment and Plan Assessment: ASSESSMENT L2 compression fracture Left adrenal metastatic lesion Multiple thoracic and lumbar vertebral compression deformities Multiple lung nodules Chronic hypoxic respiratory failure on 3 L of oxygen at home Severe COPD Significant smoking history with 30 pack years Type 2 diabetes mellitus Hypothyroidism Osteoarthritis History of colon polyps PLAN: Orthopedics evaluated the patient and suggested brace and pain control for now. If these modalities aren't adequate, then they would consider kyphoplasty of L2 vertebral body. Patient has been resumed on her home medications which will be continued. Overall prognosis is poor. Further recommendations depending on the progress of the patient.
[2020-02-21] MEDS: SODIUM CHLORIDE 0.9% 1,000 ML IV SCH ×4 (05:46→17:00)
[2020-02-21 07:23] LABS: Glucose,Whole Blood 129 mg/dL (75-99)
[2020-02-21] MEDS: IPRATROPIUM 0.5 MG/2.5 ML NEBU INHALATION SCH ×3 (07:43→15:46)
[2020-02-21] MEDS: BUDESONIDE 0.5 MG/2 ML NEBU INHALATION SCH (07:43)
[2020-02-21] MEDS: INSULIN ASPART (NovoLOG) 100 UNIT/ML VIAL SQ SCH ×4 (07:50→21:30)
[2020-02-21] MEDS: LORATADINE 10 MG TAB PO SCH (07:54)
[2020-02-21] MEDS: MULTIVITAMINS, THERA 1 EACH TAB PO SCH (07:54)
[2020-02-21] MEDS: metFORMIN 500 MG TAB PO SCH ×2 (07:54→21:30)
[2020-02-21] MEDS: PANTOPRAZOLE 40 MG TABLET PO SCH (07:54)
[2020-02-21] MEDS: DULoxetine HCL 60 MG CAPSULE.DR PO SCH (07:54)
[2020-02-21] MEDS: DILTIAZEM CD 120 MG CAP.ER.24H PO SCH (07:55)
[2020-02-21] MEDS: ATORVASTATIN 40 MG TAB PO SCH (07:55)
[2020-02-21] MEDS: LEVOTHYROXINE 88 MCG TAB PO SCH (07:55)
--- NOTE | 2020-02-21 08:01 | P.PN ---
Subjective Progress Note Date: 02/21/20 Principal diagnosis: L2 VCF Multiple Thoracic VCF, chronic Hx of Lung CA Patient was seen and examined this morning. She is resting comfortably in her bed. She states that her pain is much better than it was. She has been up in the chair for a few hours yesterday and tolerated this fairly well. She has not been walking however. She states that she has no numbness or tingling no weakness no issues with bowel or bladder control. Objective - Vital Signs Vital signs: Vital Signs Temp 98.0 F 02/21/20 02:00 Pulse 96 02/21/20 07:43 Resp 16 02/21/20 02:00 BP 128/67 02/21/20 02:00 Pulse Ox 97 02/21/20 02:00 Intake & Output 02/20/20 02/21/20 02/21/20 18:59 06:59 18:59 Intake Total 440 Balance 440 Intake: Oral 240 Other 200 Other: # Voids 1 1 - Exam GEN: AOX3, NAD VSS Palpation: Mild tenderness to palpation over the thoracolumbar region no tennis palpation over the thoracic or cervical region Motor: 5/5 shoulder abd/EF/EE/WF/intrinsics 5/5 DF/PF/EHL/FHL/HF/KE/KF Reflexes: 2/4 DTR all upper and LE Sensation intact to light touch in C5-T1 as well as L2-S1 distribution Jones's: Negative Bilaterally Clonus: Negative bilaterally Babinski: Negative bilaterally Cranial nerves II through XII grossly intact - Labs CBC & Chem 7: 02/20/20 06:26 02/20/20 06:26 Labs: Abnormal Lab Results - Last 24 Hours (Table) 02/20/20 02/20/20 02/20/20 Range/Units 06:26 12:25 17:08 Chloride 89 L (96-109) mmol/L Carbon Dioxide 40.0 H (21.6-31.8) mmol/L BUN/Creatinine Ratio 33.33 H (12.00-20.00) Ratio Glucose 114 H (70-110) mg/dL POC Glucose (mg/dL) 195 H 158 H (75-99) mg/dL 02/20/20 02/21/20 Range/Units 20:41 07:22 Chloride (96-109) mmol/L Carbon Dioxide (21.6-31.8) mmol/L BUN/Creatinine Ratio (12.00-20.00) Ratio Glucose (70-110) mg/dL POC Glucose (mg/dL) 234 H 129 H (75-99) mg/dL Microbiology - Last 24 Hours (Table) 02/17/20 23:14 Blood Culture - Preliminary Blood No Growth after 72 hours Assessment and Plan Assessment: 74-year-old female with low back pain 1. T6 T8 T11 vertebral compression fractures, chronic 2. L2 vertebral compression fracture, acute 3. History of lung carcinoma 4. Complex medical patient Plan: -Pain control when necessary -LSO uable to be obtained as pt had one prescribed within the last 5 years and insurance will not pay for a new one. Asked patient if her son could drop off hers from home and she is going to call him today and ask. -GI and DVT prophylaxis as appropriate -PT/OT -She currently would like to continue with conservative measures and see how she does. We can still kyphoplasty if she wishes within 3 weeks of presumed fracture date. -Ortho spine stable
--- NOTE | 2020-02-21 08:28 | P.PN ---
Subjective Progress Note Date: 02/21/20 Principal diagnosis: L2 compression fracture. The patient is an 74-year-old white female with history of COPD lung carcinoma and possible pathologic fracture of L2. MRI is report is noted. She did try to ambulate to the bathroom today but felt significantly dizzy. We will try to increase ambulation per orthopedics. No constipation stated. Pain control seems to be nominal to her. Objective - Vital Signs Vital signs: Vital Signs Temp 98.0 F 02/21/20 02:00 Pulse 96 02/21/20 07:59 Resp 16 02/21/20 02:00 BP 128/67 02/21/20 02:00 Pulse Ox 97 02/21/20 02:00 Intake & Output 02/20/20 02/21/20 02/21/20 18:59 06:59 18:59 Intake Total 440 Balance 440 Intake: Oral 240 Other 200 Other: # Voids 1 1 - Constitutional General appearance: Present: average body habitus, cooperative - EENT Eyes: Absent: abnormal pupil - Neck Neck: Absent: lymphadenopathy - Respiratory Respiratory: bilateral: diminished - Cardiovascular Rhythm: regular Heart sounds: normal: S1, S2 Abnormal Heart Sounds: Absent: S3 Gallop - Gastrointestinal General gastrointestinal: Present: soft. Absent: tenderness - Musculoskeletal Musculoskeletal: Present: generalized weakness - Labs CBC & Chem 7: 02/20/20 06:26 02/20/20 06:26 Labs: Abnormal Lab Results - Last 24 Hours (Table) 02/20/20 02/20/20 02/20/20 Range/Units 06:26 12:25 17:08 Chloride 89 L (96-109) mmol/L Carbon Dioxide 40.0 H (21.6-31.8) mmol/L BUN/Creatinine Ratio 33.33 H (12.00-20.00) Ratio Glucose 114 H (70-110) mg/dL POC Glucose (mg/dL) 195 H 158 H (75-99) mg/dL 02/20/20 02/21/20 Range/Units 20:41 07:22 Chloride (96-109) mmol/L Carbon Dioxide (21.6-31.8) mmol/L BUN/Creatinine Ratio (12.00-20.00) Ratio Glucose (70-110) mg/dL POC Glucose (mg/dL) 234 H 129 H (75-99) mg/dL Microbiology - Last 24 Hours (Table) 02/17/20 23:14 Blood Culture - Preliminary Blood No Growth after 72 hours Assessment and Plan (1) Compression fracture Current Visit: Yes Status: Acute Code(s): WJD6335 - SNOMED Code(s): 469509745 (2) Lung mass Current Visit: Yes Status: Acute Code(s): R91.8 - OTHER NONSPECIFIC ABNORMAL FINDING OF LUNG FIELD SNOMED Code(s): 673399084 (3) Multiple falls Current Visit: Yes Status: Acute Code(s): R29.6 - REPEATED FALLS SNOMED Code(s): 185839520 (4) Weakness Current Visit: Yes Status: Acute Code(s): R53.1 - WEAKNESS SNOMED Code(s): 27971959 (5) COPD (chronic obstructive pulmonary disease) Current Visit: No Status: Acute Code(s): J44.9 - CHRONIC OBSTRUCTIVE PULMON OSKAR DISEASE, UNSPECIFIED SNOMED Code(s): 66710766 (6) Diabetes mellitus Current Visit: No Status: Acute Code(s): E11.9 - TYPE 2 DIABETES MELLITUS WITHOUT COMPLICATIONS SNOMED Code(s): 77290414 (7) History of colectomy Current Visit: No Status: Acute Code(s): Z90.49 - ACQUIRED ABSENCE OF OTHER SPECIFIED PARTS OF DIGESTIVE TRACT SNOMED Code(s): 884827032 Plan: Reconcile home medications. Go ahead and continue morphine for pain control. Orthopedics is also consulted for back pain. Prognosis is guarded. See orders otherwise. Anticipate discharge in next 24 hours. However, her lack of ambulation is worrisome.
[2020-02-21] MEDS: IBUPROFEN 400 MG TAB PO PRN (10:14)
[2020-02-21 10:16] LABS: Carbon Dioxide >40.0 mmol/L (21.6-31.8)
[2020-02-21 11:28] LABS: Glucose,Whole Blood 158 mg/dL (75-99)
--- NOTE | 2020-02-21 12:45 | P.PN ---
Subjective Progress Note Date: 02/21/20 On 02/21/2020, the patient is being seen for a follow-up. The patient is doing well. The patient is doing well and currently she is on 3 L about 2 by nasal cannula. Based on most recent imaging, there is suspicion that the patient may have metastatic disease knowing that she has also developed an adrenal lesion. Note that she had a spiculated mass in the right lung which was treated with radiation therapy assuming that this was a localized disease at time of diagnosis. The patient has a brace for her back pain. She has an L2 fracture and there is a possibility this may be a pathologic fracture based on the MRI findings. The patient also had a CAT scan of the thoracic and lumbar spine that showed multilevel thoracic and lumbar vertebral compression fraction and a greatest displacement would've the level of L2 which was no organomegaly. We'll see wall displacement and T8 vertebral body displacement. Objective - Vital Signs Vital signs: Vital Signs Temp 97.8 F 02/21/20 08:00 Pulse 100 02/21/20 11:55 Resp 17 02/21/20 08:00 BP 127/71 02/21/20 08:00 Pulse Ox 94 L 02/21/20 08:00 Intake & Output 02/20/20 02/21/20 02/21/20 18:59 06:59 18:59 Intake Total 440 Balance 440 Intake: Oral 240 Other 200 Other: Voiding Method Diaper Incontinent # Voids 1 1 - Exam GENERAL EXAM: Alert, chronically ill-looking, 74-year-old white female, 3 L of oxygen and pulse ox of 96%, fairly comfortable, in no apparent distress. HEAD: Normocephalic/atraumatic. EYES: Normal reaction of pupils, equal size. Conjunctiva pink, sclera white. NOSE: Clear with pink turbinates. THROAT: No erythema or exudates. NECK: No masses, no JVD, no thyroid enlargement, no adenopathy. CHEST: No chest wall deformity. Symmetrical expansion. LUNGS: Equal air entry with no crackles, wheeze, rhonchi or dullness. CVS: Regular rate and rhythm, normal S1 and S2, no gallops, no murmurs, no rubs ABDOMEN: Soft, nontender. No hepatosplenomegaly, normal bowel sounds, no guarding or rigidity. EXTREMITIES: No clubbing, no edema, no cyanosis, 2+ pulses and upper and lower extremities. MUSCULOSKELETAL: Muscle strength and tone normal. SPINE: No scoliosis or deformity SKIN: No rashes CENTRAL NERVOUS SYSTEM: No focal deficits, tone is normal in all 4 extremities. PSYCHIATRIC: Alert and oriented -3. Appropriate affect. Intact judgment and insight. - Labs CBC & Chem 7: 02/20/20 06:26 02/20/20 06:26 Labs: Abnormal Lab Results - Last 24 Hours (Table) 02/19/20 02/20/20 02/20/20 Range/Units 06:37 17:08 20:41 Carbon Dioxide >40.0 H* (21.6-31.8) mmol/L POC Glucose (mg/dL) 158 H 234 H (75-99) mg/dL 02/21/20 02/21/20 Range/Units 07:22 11:27 Carbon Dioxide (21.6-31.8) mmol/L POC Glucose (mg/dL) 129 H 158 H (75-99) mg/dL Microbiology - Last 24 Hours (Table) 02/17/20 23:14 Blood Culture - Preliminary Blood No Growth after 72 hours Assessment and Plan Plan: 1 Weakness and multiple falls at home,, and the patient is doing some limited amount of walking with the help of a walker for now. Obtain is under adequate control with use of Motrin 2 Low back pain, lumbar spine x-ray showing new L2 compression fracture, MRI of the cervical, thoracic and lumbar spine shows moderate compression type fractures at L2 with suspected pathologic fracture, with abnormal underlying bone marrow signal intensity and enhancement. There was a new left adrenal metastatic lesion 3 Multiple thoracic and lumbar vertebral compression deformities 4 Known history of right upper lobe nodule, that showed no metabolic activity on the PET scan from March 2019, however follow-up computed tomography scan from 10/27/2019 showed progressive enlargement of the right upper lobe lesion which is spiculated, increasing in size, and suspicious for malignancy, patient also has left lower lobe nodule. 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 Recovered. plan Adequate pain control Back brace Utilize walker for mobility. Possibility of metastatic disease based on the most recent CAT scan images and the patient has also developed a new left adrenal metastatic lesion. Long-term prognosis poor baseline above-mentioned comorbidities.
[2020-02-21 17:07] LABS: Glucose,Whole Blood 182 mg/dL (75-99)
[2020-02-21 20:34] LABS: Glucose,Whole Blood 189 mg/dL (75-99)
[2020-02-21] MEDS: MORPHINE SULFATE 4 MG/ML SYRINGE IV PRN (21:29)
[2020-02-22] MEDS: IPRATROPIUM 0.5 MG/2.5 ML NEBU INHALATION SCH ×6 (02:38→19:32)
[2020-02-22] MEDS: BUDESONIDE 0.5 MG/2 ML NEBU INHALATION SCH ×3 (02:38→19:32)
[2020-02-22] MEDS: SODIUM CHLORIDE 0.9% 1,000 ML IV SCH ×4 (02:54→23:31)
[2020-02-22] MEDS: LEVOTHYROXINE 88 MCG TAB PO SCH (05:19)
[2020-02-22 07:28] LABS: Glucose,Whole Blood 120 mg/dL (75-99)
[2020-02-22] MEDS: INSULIN ASPART (NovoLOG) 100 UNIT/ML VIAL SQ SCH ×4 (08:09→20:46)
[2020-02-22] MEDS: metFORMIN 500 MG TAB PO SCH ×2 (08:10→19:43)
[2020-02-22] MEDS: DILTIAZEM CD 120 MG CAP.ER.24H PO SCH (08:10)
[2020-02-22] MEDS: HEPARIN SODIUM,PORCINE 5,000 UNIT/ML 1 ML VIAL SQ SCH ×3 (08:10→23:29)
[2020-02-22] MEDS: PANTOPRAZOLE 40 MG TABLET PO SCH ×2 (08:10→15:20)
[2020-02-22] MEDS: ATORVASTATIN 40 MG TAB PO SCH (08:10)
[2020-02-22] MEDS: DULoxetine HCL 60 MG CAPSULE.DR PO SCH (08:10)
[2020-02-22] MEDS: MULTIVITAMINS, THERA 1 EACH TAB PO SCH (08:10)
[2020-02-22] MEDS: LORATADINE 10 MG TAB PO SCH (08:11)
--- NOTE | 2020-02-22 08:58 | P.CONS ---
History of Present Illness - Reason for Consult Consult date: 02/21/20 L2 compression fx, possible mets Requesting physician: Luis F Salvador - Chief Complaint lower back pain, inability to ambulate - History of Present Illness The patient is a 74-year-old female with a history of severe COPD requiring oxygen supplementation. She presented with an enlarging right upper lung lesion, suspicious for a clinical stage IA3(cT1c, cN0, M0) non-small cell lung cancer. Unfortunately it is felt that she is at too high of pulmonary risk for biopsy of this lesion. She underwent SBRT finishing on 12/17/2019. She now presents after a fall with concern for pathologic L2 fracture and a new left adrenal lesion worrisome for metastases. The patient reports that she developed new onset weakness and falls wall at home. Previously stating she was able to ambulate without assistance. She presented to the ER following one of these falls on February 16. A CT chest at that time revealed a new left adrenal mass, and a largely stable right upper lung lesion. There was however a new acute/subacute fracture and L2, as well as the patient's known chronic compression fractures in thoracic spine. She subsequently underwent an MRI of the cervical, thoracic and lumbar spine on February 17. Outside of the patient's known compression fractures in the t horacic spine, the cervical and thoracic spine exam was unremarkable. There was however abnormal bone marrow signal noted in the L2 vertebral body with compression fracture and some posterior retropulsion. There did not appear to be compression of the cauda equina at this level. This was felt to be suspicious for a pathologic fracture. At the current time, the patient reports that she has significant lower back pain. She states this is worse with attempting to move. She also states that she feels quite dizzy when she gets up to try to ambulate. She reports no recent difficulty with headaches, nausea or vomiting, numbness or tingling in the lower extremities, saddle anesthesia, change in bladder or bowel habits outside of some recent constipation. Review of Systems Constitutional: Denies chills, Denies chronic headaches, Denies fever Eyes: denies blurred vision Ears: deny: decreased hearing Ears, nose, mouth and throat: Denies headache Cardiovascular: Denies chest pain Respiratory: Reports dyspnea, Reports home oxygen, Denies cough Gastrointestinal: Reports constipation Genitourinary: Denies dysuria Musculoskeletal: Reports frequent falls, Reports muscle weakness Neurological: Denies aphasia, Denies ataxia, Denies confusion, Denies double vision, Denies migraines, Denies paralysis, Denies paresthesias, Denies seizures Psychiatric: Denies anxiety Past Medical History Past Medical History: Asthma, COPD, Diabetes Mellitus, Hyperlipidemia, Hype rtension, Osteoarthritis (OA), Thyroid Disorder Additional Past Medical History / Comment(s): HX HYPERTHYROID, HAD IODINE TX. ON home oxygen 3 LITERS N/C. 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 T-8 COMPRESSION FX IN 2012. EDEMA MARIO ANKLES, LT WORSE. MULT COLON POLYPS 08/21/17. History of Any Multi-Drug Resistant Organisms: None Reported Past Surgical History: Adenoidectomy, Appendectomy, Bowel Resection, Breast Surgery, Hysterectomy, Tonsillectomy Additional Past Surgical History / Comment(s): Several lumpectomies MARIO - benign, D&C, MARIO CATARACTS; COLONOSCOPY 08/21/17 Past Anesthesia/Blood Transfusion Reactions: No Reported Reaction Past Psychological History: No Psychological Hx Reported Smoking Status: Former smoker Past Alcohol Use History: Rare Additional Past Alcohol Use History / Comment(s): quit smoking July 2016, smoked <ppd, smoked for 50 yrs. Past Drug Use History: None Reported - Past Family History Mother Family Medical History: Cancer Additional Family Medical History / Comment(s): Mac deg, blind; abdominal tumor; colon cancer in old age, at 86 Father Family Medical History: Cancer Additional Family Medical History / Comment(s): Prostate CA mets to lungs Medications and Allergies Home Medications Medication Instructions Recorded Confirmed Type Ipratropium/Albuterol Sulfate 1 puff INHALATION RT-TID PRN 07/28/16 02/17/20 History [Combivent Respimat Inhaler] Levothyroxine Sodium [Synthroid] 88 mcg PO DAILY 07/28/16 02/17/20 History Budesonide [Pulmicort] 0.5 mg INHALATION RT-BID 10/09/16 02/17/20 History Furosemide [Lasix] 10 mg PO DAILY 12/02/16 02/17/20 History Atorvastatin [Lipitor] 40 mg PO DAILY 08/18/17 02/17/20 History Diltiazem Cd [Cardizem CD] 120 mg PO DAILY 08/18/17 02/17/20 History Ipratropium-Albuterol Nebulize 3 ml INHALATION RT-TID PRN 09/18/17 02/17/20 History [Duoneb 0.5 mg-3 mg/3 ml Soln] metFORMIN HCL 2,000 mg PO DAILY 09/25/17 02/17/20 History Calcium Citrate/Vitamin D3 1 each PO DAILY 10/28/18 02/17/20 History [Calcitrate + Vit D Caplet] Cetirizine HCl [Zyrtec] 10 mg PO DAILY 10/28/18 02/17/20 History Famotidine 40 mg PO HS 10/28/18 02/17/20 History Tiotropium Br/Olodaterol HCl 1 spray INHALATION RT-DAILY 10/28/18 02/17/20 History [Stiolto Respimat Inhal [place]] ALPRAZolam [Xanax] 0.25 mg PO DAILY PRN 02/17/20 02/17/20 History Acetaminophen [Tylenol Arthritis] 650 mg PO DAILY PRN 02/17/20 02/17/20 History Albuterol Sulfate [Albuterol 1 - 2 puff INHALATION RT-Q4H PRN 02/17/20 02/17/20 History Sulfate Hfa] DULoxetine HCL [Cymbalta] 60 mg PO DAILY 02/17/20 02/17/20 History Multivitamins, Thera [Multivitamin 1 tab PO DAILY 02/17/20 02/17/20 History (formulary)] guaiFENesin [Mucinex] 1,200 mg PO Q12H PRN 02/17/20 02/17/20 History metFORMIN HCL [Glucophage] 1,000 mg PO HS 02/17/20 02/17/20 History Allergies Allergy/AdvReac Type Severity Reaction Status Date / Time bupropion [From Zyban] Allergy Rash/Hives Verified 02/17/20 22:34 cefaclor [From Ceclor] Allergy Rash/Hives Verified 02/17/20 22:34 formoterol [From Perforomist] Allergy Rapid Verified 02/17/20 22:34 Heart Rate, LOW O2 SATURATION Physical Exam Vitals: Vital Signs Temp Pulse Pulse Resp BP Pulse Ox 02/22/20 08:01 100 02/22/20 08:00 98 F 98 16 127/75 96 02/22/20 07:42 100 02/22/20 02:00 98.1 F 96 16 150/62 97 02/21/20 20:00 97.9 F 97 16 125/70 97 02/21/20 19:50 17 02/21/20 15:56 96 02/21/20 15:46 92 02/21/20 12:45 98.2 F 99 17 125/67 99 02/21/20 11:55 100 02/21/20 11:46 100 Intake and Output 02/21/20 02/22/20 02/22/20 22:59 06:59 14:59 Intake Total 1750 Balance 1750 Intake: Oral 1750 Other: Voiding Method Diaper Diaper Incontinent Incontinent # Voids 4 3 # Bowel Movements 1 0 - Constitutional General appearance: no acute distress - EENT Eyes: EOMI, PERRLA ENT: hearing grossly normal - Neck Neck: no lymphadenopathy - Respiratory Respiratory: bilateral: CTA - Cardiovascular Rhythm: regular - Gastrointestinal General gastrointestinal: no distended, no tenderness - Integumentary Integumentary: no calor - Neurologic Neurologic: CNII-XII intact - Musculoskeletal Musculoskeletal: generalized weakness, no right sided weakness, no left sided weakness - Psychiatric Psychiatric: A&O x's 3, appropriate affect Results CBC & Chem 7: 02/20/20 06:26 02/20/20 06:26 Labs: Abnormal Lab Results - Last 24 Hours (Table) 02/19/20 02/21/20 02/21/20 Range/Units 06:37 11:27 17:05 Carbon Dioxide >40.0 H* (21.6-31.8) mmol/L POC Glucose (mg/dL) 158 H 182 H (75-99) mg/dL 02/21/20 02/22/20 Range/Units 20:29 07:16 Carbon Dioxide (21.6-31.8) mmol/L POC Glucose (mg/dL) 189 H 120 H (75-99) mg/dL Microbiology - Last 24 Hours (Table) 02/17/20 23:14 Blood Culture - Preliminary Blood No Growth after [address] scan - chest: report reviewed, image reviewed Assessment and Plan Assessment: The patient is a 74-year-old female with a history of severe COPD requiring oxygen supplementation. She presented with an enlarging right upper lung lesion, suspicious for a clinical stage IA3(cT1c, cN0, M0) non-small cell lung cancer. Unfortunately it is felt that she is at too high of pulmonary risk for biopsy of this lesion. She underwent SBRT finishing on 12/17/2019. She now presents after a fall with concern for pathologic L2 fracture and a new left adrenal lesion worrisome for metastases. Plan: 1. Dizziness: As the patient now shows possible evidence of metastatic disease, I recommend that she undergo an MRI of the brain to rule out metastatic involvement. Although she is not having symptoms of increased intracranial pressure, I am not sure otherwise why she is having dizziness with trying to ambulate. 2. Lower back pain/L2 compression fracture: Appreciate ortho-spine input. The patient reports no significant improvement earlier today with bracing. If she has no symptomatic improvement, it may be reasonable to reconsider kyphoplasty, as this would also allow an opportunity for biopsy to prove metastatic disease. Palliative radiotherapy would be an option, however would first need to prove the involvement of metastatic disease (could consider biopsy of adrenal lesion if no spine intervention). The patient states that she is unable to ambulate, despite having good motor control and 4+/5 strength in bilateral LE. She currently lives alone, and will need to have her living situation evaluated. I unfortunately was not able to discuss this yet with the patient's family. 3. Likely non-small cell lung cancer: As detailed above, the patient was just recently treated for was felt to be an isolated, slow growing lesion in the right upper lobe. At the time of her previous PET scan in March, she had no evidence of distant disease. Reviewing her most recent CT imaging from October prior to radiotherapy, there was clearly no involvement of the left adrenal gland at that time. This is therefore an interval change, and suspicious for disease. I would recommend CT-guided biopsy of this area to confirm metastatic disease if the patient does not have any spinal intervention. Time with Patient: Greater than 30
[2020-02-22] MEDS: IBUPROFEN 400 MG TAB PO PRN (08:59)
--- NOTE | 2020-02-22 11:42 | MR ---
EXAMINATION TYPE: MR brain wo/w con DATE OF EXAM: 02/22/2020 COMPARISON: NONE HISTORY: dizziness, history of lung cancer TECHNIQUE: Multiplanar, multisequence images of the brain and brainstem is performed without and with IV contras t, utilizing 6.5 mL intravenous Gadavist . FINDINGS: Diffusion weighted images demonstrate no evidence of a recent infarct or other diffusion ab normality. There is diffuse ventricular and sulcal prominence. Scattered small foci of T2 hyperinten sity seen throughout the superficial, deep, and periventricular white matter. Midline structures demonstrate normal morphology. The craniocervical junction appears within normal limits. Post contrast images demonstrate homogeneous enhancing 6 mm round lesion posterior left frontal lobe at image 59 and coronal image 46 with surrounding T2 hyperintensity or vasogenic edema and subtle res tricted diffusion or T2 shine through. There is suspicious to millimeter punctate enhancing focus in the left frontoparietal junction axial image 50 surrounding T2 hyperintensity. There is significant w raparound artifact making evaluation suboptimal. Possible additional 1 to 2 mm enhancing punctate foc us superior left cerebellum axial image 21. Though no abnormal T2 signal or signal on diffusion-weigh romaine images clearly seen at this level. Dural venous sinuses appear patent. Nonenhancing ovoid lesion suspected mucous retention cyst fills l eft maxillary sinus with surrounding fluid or mucosal thickening. Remainder paranasal sinuses are nico ar. Globes are intact bilaterally. Increased fluid signal throughout the left mastoid air cells is pr esent. IMPRESSION: 1. Confirmation of metastatic disease to the brain flow imaging is suboptimal there is at least 2 met astatic foci identified. 2. Increased fluid signal left mastoid air cells raises concern for left-sided mastoiditis, correlate clinically. 3. Background mild diffuse cerebral atrophy and mild to moderate chronic small vessel ischemic change incidentally noted.
[2020-02-22 12:03] LABS: Glucose,Whole Blood 156 mg/dL (75-99)
--- NOTE | 2020-02-22 12:03 | P.PN ---
Subjective Progress Note Date: 02/22/20 On 02/21/2020, the patient is being seen for a follow-up. The patient is doing well. The patient is doing well and currently she is on 3 L about 2 by nasal cannula. Based on most recent imaging, there is suspicion that the patient may have metastatic disease knowing that she has also developed an adrenal lesion. Note that she had a spiculated mass in the right lung which was treated with radiation therapy assuming that this was a localized disease at time of diagnosis. The patient has a brace for her back pain. She has an L2 fracture and there is a possibility this may be a pathologic fracture based on the MRI findings. The patient also had a CAT scan of the thoracic and lumbar spine that showed multilevel thoracic and lumbar vertebral compression fraction and a greatest displacement would've the level of L2 which was no organomegaly. We'll see wall displacement and T8 vertebral body displacement. On 02/22/2020, the patient reports lower back pain. The pain is worse when she is trying to move. She is wearing a hard brace and the patient was trying to move around without a walker. She gets dizzy whenever she tries to get up. No difficulties with headache. No altered mentation. No nausea or vomiting. No loss in the bowel or bladder control. Otherwise, no other specific complaints. She was seen by radiation oncology today. MRI of the brain was recommended to rule out possibility of metastatic brain involvement. She is also going to be restaged. A CAT scan guided biopsy was recommended of the spine to rule out the possibility of pathologic fracture. Objective - Vital Signs Vital signs: Vital Signs Temp 98 F 02/22/20 08:00 Pulse 100 02/22/20 08:01 Resp 16 02/22/20 08:00 BP 127/75 02/22/20 08:00 Pulse Ox 96 02/22/20 08:00 Intake & Output 02/21/20 02/22/20 02/22/20 18:59 06:59 18:59 Intake Total 1750 Balance 1750 Weight 62.596 kg Intake: Oral 1750 Other: Voiding Method Diaper Diaper Diaper Incontinent Incontinent Incontinent # Voids 4 3 # Bowel Movements 1 0 - Exam GENERAL EXAM: Alert, chronically ill-looking, 74-year-old white female, 3 L of oxygen and pulse ox of 96%, fairly comfortable, in no apparent distress. HEAD: Normocephalic/atraumatic. EYES: Normal reaction of pupils, equal size. Conjunctiva pink, sclera white. NOSE: Clear with pink turbinates. THROAT: No erythema or exudates. NECK: No masses, no JVD, no thyroid enlargement, no adenopathy. CHEST: No chest wall deformity. Symmetrical expansion. LUNGS: Equal air entry with no crackles, wheeze, rhonchi or dullness. CVS: Regular rate and rhythm, normal S1 and S2, no gallops, no murmurs, no rubs ABDOMEN: Soft, nontender. No hepatosplenomegaly, normal bowel sounds, no guarding or rigidity. EXTREMITIES: No clubbing, no edema, no cyanosis, 2+ pulses and upper and lower extremities. MUSCULOSKELETAL: Muscle strength and tone normal. SPINE: No scoliosis or deformity SKIN: No rashes CENTRAL NERVOUS SYSTEM: No focal deficits, tone is normal in all 4 extremities.motor weakness +4/5 in the lower extremities and difficulty with mobility and gait. PSYCHIATRIC: Alert and oriented -3. Appropriate affect. Intact judgment and insight. - Labs CBC & Chem 7: 02/20/20 06:26 02/20/20 06:26 Labs: Abnormal Lab Results - Last 24 Hours (Table) 02/21/20 02/21/20 02/22/20 Range/Units 17:05 20:29 07:16 POC Glucose (mg/dL) 182 H 189 H 120 H (75-99) mg/dL Microbiology - Last 24 Hours (Table) 02/17/20 23:14 Blood Culture - Preliminary Blood No Growth after 96 hours Assessment and Plan Plan: 1 Weakness and multiple falls at home,, and the patient is doing some limited amount of walking with the help of a walker for now. Obtain is under adequate control with use of Motrin 2 Low back pain, lumbar spine x-ray showing new L2 compression fracture, MRI of the cervical, thoracic and lumbar spine shows moderate compression type fractures at L2 with suspected pathologic fracture, with abnormal underlying bone marrow signal intensity and enhancement. There was a new left adrenal metastatic lesion. The patient was seen by radiation oncology an MRI of the brain and CAT scan guided biopsy of the spine will be done to rule out pathologic fractures. 3 Multiple thoracic and lumbar vertebral compression deformities 4 Known history of right upper lobe nodule, that showed no metabolic activity on the PET scan from March 2019, however follow-up computed tomography scan from 10/27/2019 showed progressive enlargement of the right upper lobe lesion which is spiculated, increasing in size, and suspicious for malignancy, patient also has left lower lobe nodule. 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 Recovered. plan Adequate pain control Back brace Utilize walker for mobility., and the weakness is improved MRI of the brain CT-guided biopsy of the lumbar spine to rule out pathologic fractures Possibility of metastatic disease based on the most recent CAT scan images and the patient has also developed a new left adrenal metastatic lesion. Long-term prognosis poor baseline above-mentioned comorbidities.
[2020-02-22] MEDS ORDERED: DEXAMETHASONE SOD PHOSPHATE 4 MG/ML 1 ML VIAL IV PRN (13:08)
--- NOTE | 2020-02-22 13:30 | P.CONS ---
History of Present Illness - Reason for Consult Consult date: 02/22/20 History of NSCLCA Requesting physician: Charles Velasco - Chief Complaint Fall with ? Pathological Fracture. - History of Present Illness Mrs. Barragan is a 74-year-old female patient who presents to [facility] after falling. 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 The risk for biopsy was felt to be too high, therefore she underwent SBRT with Dr. Velasco, per medical record finishing in December 2019. MRI Lumbar spine revealed moderate compression fracture of L2, suspected pathological. She reports increased weakness, that has been new and recent falls at home. She presented to ER on February 16 after previous fall. A CT chest at that time did unfortunetly reveal a new left adrenal mass, as well as representation of the RUL lung lesion previously treated. There was however a new acute/subacute fracture and L2, as well as the patient's known chronic compression fractures in thoracic spine. She subsequently underwent an MRI of the cervical, thoracic and lumbar spine on February 17. Outside of the patient's known compression fractures in the thoracic spine, the cervical and thoracic spine exam was unremarkable. There was however abnormal bone marrow signal noted in the L2 vertebral body with compression fracture and some posterior re tropulsion. There did not appear to be compression of the cauda equina at this level. She does complain of pain in her lower back and mobility is affected. Ortho spine is following and appears a kyphoplasty is planned. I have discussed with covering physician for Dr. Gonzales. MRi brain was performed at 11:30 this morning, results unfortunetly do reveal two metastatic lesions to brain with associated vasgenic edema, dexamethasone and PPI has been initiated. Review of Systems All systems: negative Constitutional: Reports as per HPI Past Medical History Past Medical History: Asthma, COPD, Diabetes Mellitus, Hyperlipidemia, Hypertension, Osteoarthritis (OA), Thyroid Disorder Additional Past Medical History / Comment(s): HX HYPERTHYROID, HAD IODINE TX. ON home oxygen 3 LITERS N/C. 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 T-8 COMPRESSION FX IN 2012. EDEMA MARIO ANKLES, LT WORSE. MULT COLON POLYPS 08/21/17. History of Any Multi-Drug Resistant Organisms: None Reported Past Surgical History: Adenoidectomy, Appendectomy, Bowel Resection, Breast Surgery, Hysterectomy, Tonsillectomy Additional Past Surgical History / Comment(s): Several lumpectomies MARIO - benign, D&C, MARIO CATARACTS; COLONOSCOPY 08/21/17 Past Anesthesia/Blood Transfusion Reactions: No Reported Reaction Past Psychological History: No Psychological Hx Reported Smoking Status: Former smoker Past Alcohol Use History: Rare Additional Past Alcohol Use History / Comment(s): quit smoking July 2016, smoked <ppd, smoked for 50 yrs. Past Drug Use History: None Reported - Past Family History Mother Family Medical History: Cancer Additional Family Medical History / Comment(s): Mac deg, blind; abdominal tumor; colon cancer in old age, at 86 Father Family Medical History: Cancer Additional Family Medical History / Comment(s): Prostate CA mets to lungs Medications and Allergies Home Medications Medication Instructions Recorded Confirmed Type Ipratropium/Albuterol Sulfate 1 puff INHALATION RT-TID PRN 07/28/16 02/17/20 History [Combivent Respimat Inhaler] Levothyroxine Sodium [Synthroid] 88 mcg PO DAILY 07/28/16 02/17/20 History Budesonide [Pulmicort] 0.5 mg INHALATION RT-BID 10/09/16 02/17/20 History Furosemide [Lasix] 10 mg PO DAILY 12/02/16 02/17/20 History Atorvastatin [Lipitor] 40 mg PO DAILY 08/18/17 02/17/20 History Diltiazem Cd [Cardizem CD] 120 mg PO DAILY 08/18/17 02/17/20 History Ipratropium-Albuterol Nebulize 3 ml INHALATION RT-TID PRN 09/18/17 02/17/20 History [Duoneb 0.5 mg-3 mg/3 ml Soln] metFORMIN HCL 2,000 mg PO DAILY 09/25/17 02/17/20 History Calcium Citrate/Vitamin D3 1 each PO DAILY 10/28/18 02/17/20 History [Calcitrate + Vit D Caplet] Cetirizine HCl [Zyrtec] 10 mg PO DAILY 10/28/18 02/17/20 History Famotidine 40 mg PO HS 10/28/18 02/17/20 History Tiotropium Br/Olodaterol HCl 1 spray INHALATION RT-DAILY 10/28/18 02/17/20 History [Stiolto Respimat Inhal [place]] ALPRAZolam [Xanax] 0.25 mg PO DAILY PRN 02/17/20 02/17/20 History Acetaminophen [Tylenol Arthritis] 650 mg PO DAILY PRN 02/17/20 02/17/20 History Albuterol Sulfate [Albuterol 1 - 2 puff INHALATION RT-Q4H PRN 02/17/20 02/17/20 History Sulfate Hfa] DULoxetine HCL [Cymbalta] 60 mg PO DAILY 02/17/20 02/17/20 History Multivitamins, Thera [Multivitamin 1 tab PO DAILY 02/17/20 02/17/20 History (formulary)] guaiFENesin [Mucinex] 1,200 mg PO Q12H PRN 02/17/20 02/17/20 History metFORMIN HCL [Glucophage] 1,000 mg PO HS 02/17/20 02/17/20 History Allergies Allergy/AdvReac Type Severity Reaction Status Date / Time bupropion [From Zyban] Allergy Rash/Hives Verified 02/17/20 22:34 cefaclor [From Ceclor] Allergy Rash/Hives Verified 02/17/20 22:34 formoterol [From Perforomist] Allergy Rapid Verified 02/17/20 22:34 Heart Rate, LOW O2 SATURATION Physical Exam Vitals: Vital Signs Temp Pulse Pulse Resp BP Pulse Ox 02/22/20 08:01 100 02/22/20 08:00 98 F 98 16 127/75 96 02/22/20 07:42 100 02/22/20 02:00 98.1 F 96 16 150/62 97 02/21/20 20:00 97.9 F 97 16 125/70 97 02/21/20 19:50 17 02/21/20 15:56 96 02/21/20 15:46 92 Intake and Output 02/21/20 02/22/20 02/22/20 22:59 06:59 14:59 Intake Total 1750 Balance 1750 Intake: Oral 1750 Other: Voiding Method Diaper Diaper Incontinent Incontinent # Voids 4 3 # Bowel Movements 1 0 Weight 62.596 kg - Constitutional General appearance: cooperative, no acute distress - EENT Eyes: EOMI, poor dentition ENT: NA/AT - Respiratory Respiratory: bilateral: diminished, rhonchi - Cardiovascular Rhythm: regular Heart sounds: normal: S1, S2 - Gastrointestinal General gastrointestinal: soft - Integumentary Integumentary: pale - Neurologic non focal - Musculoskeletal mobility greatly decreased after recent fall secondary to pathological vertebral fracture Musculoskeletal: generalized weakness - Psychiatric Psychiatric: A&O x's 3, appropriate affect, intact judgment & insight Results CBC & Chem 7: 02/20/20 06:26 02/20/20 06:26 Labs: Abnormal Lab Results - Last 24 Hours (Table) 02/21/20 02/21/20 02/22/20 Range/Units 17:05 20:29 07:16 POC Glucose (mg/dL) 182 H 189 H 120 H (75-99) mg/dL 02/22/20 Range/Units 11:35 POC Glucose (mg/dL) 156 H (75-99) mg/dL Microbiology - Last 24 Hours (Table) 02/17/20 23:14 Blood Culture - Preliminary Blood No Growth after [address] scan - chest: report reviewed MRI - head: report reviewed Assessment and Plan (1) Non-small cell lung cancer (NSCLC) Narrative/Plan: - Details within HPI - Patient was deemed too high risk for Biopsy at time of new RUL mass, underwent definitive SBRT with Dr. Velasco - Now with metastatic disease to adrenal gland, Lumbar spine and Brain. Current Visit: Yes Status: Acute Code(s): C34.90 - MALIGNANT NEOPLASM OF UNSP PART OF UNSP BRONCHUS OR LUNG SNOMED Code(s): 533814275 (2) Brain metastases Narrative/Plan: - MRI today 02/22/20 - reveals evidence of metastatic disease to brain - Dexamethasone and PPI initiated - Will discuss further with Dr. Velasco regarding options of WBR Current Visit: Yes Status: Acute Code(s): C79.31 - SECONDARY MALIGNANT NEOPLASM OF BRAIN SNOMED Code(s): 23104095 (3) Normocytic anemia Narrative/Plan: - Likely secondary to malignancy and chronic inflammation - Anemia panel will be performed for options of supplementation Current Visit: Yes Status: Acute Code(s): D64.9 - ANEMIA, UNSPECIFIED SNOMED Code(s): 453942512 (4) Dependence on continuous supplemental oxygen Narrative/Plan: - Wears Home Oxygen - Pulmonary team following Current Visit: Yes Status: Acute Code(s): Z99.81 - DEPENDENCE ON SUPPLEMENTAL OXYGEN SNOMED Code(s): 76998682676781 (5) Pathological fracture of lumbar vertebra Narrative/Plan: - Discussed with Ortho Spine and plan for biopsy during kyphoplasty - Patient unable to ambulate and she has decreased mobility after this last fall. Therefore intervention maybe needed. We have hasked for a more definitive diagnosis with biopsy at same time as this procedure. Current Visit: Yes Status: Acute Code(s): M84.48XA - PATHOLOGICAL FRACTURE, OTHER SITE, INIT ENCNTR FOR FRACTURE SNOMED Code(s): 291269913 (6) Multiple falls Current Visit: Yes Status: Acute Code(s): R29.6 - REPEATED FALLS SNOMED C ode(s): 570216775 (7) Weakness Current Visit: Yes Status: Acute Code(s): R53.1 - WEAKNESS SNOMED Code(s): 61587260 (8) COPD (chronic obstructive pulmonary disease) Current Visit: No Status: Acute Code(s): J44.9 - CHRONIC OBSTRUCTIVE PULMONARY DISEASE, UNSPECIFIED SNOMED Code(s): 70159083 (9) Tobacco dependence Current Visit: No Status: Acute Code(s): F17.200 - NICOTINE DEPENDENCE, UNSPECIFIED, UNCOMPLICATED SNOMED Code(s): 03405978 Plan: Thank you for allowing us to participate in the care of this patient, will follow along with you. Physician Attest: I have completed the full history and physcial and agree with above dictation, dictated as a scribe.
[2020-02-22 14:27] LABS: Basophils # (A) 0.1 k/uL (0-0.2); Basophils % (A) 0 %; Eosinophils # (A) 0.5 k/uL (0-0.7); Eosinophils % (A) 3 %; HCT 35.7 % (34.0-46.0); Hypochromasia Slight; Lymphocytes # (A) 1.1 k/uL (1.0-4.8); Lymphocytes % (A) 6 %; MCH 28.8 pg (25.0-35.0); MCHC 30.7 g/dL (31.0-37.0); MCV 93.8 fL (80.0-100.0); Mean Platelet Volume 7.5; Monocytes # (A) 0.7 k/uL (0-1.0); Monocytes % (A) 4 %; Neutrophils # (A) 16.1 k/uL (1.3-7.7); Neutrophils % (A) 86 %; Platelet Count 264 k/uL (150-450); RDW 13.3 % (11.5-15.5); Reticulocyte % 2.5 % (0.5-2.0); WBC 18.7 k/uL (3.8-10.6)
[2020-02-22 16:52] LABS: Glucose,Whole Blood 143 mg/dL (75-99)
[2020-02-22] MEDS: MORPHINE SULFATE 4 MG/ML SYRINGE IV PRN (19:43)
[2020-02-22 20:09] LABS: % Iron Saturation 7.59 (12.00-45.00); ALT 26 U/L (8-44); AST 23 U/L (13-35); African American GFR (CKD) 99.6 (60.0-200.0); Albumin/Globulin Ratio 1.89 (1.60-3.17); Alkaline Phosphatase 123 U/L (41-126); BUN/Creat Ratio 31.43 Ratio (12.00-20.00); Calcium 9.5 mg/dL (8.7-10.3); Carbon Dioxide 32.5 mmol/L (21.6-31.8); Chloride 95 mmol/L (96-109); Globulin 1.9 g/dL (1.6-3.3); Glucose 152 mg/dL (70-110); Iron 18 ug/dL (50-170); LDH 390 U/L (120-246); Potassium 5.1 mmol/L (3.5-5.5); Sodium 137 mmol/L (135-145); Total Bilirubin 0.3 mg/dL (0.2-1.2); Total Iron Binding Capacity 237 ug/dL (228-460); Total Protein 5.5 g/dL (6.2-8.2)
[2020-02-22 20:15] LABS: Ferritin 105.1 ng/mL (10.0-291.0)
[2020-02-22 20:31] LABS: Glucose,Whole Blood 169 mg/dL (75-99)
[2020-02-22 20:43] LABS: Folate, Serum >24.0 ng/mL
[2020-02-23] MEDS: SODIUM CHLORIDE 0.9% 1,000 ML IV SCH ×2 (04:25→05:57)
[2020-02-23 04:54] LABS: Basophils # (A) 0.1 k/uL (0-0.2); Basophils % (A) 1 %; Eosinophils # (A) 0.5 k/uL (0-0.7); Eosinophils % (A) 3 %; HGB 10.5 gm/dL (11.4-16.0); Hypochromasia Slight; Lymphocytes # (A) 1.5 k/uL (1.0-4.8); Lymphocytes % (A) 8 %; MCV 93.6 fL (80.0-100.0); Mean Platelet Volume 7.7; Monocytes # (A) 0.8 k/uL (0-1.0); Monocytes % (A) 5 %; Neutrophils # (A) 14.9 k/uL (1.3-7.7); Neutrophils % (A) 83 %; Platelet Count 278 k/uL (150-450); RBC 3.52 m/uL (3.80-5.40); RDW 13.1 % (11.5-15.5); WBC 18.1 k/uL (3.8-10.6)
[2020-02-23] MEDS: MORPHINE SULFATE 4 MG/ML SYRINGE IV PRN (05:47)
[2020-02-23 06:30] LABS: Glucose,Whole Blood 127 mg/dL (75-99)
[2020-02-23] MEDS: BUDESONIDE 0.5 MG/2 ML NEBU INHALATION SCH ×2 (07:15→19:21)
[2020-02-23] MEDS: IPRATROPIUM 0.5 MG/2.5 ML NEBU INHALATION SCH ×5 (07:15→19:24)
[2020-02-23] MEDS: INSULIN ASPART (NovoLOG) 100 UNIT/ML VIAL SQ SCH ×4 (08:47→21:13)
[2020-02-23] MEDS: DULoxetine HCL 60 MG CAPSULE.DR PO SCH (08:49)
[2020-02-23] MEDS: metFORMIN 500 MG TAB PO SCH ×2 (08:49→21:13)
[2020-02-23] MEDS: HEPARIN SODIUM,PORCINE 5,000 UNIT/ML 1 ML VIAL SQ SCH (08:49)
[2020-02-23] MEDS: PANTOPRAZOLE 40 MG TABLET PO SCH ×2 (08:50→16:16)
[2020-02-23] MEDS: LEVOTHYROXINE 88 MCG TAB PO SCH (08:50)
[2020-02-23] MEDS: MULTIVITAMINS, THERA 1 EACH TAB PO SCH (08:50)
[2020-02-23] MEDS: ATORVASTATIN 40 MG TAB PO SCH (08:50)
[2020-02-23] MEDS: DILTIAZEM CD 120 MG CAP.ER.24H PO SCH (08:50)
[2020-02-23] MEDS: LORATADINE 10 MG TAB PO SCH (08:56)
--- NOTE | 2020-02-23 09:14 | P.PN ---
Subjective Progress Note Date: 02/23/20 Principal diagnosis: L2 VCF Multiple Thoracic VCF, chronic Hx of Lung CA Patient was seen and examined this morning. She is resting comfortably in her bed. She states pain when she is up and about but when she is resting she has no pain. We discussed at length the possibility of kyphoplasty of L2 to help with pain control as well as to get up and move around as well as obtain a biopsy from this area. She states that she would like to talk with her son about this before pursuing. We could add her on for tomorrow to do this. It is a bout a 30 minute procedure. She understood this we discussed risks and benefits of the procedure as well as possible outcomes and she understood. She is going to talk with her son about this and get back to us later today. Objective - Vital Signs Vital signs: Vital Signs Temp 98.0 F 02/23/20 07:39 Pulse 94 02/23/20 07:39 Resp 16 02/23/20 07:39 BP 153/75 02/23/20 07:39 Pulse Ox 96 02/23/20 07:39 Intake & Output 02/22/20 02/23/20 02/23/20 18:59 06:59 18:59 Intake Total 240 240 Balance 240 240 Weight 62.596 kg Intake: Oral 240 240 Other: Voiding Method Diaper Incontinent # Voids 2 1 - Exam GEN: AOX3, NAD VSS Palpation: Mild tenderness to palpation over the thoracolumbar region no tennis palpation over the thoracic or cervical region Motor: 5/5 shoulder abd/EF/EE/WF/intrinsics 5/5 DF/PF/EHL/FHL/HF/KE/KF Reflexes: 2/4 DTR all upper and LE Sensation intact to light touch in C5-T1 as well as L2-S1 distribution Jones's: Negative Bilaterally Clonus: Negative bilaterally Babinski: Negative bilaterally Cranial nerves II through XII grossly intact - Labs CBC & Chem 7: 02/23/20 04:32 02/22/20 13:59 Labs: Abnormal Lab Results - Last 24 Hours (Table) 02/22/20 02/22/20 02/22/20 Range/Units 11:35 13:59 13:59 WBC 18.7 H (3.8-10.6) k/uL RBC (3.80-5.40) m/uL Hgb 11.0 L (11.4-16.0) gm/dL Hct (34.0-46.0) % MCHC 30.7 L (31.0-37.0) g/dL Neutrophils # 16.1 H (1.3-7.7) k/uL Retic Count 2.5 H (0.5-2.0) % Chloride 95 L (96-109) mmol/L Carbon Dioxide 32.5 H (21.6-31.8) mmol/L BUN/Creatinine Ratio 31.43 H (12.00-20.00) Ratio Glucose 152 H (70-110) mg/dL POC Glucose (mg/dL) 156 H (75-99) mg/dL Iron 18 L (50-170) ug/dL % Saturation 7.59 L (12.00-45.00) Lactate Dehydrogenase 390 H (120-246) U/L Total Protein 5.5 L (6.2-8.2) g/dL Albumin 3.60 L (3.80-4.90) g/dL 02/22/20 02/22/20 02/23/20 Range/Units 16:50 20:28 04:32 WBC 18.1 H (3.8-10.6) k/uL RBC 3.52 L (3.80-5.40) m/uL Hgb 10.5 L (11.4-16.0) gm/dL Hct 33.0 L (34.0-46.0) % MCHC (31.0-37.0) g/dL Neutrophils # 14.9 H (1.3-7.7) k/uL Retic Count (0.5-2.0) % Chloride (96-109) mmol/L Carbon Dioxide (21.6-31.8) mmol/L BUN/Creatinine Ratio (12.00-20.00) Ratio Glucose (70-110) mg/dL POC Glucose (mg/dL) 143 H 169 H (75-99) mg/dL Iron (50-170) ug/dL % Saturation (12.00-45.00) Lactate Dehydrogenase (120-246) U/L Total Protein (6.2-8.2) g/dL Albumin (3.80-4.90) g/dL 02/23/20 Range/Units 06:29 WBC (3.8-10.6) k/uL RBC (3.80-5.40) m/uL Hgb (11.4-16.0) gm/dL Hct (34.0-46.0) % MCHC (31.0-37.0) g/dL Neutrophils # (1.3-7.7) k/uL Retic Count (0.5-2.0) % Chloride (96-109) mmol/L Carbon Dioxide (21.6-31.8) mmol/L BUN/Creatinine Ratio (12.00-20.00) Ratio Glucose (70-110) mg/dL POC Glucose (mg/dL) 127 H (75-99) mg/dL Iron (50-170) ug/dL % Saturation (12.00-45.00) Lactate Dehydrogenase (120-246) U/L Total Protein (6.2-8.2) g/dL Albumin (3.80-4.90) g/dL Microbiology - Last 24 Hours (Table) 02/17/20 23:14 Blood Culture - Preliminary Blood No Growth after 120 hours Assessment and Plan Assessment: 74-year-old female with low back pain 1. T6 T8 T11 vertebral compression fractures, chronic 2. L2 vertebral compression fracture, acute 3. History of lung carcinoma 4. Complex medical patient Plan: -Pain control when necessary -LSO uable to be obtained as pt had one prescribed within the last 5 years and insurance will not pay for a new one. Asked patient if her son could drop off hers from home and she is going to call him today and ask. -GI and DVT prophylaxis as appropriate -PT/OT -She will discuss with her son about possible kyphoplasty tomorrow 02/24/2020. -Ortho spine stable
[2020-02-23 11:35] LABS: Glucose,Whole Blood 182 mg/dL (75-99)
--- NOTE | 2020-02-23 13:18 | P.PN ---
Progress Note - Text Progress Note Date: 02/23/20 Spoke to patient and her son Chuck over the phone. Discussed with him different surgical and nonsurgical options. At this time they both agree and they would like to attempt a kyphoplasty of L2 vertebral body for diagnostic as well as therapeutic purposes. I discussed risks and benefits with them and they are comfortable with this. We will attempt to get him scheduled for tomorrow for L2 kyphoplasty. Spine Surgery Risk Review Sandhya Jernigan is a 74-year-old female presenting for evaluation of low back pain after fall with history of lung carcinoma. It was my pleasure to have seen and examined Sandhya Jernigan . In our visit today we have had a chance to go over subjective complaints, physical examination findings and treatments including the natural course history without intervention and various interventional options. The patients imaging demonstrates L2 acute vertebral compression fracture around 20% compressed with multiple chronic compression fractures within the thoracic spine . On physical exam, Sandhya Jernigan demonstrates back pain with ambulation palpation in activities of daily living. I have explained to the patient that as their condition progresses it will cause further neurological deficits and eventual paralysis. Based on the patients imaging, physical exam, and the rapid progression and disabling nature of their symptoms, at this time I recommend surgery in the form or a: L2 kyphoplasty. I discussed the risk and benefits of this procedure at length with Sandhya Jernigan . The patient and her son Chuck agreed to considered pursuing the procedure abovementioned. Prior to surgery, we will ask them medicine see her for clearance. Questions were invited and answered, and the patient wishes to proceed as outlined below. Currently, I am recommendin. Lumbar 2 vertebral body biopsy with kyphoplasty 2. Follow up with PCP for surgical clearance 3. Review of surgical risks and benefits as well as an educational packet on the proposed surgical procedure. Risks: All surgical procedures come with inherent risks, including those related to positioning, anesthesia, intraoperative findings, and postoperative complications. It is important to understand that surgery does not come with any guarantee of a successful outcome as complications and adverse events are always possible. The patient was given a handout in office today discussing the surgical procedure and risks associated with the intervention, both of which were dis cussed with the patient. These risks include but are not limited to the following: * Experiencing same, different or even worse symptoms in back, neck, arms, or legs compared to before surgery. * Requiring further surgery or other forms of treatment presently or at some time in the future at same or other levels of the intended spine surgery. * On an extreme but fortunately relatively rare basis severe complication such as blindness, stroke, heart attack, temporary and/or permanent nerve injury, paralysis, coma, or may occur, sometimes without known explanation. * Surgical complications may include but are not limited to risk of infection, fluid accumulation in the surgical dissection site, including a seroma or hematoma, that requires additional surgery, wound drainage, bleeding, new numbness or weakness, vision changes/loss, spinal fluid leakage, non-healing and/or infected incision, headaches, difficulty or inability to swallow, hoarseness, hemopneumothorax, pneumothorax, impotence, retrograde ejaculation, vaginal dryness; injury to nerves, spinal cord, blood vessels, lymphatics or other vital organs (i.e., bowel injury, injury to the great vessels); heterotopic bone formation; complications related to the hardware such as screws, rods, cages including misplaced hardware, device failure, instrumentation at the wrong spine level, hardware fracture/breakage, or hardware loosening; vertebral failure of the spinal column above or below the newly placed hardware; retained surgical instrumentations or devices and the need for further surgery. * Medical risks of the planned spine surgery include but are not limited to generalized Infections to the whole body or local areas outside of the surgical site (sepsis), heart attack, bleeding, anaphylaxis, meningitis, seizure, epilepsy, hearing loss, burn justin, laceration of the head or other areas of the body, bruising, hypersensitivity of the skin, bladder over distension; allergic reaction; shoulder injury related to positioning; fat, blood and air clots to other areas of the body like heart, lungs, brain; failure of internal organs such as lungs, kidneys, liver and excessive bleeding. If blood transfusions are necessary, note that transfusions may cause intolerance reactions such as anaphylaxis or other complex reactions. * Despite best efforts, the results of spine surgery might not heal in terms of bone, soft tissues such as skin, fascia, ligaments, and joints. Additionally, in order to achieve best possible results, spine surgery may be carried out beyond the initially planned levels and involve decompression, fusion including insertion of hardware at levels other than the original intended area of surgical interest change some portions of the procedure in order to ensure the best possible outcomes. * With spine surgery and spinal fusion, there are different off label uses of instrumentation (devices, implants and hardware) as well as biological substances (bone morphogenic proteins, demineralized bone matrix) as well as using extra bone from allograft sources (i.e. cadaver bone) or autograft (iliac crest bone, ribs, or the spine itself). The patient has been given information about these practices and their inherent risks and benefits. * [facility] is an educational center that serves as a training facility for neurosurgical and orthopedic spine residents and fellows. Residents are physicians who are completing their surgical intensive training following medical school. They assist in the operating room with direct supervision of the attending surgeons. [place] are surgeons who have completed their training and eligible for board certification. They have opted for an elective year of more specialized training in their field. They assist in the operating room under the supervision of the attending surgeons. Physician assistants are medically trained surgical providers who function in the outpatient, inpatient, and operating room setting under the direct supervision of the attending surgeon. * [facility] has multiple operating rooms with single and overlapping rooms running daily. They currently function under the required guidelines as produced by the [facility] Finance Committee with regards to the overlapping rooms and will continue to comply with changes to this policy as they occur. The requirements include and are complied with as follows: (1) the critical portions of the overlapping rooms will not occur at the same time, (2) the attending physician will be physically present during the critical portions of the procedure and immediately available during the entire case, and (3) a back-up attending is designated should the primary attending not be immediately available. The patient has had a chance to review all the listed information, has been given print outs detailing this information, and has had all his/her questions answered to their satisfaction. It was my pleasure to have seen and examined Sandhya Jernigan . In our visit today we have had a chance to go over my understanding of our patient's current condition, the natural course history without intervention and various interventional options. Questions were invited and answered, and the patient wishes to proceed as outlined above. I have seen and examined the patient for 25 minutes and we have spent more than 50% of the time in repeat and detailed counseling about the patient's condition, its natural course history with out and as much as can be predicted with surgery and re-review of various surgical treatment options. In conclusion, Sandhya Jernigan and her son Chuck requested we proceed with the above suggested surgery and are willing to accept risks and limitations of the suggested surgery as nature of the disease process and our best attempts at treatment for the condition. Thank you again for allowing us to be part of your patient's care. Please don't hesitate to contact me if you have any further questions. Signed and authenticated by: Haris Watson [facility] Replaced by [facility] [address] [address]
[2020-02-23] MEDS: IPRATROPIUM-ALBUTEROL 3 ML NEB INHALATION PRN (15:34)
[2020-02-23 17:18] LABS: Glucose,Whole Blood 125 mg/dL (75-99)
[2020-02-23 20:38] LABS: Glucose,Whole Blood 162 mg/dL (75-99)
[2020-02-23] MEDS: IBUPROFEN 400 MG TAB PO PRN (21:20)
--- NOTE | 2020-02-23 22:43 | P.PN ---
Subjective Progress Note Date: 02/23/20 Principal diagnosis: Progressive cancer, falls, pathological fracture Kypho planned for am, with biopsy. Discussed with Radiation onc today. Depending on pathology will depend on goals of care and treatment plan Objective - Vital Signs Vital signs: Vital Signs Temp 97.4 F L 02/23/20 20:21 Pulse 104 H 02/23/20 20:21 Resp 17 02/23/20 20:21 BP 137/63 02/23/20 20:21 Pulse Ox 94 L 02/23/20 20:21 Intake & Output 02/23/20 02/23/20 02/24/20 06:59 18:59 06:59 Intake Total 240 Balance 240 Intake: Oral 240 Other: Voiding Method Toilet Toilet # Voids 1 - Exam - Constitutional General appearance: cooperative, no acute distress - EENT Eyes: EOMI, poor dentition ENT: NA/AT - Respiratory Respiratory: bilateral: diminished, rhonchi - Cardiovascular Rhythm: regular Heart sounds: normal: S1, S2 - Gastrointestinal General gastrointestinal: soft - Integumentary Integumentary: pale - Neurologic non focal - Musculoskeletal mobility greatly decreased after recent fall secondary to pathological vertebral fracture Musculoskeletal: generalized weakness - Psychiatric Psychiatric: A&O x's 3, appropriate affect, intact judgment & insight - Labs CBC & Chem 7: 02/23/20 04:32 02/22/20 13:59 Labs: Abnormal Lab Results - Last 24 Hours (Table) 02/23/20 02/23/20 02/23/20 Range/Units 04:32 06:29 11:29 WBC 18.1 H (3.8-10.6) k/uL RBC 3.52 L (3.80-5.40) m/uL Hgb 10.5 L (11.4-16.0) gm/dL Hct 33.0 L (34.0-46.0) % Neutrophils # 14.9 H (1.3-7.7) k/uL POC Glucose (mg/dL) 127 H 182 H (75-99) mg/dL 02/23/20 02/23/20 Range/Units 17:12 20:37 WBC (3.8-10.6) k/uL RBC (3.80-5.40) m/uL Hgb (11.4-16.0) gm/dL Hct (34.0-46.0) % Neutrophils # (1.3-7.7) k/uL POC Glucose (mg/dL) 125 H 162 H (75-99) mg/dL Microbiology - Last 24 Hours (Table) 02/17/20 23:14 Blood Culture - Preliminary Blood No Growth after 120 hours Assessment and Plan (1) Non-small cell lung cancer (NSCLC) Narrative/Plan: - Details within HPI - Patient was deemed too high risk for Biopsy at time of new RUL mass, underwent definitive SBRT with Dr. Velasco - Now with metastatic disease to adrenal gland, Lumbar spine and Brain. Current Visit: Yes Status: Acute Code(s): C34.90 - MALIGNANT NEOPLASM OF UNSP PART OF UNSP BRONCHUS OR LUNG SNOMED Code(s): 310738800 (2) Brain metastases Narrative/Plan: - MRI today 02/22/20 - reveals evidence of metastatic disease to brain - Dexamethasone and PPI initiated - Will discuss further with Dr. Velasco regarding options of WBR Current Visit: Yes Status: Acute Code(s): C79.31 - SECONDARY MALIGNANT NEOPLASM OF BRAIN SNOMED Code(s): 12130812 (3) Normocytic anemia Narrative/Plan: Iron deficiency component, parental iron as outpatient Current Visit: Yes Status: Acute Code(s): D64.9 - ANEMIA, UNSPECIFIED SNOMED Code(s): 185163727 (4) Dependence on continuous supplemental oxygen Narrative/Plan: - Wears Home Oxygen - Pulmonary team following Current Visit: Yes Status: Acute Code(s): Z99.81 - DEPENDENCE ON SUPPLEMENTAL OXYGEN SNOMED Code(s): 10688971651129 (5) Pathological fracture of lumbar vertebra Narrative/Plan: - Discussed with Ortho Spine and plan for biopsy during kyphoplasty - Patient unable to ambulate and she has decreased mobility after this last fall. Therefore intervention maybe needed. We have hasked for a more definitive diagnosis with biopsy at same time as this procedure. Current Visit: Yes Status: Acute Code(s): M84.48XA - PATHOLOGICAL FRACTURE, OTHER SITE, INIT ENCNTR FOR FRACTURE SNOMED Code(s): 019637068 (6) Multiple falls Current Visit: Yes Status: Acute Code(s): R29.6 - REPEATED FALLS SNOMED Code(s): 688432565 (7) Weakness Current Visit: Yes Status: Acute Code(s): R53.1 - WEAKNESS SNOMED Code(s): 82719093 (8) COPD (chronic obstructive pulmonary disease) Current Visit: No Status: Acute Code(s): J44.9 - CHRONIC OBSTRUCTIVE PULMONARY DISEASE, UNSPECIFIED SNOMED Code(s): 44378931 (9) Tobacco dependence Current Visit: No Status: Acute Code(s): F17.200 - NICOTINE DEPENDENCE, UNSPECIFIED, UNCOMPLICATED SNOMED Code(s): 58713911
[2020-02-24] MEDS: SODIUM CHLORIDE 0.9% 1,000 ML IV SCH ×2 (02:30→08:06)
[2020-02-24] MEDS: MORPHINE SULFATE 4 MG/ML SYRINGE IV PRN (02:32)
[2020-02-24 02:39] LABS: Appearance,Urine Cloudy (Clear); Bacteria,Urine Rare /hpf; Bilirubin,Urine Negative (Negative); Blood,Urine Moderate (Negative); Color,Urine Yellow; Glucose,Urine (UA) Negative (Negative); Ketones,Urine Negative (Negative); Leukocyte Esterase,Urine Large (Negative); Mucus,Urine Rare /hpf; Nitrite,Urine Negative (Negative); PH, Urine 5.5 (5.0-8.0); Protein,Urine Negative (Negative); RBC,Urine 9 /hpf (0-5); Specific Gravity,Urine 1.021 (1.001-1.035); Squamous Epithelial Cell,Urine 2 /hpf (0-4); Urobilinogen,Urine <2.0 mg/dL (<2.0); WBC,Urine 169 /hpf (0-5)
[2020-02-24] MEDS: LEVOTHYROXINE 88 MCG TAB PO SCH (05:50)
[2020-02-24] MEDS: BUDESONIDE 0.5 MG/2 ML NEBU INHALATION SCH ×2 (07:10→19:58)
[2020-02-24] MEDS: IPRATROPIUM-ALBUTEROL 3 ML NEB INHALATION PRN ×2 (07:10→15:31)
[2020-02-24] MEDS: IPRATROPIUM 0.5 MG/2.5 ML NEBU INHALATION SCH ×4 (07:14→19:58)
[2020-02-24 07:19] LABS: Glucose,Whole Blood 124 mg/dL (75-99)
[2020-02-24] MEDS: INSULIN ASPART (NovoLOG) 100 UNIT/ML VIAL SQ SCH ×4 (08:06→22:42)
[2020-02-24] MEDS: metFORMIN 500 MG TAB PO SCH ×2 (08:12→19:46)
[2020-02-24] MEDS: MULTIVITAMINS, THERA 1 EACH TAB PO SCH (08:13)
[2020-02-24] MEDS: PANTOPRAZOLE 40 MG TABLET PO SCH ×2 (08:13→17:27)
[2020-02-24] MEDS: ATORVASTATIN 40 MG TAB PO SCH (08:13)
[2020-02-24] MEDS: DILTIAZEM CD 120 MG CAP.ER.24H PO SCH (08:13)
[2020-02-24] MEDS: LORATADINE 10 MG TAB PO SCH (08:13)
[2020-02-24] MEDS: DULoxetine HCL 60 MG CAPSULE.DR PO SCH (08:13)
[2020-02-24] MEDS ORDERED: CLINDAMYCIN 900 MG in DEXTROSE 5% IN WATER 50 ML IVPB STA ×2 (08:17)
--- NOTE | 2020-02-24 08:17 | P.PN ---
Subjective Progress Note Date: 02/24/20 Principal diagnosis: L2 VCF Multiple Thoracic VCF, chronic Hx of Lung CA Patient was seen and examined this morning. She states she is doing alright and ready for the procedure today. She denies any fevers chills shortness of breath or chest pain. She denies any weakness numbness tingling or other changes in her symptoms. Objective - Vital Signs Vital signs: Vital Signs Temp 98.1 F 02/24/20 02:17 Pulse 80 02/24/20 07:26 Resp 16 02/24/20 02:17 BP 120/69 02/24/20 02:17 Pulse Ox 96 02/24/20 02:17 Intake & Output 02/23/20 02/24/20 02/24/20 18:59 06:59 18:59 Other: Voiding Method Toilet Toilet # Voids 1 - Exam GEN: AOX3, NAD VSS Palpation: Mild tenderness to palpation over the thoracolumbar region no tennis palpation over the thoracic or cervical region Motor: 5/5 shoulder abd/EF/EE/WF/intrinsics 5/5 DF/PF/EHL/FHL/HF/KE/KF Reflexes: 2/4 DTR all upper and LE Sensation intact to light touch in C5-T1 as well as L2-S1 distribution Jones's: Negative Bilaterally Clonus: Negative bilaterally Babinski: Negative bilaterally Cranial nerves II through XII grossly intact - Labs CBC & Chem 7: 02/23/20 04:32 02/22/20 13:59 Labs: Abnormal Lab Results - Last 24 Hours (Table) 02/23/20 02/23/20 02/23/20 Range/Units 11:29 17:12 20:37 POC Glucose (mg/dL) 182 H 125 H 162 H (75-99) mg/dL Urine Appearance (Clear) Urine Blood (Negative) Ur Leukocyte Esterase (Negative) Urine RBC (0-5) /hpf Urine WBC (0-5) /hpf Urine WBC Clumps (None) /hpf Urine Bacteria (None) /hpf Urine Mucus (None) /hpf 02/24/20 02/24/20 Range/Units 02:20 07:17 POC Glucose (mg/dL) 124 H (75-99) mg/dL Urine Appearance Cloudy H (Clear) Urine Blood Moderate H (Negative) Ur Leukocyte Esterase Large H (Negative) Urine RBC 9 H (0-5) /hpf Urine WBC 169 H (0-5) /hpf Urine WBC Clumps Few H (None) /hpf Urine Bacteria Rare H (None) /hpf Urine Mucus Rare H (None) /hpf Microbiology - Last 24 Hours (Table) 02/17/20 23:14 Blood Culture - Final Blood No Growth after 144 hours Assessment and Plan Assessment: 74-year-old female with low back pain 1. T6 T8 T11 vertebral compression fractures, chronic 2. L2 vertebral compression fracture, acute 3. History of lung carcinoma 4. Complex medical patient Plan: -Confirmed nothing by mouth status -Antibiotics for preoperative -SCDs teds -OR today for L2 kyphoplasty and biopsy
--- NOTE | 2020-02-24 08:44 | P.PN ---
Subjective Principal diagnosis: L2 compression fracture. The patient is an 74-year-old white female with history of COPD lung carcinoma and possible pathologic fracture of L2. MRI is report is noted. She did try to ambulate to the bathroom today but felt significantly dizzy. We will try to increase ambulation per orthopedics. No constipation stated. Pain control seems to be nominal to her. However, urinalysis does show element of UTI with hematuria. She is scheduled for kyphoplasty today. Objective - Vital Signs Vital signs: Vital Signs Temp 98.2 F 02/24/20 08:00 Pulse 84 02/24/20 08:00 Resp 20 02/24/20 08:00 BP 126/66 02/24/20 08:00 Pulse Ox 98 02/24/20 08:00 Intake & Output 02/23/20 02/24/20 02/24/20 18:59 06:59 18:59 Other: Voiding Method Toilet Toilet # Voids 1 - Constitutional General appearance: Present: average body habitus - EENT Eyes: Absent: abnormal pupil - Cardiovascular Rhythm: regular Heart sounds: normal: S1, S2 Abnormal Heart Sounds: Absent: S3 Gallop - Gastrointestinal General gastrointestinal: Present: soft. Absent: tenderness - Psychiatric Psychiatric: Present: A&O x's 3 - Labs CBC & Chem 7: 02/23/20 04:32 02/22/20 13:59 Labs: Abnormal Lab Results - Last 24 Hours (Table) 02/23/20 02/23/20 02/23/20 Range/Units 11:29 17:12 20:37 POC Glucose (mg/dL) 182 H 125 H 162 H (75-99) mg/dL Urine Appearance (Clear) Urine Blood (Negative) Ur Leukocyte Esterase (Negative) Urine RBC (0-5) /hpf Urine WBC (0-5) /hpf Urine WBC Clumps (None) /hpf Urine Bacteria (None) /hpf Urine Mucus (None) /hpf 02/24/20 02/24/20 Range/Units 02:20 07:17 POC Glucose (mg/dL) 124 H (75-99) mg/dL Urine Appearance Cloudy H (Clear) Urine Blood Moderate H (Negative) Ur Leukocyte Esterase Large H (Negative) Urine RBC 9 H (0-5) /hpf Urine WBC 169 H (0-5) /hpf Urine WBC Clumps Few H (None) /hpf Urine Bacteria Rare H (None) /hpf Urine Mucus Rare H (None) /hpf Microbiology - Last 24 Hours (Table) 02/17/20 23:14 Blood Culture - Final Blood No Growth after 144 hours Assessment and Plan (1) Compression fracture Current Visit: Yes Status: Acute Code(s): FHJ1012 - SNOMED Code(s): 021918271 (2) Lung mass Current Visit: Yes Status: Acute Code(s): R91.8 - OTHER NONSPECIFIC ABNORMAL FINDING OF LUNG FIELD SNOMED Code(s): 801074028 (3) Multiple falls Current Visit: Yes Status: Acute Code(s): R29.6 - REPEATED FALLS SNOMED Code(s): 201532730 (4) Weakness Current Visit: Yes Status: Acute Code(s): R53.1 - WEAKNESS SNOMED Code(s): 54382151 (5) COPD (chronic obstructive pulmonary disease) Current Visit: No Status: Acute Code(s): J44.9 - CHRONIC OBSTRUCTIVE PULMONARY DISEASE, UNSPECIFIED SNOMED Code(s): 54631327 (6) Diabetes mellitus Current Visit: No Status: Acute Code(s): E11.9 - TYPE 2 DIABETES MELLITUS WITHOUT COMPLICATIONS SNOMED Code(s): 19921548 (7) History of colectomy Current Visit: No Status: Acute Code(s): Z90.49 - ACQUIRED ABSENCE OF OTHER SPECIFIED PARTS OF DIGESTIVE TRACT SNOMED Code(s): 845939365 Plan: Reconcile home medications. Go ahead and continue morphine for pain control. Orthopedics is also consulted for back pain. Prognosis is guarded. See orders otherwise. Anticipate discharge in next 24 hours. However, her lack of ambulation is worrisome.
[2020-02-24] MEDS ORDERED: LACTATED RINGERS 1,000 ML IV ONE (08:58)
[2020-02-24] MEDS ORDERED: fentaNYL (PF) 50 MCG/ML 2 ML AMP ONE (09:41)
[2020-02-24] MEDS ORDERED: SUCCINYLCHOLINE CHLORIDE 100 MG/5 ML SYR IV ONE (09:41)
[2020-02-24] MEDS ORDERED: LIDOCAINE 1% INJ 10MG/ML (20 ML MDV) ONE (09:41)
[2020-02-24] MEDS ORDERED: PROPOFOL 10 MG/ML 20 ML VIAL IV ONE (09:41)
[2020-02-24] MEDS ORDERED: KETAMINE 10 MG/ML 20 ML VIAL ONE (09:41)
[2020-02-24] MEDS ORDERED: PHENYLEPHRINE 10 MG/ML VIAL ONE (09:41)
[2020-02-24] MEDS ORDERED: BUPIVACAINE (PF) 0.5% 30 ML VIAL SQ ONE ×2 (10:08)
[2020-02-24] MEDS ORDERED: LIDOCAINE 1%-EPI 1:100,000 20 ML VIAL SQ ONE ×2 (10:08)
--- NOTE | 2020-02-24 11:17 | FL ---
EXAMINATION TYPE: FL guidance operating room, XR lumbar spine 1V DATE OF EXAM: 02/24/2020 CLINICAL HISTORY: L2 compression fracture suspected pathologic, history of lung cancer. TECHNIQUE: Fluoroscopy. Lumbar spine one view intraoperatively. COMPARISON: CT and MRI lumbar spine February 18, 2020 FINDINGS: Fluoroscopic guidance was provided during L2 biopsy or sampling and kyphoplasty procedure performed by back surgeon. A total of 2.18 seconds of fluoroscopic time was utilized during the proc edure and 6 spot intraoperative images was acquired. Images obtained show needle for sampling and subsequent placement of hardware in injection of cement material in the compressed L2 vertebra. IMPRESSION: As Above.
[2020-02-24 11:31] LABS: Glucose,Whole Blood 146 mg/dL (75-99)
--- NOTE | 2020-02-24 11:32 | P.OP ---
Date of Procedure: 02/24/20 Preoperative Diagnosis: L2 acute compression fracture, ~20%, possible metastasis Postoperative Diagnosis: L2 acute compression fracture, ~20%, possible metastasis Procedure(s) Performed: 1. L2 vertebral body biopsy 2. L2 kyphoplasty this insertion of PMMA cement 3. Needle localization with fluoroscopy of L2 vertebral body and pedicles 4. Use of intraoperative fluoroscopy Implants: Kyphon cement Anesthesia: GETA Surgeon: Haris Gonzales Estimated Blood Loss (ml): 5 IV fluids (ml): 400 Urine output (ml): 200 Pathology: other (L2 verterbral body specimine sent. There was a large void within the vertebral body and not much bone could be harvested.) Condition: stable Disposition: PACU Indications for Procedure: This is a 74-year-old female with history of COPD lung carcinoma who has been having difficulty ambulating. She fell last week Friday and has significant pain ever since. Patient has a significant history of lung carcinoma multiple thoracic spine compression fractures and low back pain. She states that the pain has gotten worse and that she is not able to ambulate secondary to the pain. She denies any tolerable bladder incontinence. She denies any perineal numbness or tingling. She denies any weakness in her lower extremities but simply states she cannot walk because of pain. Operative Findings: L2 VCF Description of Procedure: The patient was seen and examined in the preoperative area. All preoperative protocols were followed. Informed consent was obtained risks and benefits of the procedure were discussed at length. Risks including bleeding infection damage to the surrounding tissue and risk of reoperation were discussed with the patient. Risk of anesthesia up to and including was a discussed with the patient. These are outlined in the risk review. They were willing to accept these risks and all of the risks of surgery. The patient was given a weight- based dose of antibiotics in the form of900 of clindamycin IV BP in 1. The patient was seen and evaluated by the anesthesia team who deemed them fit for surgery. The site was marked, the patient was willing to proceed with the procedure. The patient was transferred to the operative suite by the Department of anesthesia. They were then drifted off to sleep by the department anesthesia Gen. endotracheal intubation was selected secondary to the patient's sickness lung nature and need for airway protection. The patient tolerated this well. Once confirmation of lines and ventilation the patient was transferred to a prone Adrian table with a Scout frame very carefully. All bony prominences including wrists, elbows, axilla, chest, hips, and thighs, and feet were padded very well. Special attention was paid to the genitalia and these were padded accordingly. SCDs were placed on bilateral lower extremities and were connected. Arms were well padded and placed on arm boards up and out in the 90/90 position. Once in position, again we confirmed good ventilation capabilities and that lines were running appropriately. The patient's Lumbar spine was then exposed. 1010s were placed outlining the incision site. Standard alcohol was used to clean the incision site and allowed to dry. C-arm was used to biomark the patient and confirm level for incision which was marked with a skin marker. Operative briefing was performed with all teams and everyone in agreement to proceed. The patient was then prepped and draped in a normal sterile fashion. Timeout was then performed and all parties were in agreement with the procedure to be performed. x-ray was used once again to localize with a 18-gauge spinal needle the pedicles of L2. Once these areas were localized they were infiltrated with a combination of 1% lidocaine with epinephrine and 0.5% ropivacaine without. This totaled 10 mL. Skin incision was then made on the left-hand side and a Jamshidi was introduced into the bone. AP and lateral fluoroscopy were then used for pedicle access into the vertebral body. Once this was in good position on AP and lateral fluoroscopy this was then repeated on the right-hand side with a second Jamshidi trocar. Once these were both in good position on AP and lateral fluoroscopy the biopsy needle was placed under lateral fluoroscopy through the left-hand side followed by the right-hand side and biopsy specimens were placed on [facility] and sent for pathology. A drill and curette were then used to create space for balloon kyphoplasty. Balloons were introduced and under lateral fluoroscopy were inflated. There were noted to have low pressures but continued to inflate and so they were deflated. Curet was again used there is noted to be a large void within this vertebral body medially and superiorly. The endplates however were able to be palpated with the curet and were intact as well as the anterior cortex which was intact and able to be palpated as well. This was all done under lateral fluoroscopy. The cement introducer trocar was then placed and under lateral pulse fluoroscopy the cement was injected first into the right hand side. Once adequate fill had been obtained the cement trocar was removed and a blunt trocar was inserted and the cement trocar was then reinserted on the left-hand side. Again under pulsed fluoroscopy cement injection is performed. This provided a excellent fill of cement which was maintained entirely in the vertebral body. The cement trocar was removed and a blunt trocar replaced on the left-hand side as well AP and lateral fluoroscopy was then taken and confirmed to have good fill of the cement as well as good placement within the vertebral body. Lateral fluoroscopy was then used to remove the Jamshidi's there was no trailing of cement and no cement myelogram. The cement remained completely within the vertebral body. Final AP and lateral fluoroscopy shots were taken to confirm this. The wounds were then cleaned and they were closed with 3-0 nylon in a simple fashion. There then cleaned and dressed sterilely with Adaptic 4 x 4's and Tegaderm. The patient was transferred back to her hospital bed atraumatically. Patient was then awakened and extubated by the department of anesthesia having tolerated the procedure very well with no complications. She was transferred to the postoperative care unit in stable condition.
[2020-02-24 13:06] LABS: Glucose,Whole Blood 144 mg/dL (75-99)
[2020-02-24] MEDS: SULFAMETHOX-TMP 800-160MG 1 EACH TAB PO SCH ×2 (13:24→22:42)
[2020-02-24 17:12] LABS: Glucose,Whole Blood 185 mg/dL (75-99)
[2020-02-24] MEDS: IBUPROFEN 400 MG TAB PO PRN (17:26)
--- NOTE | 2020-02-24 19:25 | P.PN ---
Subjective Progress Note Date: 02/24/20 Principal diagnosis: Progressive cancer, falls, pathological fracture Patient is now status post kyphoplasty and biopsy. I have spoken to her and reviewed her MRI brain results. I did call son Chuck although no answer, message was left. Objective - Vital Signs Vital signs: Vital Signs Temp 97.1 F L 02/24/20 11:17 Pulse 82 02/24/20 15:47 Resp 16 02/24/20 15:47 BP 109/52 02/24/20 14:45 Pulse Ox 95 02/24/20 15:31 Intake & Output 02/24/20 02/24/20 02/25/20 06:59 18:59 06:59 Intake Total 856 Output Total 5 Balance 851 Weight 62.596 kg Intake: IV 856 Output: Estimated Blood Loss 5 Other: Voiding Method Toilet Toilet # Voids 1 2 - Exam - Constitutional General appearance: cooperative, no acute distress - EENT Eyes: EOMI, poor dentition ENT: NA/AT - Respiratory Respiratory: bilateral: diminished, rhonchi - Cardiovascular Rhythm: regular Heart sounds: normal: S1, S2 - Gastrointestinal General gastrointestinal: soft - Integumentary Integumentary: pale - Neurologic non focal - Musculoskeletal mobility greatly decreased after recent fall secondary to pathological vertebral fracture Musculoskeletal: generalized weakness - Psychiatric Psychiatric: A&O x's 3, appropriate affect, intact judgment & insight - Labs CBC & Chem 7: 02/23/20 04:32 02/22/20 13:59 Labs: Abnormal Lab Results - Last 24 Hours (Table) 02/22/20 02/23/20 02/24/20 Range/Units 13:59 20:37 02:20 POC Glucose (mg/dL) 162 H (75-99) mg/dL Methylmalonic Acid 0.63 H (<0.40) umol/L Urine Appearance Cloudy H (Clear) Urine Blood Moderate H (Negative) Ur Leukocyte Esterase Large H (Negative) Urine RBC 9 H (0-5) /hpf Urine WBC 169 H (0-5) /hpf Urine WBC Clumps Few H (None) /hpf Urine Bacteria Rare H (None) /hpf Urine Mucus Rare H (None) /hpf 02/24/20 02/24/20 02/24/20 Range/Units 07:17 11:29 13:05 POC Glucose (mg/dL) 124 H 146 H 144 H (75-99) mg/dL Methylmalonic Acid (<0.40) umol/L Urine Appearance (Clear) Urine Blood (Negative) Ur Leukocyte Esterase (Negative) Urine RBC (0-5) /hpf Urine WBC (0-5) /hpf Urine WBC Clumps (None) /hpf Urine Bacteria (None) /hpf Urine Mucus (None) /hpf 02/24/20 Range/Units 17:11 POC Glucose (mg/dL) 185 H (75-99) mg/dL Methylmalonic Acid (<0.40) umol/L Urine Appearance (Clear) Urine Blood (Negative) Ur Leukocyte Esterase (Negative) Urine RBC (0-5) /hpf Urine WBC (0-5) /hpf Urine WBC Clumps (None) /hpf Urine Bacteria (None) /hpf Urine Mucus (None) /hpf Microbiology - Last 24 Hours (Table) 02/24/20 02:20 Urine Culture - Preliminary Urine,Voided 02/17/20 23:14 Blood Culture - Final Blood No Growth after 144 hours Assessment and Plan (1) Non-small cell lung cancer (NSCLC) Narrative/Plan: - Details within HPI - Patient was deemed too high risk for Biopsy at time of new RUL mass, underwent definitive SBRT with Dr. Velasco - Now with metastatic disease to adrenal gland, Lumbar spine and Brain. Current Visit: Yes Status: Acute Code(s): C34.90 - MALIGNANT NEOPLASM OF UNSP PART OF UNSP BRONCHUS OR LUNG SNOMED Code(s): 956470706 (2) Brain metastases Narrative/Plan: - MRI today 02/22/20 - reveals evidence of metastatic disease to brain - Dexamethasone and PPI initiated - Will discuss further with Dr. Velasco regarding options of WBR Current Visit: Yes Status: Acute Code(s): C79.31 - SECONDARY MALIGNANT NEOPLASM OF BRAIN SNOMED Code(s): 70912645 (3) Normocytic anemia Narrative/Plan: Iron deficiency component, parental iron as outpatient Current Visit: Yes Status: Acute Code(s): D64.9 - ANEMIA, UNSPECIFIED SNOMED Code(s): 127253556 (4) Dependence on continuous supplemental oxygen Narrative/Plan: - Wears Home Oxygen - Pulmonary team following Current Visit: Yes Status: Acute Code(s): Z99.81 - DEPENDENCE ON SUPPLEMENTAL OXYGEN SNOMED Code(s): 59814196216549 (5) Pathological fracture of lumbar vertebra Narrative/Plan: -Status post procedure with ortho spine, and biopsy Current Visit: Yes Status: Acute Code(s): M84.48XA - PATHOLOGICAL FRACTURE, OTHER SITE, INIT ENCNTR FOR FRACTURE SNOMED Code(s): 439614260 (6) Multiple falls Current Visit: Yes Status: Acute Code(s): R29.6 - REPEATED FALLS SNOMED Code(s): 554600080 (7) Weakness Narrative/Plan: - Palliaitive care at discharge with PT/OT to assist in increasing performance status. Current Visit: Yes Status: Acute Code(s): R53.1 - WEAKNESS SNOMED Code(s): 45189766 (8) COPD (chronic obstructive pulmonary disease) Current Visit: No Status: Acute Code(s): J44.9 - CHRONIC OBSTRUCTIVE PULMONARY DISEASE, UNSPECIFIED SNOMED Code(s): 85635239 (9) Tobacco dependence Current Visit: No Status: Acute Code(s): F17.200 - NICOTINE DEPENDENCE, UNSPECIFIED, UNCOMPLICATED SNOMED Code(s): 36840517 Plan: PLan for Outpatient PET scan Decrease dexamethasone to 4mg po TID and PPI for now Will retry calling Son to update
[2020-02-24 19:46] LABS: Glucose,Whole Blood 157 mg/dL (75-99)
[2020-02-24] MEDS: DEXAMETHASONE SOD PHOSPHATE 4 MG/ML 1 ML VIAL IV SCH (22:42)
[2020-02-25] MEDS: LEVOTHYROXINE 88 MCG TAB PO SCH (05:42)
[2020-02-25 06:31] LABS: Basophils # (A) 0.1 k/uL (0-0.2); Basophils % (A) 0 %; Eosinophils # (A) 0.2 k/uL (0-0.7); Eosinophils % (A) 1 %; HCT 31.3 % (34.0-46.0); HGB 9.9 gm/dL (11.4-16.0); Hypochromasia Slight; Lymphocytes # (A) 0.5 k/uL (1.0-4.8); Lymphocytes % (A) 2 %; MCH 29.8 pg (25.0-35.0); MCHC 31.7 g/dL (31.0-37.0); MCV 93.9 fL (80.0-100.0); Mean Platelet Volume 7.7; Monocytes # (A) 0.3 k/uL (0-1.0); Monocytes % (A) 1 %; Neutrophils # (A) 18.5 k/uL (1.3-7.7); Neutrophils % (A) 95 %; Platelet Count 305 k/uL (150-450); RBC 3.33 m/uL (3.80-5.40); RDW 13.3 % (11.5-15.5); WBC 19.5 k/uL (3.8-10.6)
[2020-02-25 07:22] LABS: Glucose,Whole Blood 191 mg/dL (75-99)
[2020-02-25] MEDS: LORATADINE 10 MG TAB PO SCH (07:55)
[2020-02-25] MEDS: metFORMIN 500 MG TAB PO SCH ×2 (07:55→21:02)
[2020-02-25] MEDS: PANTOPRAZOLE 40 MG TABLET PO SCH ×2 (07:55→18:15)
[2020-02-25] MEDS: DULoxetine HCL 60 MG CAPSULE.DR PO SCH (07:55)
[2020-02-25] MEDS: INSULIN ASPART (NovoLOG) 100 UNIT/ML VIAL SQ SCH ×4 (07:56→21:03)
[2020-02-25] MEDS: ATORVASTATIN 40 MG TAB PO SCH (07:56)
[2020-02-25] MEDS: DEXAMETHASONE SOD PHOSPHATE 4 MG/ML 1 ML VIAL IV SCH (07:56)
[2020-02-25] MEDS: MULTIVITAMINS, THERA 1 EACH TAB PO SCH (07:56)
[2020-02-25] MEDS: DILTIAZEM CD 120 MG CAP.ER.24H PO SCH (07:57)
[2020-02-25] MEDS: SULFAMETHOX-TMP 800-160MG 1 EACH TAB PO SCH ×2 (07:57→21:31)
--- NOTE | 2020-02-25 08:30 | P.DS ---
Providers Date of admission: 02/21/20 15:03 Attending physician: Sung Puckett Consults: 02/18/20 06:59 Consult Physician Routine Consulting Provider: Aldo Bar Consult Reason/Comments: falls, LSfx Do you want consulting provider notified?: Yes 02/18/20 08:37 Consult Physician Routine Consulting Provider: Cyndie Almodovar Consult Reason/Comments: COPD Do you want consulting provider notified?: Yes 02/18/20 17:25 Consult Physician Routine Consulting Provider: Charles Velasco Consult Reason/Comments: lung nodules, possible new left adrenal nodule, possible pathological L2 fx Do you want consulting provider notified?: Yes 02/22/20 08:59 Consult Physician Routine Consulting Provider: Abdiel Grover Consult Reason/Comments: likely new metastatic lung ca Do you want consulting provider notified?: Yes Primary care physician: Sung Puckett - Discharge Diagnosis(es) (1) Compression fracture Current Visit: Yes Status: Acute (2) Lung mass Current Visit: Yes Status: Acute (3) Multiple falls Current Visit: Yes Status: Acute (4) Weakness Current Visit: Yes Status: Acute (5) COPD (chronic obstructive pulmonary disease) Current Visit: No Status: Acute (6) Diabetes mellitus Current Visit: No Status: Acute (7) History of colectomy Current Visit: No Status: Acute Hospital Course: This is a discharge summary 74-year-old white female essentially admitted for back pain and immobility. She hasn't underlying history of lung cancer which has possibly cause metastatic disease to her back which had an L2 fracture. She ended up having kyphoplasty which she did quite well with. We will appropriately get her on good pain control and discharge her to rehab. Patient Condition at Discharge: Stable Plan - Discharge Summary New Discharge Prescriptions: New Sulfamethox-Tmp 800-160Mg [Bactrim DS 800-160 mg] 1 each PO BID tab Ibuprofen [Motrin] 400 mg PO Q6HR PRN tab PRN Reason: Mild Pain Or Fever > 100.5 oxyCODONE HCL/ACETAMINOPHEN [oxyCODONE HCL/ACETAMINOPHEN 2.5-325] 1 tab PO Q6HR PRN #120 tab PRN Reason: Pain Pantoprazole [Protonix] 40 mg PO AC-BID tablet. Acetaminophen Tab [Tylenol] 650 mg PO Q6HR PRN tab PRN Reason: Mild Pain Or Fever > 100.5 Continue Ipratropium/Albuterol Sulfate [Combivent Respimat Inhaler] 1 puff INHALATION RT-TID PRN PRN Reason: Shortness Of Breath Levothyroxine Sodium [Synthroid] 88 mcg PO DAILY Budesonide [Pulmicort] 0.5 mg INHALATION RT-BID Furosemide [Lasix] 10 mg PO DAILY Diltiazem Cd [Cardizem CD] 120 mg PO DAILY Atorvastatin [Lipitor] 40 mg PO DAILY Ipratropium-Albuterol Nebulize [Duoneb 0.5 mg-3 mg/3 ml Soln] 3 ml INHALATION RT-TID PRN PRN Reason: Shortness Of Breath metFORMIN HCL 2,000 mg PO DAILY Famotidine 40 mg PO HS Cetirizine HCl [Zyrtec] 10 mg PO DAILY Tiotropium Br/Olodaterol HCl [Stiolto Respimat Inhal [place]] 1 spray INHALATION RT-DAILY Calcium Citrate/Vitamin D3 [Calcitrate + Vit D Caplet] 1 each PO DAILY Multivitamins, Thera [Multivitamin (formulary)] 1 tab PO DAILY metFORMIN HCL [Glucophage] 1,000 mg PO HS guaiFENesin [Mucinex] 1,200 mg PO Q12H PRN PRN Reason: seasonal allergies DULoxetine HCL [Cymbalta] 60 mg PO DAILY Albuterol Sulfate [Albuterol Sulfate Hfa] 1 - 2 puff INHALATION RT-Q4H PRN PRN Reason: Shortness Of Breath Acetaminophen [Tylenol Arthritis] 650 mg PO DAILY PRN PRN Reason: Pain ALPRAZolam [Xanax] 0.25 mg PO DAILY PRN #30 tab PRN Reason: Anxiety Discharge Medication List Ipratropium/Albuterol Sulfate [Combivent Respimat Inhaler] 1 puff INHALATION RT- TID PRN 07/28/16 [History] Levothyroxine Sodium [Synthroid] 88 mcg PO DAILY 07/28/16 [History] Budesonide [Pulmicort] 0.5 mg INHALATION RT-BID 10/09/16 [History] Furosemide [Lasix] 10 mg PO DAILY 12/02/16 [History] Atorvastatin [Lipitor] 40 mg PO DAILY 08/18/17 [History] Diltiazem Cd [Cardizem CD] 120 mg PO DAILY 08/18/17 [History] Ipratropium-Albuterol Nebulize [Duoneb 0.5 mg-3 mg/3 ml Soln] 3 ml INHALATION RT-TID PRN 09/18/17 [History] metFORMIN HCL 2,000 mg PO DAILY 09/25/17 [History] Calcium Citrate/Vitamin D3 [Calcitrate + Vit D Caplet] 1 each PO DAILY 10/28/18 [History] Cetirizine HCl [Zyrtec] 10 mg PO DAILY 10/28/18 [History] Famotidine 40 mg PO HS 10/28/18 [History] Tiotropium Br/Olodaterol HCl [Stiolto Respimat Inhal [place]] 1 spray INHALATION RT-DAILY 10/28/18 [History] Acetaminophen [Tylenol Arthritis] 650 mg PO DAILY PRN 02/17/20 [History] Albuterol Sulfate [Albuterol Sulfate Hfa] 1 - 2 puff INHALATION RT-Q4H PRN 02/17/20 [History] DULoxetine HCL [Cymbalta] 60 mg PO DAILY 02/17/20 [History] Multivitamins, Thera [Multivitamin (formulary)] 1 tab PO DAILY 02/17/20 [History] guaiFENesin [Mucinex] 1,200 mg PO Q12H PRN 02/17/20 [History] metFORMIN HCL [Glucophage] 1,000 mg PO HS 02/17/20 [History] ALPRAZolam [Xanax] 0.25 mg PO DAILY PRN #30 tab 02/25/20 [Rx] Acetaminophen Tab [Tylenol] 650 mg PO Q6HR PRN tab 02/25/20 [Rx] Ibuprofen [Motrin] 400 mg PO Q6HR PRN tab 02/25/20 [Rx] Pantoprazole [Protonix] 40 mg PO AC-BID tablet.dr 02/25/20 [Rx] Sulfamethox-Tmp 800-160Mg [Bactrim DS 800-160 mg] 1 each PO BID tab 02/25/20 [Rx] oxyCODONE HCL/ACETAMINOPHEN [oxyCODONE HCL/ACETAMINOPHEN 2.5-325] 1 tab PO Q6HR PRN #120 tab 02/25/20 [Rx] Follow up Appointment(s)/Referral(s): Sung Puckett MD [Primary Care Provider] - 1-2 days Chidi Rooney DO [REFERRING] - 1 Week [facility] [NON-STAFF] - As Needed (LSO back brace)
[2020-02-25] MEDS: BUDESONIDE 0.5 MG/2 ML NEBU INHALATION SCH ×2 (09:55→20:39)
[2020-02-25] MEDS: IPRATROPIUM 0.5 MG/2.5 ML NEBU INHALATION SCH ×4 (09:55→20:39)
[2020-02-25 09:58] LABS: African American GFR (CKD) 99.6 (60.0-200.0); Albumin 3.5 g/dL (3.80-4.90); Albumin/Globulin Ratio 1.94 (1.60-3.17); Anion Gap 7.8 mmol/L (4.00-12.00); Calcium 8.9 mg/dL (8.7-10.3); Carbon Dioxide 32.2 mmol/L (21.6-31.8); Globulin 1.8 g/dL (1.6-3.3); Potassium 4.9 mmol/L (3.5-5.5); Total Bilirubin 0.3 mg/dL (0.2-1.2); Total Protein 5.3 g/dL (6.2-8.2)
[2020-02-25] MEDS: IBUPROFEN 400 MG TAB PO PRN ×2 (11:13→21:31)
[2020-02-25 12:18] LABS: Glucose,Whole Blood 152 mg/dL (75-99)
--- NOTE | 2020-02-25 13:17 | P.PN ---
Subjective Progress Note Date: 02/25/20 Principal diagnosis: L2 VCF Multiple Thoracic VCF, chronic Hx of Lung CA Patient seen and examined she doing much better today states her pain is much better controlled she was up to the bathroom upon examination. Objective - Vital Signs Vital signs: Vital Signs Temp 98.4 F 02/25/20 02:20 Pulse 93 02/25/20 02:20 Resp 18 02/25/20 02:20 BP 135/67 02/25/20 02:20 Pulse Ox 95 02/25/20 02:20 Intake & Output 02/24/20 02/25/20 02/25/20 18:59 06:59 18:59 Intake Total 856 Output Total 5 Balance 851 Weight 62.596 kg Intake: IV 856 Output: Estimated Blood Loss 5 Other: Voiding Method Toilet Toilet Bedpan # Voids 2 3 - Exam GEN: AOX3, NAD VSS Palpation: Mild tenderness to palpation over the thoracolumbar region no tennis palpation over the thoracic or cervical region Motor: 5/5 shoulder abd/EF/EE/WF/intrinsics 5/5 DF/PF/EHL/FHL/HF/KE/KF Reflexes: 2/4 DTR all upper and LE Sensation intact to light touch in C5-T1 as well as L2-S1 distribution Jones's: Negative Bilaterally Clonus: Negative bilaterally Babinski: Negative bilaterally Cranial nerves II through XII grossly intact - Labs CBC & Chem 7: 02/25/20 06:01 02/25/20 06:01 Labs: Abnormal Lab Results - Last 24 Hours (Table) 02/22/20 02/24/20 02/24/20 Range/Units 13:59 11:29 13:05 WBC (3.8-10.6) k/uL RBC (3.80-5.40) m/uL Hgb (11.4-16.0) gm/dL Hct (34.0-46.0) % Neutrophils # (1.3-7.7) k/uL Lymphocytes # (1.0-4.8) k/uL POC Glucose (mg/dL) 146 H 144 H (75-99) mg/dL Methylmalonic Acid 0.63 H (<0.40) umol/L 12/10/20 12/10/20 12/11/20 Range/Units 17:11 19:45 06:01 WBC 19.5 H (3.8-10.6) k/uL RBC 3.33 L (3.80-5.40) m/uL Hgb 9.9 L (11.4-16.0) gm/dL Hct 31.3 L (34.0-46.0) % Neutrophils # 18.5 H (1.3-7.7) k/uL Lymphocytes # 0.5 L (1.0-4.8) k/uL POC Glucose (mg/dL) 185 H 157 H (75-99) mg/dL Methylmalonic Acid (<0.40) umol/L 02/25/20 Range/Units 07:20 WBC (3.8-10.6) k/uL RBC (3.80-5.40) m/uL Hgb (11.4-16.0) gm/dL Hct (34.0-46.0) % Neutrophils # (1.3-7.7) k/uL Lymphocytes # (1.0-4.8) k/uL POC Glucose (mg/dL) 191 H (75-99) mg/dL Methylmalonic Acid (<0.40) umol/L Microbiology - Last 24 Hours (Table) 02/24/20 02:20 Urine Culture - Preliminary Urine,Voided Assessment and Plan Assessment: 74-year-old female with low back pain postop day 1 L2 kyphoplasty doing well 1. T6 T8 T11 vertebral compression fractures, chronic 2. L2 vertebral compression fracture, acute 3. History of lung carcinoma 4. Complex medical patient Plan: -Ambulate when necessary 3 times a day -Pain control as needed -Brace when up and about -Follow up in office in 2 weeks.
--- NOTE | 2020-02-25 14:35 | P.PN ---
Subjective Progress Note Date: 02/25/20 Principal diagnosis: Progressive cancer, falls, pathological fracture Patient is status post kypho although at this time no malignancy, therefore further tissue sampling requiring. I have spoken to Dr. Velasco and will ask IR to biopsy adrenal gland.Brain metsnoted this admission continue on Dexamethasone with PPI at discharge. Objective - Vital Signs Vital signs: Vital Signs Temp 98.1 F 02/25/20 08:00 Pulse 92 02/25/20 10:05 Resp 20 02/25/20 08:00 BP 125/76 02/25/20 08:00 Pulse Ox 95 02/25/20 08:00 Intake & Output 02/24/20 02/25/20 02/25/20 18:59 06:59 18:59 Intake Total 856 354 Output Total 5 Balance 851 354 Weight 62.596 kg Intake: IV 856 Oral 354 Output: Estimated Blood Loss 5 Other: Voiding Method Toilet Toilet Toilet Bedpan Diaper Incontinent # Voids 2 3 2 # Bowel Movements 1 - Exam - Constitutional General appearance: cooperative, no acute distress - EENT Eyes: EOMI, poor dentition ENT: NA/AT - Respiratory Respiratory: bilateral: diminished, rhonchi - Cardiovascular Rhythm: regular Heart sounds: normal: S1, S2 - Gastrointestinal General gastrointestinal: soft - Integumentary Integumentary: pale - Neurologic non focal - Musculoskeletal mobility greatly decreased after recent fall secondary to pathological vertebral fracture Musculoskeletal: generalized weakness - Psychiatric Psychiatric: A&O x's 3, appropriate affect, intact judgment & insight - Labs CBC & Chem 7: 02/25/20 06:01 02/25/20 06:01 Labs: Abnormal Lab Results - Last 24 Hours (Table) 02/24/20 02/24/20 02/25/20 Range/Units 17:11 19:45 06:01 WBC 19.5 H (3.8-10.6) k/uL RBC 3.33 L (3.80-5.40) m/uL Hgb 9.9 L (11.4-16.0) gm/dL Hct 31.3 L (34.0-46.0) % Neutrophils # 18.5 H (1.3-7.7) k/uL Lymphocytes # 0.5 L (1.0-4.8) k/uL Chloride (96-109) mmol/L Carbon Dioxide (21.6-31.8) mmol/L Glucose (70-110) mg/dL POC Glucose (mg/dL) 185 H 157 H (75-99) mg/dL Total Protein (6.2-8.2) g/dL Albumin (3.80-4.90) g/dL 02/25/20 02/25/20 02/25/20 Range/Units 06:01 07:20 12:17 WBC (3.8-10.6) k/uL RBC (3.80-5.40) m/uL Hgb (11.4-16.0) gm/dL Hct (34.0-46.0) % Neutrophils # (1.3-7.7) k/uL Lymphocytes # (1.0-4.8) k/uL Chloride 95 L (96-109) mmol/L Carbon Dioxide 32.2 H (21.6-31.8) mmol/L Glucose 190 H (70-110) mg/dL POC Glucose (mg/dL) 191 H 152 H (75-99) mg/dL Total Protein 5.3 L (6.2-8.2) g/dL Albumin 3.50 L (3.80-4.90) g/dL Microbiology - Last 24 Hours (Table) 02/24/20 02:20 Urine Culture - Final Urine,Voided Assessment and Plan (1) Non-small cell lung cancer (NSCLC) Narrative/Plan: - Details within HPI - Patient was deemed too high risk for Biopsy at time of new RUL mass, underwent definitive SBRT with Dr. Velasco - Now with metastatic disease to adrenal gland, Lumbar spine and Brain. Current Visit: Yes Status: Acute Code(s): C34.90 - MALIGNANT NEOPLASM OF UNSP PART OF UNSP BRONCHUS OR LUNG SNOMED Code(s): 124484976 (2) Brain metastases Narrative/Plan: - MRI today 02/22/20 - reveals evidence of metastatic disease to brain - Dexamethasone and PPI initiated - Will discuss further with Dr. Velasco regarding options of WBR Current Visit: Yes Status: Acute Code(s): C79.31 - SECONDARY MALIGNANT NEOPLASM OF BRAIN SNOMED Code(s): 38775357 (3) Normocytic anemia Narrative/Plan: Iron deficiency component, parental iron as outpatient Current Visit: Yes Status: Acute Code(s): D64.9 - ANEMIA, UNSPECIFIED SNOMED Code(s): 648180149 (4) Dependence on continuous supplemental oxygen Current Visit: Yes Status: Acute Code(s): Z99.81 - DEPENDENCE ON SUPPLEMENTAL OXYGEN SNOMED Code(s): 52882898302744 (5) Pathological fracture of lumbar vertebra Narrative/Plan: Status Posy Kyphoplasty Current Visit: Yes Status: Acute Code(s): M84.48XA - PATHOLOGICAL FRACTURE, OTHER SITE, INIT ENCNTR FOR FRACTURE SNOMED Code(s): 184696294 (6) Multiple falls Current Visit: Yes Status: Acute Code(s): R29.6 - REPEATED FALLS SNOMED Code(s): 820012225 (7) Weakness Narrative/Plan: - Palliaitive care at discharge with PT/OT to assist in increasing performance status. Current Visit: Yes Status: Acute Code(s): R53.1 - WEAKNESS SNOMED Code(s): 96193419 (8) COPD (chronic obstructive pulmonary disease) Current Visit: No Status: Acute Code(s): J44.9 - CHRONIC OBSTRUCTIVE PULMONARY DISEASE, UNSPECIFIED SNOMED Code(s): 13211883 (9) Tobacco dependence Current Visit: No Status: Acute Code(s): F17.200 - NICOTINE DEPENDENCE, UNSPECIFIED, UNCOMPLICATED SNOMED Code(s): 33062668 Plan: PLan for Outpatient PET scan Decrease dexamethasone to 4mg po TID and PPI for now IR to biopsy adrenal mass
[2020-02-25] MEDS: dexAMETHasone 4 MG TAB PO SCH ×2 (16:51→21:31)
[2020-02-25 17:49] LABS: Glucose,Whole Blood 137 mg/dL (75-99)
[2020-02-25] MEDS: IPRATROPIUM-ALBUTEROL 3 ML NEB INHALATION PRN (20:39)
[2020-02-25 20:53] LABS: Glucose,Whole Blood 195 mg/dL (75-99)
[2020-02-26] MEDS: LEVOTHYROXINE 88 MCG TAB PO SCH (06:09)
[2020-02-26] MEDS: IPRATROPIUM 0.5 MG/2.5 ML NEBU INHALATION SCH ×2 (07:35→11:41)
[2020-02-26] MEDS: BUDESONIDE 0.5 MG/2 ML NEBU INHALATION SCH (07:35)
[2020-02-26 08:04] LABS: Glucose,Whole Blood 176 mg/dL (75-99)
--- NOTE | 2020-02-26 08:32 | P.PN ---
Subjective Progress Note Date: 02/25/20 Principal diagnosis: L2 compression fracture, pain Patient is POD 1 after kyphoplasty. She states she is feeling better - improvement in lower back pain. She states she has been able to ambulate on a walker with assist. Her biopsy performed at the time of Kypho did reveal benign bone consistent with fracture. Objective - Vital Signs Vital signs: Vital Signs Temp 98.1 F 02/26/20 02:00 Pulse 100 02/26/20 07:36 Resp 18 02/26/20 02:00 BP 137/62 02/26/20 02:00 Pulse Ox 96 02/26/20 02:00 Intake & Output 02/25/20 02/26/20 02/26/20 18:59 06:59 18:59 Intake Total 0524 266 Balance 2474 266 Intake: Oral 3344 266 Other: Voiding Method Toilet Toilet Diaper Diaper Incontinent Incontinent # Voids 4 3 # Bowel Movements 1 1 - Constitutional General appearance: Present: no acute distress - EENT Eyes: Present: EOMI, PERRLA - Neck Neck: Absent: lymphadenopathy - Respiratory Respiratory: bilateral: CTA - Cardiovascular Rhythm: regular - Gastrointestinal General gastrointestinal: Absent: distended, tenderness - Integumentary Integumentary: Absent: cellulitis - Neurologic Neurologic: Present: CNII-XII intact - Musculoskeletal Musculoskeletal: Present: generalized weakness - Psychiatric Psychiatric: Present: appropriate affect - Labs CBC & Chem 7: 02/25/20 06:01 02/25/20 06:01 Labs: Abnormal Lab Results - Last 24 Hours (Table) 02/25/20 02/25/20 02/25/20 Range/Units 06:01 12:17 17:48 Chloride 95 L (96-109) mmol/L Carbon Dioxide 32.2 H (21.6-31.8) mmol/L Glucose 190 H (70-110) mg/dL POC Glucose (mg/dL) 152 H 137 H (75-99) mg/dL Total Protein 5.3 L (6.2-8.2) g/dL Albumin 3.50 L (3.80-4.90) g/dL 02/25/20 02/26/20 Range/Units 20:50 07:58 Chloride (96-109) mmol/L Carbon Dioxide (21.6-31.8) mmol/L Glucose (70-110) mg/dL POC Glucose (mg/dL) 195 H 176 H (75-99) mg/dL Total Protein (6.2-8.2) g/dL Albumin (3.80-4.90) g/dL Microbiology - Last 24 Hours (Table) 02/24/20 02:20 Urine Culture - Final Urine,Voided Assessment and Plan Assessment: 74 year old female with a history of O2 dependent COPD. Underwent SBRT in 12/2019 for what was believed to be a Stage IA right upper lobe malignancy (b iopsy felt too risky). She now presents with a compression fracture at L2, and evidence of likely left adrenal metastases as well as a couple of small brain lesions. 1. L2 compression fracture: S/p Kypho - improved pain per patient. Pathology negative - possible this was not a pathologic fracture. Patient has a history of compression fractures in T-spine which are chronic. 2. History of likely non-small cell lung ca - Unfortunately now evidence of 2-3 small brain lesions (no significant edema), concerning adrenal area as well. Recommend IR guided biopsy of adrenal lesion to establish malignancy. Outpatient PET-CT also would be recommended to complete work-up. Patient would be candidate for radiosurgery to brain lesions, but will need to discuss with family in more detail their goals and expectations. Can follow-up as outpatient. Unsure how long patient will be undergoing rehab for. Time with Patient: Less than 30
[2020-02-26] MEDS: ATORVASTATIN 40 MG TAB PO SCH (09:05)
[2020-02-26] MEDS: metFORMIN 500 MG TAB PO SCH (09:05)
[2020-02-26] MEDS: LORATADINE 10 MG TAB PO SCH (09:05)
[2020-02-26] MEDS: MULTIVITAMINS, THERA 1 EACH TAB PO SCH (09:05)
[2020-02-26] MEDS: PANTOPRAZOLE 40 MG TABLET PO SCH (09:06)
[2020-02-26] MEDS: dexAMETHasone 4 MG TAB PO SCH (09:06)
[2020-02-26] MEDS: INSULIN ASPART (NovoLOG) 100 UNIT/ML VIAL SQ SCH ×2 (09:06→13:07)
[2020-02-26] MEDS: DULoxetine HCL 60 MG CAPSULE.DR PO SCH (09:06)
[2020-02-26] MEDS: SULFAMETHOX-TMP 800-160MG 1 EACH TAB PO SCH (09:07)
[2020-02-26] MEDS: DILTIAZEM CD 120 MG CAP.ER.24H PO SCH (09:07)
[2020-02-26 09:51] VITALS: BP 137/65; RESP 17; TEMP 97.8
--- NOTE | 2020-02-26 09:51 | P.PN ---
Subjective Progress Note Date: 02/26/20 Principal diagnosis: L2 VCF Multiple Thoracic VCF, chronic Hx of Lung CA Patient seen and examined this morning no issues. She has been up and about. States her back feels much better. She has no peroneal numbness or tingling no weakness and no other symptoms at this time. Objective - Vital Signs Vital signs: Vital Signs Temp 97.8 F 02/26/20 08:00 Pulse 103 H 02/26/20 08:00 Resp 17 02/26/20 08:00 BP 137/65 02/26/20 08:00 Pulse Ox 97 02/26/20 08:00 Intake & Output 02/25/20 02/26/20 02/26/20 18:59 06:59 18:59 Intake Total 2874 266 Balance 7194 266 Intake: Oral 8556 557 Other: Voiding Method Toilet Toilet Diaper Diaper Incontinent Incontinent # Voids 4 3 # Bowel Movements 1 1 - Exam GEN: AOX3, NAD VSS Palpation: Mild tenderness to palpation over the thoracolumbar region no tennis palpation over the thoracic or cervical region Motor: 5/5 shoulder abd/EF/EE/WF/intrinsics 5/5 DF/PF/EHL/FHL/HF/KE/KF Reflexes: 2/4 DTR all upper and LE Sensation intact to light touch in C5-T1 as well as L2-S1 distribution Jones's: Negative Bilaterally Clonus: Negative bilaterally Babinski: Negative bilaterally Cranial nerves II through XII grossly intact - Labs CBC & Chem 7: 02/25/20 06:01 02/25/20 06:01 Labs: Abnormal Lab Results - Last 24 Hours (Table) 02/25/20 02/25/20 02/25/20 Range/Units 06:01 12:17 17:48 Chloride 95 L (96-109) mmol/L Carbon Dioxide 32.2 H (21.6-31.8) mmol/L Glucose 190 H (70-110) mg/dL POC Glucose (mg/dL) 152 H 137 H (75-99) mg/dL Total Protein 5.3 L (6.2-8.2) g/dL Albumin 3.50 L (3.80-4.90) g/dL 02/25/20 02/26/20 Range/Units 20:50 07:58 Chloride (96-109) mmol/L Carbon Dioxide (21.6-31.8) mmol/L Glucose (70-110) mg/dL POC Glucose (mg/dL) 195 H 176 H (75-99) mg/dL Total Protein (6.2-8.2) g/dL Albumin (3.80-4.90) g/dL Microbiology - Last 24 Hours (Table) 02/24/20 02:20 Urine Culture - Final Urine,Voided Assessment and Plan Assessment: 74-year-old female with low back pain postop day 2 L2 kyphoplasty doing well 1. T6 T8 T11 vertebral compression fractures, chronic 2. L2 vertebral compression fracture, acute 3. History of lung carcinoma 4. Complex medical patient Plan: -Ambulate when necessary 3 times a day -Pain control as needed -Brace when up and about -Follow up in office in 2 weeks.
[2020-02-26 11:31] LABS: Glucose,Whole Blood 215 mg/dL (75-99)
[2020-02-26 11:53] VITALS: PULSE 100
--- NOTE | 2020-02-26 12:07 | P.DS ---
Providers Date of admission: 02/21/20 15:03 Expected date of discharge: 02/26/20 Attending physician: Sung Puckett Consults: 02/18/20 06:59 Consult Physician Routine Consulting Provider: Aldo Bar Consult Reason/Comments: falls, LSfx Do you want consulting provider notified?: Yes 02/18/20 08:37 Consult Physician Routine Consulting Provider: Cyndie Almodovar Consult Reason/Comments: COPD Do you want consulting provider notified?: Yes 02/18/20 17:25 Consult Physician Routine Consulting Provider: Charles Velasco Consult Reason/Comments: lung nodules, possible new left adrenal nodule, possible pathological L2 fx Do you want consulting provider notified?: Yes 02/22/20 08:59 Consult Physician Routine Consulting Provider: Abdiel Grover Consult Reason/Comments: likely new metastatic lung ca Do you want consulting provider notified?: Yes Primary care physician: Sung Puckett [facility] Course: Final diagnosis L2 compression fracture Lung mass, non-small cell lung cancer 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 Patient will follow-up with Dr. Puckett in the outpatient setting upon discharge. Patient is to continue with Dexamethasone 4 mg twice daily for the next one week then 4 mg daily for 1 week, then discontinue. Patient will follow-up with orthopedic surgery along with radiation oncology and oncology in the outpatient setting. Patient will not be receiving any treatment during ECF stay and patient is aware of this and agrees with this. Total time taken is greater than 35 minutes. History of present illness This is a 74-year-old female who was recently admitted with back pain and immobility and has an L2 compression fracture and was seen and evaluated by orthopedic surgery and underwent kyphoplasty. Patient was seen and evaluated by multiple medical consultations including oncology and radiation oncology along with orthopedic surgery during hospitalization. Patient will continue to monitor blood sugars before meals at bedtime. Patient does wear oxygen in the outpatient setting and will continue at this time. Patient is instructed to wear back brace while up and out of the bed into obese to be out of the bed 3 times daily as tolerated. Patient is following oncology and radiation oncology in the outpatient setting and will follow-up with them once discharged from rehab. Patient continues to have multiple falls with gait dysfunction weakness and was seen and evaluated by physical therapy recommending subacute rehab for strength and mobility. She [facility] be [facility] to [facility] today for continued PT/OT therapy. Currently no reports of chest pain, shortness of breath, or palpita tions. Patient is afebrile. No reports of nausea or vomiting and patient is tolerating diet. Patient will be going to [facility] today. On exam vital signs are stable. Temp is 97.8F, pulse is 103, respirations are 17, blood pressure is 137/65, oxygen saturation is 97% on 2-3 L via nasal cannula. Cardio S1, S2 are muffled. Respiratory system shows diminished breath sounds at the bases with no wheezing or rhonchi noted. Abdomen is soft and nontender. Nervous system shows diffuse weakness. Please refer to medication reconciliation sheet for a list of medications. Patient Condition at Discharge: Stable Plan - Discharge Summary New Discharge Prescriptions: New Sulfamethox-Tmp 800-160Mg [Bactrim DS 800-160 mg] 1 each PO BID tab Ibuprofen [Motrin] 400 mg PO Q6HR PRN tab PRN Reason: Mild Pain Or Fever > 100.5 oxyCODONE HCL/ACETAMINOPHEN [oxyCODONE HCL/ACETAMINOPHEN 2.5-325] 1 tab PO Q6HR PRN #120 tab PRN Reason: Pain Pantoprazole [Protonix] 40 mg PO AC-BID tablet. Acetaminophen Tab [Tylenol] 650 mg PO Q6HR PRN tab PRN Reason: Mild Pain Or Fever > 100.5 Pantoprazole Sodium [Protonix] 40 mg PO BID #60 tablet. dexAMETHasone [Hexadrol] 4 mg PO BID tab Continue Ipratropium/Albuterol Sulfate [Combivent Respimat Inhaler] 1 puff INHALATION RT-TID PRN PRN Reason: Shortness Of Breath Levothyroxine Sodium [Synthroid] 88 mcg PO DAILY Budesonide [Pulmicort] 0.5 mg INHALATION RT-BID Furosemide [Lasix] 10 mg PO DAILY Diltiazem Cd [Cardizem CD] 120 mg PO DAILY Atorvastatin [Lipitor] 40 mg PO DAILY Ipratropium-Albuterol Nebulize [Duoneb 0.5 mg-3 mg/3 ml Soln] 3 ml INHALATION RT-TID PRN PRN Reason: Shortness Of Breath metFORMIN HCL 2,000 mg PO DAILY Famotidine 40 mg PO HS Cetirizine HCl [Zyrtec] 10 mg PO DAILY Tiotropium Br/Olodaterol HCl [Stiolto Respimat Inhal [place]] 1 spray INHAL ATION RT-DAILY Calcium Citrate/Vitamin D3 [Calcitrate + Vit D Caplet] 1 each PO DAILY Multivitamins, Thera [Multivitamin (formulary)] 1 tab PO DAILY metFORMIN HCL [Glucophage] 1,000 mg PO HS guaiFENesin [Mucinex] 1,200 mg PO Q12H PRN PRN Reason: seasonal allergies DULoxetine HCL [Cymbalta] 60 mg PO DAILY Albuterol Sulfate [Albuterol Sulfate Hfa] 1 - 2 puff INHALATION RT-Q4H PRN PRN Reason: Shortness Of Breath Acetaminophen [Tylenol Arthritis] 650 mg PO DAILY PRN PRN Reason: Pain ALPRAZolam [Xanax] 0.25 mg PO DAILY PRN #30 tab PRN Reason: Anxiety Discharge Medication List Ipratropium/Albuterol Sulfate [Combivent Respimat Inhaler] 1 puff INHALATION RT- TID PRN 07/28/16 [History] Levothyroxine Sodium [Synthroid] 88 mcg PO DAILY 07/28/16 [History] Budesonide [Pulmicort] 0.5 mg INHALATION RT-BID 10/09/16 [History] Furosemide [Lasix] 10 mg PO DAILY 12/02/16 [History] Atorvastatin [Lipitor] 40 mg PO DAILY 08/18/17 [History] Diltiazem Cd [Cardizem CD] 120 mg PO DAILY 08/18/17 [History] Ipratropium-Albuterol Nebulize [Duoneb 0.5 mg-3 mg/3 ml Soln] 3 ml INHALATION RT-TID PRN 09/18/17 [History] metFORMIN HCL 2,000 mg PO DAILY 09/25/17 [History] Calcium Citrate/Vitamin D3 [Calcitrate + Vit D Caplet] 1 each PO DAILY 10/28/18 [History] Cetirizine HCl [Zyrtec] 10 mg PO DAILY 10/28/18 [History] Famotidine 40 mg PO HS 10/28/18 [History] Tiotropium Br/Olodaterol HCl [Stiolto Respimat Inhal [place]] 1 spray INHALATION RT-DAILY 10/28/18 [History] Acetaminophen [Tylenol Arthritis] 650 mg PO DAILY PRN 02/17/20 [History] Albuterol Sulfate [Albuterol Sulfate Hfa] 1 - 2 puff INHALATION RT-Q4H PRN 02/17/20 [History] DULoxetine HCL [Cymbalta] 60 mg PO DAILY 02/17/20 [History] Multivitamins, Thera [Multivitamin (formulary)] 1 tab PO DAILY 02/17/20 [History] guaiFENesin [Mucinex] 1,200 mg PO Q12H PRN 02/17/20 [History] metFORMIN HCL [Glucophage] 1,000 mg PO HS 02/17/20 [History] ALPRAZolam [Xanax] 0.25 mg PO DAILY PRN #30 tab 02/25/20 [Rx] Acetaminophen Tab [Tylenol] 650 mg PO Q6HR PRN tab 02/25/20 [Rx] Ibuprofen [Motrin] 400 mg PO Q6HR PRN tab 02/25/20 [Rx] Pantoprazole Sodium [Protonix] 40 mg PO BID #60 tablet. 02/25/20 [Rx] Pantoprazole [Protonix] 40 mg PO AC-BID tablet. 02/25/20 [Rx] Sulfamethox-Tmp 800-160Mg [Bactrim DS 800-160 mg] 1 each PO BID tab 02/25/20 [Rx] oxyCODONE HCL/ACETAMINOPHEN [oxyCODONE HCL/ACETAMINOPHEN 2.5-325] 1 tab PO Q6HR PRN #120 tab 02/25/20 [Rx] dexAMETHasone [Hexadrol] 4 mg PO BID tab 02/26/20 [Rx] Follow up Appointment(s)/Referral(s): Abdiel Grover MD [STAFF PHYSICIAN] - 03/08/20 4:00 am Sung Puckett MD [Primary Care Provider] - 1-2 days (office is closed today please have patient schedule own appt.) Charles Velasco MD [STAFF PHYSICIAN] - 3 Days Jacob Li [NON-STAFF] - As Needed (LSO back brace) Patient Instructions/Handouts: Oxycodone/Acetaminophen (By mouth), Alprazolam (By mouth), Vertebral Compression Fracture (DC), Fall Prevention for Older Adults (DC), COPD (Chronic Obstructive Pulmonary Disease) (DC), Weakness (DC) Activity/Diet/Wound Care/Special Instructions: Patient is going to [facility] [employer] Activity as tolerated Continue current diet Continue to monitor blood sugars before meals at bedtime Per orthopedic surgery ambulate when necessary and 3 times a day Wear a brace when up and about Follow-up with orthopedic surgery in the outpatient setting Follow-up with radiation oncology in the outpatient setting Continue with Decadron taper per radiation oncology for milligrams twice daily for 1 week, then 4 mg daily for 1 week, then stop Discharge Disposition: TRANSFER TO SNF/ECF
== END 2020-02-26 13:45 | DRG 478 ==
LOC: EC 21:38 → 5NMEDONC 02-18 00:56 → OBSVTOIN 02-21 15:03
PROVIDERS: ADMIT Family Medicine; ATTEND Family Medicine
PROC: 0QB00ZX Excision of Lumbar Vertebra, Open Approach, Diagnostic (ICD-10-PCS; principal; 2020-02-24 09:30)
PROC: 0QU03JZ Supplement Lumbar Vertebra with Synthetic Substitute, Percutaneous Approach (ICD-10-PCS; principal; 2020-02-24 09:30)
PROC: 0QS03ZZ Reposition Lumbar Vertebra, Percutaneous Approach (ICD-10-PCS; principal; 2020-02-24 09:30)
DX: S32.020A Wedge compression fracture of second lumbar vertebra, initial encounter for closed fracture (principal); M48.56XA Collapsed vertebra, not elsewhere classified, lumbar region, initial encounter for fracture; C79.31 Secondary malignant neoplasm of brain; C79.72 Secondary malignant neoplasm of left adrenal gland; J44.1 Chronic obstructive pulmonary disease with (acute) exacerbation; J96.11 Chronic respiratory failure with hypoxia; E87.1 Hypo-osmolality and hyponatremia; C34.90 Malignant neoplasm of unspecified part of unspecified bronchus or lung; E03.9 Hypothyroidism, unspecified; E11.9 Type 2 diabetes mellitus without complications; Z20.828 Contact with and (suspected) exposure to other viral communicable diseases; E66.9 Obesity, unspecified; E78.5 Hyperlipidemia, unspecified; F17.200 Nicotine dependence, unspecified, uncomplicated; F41.9 Anxiety disorder, unspecified; I10 Essential (primary) hypertension; R29.6 Repeated falls; J30.2 Other seasonal allergic rhinitis; M19.90 Unspecified osteoarthritis, unspecified site; M41.9 Scoliosis, unspecified; D64.9 Anemia, unspecified; W01.0XXA Fall on same level from slipping, tripping and stumbling without subsequent striking against object, initial encounter; Z68.21 Body mass index [BMI] 21.0-21.9, adult; Z79.899 Other long term (current) drug therapy; Z79.84 Long term (current) use of oral hypoglycemic drugs; Z79.51 Long term (current) use of inhaled steroids; Z79.890 Hormone replacement therapy; Z80.0 Family history of malignant neoplasm of digestive organs; Z88.8 Allergy status to other drugs, medicaments and biological substances; Z88.1 Allergy status to other antibiotic agents; Z90.49 Acquired absence of other specified parts of digestive tract; Z90.89 Acquired absence of other organs; Z98.42 Cataract extraction status, left eye; Z98.41 Cataract extraction status, right eye; Z90.710 Acquired absence of both cervix and uterus; Z92.3 Personal history of irradiation; Z91.81 History of falling; Z99.81 Dependence on supplemental oxygen; Z82.1 Family history of blindness and visual loss; Z80.1 Family history of malignant neoplasm of trachea, bronchus and lung
CPT/HCPCS: 36415; 70553; 71045; 72020; 72100; 72128; 72131; 72156; 72157; 72158; 80048; 80053; 81001; 82607; 82728; 82746; 83540; 83550; 83605; 83615; 83735; 83921; 84145; 84484; 85025; 85045; 85610; 85730; 87040; 87086; 87635; 88307; 88311; 93005; 94640; 94760; 96361; 96372; 96374; 96375; 96376; 99285

== ENCOUNTER → 2020-02-17 | Outpatient (CLI) | payer MEDICARE ==
--- NOTE | 2020-02-17 13:23 | CT ---
EXAMINATION TYPE: CT chest wo con DATE OF EXAM: 02/17/2020 COMPARISON: Chest CT October 27, 2019 and older CTs. Prior PET/CT March 19, 2019 HISTORY: LUNG CANCER CT DLP: 325.8 mGycm. Automated Exposure Control for Dose Reduction was Utilized. TECHNIQUE: CT scan of the thorax is performed without IV contrast. FINDINGS: LUNGS: Background moderate underlying emphysematous changes redemonstrated. Scarlike opacity in the a nterior right upper lung despite lack of hypermetabolic uptake measures 2.6 x 1.7 cm axial image 17 s table from most recent CT, enlarged from older studies. Stable 6 mm right middle lobe nodule axial im age 38 from several prior studies. Stable calcified 10 mm granuloma in the lingula axial image 35. St able calcified pleural plaques in the periphery of the left lung. [id number] scattered pulmonar y fibrotic changes. No new noncalcified nodules or masses. No pleural effusion or pneumothorax. MEDIASTINUM: Lack of IV contrast is noted to limit evaluation for mediastinal and especially hilar a denopathy. There are no definitive greater than 1 cm hilar or mediastinal lymph nodes. No cardiomeg negro or pericardial effusion is seen. Moderate to severe three-vessel coronary calcification. OTHER: Dependent calcified gallstone in gallbladder. Liver is low density consistent with diffuse fat ty infiltration. New Left adrenal mass measuring 4.0 x 2.3 cm. Osseous structures are demineralized. Severe compression type fracture deformity T8 level redemonstrated. Moderate to severe chronic compre ssion type fracture deformity T6 level stable. Stable mild/moderate chronic compression fracture defo rmity T11 level. Acute/subacute fracture L2 level is new from prior study. Slight posterior retropuls ion 3 to 4 mm noted. There is 2 to 3 mm nonobstructing calculus right kidney midpole level coronal im age 72. IMPRESSION: 1. Spiculated right upper lung nodule stable from most recent CT but new or enlarged from older studi es. New Left adrenal mass. Neoplasm now strongly suspected. 2. Interval acute/subacute compression type fracture through the L2 vertebra. Demineralization with a dditional multilevel chronic compression fractures redemonstrated.
== END | disposition home or self-care (01) ==
LOC: RADCTMAIN 11:51
PROVIDERS: ATTEND Radiology Radiation Oncology
DX: E27.9 Disorder of adrenal gland, unspecified (principal); C34.11 Malignant neoplasm of upper lobe, right bronchus or lung; Z87.891 Personal history of nicotine dependence
CPT/HCPCS: 71250

== ENCOUNTER 2020-03-13 15:31 | Inpatient (IN) | payer MEDICARE ==
[2020-03-13] MEDS ORDERED: MORPHINE SULFATE 4 MG/ML SYRINGE IV STA ×2 (16:11→18:38)
[2020-03-13] MEDS ORDERED: SODIUM CHLORIDE 0.9% 500 ML 500 ML IV STA (16:11)
--- NOTE | 2020-03-13 16:16 | ED ---
General Adult HPI - General Chief complaint: Shortness of Breath Stated complaint: Altered Time Seen by Provider: 03/13/20 15:39 Source: patient, EMS Mode of arrival: EMS Limitations: no limitations - History of Present Illness Initial comments: Dictation was produced using [employer] dictation software. please excuse any grammatical, word or spelling errors. This patient was cared for during a federal and state declared state of emergency secondary to Covid 19 Chief Complaint: 74-year-old male past medical history of asthma, COPD, felicia betes, dyslipidemia and thyroid disease presents with total body pain for the last 3 weeks. History of Present Illness: 74-year-old female she was sent here from [facility] [place]. Patient has multiple comorbidities. Patient states she's here in emergency room for 3 weeks of total body pain. When asked what her main pain as she states that it's her abdomen. States that her abdomen hurts diffusely. She is also complaining of some mild weakness. Denies any fever, chills or night sweats. She also complains of pain to her chest back lower back and legs. Case is briefly discussed with family who report that patient is has special code instructions. They are agreeable for CPR but no intubation. Chart review shows that patient has history of lung carcinoma. He is recently admitted to the hospital earlier this month for generalized weakness, gait instability and chronic pain. She is [facility] here for continued rehabilitation. Patient has history of chronic pain. She is requesting pain medications. She is prescribed Percocet. The ROS documented in this emergency department record has been reviewed and confirmed by me. Those systems with pertinent positive or negative responses have been documented in the HPI. All other systems are other negative and/or noncontributory. PHYSICAL EXAM: General Impression: Alert and oriented x3, not in acute distress HEENT: Normocephalic atraumatic, extra-ocular movements intact, pupils equal and reactive to light bilaterally, mucous membranes moist. Cardiovascular: Heart regular rate and rhythm Chest: Able to complete full sentences, no retractions, no tachypnea Abdomen: abdomen soft, vague diffuse abdominal pain, with midline infraumbilical vertical scar, negative Medeiros sign, no tenderness at McBurney's point non- distended, no organomegaly Musculoskeletal: Pulses present and equal in all extremities, no peripheral edema Motor: no focal deficits noted Neurological: CN II-XII grossly intact, no focal motor or sensory deficits noted Skin: Intact with no visualized rashes Psych: Normal affect and mood ED course: 74-year-old male presents with chief complaint of total body pain. Signs upon arrival shows heart rate of 106, respiratory of 26, rest of vital signs within acceptable limits. EKG interpretation: Ventricular rate 106, sinus tachycardia,. 136, QRS 112, QTc 435, right bundle branch block. No NE prolongation, no QTC prolongation, no ST or T-wave changes noted. EKG compared to 02/17/2020 showing no changes. Overall, this EKG is unremarkable Limited evaluation obtained. Patient is leukocytosis of 45.5. This is significantly elevated from patient's usual baseline. Coag panel is unremarkable. Metabolic panel shows sodium 1:30, BUN of 40 with a creatinine of 0.79. Sightly reflects significant dehydration. Magnesium is 1.4. Liver markers mildly elevated. CRP is 588, urinalysis is negative. Acute abdominal series with chest x-ray shows worsening interstitial pulmonary infiltrate, mild ileus. At this point given her elevated CRP and increase in the BB seek out there is some concern of bacterial infection. Case is discussed with Dr. Villalba. Dr. Villalba requests that we contact Dr. Puckett for hospital admission. Dr. Puckett is not accepting patients at the moment. [facility] is covering Dr. Puckett. Patient will be admitted to EMS. Infectious disease will be consulted. - Related Data Home Medications Medication Instructions Recorded Confirmed Ipratropium/Albuterol Sulfate 1 puff INHALATION RT-Q8H PRN 07/28/16 03/13/20 [Combivent Respimat Inhaler] Levothyroxine Sodium [Synthroid] 88 mcg PO DAILY 07/28/16 03/13/20 Budesonide [Pulmicort] 0.5 mg INHALATION RT-BID 10/09/16 03/13/20 Furosemide [Lasix] 10 mg PO DAILY 12/02/16 03/13/20 Atorvastatin [Lipitor] 40 mg PO DAILY 08/18/17 03/13/20 Diltiazem Cd [Cardizem CD] 120 mg PO DAILY 08/18/17 03/13/20 Ipratropium-Albuterol Nebulize 3 ml INHALATION RT-TID PRN 09/18/17 03/13/20 [Duoneb 0.5 mg-3 mg/3 ml Soln] metFORMIN HCL 2,000 mg PO DAILY 09/25/17 03/13/20 Calcium Citrate/Vitamin D3 1 tab PO DAILY 10/28/18 03/13/20 [Calcitrate + Vit D Caplet] Cetirizine HCl [Zyrtec] 10 mg PO DAILY 10/28/18 03/13/20 Famotidine 40 mg PO HS 10/28/18 03/13/20 Tiotropium Br/Olodaterol HCl 1 spray INHALATION RT-DAILY 10/28/18 03/13/20 [Stiolto Respimat Inhal [place]] Acetaminophen [Tylenol Arthritis] 650 mg PO Q6H PRN 02/17/20 03/13/20 Albuterol Sulfate [Albuterol 1 - 2 puff INHALATION RT-Q4H PRN 02/17/20 03/13/20 Sulfate Hfa] DULoxetine HCL [Cymbalta] 60 mg PO DAILY 02/17/20 03/13/20 guaiFENesin [Mucinex] 1,200 mg PO Q12H 02/17/20 03/13/20 metFORMIN HCL [Glucophage] 1,000 mg PO HS 02/17/20 03/13/20 Multivitamins, Thera [Multivitamin 1 tab PO DAILY 03/13/20 03/13/20 (formulary)] Previous Rx's Medication Instructions Recorded Ibuprofen [Motrin] 400 mg PO Q6HR PRN tab 02/25/20 Pantoprazole Sodium [Protonix] 40 mg PO BID #60 tablet. 02/25/20 oxyCODONE HCL/ACETAMINOPHEN 1 tab PO Q6HR PRN #120 tab 02/25/20 [oxyCODONE HCL/ACETAMINOPHEN 2.5-325] Allergies Allergy/AdvReac Type Severity Reaction Status Date / Time bupropion [From Zyban] Allergy Rash/Hives Verified 03/13/20 15:51 cefaclor [From Ceclor] Allergy Rash/Hives Verified 03/13/20 15:51 formoterol [From Perforomist] Allergy Rapid Verified 03/13/20 15:51 Heart Rate, LOW O2 SATURATION Review of Systems ROS Statement: Those systems with pertinent positive or pertinent negative responses have been documented in the HPI. ROS Other: All systems not noted in ROS Statement are negative. Past Medical History Past Medical History: Asthma, COPD, Diabetes Mellitus, Hyperlipidemia, Hypertension, Osteoarthritis (OA), Thyroid Disorder Additional Past Medical History / Comment(s): HX HYPERTHYROID, HAD IODINE TX. ON home oxygen 3 LITERS [place]. 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 T-8 COMPRESSION FX IN 2012. EDEMA MARIO ANKLES, LT WORSE. MULT COLON POLYPS 08/21/17. History of Any Multi-Drug Resistant Organisms: None Reported Past Surgical History: Adenoidectomy, Appendectomy, Bowel Resection, Breast Surgery, Hysterectomy, Tonsillectomy Additional Past Surgical History / Comment(s): Several lumpectomies MARIO - benign, D&C, MARIO CATARACTS; COLONOSCOPY 08/21/17 Past Anesthesia/Blood Transfusion Reactions: No Reported Reaction Past Psychological History: No Psychological Hx Reported Smoking Status: Former smoker Past Alcohol Use History: Rare Past Drug Use History: None Reported - Past Family History Mother Family Medical History: Cancer Additional Family Medical History / Comment(s): Mac deg, blind; abdominal tumor; colon cancer in old age, at 86 Father Family Medical History: Cancer Additional Family Medical History / Comment(s): Prostate CA mets to lungs General Exam Limitations: no limitations Course Vital Signs 03/13/20 03/13/20 15:38 18:39 Temperature 98.8 F 98.1 F Pulse Rate 106 H 102 H Respiratory 26 H 26 H Rate Blood Pressure 139/76 134/96 O2 Sat by Pulse 98 96 Oximetry Medical Decision Making - Lab Data Result diagrams: 03/13/20 16:13 03/13/20 16:13 Lab Results 03/13/20 03/13/20 03/13/20 Range/Units 16:13 16:13 16:13 WBC 45.5 H (3.8-10.6) k/uL RBC 3.62 L (3.80-5.40) m/uL Hgb 10.3 L (11.4-16.0) gm/dL Hct 32.6 L (34.0-46.0) % MCV 90.1 (80.0-100.0) fL MCH 28.4 (25.0-35.0) pg MCHC 31.5 (31.0-37.0) g/dL RDW 13.7 (11.5-15.5) % Plt Count 333 (150-450) k/uL MPV 7.9 Neutrophils % (Manual) 88 % Band Neuts % (Manual) 7 % Lymphocytes % (Manual) 3 % Monocytes % (Manual) 2 % Eosinophils % (Manual) 1 % Neutrophils # (Manual) 43.20 H (1.3-7.7) k/uL Lymphocytes # (Manual) 1.37 (1.0-4.8) k/uL Monocytes # (Manual) 0.91 (0-1.0) k/uL Eosinophils # (Manual) 0.46 (0-0.7) k/uL Nucleated RBCs 0 (0-0) /100 WBC Manual Slide Review Performed PT 11.6 (9.0-12.0) sec INR 1.1 (<1.2) APTT 24.4 (22.0-30.0) sec Sodium 130 L (137-145) mmol/L Potassium 4.8 (3.5-5.1) mmol/L Chloride 94 L (98-107) mmol/L Carbon Dioxide 29 (22-30) mmol/L Anion Gap 7 mmol/L BUN 40 H (7-17) mg/dL Creatinine 0.79 (0.52-1.04) mg/dL Est GFR (CKD-EPI)AfAm 87 (>60 ml/min/1.73 sqM) Est GFR (CKD-EPI)NonAf 75 (>60 ml/min/1.73 sqM) Glucose 117 H (74-99) mg/dL Plasma Lactic Acid Cristi (0.7-2.0) mmol/L Calcium 7.9 L (8.4-10.2) mg/dL Magnesium 1.4 L (1.6-2.3) mg/dL Total Bilirubin 0.6 (0.2-1.3) mg/dL AST 96 H (14-36) U/L ALT 70 H (4-34) U/L Alkaline Phosphatase 462 H (38-126) U/L Ammonia (<30) umol/L Troponin I (0.000-0.034) ng/mL C-Reactive Protein 588.4 H (<10.0) mg/L NT-Pro-B Natriuret Pep pg/mL Total Protein 5.8 L (6.3-8.2) g/dL Albumin 2.8 L (3.5-5.0) g/dL Lipase 21 L (23-300) U/L Urine Color Urine Appearance (Clear) Urine pH (5.0-8.0) Ur Specific [place] (1.001-1.035) Urine Protein (Negative) Urine Glucose (UA) (Negative) Urine Ketones (Negative) Urine Blood (Negative) Urine Nitrite (Negative) Urine Bilirubin (Negative) Urine Urobilinogen (<2.0) mg/dL Ur Leukocyte Esterase (Negative) Urine RBC (0-5) /hpf Urine WBC (0-5) /hpf Amorphous Sediment (None) /hpf Urine Mucus (None) /hpf 03/13/20 03/13/20 03/13/20 Range/Units 16:13 16:13 16:13 WBC (3.8-10.6) k/uL RBC (3.80-5.40) m/uL Hgb (11.4-16.0) gm/dL Hct (34.0-46.0) % MCV (80.0-100.0) fL MCH (25.0-35.0) pg MCHC (31.0-37.0) g/dL RDW (11.5-15.5) % Plt Count (150-450) k/uL MPV Neutrophils % (Manual) % Band Neuts % (Manual) % Lymphocytes % (Manual) % Monocytes % (Manual) % Eosinophils % (Manual) % Neutrophils # (Manual) (1.3-7.7) k/uL Lymphocytes # (Manual) (1.0-4.8) k/uL Monocytes # (Manual) (0-1.0) k/uL Eosinophils # (Manual) (0-0.7) k/uL Nucleated RBCs (0-0) /100 WBC Manual Slide Review PT (9.0-12.0) sec INR (<1.2) APTT (22.0-30.0) sec Sodium (137-145) mmol/L Potassium (3.5-5.1) mmol/L Chloride (98-107) mmol/L Carbon Dioxide (22-30) mmol/L Anion Gap mmol/L BUN (7-17) mg/dL Creatinine (0.52-1.04) mg/dL Est GFR (CKD-EPI)AfAm (>60 ml/min/1.73 sqM) Est GFR (CKD-EPI)NonAf (>60 ml/min/1.73 sqM) Glucose (74-99) mg/dL Plasma Lactic Acid Cristi 1.3 (0.7-2.0) mmol/L Calcium (8.4-10.2) mg/dL Magnesium (1.6-2.3) mg/dL Total Bilirubin (0.2-1.3) mg/dL AST (14-36) U/L ALT (4-34) U/L Alkaline Phosphatase (38-126) U/L Ammonia 12 (<30) umol/L Troponin I 0.015 (0.000-0.034) ng/mL C-Reactive Protein (<10.0) mg/L NT-Pro-B Natriuret Pep 483 pg/mL Total Protein (6.3-8.2) g/dL Albumin (3.5-5.0) g/dL Lipase (23-300) U/L Urine Color Urine Appearance (Clear) Urine pH (5.0-8.0) Ur Specific [place] (1.001-1.035) Urine Protein (Negative) Urine Glucose (UA) (Negative) Urine Ketones (Negative) Urine Blood (Negative) Urine Nitrite (Negative) Urine Bilirubin (Negative) Urine Urobilinogen (<2.0) mg/dL Ur Leukocyte Esterase (Negative) Urine RBC (0-5) /hpf Urine WBC (0-5) /hpf Amorphous Sediment (None) /hpf Urine Mucus (None) /hpf 03/13/20 Range/Units 18:36 WBC (3.8-10.6) k/uL RBC (3.80-5.40) m/uL Hgb (11.4-16.0) gm/dL Hct (34.0-46.0) % MCV (80.0-100.0) fL MCH (25.0-35.0) pg MCHC (31.0-37.0) g/dL RDW (11.5-15.5) % Plt Count (150-450) k/uL MPV Neutrophils % (Manual) % Band Neuts % (Manual) % Lymphocytes % (Manual) % Monocytes % (Manual) % Eosinophils % (Manual) % Neutrophils # (Manual) (1.3-7.7) k/uL Lymphocytes # (Manual) (1.0-4.8) k/uL Monocytes # (Manual) (0-1.0) k/uL Eosinophils # (Manual) (0-0.7) k/uL Nucleated RBCs (0-0) /100 WBC Manual Slide Review PT (9.0-12.0) sec INR (<1.2) APTT (22.0-30.0) sec Sodium (137-145) mmol/L Potassium (3.5-5.1) mmol/L Chloride (98-107) mmol/L Carbon Dioxide (22-30) mmol/L Anion Gap mmol/L BUN (7-17) mg/dL Creatinine (0.52-1.04) mg/dL Est GFR (CKD-EPI)AfAm (>60 ml/min/1.73 sqM) Est GFR (CKD-EPI)NonAf (>60 ml/min/1.73 sqM) Glucose (74-99) mg/dL Plasma Lactic Acid Cristi (0.7-2.0) mmol/L Calcium (8.4-10.2) mg/dL Magnesium (1.6-2.3) mg/dL Total Bilirubin (0.2-1.3) mg/dL AST (14-36) U/L ALT (4-34) U/L Alkaline Phosphatase (38-126) U/L Ammonia (<30) umol/L Troponin I (0.000-0.034) ng/mL C-Reactive Protein (<10.0) mg/L NT-Pro-B Natriuret Pep pg/mL Total Protein (6.3-8.2) g/dL Albumin (3.5-5.0) g/dL Lipase (23-300) U/L Urine Color Yellow Urine Appearance Clear (Clear) Urine pH 5.5 (5.0-8.0) Ur Specific [place] 1.017 (1.001-1.035) Urine Protein 1+ H (Negative) Urine Glucose (UA) Negative (Negative) Urine Ketones 1+ H (Negative) Urine Blood Negative (Negative) Urine Nitrite Negative (Negative) Urine Bilirubin Negative (Negative) Urine Urobilinogen <2.0 (<2.0) mg/dL Ur Leukocyte Esterase Negative (Negative) Urine RBC 1 (0-5) /hpf Urine WBC 1 (0-5) /hpf Amorphous Sediment Rare H (None) /hpf Urine Mucus Rare H (None) /hpf Disposition Clinical Impression: SIRS (systemic inflammatory response syndrome) Disposition: ADMITTED IP TO THIS HOSP Condition: Fair Referrals: Tigre Villalba MD [STAFF PHYSICIAN] - 1-2 days Decision Time: 19:37
[2020-03-13 16:33] LABS: HCT 32.6 % (34.0-46.0); HGB 10.3 gm/dL (11.4-16.0); MCH 28.4 pg (25.0-35.0); MCHC 31.5 g/dL (31.0-37.0); MCV 90.1 fL (80.0-100.0); Mean Platelet Volume 7.9; Platelet Count 333 k/uL (150-450); RBC 3.62 m/uL (3.80-5.40); RDW 13.7 % (11.5-15.5); WBC 45.5 k/uL (3.8-10.6)
[2020-03-13 16:34] LABS: Lactic Acid, Venous 1.3 mmol/L (0.7-2.0)
[2020-03-13 16:36] LABS: INR 1.1 (<1.2); Prothrombin Time 11.6 sec (9.0-12.0)
[2020-03-13 16:37] LABS: Partial Thromboplastin Time 24.4 sec (22.0-30.0)
[2020-03-13 16:38] LABS: Albumin 2.8 g/dL (3.5-5.0); Calcium 7.9 mg/dL (8.4-10.2); Magnesium 1.4 mg/dL (1.6-2.3); Potassium 4.8 mmol/L (3.5-5.1); Total Bilirubin 0.6 mg/dL (0.2-1.3); Total Protein 5.8 g/dL (6.3-8.2)
--- NOTE | 2020-03-13 17:25 | XR ---
EXAMINATION TYPE: XR abdomen acute w cxr DATE OF EXAM: 03/13/2020 COMPARISON: Chest x-ray 02/17/2020 HISTORY: Vomiting TECHNIQUE: 4 views FINDINGS: There is coarse interstitial density in the lungs. There is no heart failure. Heart size is normal. There are chest leads. There are no hilar masses. There is vertebroplasty of L2 vertebra. There is large bowel and small bowel gas that could relate to mild ileus. There is no evidence of free air. I do not see evidence for mechanical bowel obstruction . There is gas down to the rectum. IMPRESSION: There is evidence for some mild intestinal ileus. Interstitial pulmonary infiltrate and fibrotic changes increased compared to recent exam.
[2020-03-13 17:43] LABS: Band Neutrophils % 7 %; Eosinophils # (M) 0.46 k/uL (0-0.7); Lymphocytes # (M) 1.37 k/uL (1.0-4.8); Monocytes # (M) 0.91 k/uL (0-1.0); Neutrophils % (M) 88 %; Nucleated Red Blood Cells 0 /100 WBC (0-0); Total Cells Counted 200
[2020-03-13 18:54] LABS: Amorphous Sediment,Urine Rare /hpf; Appearance,Urine Clear (Clear); Bilirubin,Urine Negative (Negative); Blood,Urine Negative (Negative); Color,Urine Yellow; Glucose,Urine (UA) Negative (Negative); Ketones,Urine 1+ (Negative); Leukocyte Esterase,Urine Negative (Negative); Mucus,Urine Rare /hpf; Nitrite,Urine Negative (Negative); PH, Urine 5.5 (5.0-8.0); Protein,Urine 1+ (Negative); RBC,Urine 1 /hpf (0-5); Specific Gravity,Urine 1.017 (1.001-1.035); Urobilinogen,Urine <2.0 mg/dL (<2.0); WBC,Urine 1 /hpf (0-5)
[2020-03-13] MEDS ORDERED: SODIUM CHLORIDE 0.9% 1,000 ML IV STA (18:58)
[2020-03-13] MEDS ORDERED: NALOXONE 0.4 MG/ML 1 ML VIAL IV PRN (19:32)
[2020-03-13] MEDS ORDERED: VANCOMYCIN IV PER PHARMACY 1 EACH MISC MISCELLANE PRN (19:38)
[2020-03-13] MEDS ORDERED: LEVOFLOXACIN 750MG-D5W PMX 750 MG in DEXTROSE/WATER 1 150ML.BAG IVPB STA (19:38)
[2020-03-13] MEDS: SODIUM CHLORIDE 0.9% 1,000 ML IV SCH (19:54)
[2020-03-13] MEDS ORDERED: VANCOMYCIN 1,250 MG in SODIUM CHLORIDE 0.9% 250 ML IVPB ONE (20:00)
[2020-03-13] MEDS: MORPHINE SULFATE 4 MG/ML SYRINGE IV PRN (20:54)
[2020-03-14] MEDS: MORPHINE SULFATE 4 MG/ML SYRINGE IV PRN ×3 (00:05→08:42)
[2020-03-14 11:31] LABS: Glucose,Whole Blood 98 mg/dL (75-99)
--- NOTE | 2020-03-14 11:36 | XR ---
EXAMINATION TYPE: XR chest 1V portable DATE OF EXAM: 03/14/2020 CLINICAL HISTORY: Difficulty breathing and weakness progress study. TECHNIQUE: Single AP portable upright view of the chest is obtained. COMPARISON: Chest x-ray and CT chest from February 17, 2020 and older studies FINDINGS: Osseous structures remain demineralized. Cardiac silhouette size is stable and within norm al limits with atherosclerotic thoracic aorta. Chronic emphysematous and pulmonary fibrotic changes r edemonstrated with some left sided calcified nodules are granulomas. Persistent right suprahilar susp icious nodule. No new focal airspace opacity, pleural effusion, or pneumothorax seen bilaterally. Brian tebroplasty in the upper lumbar spine noted. IMPRESSION: Chronic changes without acute pulmonary process. Persistent suspicious right-sided pulmon new nodule.
[2020-03-14] MEDS ORDERED: ACETAMINOPHEN PO PRN (12:44)
[2020-03-14] MEDS ORDERED: [UNRECOGNIZED DRUG - OTHER] PO PRN (12:44)
[2020-03-14] MEDS ORDERED: ALBUTEROL NEBULIZED 2.5 MG/3 ML INHALATION PRN (12:44)
[2020-03-14] MEDS ORDERED: NON FORMULARY DRUG (Ipratropium/Albuterol Sulfate [Combivent Respimat Inhaler] 1 INHALER M INHALATION PRN (12:44)
[2020-03-14] MEDS ORDERED: OXYCODONE HCL PO PRN (12:44)
[2020-03-14] MEDS ORDERED: IBUPROFEN 400 MG TAB PO PRN (12:44)
[2020-03-14] MEDS ORDERED: ACETAMINOPHEN TAB 325 MG TAB PO PRN (12:55)
[2020-03-14 13:18] LABS: C Reactive Protein 502.3 mg/L (<10.0)
[2020-03-14] MEDS: MULTIVITAMINS, THERA 1 EACH TAB PO SCH (13:57)
[2020-03-14] MEDS: PANTOPRAZOLE 40 MG TABLET PO SCH ×2 (13:57→21:57)
[2020-03-14] MEDS: CALCIUM CARB-VIT D 500 MG-5 MCG TAB PO SCH (13:57)
[2020-03-14] MEDS: LORATADINE 10 MG TAB PO SCH (13:57)
[2020-03-14] MEDS: ATORVASTATIN 40 MG TAB PO SCH (13:57)
[2020-03-14] MEDS: LEVOTHYROXINE 88 MCG TAB PO SCH (13:57)
[2020-03-14] MEDS: guaiFENesin 600 MG TABLET.ER PO SCH ×2 (13:57→21:57)
[2020-03-14] MEDS: DULoxetine HCL 60 MG CAPSULE.DR PO SCH (13:58)
[2020-03-14] MEDS: FUROSEMIDE 20 MG TAB PO SCH (13:58)
[2020-03-14] MEDS: VANCOMYCIN 1,250 MG in SODIUM CHLORIDE 0.9% 250 ML IVPB SCH (14:21)
[2020-03-14] MEDS: DILTIAZEM CD 120 MG CAP.ER.24H PO SCH (14:21)
[2020-03-14] MEDS ORDERED: ALPRAZolam 0.25 MG TAB PO PRN (15:32)
--- NOTE | 2020-03-14 17:02 | HP ---
HISTORY AND PHYSICAL I am covering for Dr. Puckett. CHIEF COMPLAINTS: Shortness of breath and change in mental status. HISTORY OF PRESENT ILLNESS: This 74-year-old woman with a past medical history of multiple medical problems, including a lung mass, possibly [id number] lung cancer, metastatic disease of the adrenal gland, lumbar spine and brain, was previously admitted with L2 compression fracture. The patient underwent L2 vertebral body biopsy as well as right kyphoplasty by Dr. Gonzales, and the patient was subsequently sent to [facility] rehab. Currently the patient had a fall and was complaining of severe pain and back pain. The patient was admitted for further evaluation. The patient is mildly confused also. There is no history of any fever, rigor or chills. No history of headache, loss of consciousness, seizures. Evaluation showed white count elevated up to 45.5. The previous white count was also elevated. COVID-19 is negative at this time. PAST MEDICAL HISTORY: History of recent fracture and surgery and kyphoplasty as mentioned earlier, asthma, COPD, diabetes mellitus, hypertension, hyperlipidemia, history of lung cancer. HOME MEDICATIONS: Reviewed. They include Tylenol Arthritis, oxycodone, DuoNeb, Combivent, Protonix, Pulmicort, Mucinex, Lasix, multivitamins, Stiolto, Glucophage, Synthroid, famotidine, Cardizem, Cymbalta, Zyrtec, Calcitriol, Lipitor. ALLERGIES: ZYBAN, CECLOR AND PERFOROMIST. FAMILY HISTORY: History of colon cancer. SOCIAL HISTORY: Previous history of smoking. No current smoking or alcohol intake. REVIEW OF SYSTEMS: ENT: Diminished hearing. Diminished vision. CARDIOVASCULAR SYSTEM: No angina, palpitations. RESPIRATORY SYSTEM: As mentioned earlier. GI: No nausea, vomiting. : As mentioned earlier. NERVOUS SYSTEM: As mentioned earlier. ALLERGY/IMMUNOLOGY: No asthma, hayfever. MUSCULOSKELETAL: As mentioned earlier. HEMATOLOGY/ONCOLOGY: As mentioned earlier. ENDOCRINE: Diabetes mellitus. CONSTITUTIONAL: As mentioned earlier. DERMATOLOGY: Negative. RHEUMATOLOGY: As mentioned earlier. PSYCHIATRY: As mentioned earlier. PHYSICAL EXAMINATION: Patient is alert, oriented x2. Pulse 95, blood pressure 117/63, respiration 18, temperature 98.6, pulse ox 95% on 4 L. HEENT: Conjunctivae normal. NECK: No jugular venous distention. CARDIOVASCULAR SYSTEM: S1, S2 muffled. RESPIRATORY SYSTEM: Breath sounds diminished at the bases. A few scattered rhonchi and crackles. ABDOMEN: Soft, non-tender. LEGS: No edema. No swelling. NERVOUS SYSTEM: Diffusely weak. SKIN: No ulcer, rash, bleeding. JOINTS: No active deforming arthropathy. EXAMINATION OF THE BACK: Some tenderness present. LABS: WBC 45.5, hemoglobin 10.3. Sodium 133. Magnesium is 1.4. AST and ALT are 96 and 70. C- reactive protein is 502.3. ASSESSMENT: 1. Severe back pain and possible sepsis, present on admission, etiology undetermined. 2. History of recent L2 vertebral kyphoplasty and biopsy. 3. History of recent L2 compression fracture. 4. History of [id number] lung cancer, lung mass. 5. Possible metastasis to adrenal gland, lumbar spine and brain. 6. History of multiple falls and gait dysfunction. 7. Weakness. 8. Chronic obstructive pulmonary disease. 9. Diabetes mellitus, type 2. 10.History of colectomy. 11.FULL CODE. 12.Hyponatremia. 13.Hypomagnesemia. 14.Increased AST, ALT, possibly hepatitis. 15.Increased CRP. 16.Anemia, normocytic anemia of malignancy. RECOMMENDATIONS AND DISCUSSION: In this 74-year-old woman who presented with multiple complex medical issues, at this time I will initiate broad-spectrum IV antibiotics empirically. Obtain the cultures. I would also recommend infectious disease evaluation for evaluation of leukocytosis. Dr. Gonzales will be consulted. I would also recommend MRI of the back and Hematology/Oncology evaluation. Chest x-ray was reviewed personally by me which showed chronic changes and persistent suspicious right-sided pulmonary nodule. The overall prognosis is extremely guarded because of multiple complex medical issues. Dr. Puckett will be following the patient in the outpatient setting. MMODL / IJN: [id number] / MTDD
[2020-03-14] MEDS: HYDROmorphone 0.5 MG/0.5 ML SYRINGE IVP PRN ×2 (17:34→21:56)
[2020-03-14] MEDS: INSULIN ASPART (NovoLOG) 100 UNIT/ML VIAL SQ SCH ×2 (17:38→21:13)
[2020-03-14] MEDS: BUDESONIDE 0.5 MG/2 ML NEBU INHALATION SCH (20:03)
[2020-03-14 20:32] LABS: Glucose,Whole Blood 92 mg/dL (75-99)
[2020-03-14] MEDS ORDERED: HEPARIN SODIUM,PORCINE 5,000 UNIT/ML 1 ML VIAL SQ SCH (21:00)
[2020-03-14] MEDS ORDERED: NON FORMULARY DRUG (Famotidine [Famotidine] 40 MG Tablet) PO SCH (21:00)
[2020-03-14] MEDS: FAMOTIDINE 20 MG TAB PO SCH (21:56)
[2020-03-14] MEDS: SODIUM CHLORIDE 0.9% 1,000 ML IV SCH (21:57)
--- NOTE | 2020-03-14 23:49 | CT ---
EXAM: CT Angiography Chest With Intravenous Contrast CLINICAL HISTORY: ITS.REASON CT Reason: shortness of breath, positive d dimer TECHNIQUE: Axial computed tomographic angiography images of the chest with intravenous contrast. CTDI is 17.77 mGy and DLP is 379.5 mGy-cm. This CT exam was performed using one or more of the following dose reduction techniques: automated exposure control, adjustment of the mA and/or kV according to patient size, and/or use of iterative reconstruction technique. MIP reconstructed images were created and reviewed. COMPARISON: February 17, 2020 FINDINGS: Pulmonary arteries: The pulmonary arterial tree is well opacified with contrast. No pulmonary emboli are identified. Aorta: The thoracic aorta is mildly calcified. There is no aneurysm or dissection. Lungs: Irregular mass in the right upper lobe measuring approximately 2.1 x 1.2 cm, similar to previous. There are several nodules in the right lower lobe measuring up to 6 mm which are new. There are 2 stable nodules in the right lower lung. Probable malignancy. Correlate with history. There is a calcified granuloma in the lingula. Pleural space: There is a small left pleural effusion measuring 2 x 1 cm with mild adjacent atelectasis. No pneumothorax. Heart: Unremarkable. No cardiomegaly. No significant pericardial effusion. No evidence of RV dysfunction. Bones/joints: Sagittal reformatted images of the spine demonstrate multiple chronic compression fractures involving T11, T8, and T6. These appear unchanged. No dislocation. Soft tissues: Unremarkable. Lymph nodes: Unremarkable. No enlarged lymph nodes. Adrenals: Left adrenal mass measuring 3.8 x 4.3 cm, increased since previous. IMPRESSION: 1. Irregular mass in the right upper lobe measuring approximately 2.1 x 1.2 cm, similar to previous. There are several nodules in the right lower lobe measuring up to 6 mm which are new. There are 2 stable nodules in the right lower lung. Probable malignancy. Correlate with history. 2. Left adrenal mass measuring 3.8 x 4.3 cm, increased since previous. 3. Multiple old compression fractures, similar to previous. 4. No evidence of pulmonary embolism or acute aortic abnormality. 5. New small left pleural effusion with mild left lower lobe atelectasis versus infiltrate.
[2020-03-15 00:36] LABS: Glucose,Whole Blood 103 mg/dL (75-99)
[2020-03-15] MEDS ORDERED: ADENOSINE 3 MG/ML 2 ML VIAL IVP ONE (00:41)
[2020-03-15] MEDS ORDERED: METOPROLOL TARTRATE 5 MG/5 ML VIAL IVP ONE ×3 (00:42→00:57)
[2020-03-15] MEDS ORDERED: SODIUM CHLORIDE 0.9% 500 ML 1,000 ML IV ONE (00:46)
[2020-03-15] MEDS ORDERED: HEPARIN SODIUM,PORCINE 5,000 UNIT/ML 1 ML VIAL IV PRN (01:24)
[2020-03-15] MEDS ORDERED: DILTIAZEM 125 MG in SODIUM CHLORIDE 0.9% 100 ML IV SCH ×2 (01:24→12:15)
[2020-03-15] MEDS ORDERED: HEPARIN SODIUM,PORCINE 5,000 UNIT/ML 1 ML VIAL IV ONE (01:24)
--- NOTE | 2020-03-15 01:24 | P.EN ---
A team called on this patient for SVT heart rate of 160s patient admitted with sepsis with bactremia , leukocytosis , back pain patient denies any chest pain or trouble breathing , denies any history of heart disease or irregular heart beat on exam , oxygen sat 92%, heart rate in the 160, BP 105/65 lungs good breath sounds bilaterally heart, tachycardia , no murmurs, no leg edema no carotid bruit patient connected to surveillance monitor EKG showing SVT attempted vagal stimulation , patient could not tolerate adenosin was not given due to history of asthma and COPD 5 mg of lopressor given IV , heart rate improved to low 120s another dose of lopressor 5 mg repeated about 15-20 min later, heart rate in 100-110 patient continues to be asymptomatic , blood pressure stable 1 L bolus normal saline start normal saline at 125 cc /hour check Lactic acid repeat EKG showing atrial flutter recommendations to consult cardiology for further recommendations and evaluation continue with vancomycin 35 minutes were spent providing critical care to this patient
[2020-03-15] MEDS: HEPARIN SOD,PORK IN 0.45% NACL 25,000 UNIT in 0.45% NACL 1 250ML.BAG IV SCH (01:34)
[2020-03-15 01:35] LABS: HCT 31.7 % (34.0-46.0); Hypochromasia Moderate; MCH 29.2 pg (25.0-35.0); MCHC 31.4 g/dL (31.0-37.0); MCV 93.2 fL (80.0-100.0); Mean Platelet Volume 7.1; Platelet Count 258 k/uL (150-450); RBC 3.41 m/uL (3.80-5.40); RDW 13.6 % (11.5-15.5); WBC 39.7 k/uL (3.8-10.6)
[2020-03-15] MEDS: SODIUM CHLORIDE 0.9% 1,000 ML IV SCH ×4 (01:43→19:07)
[2020-03-15 01:45] LABS: INR 1.3 (<1.2); Partial Thromboplastin Time 28.8 sec (22.0-30.0); Prothrombin Time 13.3 sec (9.0-12.0)
[2020-03-15 02:13] LABS: Band Neutrophils % 4 %; Monocytes # (M) 0.79 k/uL (0-1.0); Neutrophils % (M) 93 %; Nucleated Red Blood Cells 0 /100 WBC (0-0); Total Cells Counted 100
[2020-03-15] MEDS ORDERED: DEXTROSE 5% IN WATER 100 ML with AMIODARONE 150 MG IV ONE (03:52)
[2020-03-15] MEDS ORDERED: AMIODARONE 360 MG in DEXTROSE 5% IN WATER 200 ML IV ONE ×2 (03:53)
[2020-03-15] MEDS: VANCOMYCIN 1,250 MG in SODIUM CHLORIDE 0.9% 250 ML IVPB SCH ×2 (04:22→22:09)
[2020-03-15] MEDS: HYDROcodone/APAP 5-325MG 1 EACH TAB PO PRN ×3 (04:40→16:32)
[2020-03-15 06:19] LABS: Glucose,Whole Blood 134 mg/dL (75-99)
[2020-03-15] MEDS: INSULIN ASPART (NovoLOG) 100 UNIT/ML VIAL SQ SCH ×4 (06:19→21:25)
[2020-03-15] MEDS: LEVOTHYROXINE 88 MCG TAB PO SCH (06:20)
[2020-03-15 07:42] LABS: HCT 31.8 % (34.0-46.0); HGB 9.6 gm/dL (11.4-16.0); Hypochromasia Marked; MCH 28.6 pg (25.0-35.0); MCHC 30.2 g/dL (31.0-37.0); MCV 94.7 fL (80.0-100.0); Mean Platelet Volume 7.5; Platelet Count 308 k/uL (150-450); RBC 3.35 m/uL (3.80-5.40); RDW 13.8 % (11.5-15.5); WBC 42.8 k/uL (3.8-10.6)
--- NOTE | 2020-03-15 07:44 | P.CRDCN ---
History of Present Illness Consult date: 03/15/20 Chief complaint: Change in mental status History of present illness: This is a very pleasant 74-year-old female patient who was unfortunate with metastatic lung cancer and was somewhat poor historian was brought from an extended care facility to the hospital for further cardiac evaluation. Apparently the patient was admitted initially with a change in mental status. She still have some change in mental status and she is not oriented to time very well. When she was seen and evaluated this morning. No prior cardiac history of coronary artery disease or congestive heart failure or cardiac arrhythmia. We consulted to see the patient for further evaluation of cardiac arrhythmia. The patient was admitted initially with a change in mental status to the fourth floor but subsequently she developed an episode of heart racing and the EKG showed what it seems to be in atrial flutter with 2-1 block. Subsequently the patient was transferred to the third floor. She continues to be in atrial flutter was controlled heart rate relatively. She is on amiodarone IV at this point and also she is on heparin IV. Initially she was started on Cardizem IV but her pressure was dropped and because of that to switch her to amiodarone IV. The heart rate continues to be around 100 bpm. The patient denies any symptoms of chest pain or chest discomfort or shortness of breath at this point. At this point I would continue the current medical regimen was amiodarone as well as heparin and I am going to obtain an echocardiogram was Doppler as well as TSH and free T4 and follow-up with the patient. Past Medical History Past Medical History: Asthma, COPD, Diabetes Mellitus, Hyperlipidemia, Hypertension, Osteoarthritis (OA), Thyroid Disorder Additional Past Medical History / Comment(s): HX HYPERTHYROID, HAD IODINE TX. ON home oxygen 3 LITERS N/C. 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 T-8 COMPRESSION FX IN 2012. EDEMA MARIO ANKLES, LT WORSE. MULT COLON POLY PS 08/21/17. 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 Past Drug Use History: None Reported - Past Family History Mother Family Medical History: Cancer Additional Family Medical History / Comment(s): Mac deg, blind; abdominal tumor; colon cancer in old age, at 86 Father Family Medical History: Cancer Additional Family Medical History / Comment(s): Prostate CA mets to lungs Medications and Allergies Home Medications Medication Instructions Recorded Confirmed Type Ipratropium/Albuterol Sulfate 1 puff INHALATION RT-Q8H PRN 07/28/16 03/13/20 History [Combivent Respimat Inhaler] Levothyroxine Sodium [Synthroid] 88 mcg PO DAILY 07/28/16 03/13/20 History Budesonide [Pulmicort] 0.5 mg INHALATION RT-BID 10/09/16 03/13/20 History Furosemide [Lasix] 10 mg PO DAILY 12/02/16 03/13/20 History Atorvastatin [Lipitor] 40 mg PO DAILY 08/18/17 03/13/20 History Diltiazem Cd [Cardizem CD] 120 mg PO DAILY 08/18/17 03/13/20 History Ipratropium-Albuterol Nebulize 3 ml INHALATION RT-TID PRN 09/18/17 03/13/20 History [Duoneb 0.5 mg-3 mg/3 ml Soln] metFORMIN HCL 2,000 mg PO DAILY 09/25/17 03/13/20 History Calcium Citrate/Vitamin D3 1 tab PO DAILY 10/28/18 03/13/20 History [Calcitrate + Vit D Caplet] Cetirizine HCl [Zyrtec] 10 mg PO DAILY 10/28/18 03/13/20 History Famotidine 40 mg PO HS 10/28/18 03/13/20 History Tiotropium Br/Olodaterol HCl 1 spray INHALATION RT-DAILY 10/28/18 03/13/20 History [Stiolto Respimat Inhal [place]] Acetaminophen [Tylenol Arthritis] 650 mg PO Q6H PRN 02/17/20 03/13/20 History Albuterol Sulfate [Albuterol 1 - 2 puff INHALATION RT-Q4H PRN 02/17/20 03/13/20 History Sulfate Hfa] DULoxetine HCL [Cymbalta] 60 mg PO DAILY 02/17/20 03/13/20 History guaiFENesin [Mucinex] 1,200 mg PO Q12H 02/17/20 03/13/20 History metFORMIN HCL [Glucophage] 1,000 mg PO HS 02/17/20 03/13/20 History Ibuprofen [Motrin] 400 mg PO Q6HR PRN tab 02/25/20 03/13/20 Rx Pantoprazole Sodium [Protonix] 40 mg PO BID #60 tablet. 02/25/20 03/13/20 Rx oxyCODONE HCL/ACETAMINOPHEN 1 tab PO Q6HR PRN #120 tab 02/25/20 03/13/20 Rx [oxyCODONE HCL/ACETAMINOPHEN 2.5-325] Multivitamins, Thera [Multivitamin 1 tab PO DAILY 03/13/20 03/13/20 History (formulary)] Allergies Allergy/AdvReac Type Severity Reaction Status Date / Time bupropion [From Zyban] Allergy Rash/Hives Verified 03/13/20 15:51 cefaclor [From Ceclor] Allergy Rash/Hives Verified 03/13/20 15:51 formoterol [From Perforomist] Allergy Rapid Verified 03/13/20 15:51 Heart Rate, LOW O2 SATURATION Physical Exam Vitals: Vital Signs Temp Pulse Pulse Resp BP Pulse Ox 03/15/20 04:32 111 H 18 98/68 96 03/15/20 04:24 120 H 18 99/65 95 03/15/20 04:19 124 H 18 102/58 94 L 03/15/20 03:35 98.6 F 126 H 19 89/61 95 03/15/20 02:00 98 20 03/14/20 20:00 18 03/14/20 19:01 98.2 F 98 18 121/69 93 L 03/14/20 14:42 98.6 F 95 18 117/66 95 03/14/20 11:50 154 H 19 108/79 93 L Intake and Output 03/14/20 03/15/20 03/15/20 22:59 06:59 14:59 Intake Total 1240 Output Total 200 Balance 1040 Intake: Intake, IV Titration 1240 Amount Dextrose 5% in Water 100 100 ml @ 618 mls/hr IV .Q10M ONE with Amiodarone 150 mg Rx#:[id number] Diltiazem 125 mg In 15 Sodium Chloride 0.9% 100 ml @ 5 MG/HR 5 mls/hr IV .Q24H [facility] Rx#:[id number] Sodium Chloride 0.9% 500 1000 ml 1,000 ml @ 999 mls/hr IV .Q1H1M ONE Rx#: [id number] Vancomycin 1,250 mg In 125 Sodium Chloride 0.9% 250 ml @ 125 mls/hr IVPB Q16H [facility] Rx#:[id number] Output: Urine 200 Other: Voiding Method External Catheter External Catheter # Bowel Movements 0 Weight 76.5 kg - Constitutional General appearance: no acute distress - Respiratory Respiratory: bilateral: diminished - Cardiovascular Rhythm: irregularly irregular Heart sounds: normal: S1, S2 Results 03/15/20 00:53 03/13/20 16:13 Coagulation 03/15/20 Range/Units 00:53 PT 13.3 H (9.0-12.0) sec APTT 28.8 (22.0-30.0) sec CBC 03/15/20 Range/Units 00:53 WBC 39.7 H (3.8-10.6) k/uL RBC 3.41 L (3.80-5.40) m/uL Hgb 10.0 L (11.4-16.0) gm/dL Hct 31.7 L (34.0-46.0) % Plt Count 258 (150-450) k/uL Current Medications Generic Name Dose Route Start Last Admin Trade Name Freq PRN Reason Stop Dose Admin Acetaminophen 325 mg 03/14/20 12:55 Acetaminophen Tab 325 Mg Tab PO Q6HR PRN Pain Hydrocodone Bitart/Acetaminophen 1 each 03/14/20 15:32 03/15/20 04:40 Hydrocodone/Apap 5-325mg 1 Each Tab PO 1 each Q6HR PRN Administration Pain Albuterol Sulfate 2.5 mg 03/14/20 12:44 Albuterol Nebulized 2.5 Mg/3 Ml INHALATION RT-Q4H PRN Shortness Of Breath Albuterol/Ipratropium 3 ml 03/14/20 12:44 Ipratropium-Albuterol 3 Ml Neb INHALATION RT-TID PRN Shortness Of Breath Alprazolam 0.25 mg 03/14/20 15:32 Alprazolam 0.25 Mg Tab PO TID PRN Anxiety Atorvastatin Calcium 40 mg 03/14/20 12:45 03/14/20 13:57 Atorvastatin 40 Mg Tab PO 40 mg DAILY ISAI Administration Budesonide 0.5 mg 03/14/20 20:00 03/14/20 20:03 Budesonide 0.5 Mg/2 Ml Nebu INHALATION Not Given RT-BID ISAI Calcium Carbonate 1 each 03/14/20 12:45 03/14/20 13:57 Calcium Carb-Vit D 500mg-200un 1 Each Tab PO 1 each DAILY ISAI Administration Diltiazem HCl 120 mg 03/14/20 12:45 03/14/20 14:21 Diltiazem Cd 120 Mg Cap.Er.24h PO 120 mg DAILY ISAI Administration Duloxetine HCl 60 mg 03/14/20 12:45 03/14/20 13:58 Duloxetine Hcl 60 Mg Capsule.Dr PO 60 mg DAILY ISAI Administration Famotidine 40 mg 03/14/20 21:00 03/14/20 21:56 Famotidine 20 Mg Tab PO 40 mg HS ISAI Administration Fentanyl 1 patch 03/14/20 12:00 03/14/20 13:45 Fentanyl 25mcg/Hr Patch TRANSDERM 1 patch Q72H IS[facility] Administration Folic Acid 1 mg 03/15/20 12:00 Folic Acid 1 Mg Tab PO DAILY@1200 [facility] Furosemide 10 mg 03/14/20 12:45 03/14/20 13:58 Furosemide 20 Mg Tab PO 10 mg DAILY IS[facility] Administration Guaifenesin 1,200 mg 03/14/20 12:45 03/14/20 21:57 Guaifenesin 600 Mg Tablet.Er PO 1,200 mg Q12HR ISAI Administration Heparin Sodium (Porcine) 0 unit 03/15/20 01:24 Heparin Sodium,Porcine 5,000 Unit/Ml 1 Ml Vial IV PER PROTOCOL PRN Low PTT Protocol Hydromorphone HCl 0.5 mg 03/14/20 15:33 03/14/20 21:56 Hydromorphone 0.5 Mg/0.5 Ml Syringe IVP 0.5 mg Q3HR PRN Administration Severe Pain Sodium Chloride 1,000 mls @ 20 mls/hr 03/13/20 19:45 03/14/20 21:57 Saline 0.9% IV 20 mls/hr .Q24H ISAI Administration Vancomycin HCl 1,250 mg/ 250 mls @ 125 mls/hr 03/14/20 13:00 03/15/20 04:22 Sodium Chloride IVPB 125 mls/hr Q16H [facility] Administration Sodium Chloride 1,000 mls @ 120 mls/hr 03/15/20 01:00 03/15/20 04:41 Saline 0.9% IV 120 mls/hr .Q8H20M [facility] Administration Heparin Sodium/Sodium Chloride 250 mls @ 8.437 mls/hr 03/15/20 01:24 03/15/20 01:34 25,000 unit/ Sodium Chloride IV 12 units/kg/hr .Q24H [facility] 8.437 mls/hr Administration Protocol 12 UNITS/KG/HR Amiodarone HCl 360 mg/ 200 mls @ 33.333 mls/hr 03/15/20 03:53 03/15/20 04:31 Dextrose/Water IV 03/15/20 09:52 1 mg/min .Q6H ONE 33.333 mls/hr Administration Protocol 1 MG/MIN Amiodarone HCl 300 mg/ 250 mls @ 25 mls/hr 03/15/20 10:00 Dextrose/Water IV 03/16/20 03:59 .Q10H [facility] Protocol 0.5 MG/MIN Ibuprofen 400 mg 03/14/20 12:44 Ibuprofen 400 Mg Tab PO Q6HR PRN Mild Pain or Fever > 100.5 Insulin Aspart 0 unit 03/14/20 17:30 03/15/20 06:19 Insulin Aspart (Novolog) 100 Unit/Ml Vial SQ Not Given ACHS ISAI Protocol Levothyroxine Sodium 88 mcg 03/14/20 12:45 03/15/20 06:20 Levothyroxine 88 Mcg Tab PO 88 mcg 0630 ISAI Administration Loratadine 10 mg 03/14/20 12:45 03/14/20 13:57 Loratadine 10 Mg Tab PO 10 mg DAILY ISAI Administration Multivitamins 1 each 03/14/20 13:00 03/14/20 13:57 Multivitamins, Thera 1 Each Tab PO 1 each DAILY [facility] Administration Naloxone HCl 0.2 mg 03/13/20 19:32 Naloxone 0.4 Mg/Ml 1 Ml Vial IV Q2M PRN Opioid Reversal Patient's Own ( 1 spray 03/15/20 08:00 Tiotropium Br/ INHALATION Olodaterol Hcl [ RT-DAILY [facility] Stiolto Respimat Inhal [place]] 4 Gm Mist. Oxycodone HCl 2.5 mg 03/14/20 12:55 Oxycodone Hcl 5 Mg Tab PO Q6HR PRN Pain Pantoprazole Sodium 40 mg 03/14/20 13:00 03/14/20 21:57 Pantoprazole 40 Mg Tablet PO 40 mg BID IS[facility] Administration Thiamine HCl 100 mg 03/15/20 12:00 Thiamine 100 Mg Tab PO DAILY@1200 [facility] Intake and Output 03/14/20 03/15/20 03/15/20 22:59 06:59 14:59 Intake Total 1240 Output Total 200 Balance 1040 Intake: Intake, IV Titration 1240 Amount Dextrose 5% in Water 100 100 ml @ 618 mls/hr IV .Q10M ONE with Amiodarone 150 mg Rx#:[id number] Diltiazem 125 mg In 15 Sodium Chloride 0.9% 100 ml @ 5 MG/HR 5 mls/hr IV .Q24H [facility] Rx#:[id number] Sodium Chloride 0.9% 500 1000 ml 1,000 ml @ 999 mls/hr IV .Q1H1M ONE Rx#: [id number] Vancomycin 1,250 mg In 125 Sodium Chloride 0.9% 250 ml @ 125 mls/hr IVPB Q16H [facility] Rx#:[id number] Output: Urine 200 Other: Voiding Method External Catheter External Catheter # Bowel Movements 0 Weight 76.5 kg 03/15/20 00:53 03/13/20 16:13 Assessment and Plan Assessment: Assessment #1 change in mental status #2 metastatic lung cancer #3 atrial flutter #4 multiple comorbid conditions Plan #1 continue the current medical regimen #2 continue amiodarone IV as well as heparin IV #3 obtain an echocardiogram was Doppler #4 obtain TSH and free T4 #5 follow-up with the patient
[2020-03-15] MEDS ORDERED: OLODATEROL HCL MIST INHALATION SCH (08:00)
[2020-03-15] MEDS ORDERED: TIOTROPIUM BR INHALATION SCH (08:00)
--- NOTE | 2020-03-15 08:24 | P.CNOR ---
History of Present Illness - HPI Consult date: 03/15/20 Consult reason: fracture History of present illness: This is a 74-year-old female with a previous history of L2 vertebral compression fracture multiple thoracic compression fractures likely lung carcinoma status p ost kyphoplasty on 02/21/2020. She re-presented after a fall at her rehab with increasing back pain. She states that she is having back pain that is all over. She states that where surgery was done previously that her pain is much better in that area however that upper portions of her back she is having a lot of pain. She is having difficulty with breathing shortness of breath as well as some chest pains. She is admitted also for her leukocytosis and lab values. She denies any fevers chills at this time. She denies weakness in her lower extremities she has numbness or tingling. Review of Systems 14 points review of systems completed and as stated in HPI, all other systems reviewed are negative. Past Medical History Past Medical History: Asthma, COPD, Diabetes Mellitus, Hyperlipidemia, Hypertension, Osteoarthritis (OA), Thyroid Disorder Additional Past Medical History / Comment(s): HX HYPERTHYROID, HAD IODINE TX. ON home oxygen 3 LITERS N/C. 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 T-8 COMPRESSION FX IN 2012. EDEMA MARIO ANKLES, LT WORSE. MULT COLON POLYPS 08/21/17. 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 Past Drug Use History: None Reported - Past Family History Mother Family Medical History: Cancer Additional Family Medical History / Comment(s): Mac deg, blind; abdominal tumor; colon cancer in old age, at 86 Father Family Medical History: Cancer Additional Family Medical History / Comment(s): Prostate CA mets to lungs Medications and Allergies Home Medications Medication Instructions Recorded Confirmed Type Ipratropium/Albuterol Sulfate 1 puff INHALATION RT-Q8H PRN 07/28/16 03/13/20 History [Combivent Respimat Inhaler] Levothyroxine Sodium [Synthroid] 88 mcg PO DAILY 07/28/16 03/13/20 History Budesonide [Pulmicort] 0.5 mg INHALATION RT-BID 10/09/16 03/13/20 History Furosemide [Lasix] 10 mg PO DAILY 12/02/16 03/13/20 History Atorvastatin [Lipitor] 40 mg PO DAILY 08/18/17 03/13/20 History Diltiazem Cd [Cardizem CD] 120 mg PO DAILY 08/18/17 03/13/20 History Ipratropium-Albuterol Nebulize 3 ml INHALATION RT-TID PRN 09/18/17 03/13/20 Hi story [Duoneb 0.5 mg-3 mg/3 ml Soln] metFORMIN HCL 2,000 mg PO DAILY 09/25/17 03/13/20 History Calcium Citrate/Vitamin D3 1 tab PO DAILY 10/28/18 03/13/20 History [Calcitrate + Vit D Caplet] Cetirizine HCl [Zyrtec] 10 mg PO DAILY 10/28/18 03/13/20 History Famotidine 40 mg PO HS 10/28/18 03/13/20 History Tiotropium Br/Olodaterol HCl 1 spray INHALATION RT-DAILY 10/28/18 03/13/20 History [Stiolto Respimat Inhal [place]] Acetaminophen [Tylenol Arthritis] 650 mg PO Q6H PRN 02/17/20 03/13/20 History Albuterol Sulfate [Albuterol 1 - 2 puff INHALATION RT-Q4H PRN 02/17/20 03/13/20 History Sulfate Hfa] DULoxetine HCL [Cymbalta] 60 mg PO DAILY 02/17/20 03/13/20 History guaiFENesin [Mucinex] 1,200 mg PO Q12H 02/17/20 03/13/20 History metFORMIN HCL [Glucophage] 1,000 mg PO HS 02/17/20 03/13/20 History Ibuprofen [Motrin] 400 mg PO Q6HR PRN tab 02/25/20 03/13/20 Rx Pantoprazole Sodium [Protonix] 40 mg PO BID #60 tablet. 02/25/20 03/13/20 Rx oxyCODONE HCL/ACETAMINOPHEN 1 tab PO Q6HR PRN #120 tab 02/25/20 03/13/20 Rx [oxyCODONE HCL/ACETAMINOPHEN 2.5-325] Multivitamins, Thera [Multivitamin 1 tab PO DAILY 03/13/20 03/13/20 History (formulary)] Allergies Allergy/AdvReac Type Severity Reaction Status Date / Time bupropion [From Zyban] Allergy Rash/Hives Verified 03/13/20 15:51 cefaclor [From Ceclor] Allergy Rash/Hives Verified 03/13/20 15:51 formoterol [From Perforomist] Allergy Rapid Verified 03/13/20 15:51 Heart Rate, LOW O2 SATURATION Physical Examination Osteopathic Statement: *. No significant issues noted on an osteopathic structural exam other than those noted in the History and Physical/Consult. - Shoulder bilateral Appearance: normal, no ecchymosis, no effusion, no swelling Tenderness with palpation: no none ROM: abduction: normal ROM: forward flexion: normal ROM: extension: normal - Cervical Spine Neck pain: none Tenderness with palpation: none Full ROM: yes ROM: flexion: normal ROM: extension: normal ROM: rotation right: normal Cranial nerve abnormalities: optic nerve II: no, oculomotor III: no, trochlear IV: no, trigeminal V: no - C Spine: dermatomal strength & reflexes bilateral Shoulder strength: flexion: 5/5 Shoulder strength: extension: 5/5 Shoulder strength: abduction: 5/5 Shoulder strength: adduction: 5/5 Shoulder strength: internal rotation: 5/5 Shoulder strength: external rotation: 5/5 Wrist strength: flexion: 5/5 Wrist strength: extension: 5/5 Wrist strength: pronation: 5/5 Wrist strength: supination: 5/5 Wrist strength: radial deviation: 5/5 Wrist strength: ulnar deviation: 5/5 Strength: maxillofacial surgeon: 5/5 Reflexes: biceps: grade 2, brachial radialis: grade 2, triceps: grade 2 - Lumbar Spine Back pain: staying the same Pain modifiers: with flexion, with extension, with rotation right, throughout R OM Other nerve symptoms: abnormal gait Previous treatment: surgery: somewhat effective, exercise: not effective, physical therapy: not effective Tenderness with palpation: lumbar spine, L/S junction, muscle spasm Appearance: kyphosis, loss of lumbar lordosis - L Spine: dermatomal strength & reflexes bilateral Strength: hip flexion: 5/5 Strength: hip extension: 5/5 Strength: knee flexion: 5/5 Strength: knee extension: 5/5 Strength: ankle dorsiflexion: 5/5 Strength: ankle plantar flexion: 5/5 Strength: ankle inversion: 5/5 Strength: ankle eversion: 5/5 Strength: great toe flexion: 5/5 Strength: great toe extension: 5/5 Reflexes: knee reflex: grade 2, ankle reflex: grade 2 Other reflexes: Babinski's: negative, clonus: negative Nerve sensory abnormalities: buttocks/perianal (S3, S4, S5): no, entire leg: no, medial upper thigh: no, inguinal (L1): no, proximal thigh (L2): no, distal thigh (L3): no, knee (L4): no, lateral leg and first dorsal webspace (L5): no, posterior leg and plantar foot (S1): no, posterior thigh (S2): no Nerve tests: straight leg raising tests: negative, contralateral straight leg raising tests: negative Results CT angiography of the chest again reveals within the spine vertebral compression fractures which are chronic in nature very compressed and kyphotic at the T5 through 8 region. There is a T11 compression fractures well which is noted. These again are all chronic in nature. There is no acute changes in any of these is no retropulsion. - Labs Labs: Abnormal Lab Results - Last 24 Hours (Table) 03/13/20 03/14/20 03/14/20 Range/Units 16:13 15:56 15:56 WBC (3.8-10.6) k/uL RBC (3.80-5.40) m/uL Hgb (11.4-16.0) gm/dL Hct (34.0-46.0) % MCHC (31.0-37.0) g/dL Neutrophils # (Manual) (1.3-7.7) k/uL Lymphocytes # (Manual) (1.0-4.8) k/uL PT (9.0-12.0) sec INR (<1.2) APTT (22.0-30.0) sec D-Dimer >35.20 H (<0.60) mg/L FEU POC Glucose (mg/dL) (75-99) mg/dL C-Reactive Protein 502.3 H 423.8 H (<10.0) mg/L 03/15/20 03/15/20 03/15/20 Range/Units 00:34 00:53 00:53 WBC 39.7 H (3.8-10.6) k/uL RBC 3.41 L (3.80-5.40) m/uL Hgb 10.0 L (11.4-16.0) gm/dL Hct 31.7 L (34.0-46.0) % MCHC (31.0-37.0) g/dL Neutrophils # (Manual) 38.50 H (1.3-7.7) k/uL Lymphocytes # (Manual) 0.40 L (1.0-4.8) k/uL PT 13.3 H (9.0-12.0) sec INR 1.3 H (<1.2) APTT (22.0-30.0) sec D-Dimer (<0.60) mg/L FEU POC Glucose (mg/dL) 103 H (75-99) mg/dL C-Reactive Protein (<10.0) mg/L 03/15/20 03/15/20 03/15/20 Range/Units 06:17 07:20 07:20 WBC 42.8 H (3.8-10.6) k/uL RBC 3.35 L (3.80-5.40) m/uL Hgb 9.6 L (11.4-16.0) gm/dL Hct 31.8 L (34.0-46.0) % MCHC 30.2 L (31.0-37.0) g/dL Neutrophils # (Manual) (1.3-7.7) k/uL Lymphocytes # (Manual) (1.0-4.8) k/uL PT (9.0-12.0) sec INR (<1.2) APTT 92.2 H (22.0-30.0) sec D-Dimer (<0.60) mg/L FEU POC Glucose (mg/dL) 134 H (75-99) mg/dL C-Reactive Protein (<10.0) mg/L Microbiology - Last 24 Hours (Table) 03/13/20 16:18 Blood Culture Gram Stain - Preliminary Blood 03/13/20 16:18 Blood Culture - Final Blood H & H 03/13/20 03/15/20 03/15/20 Range/Units 16:13 00:53 07:20 Hgb 10.3 L 10.0 L 9.6 L (11.4-16.0) gm/dL Hct 32.6 L 31.7 L 31.8 L (34.0-46.0) % Coagulation 03/13/20 03/15/20 Range/Units 16:13 00:53 INR 1.1 1.3 H (<1.2) Result Diagrams: 03/15/20 07:20 03/13/20 16:13 Assessment and Plan Assessment: 74-year-old female with history of lung carcinoma multiple compression fracture status post kyphoplasty 02/21/2020. Continued back pain and debility Plan: -Medical management. -Pain control: Adequate at this time -Aggressive ambulation protocol. OOB with all meals. OOB or in chair 4-5x daily. -PT/OT -TEDs, SCDs, mechanical ppx. OK for heparin today. Early ambulation is best. -GI ppx. -Recommend getting plain films however would not recommend new MRI at this point. The patient is not stable, stable for surgical options in her surgical options include a C2 to pelvis fusion which would not be advantageous for the patient. -Trend labs. -Dispo: Likely to need rehab
[2020-03-15 08:37] LABS: Anisocytosis (M) Present; Band Neutrophils % 6 %; Dohle Bodies Present; Eosinophils # (M) 0.43 k/uL (0-0.7); Lymphocytes # (M) 0.86 k/uL (1.0-4.8); Monocytes # (M) 2.14 k/uL (0-1.0); Myelocytes # (M) 0.86 k/uL (0); Myelocytes % 2 %; Neutrophils % (M) 87 %; Nucleated Red Blood Cells 0 /100 WBC (0-0); Poikilocytosis (M) Present; Total Cells Counted 200; Toxic Granulation Present; Toxic Vacuolation Present
[2020-03-15] MEDS: MULTIVITAMINS, THERA 1 EACH TAB PO SCH (08:50)
[2020-03-15] MEDS: ATORVASTATIN 40 MG TAB PO SCH (08:50)
[2020-03-15] MEDS: DILTIAZEM CD 120 MG CAP.ER.24H PO SCH (08:50)
[2020-03-15] MEDS: guaiFENesin 600 MG TABLET.ER PO SCH ×2 (08:50→21:24)
[2020-03-15] MEDS: CALCIUM CARB-VIT D 500 MG-5 MCG TAB PO SCH (08:50)
[2020-03-15] MEDS: PANTOPRAZOLE 40 MG TABLET PO SCH ×2 (08:50→21:25)
[2020-03-15] MEDS: DULoxetine HCL 60 MG CAPSULE.DR PO SCH (08:51)
[2020-03-15] MEDS: THIAMINE 100 MG TAB PO SCH (08:51)
[2020-03-15] MEDS: FOLIC ACID 1 MG TAB PO SCH (08:51)
[2020-03-15] MEDS: LORATADINE 10 MG TAB PO SCH (08:51)
[2020-03-15] MEDS: FUROSEMIDE 20 MG TAB PO SCH (08:51)
[2020-03-15] MEDS: BUDESONIDE 0.5 MG/2 ML NEBU INHALATION SCH (08:52)
[2020-03-15 09:07] LABS: T4, Free (Free Thyroxine) 1.22 ng/dL (0.78-2.19)
--- NOTE | 2020-03-15 10:54 | ECHOF ---
Referral Reason:atrial flutter MEASUREMENTS -------- HEIGHT: 167.6 cm WEIGHT: 76.2 kg BP: 98/68 RVIDd: 3.8 cm (< 3.3) IVSd: 1.4 cm (0.6 - 1.1) LVIDd: 3.0 cm (3.9 - 5.3) LVPWd: 1.3 cm (0.6 - 1.1) IVSs: 1.6 cm LVIDs: 1.9 cm LVPWs: 1.3 cm LA Diam: 2.8 cm (2.7 - 3.8) Ao Diam: 3.4 cm (2.0 - 3.7) AV Cusp: 2.3 cm (1.5 - 2.6) MV EXCURSION: 15.271 mm (> 18.000) MV EF SLOPE: 113 mm/s (70 - 150) EPSS: 0.2 cm RAP: 5.00 mmHg RVSP: 24.94 mmHg FINDINGS -------- Resting tachycardia (HR>100bpm). This was a technically adequate study. The left ventricular size is normal. There is moderate concentric left ventricular hypertrophy. O verall left ventricular systolic function is normal with, an EF between 65 - 70 %. The right ventricle is mild to moderately enlarged. The left atrium is normal in size. The right atrium was not well visualized. Interatrial and interventricular septum intact. There is mild aortic valve sclerosis. The mitral valve leaflets are mildly thickened. Mild tricuspid regurgitation present. Right ventricular systolic pressure is normal at < 35 mmHg. The pulmonic valve was not well visualized. The aortic root size is normal. Normal inferior vena cava with normal inspiratory collapse consistent with estimated right atrial pre ssure of 5 mmHg. There is no pericardial effusion. CONCLUSIONS -------- 1. The left ventricular size is normal. 2. There is moderate concentric left ventricular hypertrophy. 3. Overall left ventricular systolic function is normal with, an EF between 65 - 70 %. 4. The right ventricle is mild to moderately enlarged. 5. There is mild aortic valve sclerosis. 6. Mild tricuspid regurgitation present. 7. There is no pericardial effusion. SURGERY SPECIALIST: Rashmi Oliva, CS
[2020-03-15 11:23] VITALS: BMI 27.2
[2020-03-15] MEDS: AMIODARONE 300 MG in DEXTROSE 5% IN WATER 250 ML IV SCH ×4 (11:34→21:26)
[2020-03-15 11:37] LABS: Glucose,Whole Blood 146 mg/dL (75-99)
--- NOTE | 2020-03-15 14:00 | P.CONS ---
History of Present Illness - Reason for Consult Consult date: 03/15/20 Metastatic Cancer Requesting physician: King Marley - Chief Complaint Pain - History of Present Illness Mrs. Jernigan is a 74-year-old female patient who recently was seen in consultation earlier in the month after presenting to [facility] after falling. 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 The risk for biopsy was felt to be too high, therefore she underwent SBRT with Dr. Velasco, per medical record finishing in December 2019. MRI Lumbar spine revealed moderate compression fracture of L2, suspected pathological. Underwent Kyphoplasty on 02/21/20, at that time a biopsy was taken and the fracture and bone fragment did not reveal evidence of malignancy. She reported increased weakness, that has been new and recent falls at home. She presented to ER on February 16 after previous fall. A CT chest at that time did unfortunately reveal a new left adrenal mass, as well as representation of the RUL lung lesion previously treated. There was however a new acute/subacute fracture and L2, as well as the patient's known chronic compression fractures in thoracic spine. She subsequently underwent an MRI of the cervical, thoracic and lumbar spine on February 17. Outside of the patient's known compression fractures in the thoracic spine, the cervical and thoracic spine exam was unremarkable. There was however abnormal bone marrow signal noted in the L2 vertebral body with compression fracture and some posterior retropulsion. There did not appear to be compression of the cauda equina at this level.MRI of the Brain on 02/22/20 revealed evidence of metastatic lesions to the brain. Consult was placed for Dr. Velasco from radiation oncology and the patient was started on Dexamethasone and PPI, however she was discharged shortly after this to [facility]. A follow-up was attempted on three occassions although on 03/08/20 she was still under the services of out patient rehab and was unable to be seen in office. I have contacted Dr. Velasco to further see if follow-up was able to be performed from radiation oncology standpoint. She now presents with complaints of abdominal pain and has been found to have 3/3 positive blood cultures gram positive cocci in clusters. Dr. Mooney from infectious disease is managing The current issues are currently being controlled per cardiology, primary team, and ID. However since her bone biopsy (performed during kyphoplasty) did not give us a definitive cancer diagnosis we will still need further tissue sampling for treatment plans. Pulmonology is following. Review of Systems All systems: negative Constitutional: Reports as per HPI Past Medical History Past Medical History: Asthma, COPD, Diabetes Mellitus, Hyperlipidemia, Hypertension, Osteoarthritis (OA), Thyroid Disorder Additional Past Medical History / Comment(s): HX HYPERTHYROID, HAD IODINE TX. ON home oxygen 3 LITERS [place]. 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 T-8 COMPRESSION FX IN 2012. EDEMA MARIO ANKLES, LT WORSE. MULT COLON POLYPS 08/21/17. 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 Past Drug Use History: None Reported - Past Family History Mother Family Medical History: Cancer Additional Family Medical History / Comment(s): Mac deg, blind; abdominal tumor; colon cancer in old age, at 86 Father Family Medical History: Cancer Additional Family Medical History / Comment(s): Prostate CA mets to lungs Medications and Allergies Home Medications Medication Instructions Recorded Confirmed Type Ipratropium/Albuterol Sulfate 1 puff INHALATION RT-Q8H PRN 07/28/16 03/13/20 History [Combivent Respimat Inhaler] Levothyroxine Sodium [Synthroid] 88 mcg PO DAILY 07/28/16 03/13/20 History Budesonide [Pulmicort] 0.5 mg INHALATION RT-BID 10/09/16 03/13/20 History Furosemide [Lasix] 10 mg PO DAILY 12/02/16 03/13/20 History Atorvastatin [Lipitor] 40 mg PO DAILY 08/18/17 03/13/20 History Diltiazem Cd [Cardizem CD] 120 mg PO DAILY 08/18/17 03/13/20 History Ipratropium-Albuterol Nebulize 3 ml INHALATION RT-TID PRN 09/18/17 03/13/20 History [Duoneb 0.5 mg-3 mg/3 ml Soln] metFORMIN HCL 2,000 mg PO DAILY 09/25/17 03/13/20 History Calcium Citrate/Vitamin D3 1 tab PO DAILY 10/28/18 03/13/20 History [Calcitrate + Vit D Caplet] Cetirizine HCl [Zyrtec] 10 mg PO DAILY 10/28/18 03/13/20 History Famotidine 40 mg PO HS 10/28/18 03/13/20 History Tiotropium Br/Olodaterol HCl 1 spray INHALATION RT-DAILY 10/28/18 03/13/20 History [Stiolto Respimat Inhal [place]] Acetaminophen [Tylenol Arthritis] 650 mg PO Q6H PRN 02/17/20 03/13/20 History Albuterol Sulfate [Albuterol 1 - 2 puff INHALATION RT-Q4H PRN 02/17/20 03/13/20 History Sulfate Hfa] DULoxetine HCL [Cymbalta] 60 mg PO DAILY 02/17/20 03/13/20 History guaiFENesin [Mucinex] 1,200 mg PO Q12H 02/17/20 03/13/20 History metFORMIN HCL [Glucophage] 1,000 mg PO HS 02/17/20 03/13/20 History Ibuprofen [Motrin] 400 mg PO Q6HR PRN tab 02/25/20 03/13/20 Rx Pantoprazole Sodium [Protonix] 40 mg PO BID #60 tablet. 02/25/20 03/13/20 Rx oxyCODONE HCL/ACETAMINOPHEN 1 tab PO Q6HR PRN #120 tab 02/25/20 03/13/20 Rx [oxyCODONE HCL/ACETAMINOPHEN 2.5-325] Multivitamins, Thera [Multivitamin 1 tab PO DAILY 03/13/20 03/13/20 History (formulary)] Allergies Allergy/AdvReac Type Severity Reaction Status Date / Time bupropion [From Zyban] Allergy Rash/Hives Verified 03/13/20 15:51 cefaclor [From Ceclor] Allergy Rash/Hives Verified 03/13/20 15:51 formoterol [From Perforomist] Allergy Rapid Verified 03/13/20 15:51 Heart Rate, LOW O2 SATURATION Physical Exam Vitals: Vital Signs Temp Pulse Pulse Resp BP Pulse Ox 03/15/20 12:00 97.3 F L 149 H 20 113/61 94 L 03/15/20 09:00 97.7 F 122 H 20 136/64 95 03/15/20 04:32 111 H 18 98/68 96 03/15/20 04:24 120 H 18 99/65 95 03/15/20 04:19 124 H 18 102/58 94 L 03/15/20 03:35 98.6 F 126 H 19 89/61 95 03/15/20 02:00 98 20 03/14/20 20:00 18 03/14/20 19:01 98.2 F 98 18 121/69 93 L 03/14/20 14:42 98.6 F 95 18 117/66 95 Intake and Output 03/14/20 03/15/20 03/15/20 22:59 06:59 14:59 Intake Total 1240 98.572 Output Total 200 300 Balance 1040 -201.428 Intake: Intake, IV Titration 1240 98.572 Amount Dextrose 5% in Water 100 100 ml @ 618 mls/hr IV .Q10M ONE with Amiodarone 150 mg Rx#:[id number] Diltiazem 125 mg In 15 Sodium Chloride 0.9% 100 ml @ 5 MG/HR 5 mls/hr IV .Q24H [facility] Rx#:[id number] Heparin Sod,Pork in 0.45% 98.572 NaCl 25,000 unit In 0.45 % NaCl 1 250ml.bag @ 12 UNITS/KG/HR 8.437 mls/hr IV .Q24H [facility] Rx#: [id number] Sodium Chloride 0.9% 500 1000 ml 1,000 ml @ 999 mls/hr IV .Q1H1M ONE Rx#: [id number] Vancomycin 1,250 mg In 125 Sodium Chloride 0.9% 250 ml @ 125 mls/hr IVPB Q16H [facility] Rx#:[id number] Output: Urine 200 300 Other: Voiding Method External Catheter External Catheter External Catheter # Voids 1 # Bowel Movements 0 Weight 76.5 kg 76.5 kg - Constitutional General appearance: cooperative, no acute distress, Appears ill - EENT Eyes: EOMI, poor dentition ENT: NA/AT - Respiratory Respiratory: bilateral: diminished, rhonchi - Cardiovascular Irregular Irregular Tchy - Gastrointestinal General gastrointestinal: soft, Tender - Integumentary Integumentary: pale - Neurologic non focal - Musculoskeletal mobility greatly decreased after recent fall secondary to pathological vertebral fracture Musculoskeletal: generalized weakness - Psychiatric Psychiatric: A&O x's 3, appropriate affect, intact judgment & insight Results CBC & Chem 7: 03/15/20 07:20 03/15/20 14:01 Labs: Abnormal Lab Results - Last 24 Hours (Table) 03/14/20 03/14/20 03/15/20 Range/Units 15:56 15:56 00:34 WBC (3.8-10.6) k/uL RBC (3.80-5.40) m/uL Hgb (11.4-16.0) gm/dL Hct (34.0-46.0) % MCHC (31.0-37.0) g/dL Neutrophils # (Manual) (1.3-7.7) k/uL Lymphocytes # (Manual) (1.0-4.8) k/uL Monocytes # (Manual) (0-1.0) k/uL Myelocytes # (Manual) (0) k/uL PT (9.0-12.0) sec INR (<1.2) APTT (22.0-30.0) sec D-Dimer >35.20 H (<0.60) mg/L FEU POC Glucose (mg/dL) 103 H (75-99) mg/dL C-Reactive Protein 423.8 H (<10.0) mg/L 03/15/20 03/15/20 03/15/20 Range/Units 00:53 00:53 06:17 WBC 39.7 H (3.8-10.6) k/uL RBC 3.41 L (3.80-5.40) m/uL Hgb 10.0 L (11.4-16.0) gm/dL Hct 31.7 L (34.0-46.0) % MCHC (31.0-37.0) g/dL Neutrophils # (Manual) 38.50 H (1.3-7.7) k/uL Lymphocytes # (Manual) 0.40 L (1.0-4.8) k/uL Monocytes # (Manual) (0-1.0) k/uL Myelocytes # (Manual) (0) k/uL PT 13.3 H (9.0-12.0) sec INR 1.3 H (<1.2) APTT (22.0-30.0) sec D-Dimer (<0.60) mg/L FEU POC Glucose (mg/dL) 134 H (75-99) mg/dL C-Reactive Protein (<10.0) mg/L 03/15/20 03/15/20 03/15/20 Range/Units 07:20 07:20 11:35 WBC 42.8 H (3.8-10.6) k/uL RBC 3.35 L (3.80-5.40) m/uL Hgb 9.6 L (11.4-16.0) gm/dL Hct 31.8 L (34.0-46.0) % MCHC 30.2 L (31.0-37.0) g/dL Neutrophils # (Manual) 39.80 H (1.3-7.7) k/uL Lymphocytes # (Manual) 0.86 L (1.0-4.8) k/uL Monocytes # (Manual) 2.14 H (0-1.0) k/uL Myelocytes # (Manual) 0.86 H (0) k/uL PT (9.0-12.0) sec INR (<1.2) APTT 92.2 H (22.0-30.0) sec D-Dimer (<0.60) mg/L FEU POC Glucose (mg/dL) 146 H (75-99) mg/dL C-Reactive Protein (<10.0) mg/L Microbiology - Last 24 Hours (Table) 03/14/20 12:40 Blood Culture - Final Blood 03/13/20 16:18 Blood Culture Gram Stain - Preliminary Blood Blood Culture - Preliminary Coagulase Negative Staph 03/13/20 16:18 Blood Culture - Final Blood CT scan - chest: report reviewed Assessment and Plan (1) 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 Current Visit: Yes Status: Acute Code(s): E27.8 - OTHER SPECIFIED DISORDERS OF ADRENAL GLAND; Z85.9 - PERSONAL HISTORY OF MALIGNANT NEOPLASM, UNSPECIFIED SNOMED Code(s): 386094509 (2) Adrenal mass Current Visit: Yes Status: Acute Code(s): E27.8 - OTHER SPECIFIED DISORDERS OF ADRENAL GLAND SNOMED Code(s): 956739007 (3) Brain metastases Narrative/Plan: - Identified on 02/22/20 MRI of the Brain, was discharged with dexamethasone but unable to follow-up secondary to rehabilitation at [facility]. - We have asked Dr. Velasco to re-evaluate for radiation - Restart dexamethasone 4 TID with PPI once confirmed these have not been treated - Since Heparin drip has started per cardiology I have asked for another repeat MRI of the brain as we need to confiorm the metastatic brain lesions are not active with therapeutic heparin. Current Visit: No Status: Acute Code(s): C79.31 - SECONDARY MALIGNANT NEOPLASM OF BRAIN SNOMED Code(s): 90490383 (4) Lung mass Current Visit: No Status: Acute Code(s): R91.8 - OTHER NONSPECIFIC ABNORMAL FINDING OF LUNG FIELD SNOMED Code(s): 806547527 (5) Bacteremia Current Visit: Yes Status: Acute Code(s): R78.81 - BACTEREMIA SNOMED Code(s): 6230923 (6) SIRS (systemic inflammatory response syndrome) Current Visit: Yes Status: Acute Code(s): R65.10 - SIRS OF NON-INFECTIOUS ORIGIN W/O ACUTE ORGAN DYSFUNCTION SNOMED Code(s): 404747031 (7) History of lung cancer Narrative/Plan: Biopsy risk was too high at time of diagnosis, therefore SRS radiation was performed, it was suspected to be NSCLCA at the time of findings 12/2019. Current Visit: Yes Status: Acute Code(s): Z85.118 - PERSONAL HISTORY OF MALIGNANT NEOPLASM OF BRONCHUS AND LUNG SNOMED Code(s): 740708416 Plan: Discussed with radiation oncology and Interventional radiology. Discussed with Dr. Mooney from ID, ok to move forward with Adrenal biopsy. Will restart dexamethsone at lower dose and await MRI Brain
[2020-03-15] MEDS: IOPAMIDOL CONTRAST (ORAL USE) VIAL PO PRN (14:30)
[2020-03-15 14:39] LABS: ALT 88 U/L (4-34); Alkaline Phosphatase 446 U/L (38-126); Magnesium 1.5 mg/dL (1.6-2.3)
--- NOTE | 2020-03-15 14:45 | P.CONS ---
History of Present Illness - Reason for Consult Consult date: 03/14/20 leukocytosis Requesting physician: King Marley - Chief Complaint hurting all over x few days - History of Present Illness Patient is a 74-year-old female in this patient who was recently admitted at this facility and the patient is status post L2 vertebral body b iopsy and 2 kyphoplasty with insertion of PMMA cement patient subsequently was stabilized and was discharged to the rehabilitation patient is coming back to the ER yesterday from the long term for evaluation of generalized body weeks patient complaining of pain in her abdominal more of a dull aching 4 to 5-10 and radiation some nausea but no vomiting denies any diarrhea is also complaining of pain to her low back area describing it to be throbbing to dull aching 70 8 out of 10 and some radiation to the leg denies any bowel or bladder problems with the symptom the patient was evaluated by the ER physician on arrival to the ER patient has been afebrile and no fever has been recorded since then the patient was slightly tachycardic patient did have a white count of 45.5 patient did have normal creatinine levels as mildly elevated did have elevated CRP urine has been negative patient did have a acute abdominal series evidence of mild ileus patient also have a CT angiogram of the chest which was irregular mass in the right upper lobe measuring approximately 2.1 into 1.2 cm no PE new small left lower lobe effusion with small left lower lobe atelectasis patient was admitted to hospital infectious was consulted for further management of antibiotic therapy patient blood pressure subsequently came back positive with gram- positive cocci. Review of Systems Positive point has been mentioned in HPI, rest of the systems are negative Past Medical History Past Medical History: Asthma, COPD, Diabetes Mellitus, Hyperlipidemia, Hypertension, Osteoarthritis (OA), Thyroid Disorder Additional Past Medical History / Comment(s): HX HYPERTHYROID, HAD IODINE TX. ON home oxygen 3 LITERS [place]. 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 T-8 COMPRESSION FX IN 2012. EDEMA MARIO ANKLES, LT WORSE. MULT COLON POLYPS 08/21/17. 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 Past Drug Use History: None Reported - Past Family History Mother Family Medical History: Cancer Additional Family Medical History / Comment(s): Mac deg, blind; abdominal tumor; colon cancer in old age, at 86 Father Family Medical History: Cancer Additional Family Medical History / Comment(s): Prostate CA mets to lungs Medications and Allergies Home Medications Medication Instructions Recorded Confirmed Type Ipratropium/Albuterol Sulfate 1 puff INHALATION RT-Q8H PRN 07/28/16 03/13/20 History [Combivent Respimat Inhaler] Levothyroxine Sodium [Synthroid] 88 mcg PO DAILY 07/28/16 03/13/20 History Budesonide [Pulmicort] 0.5 mg INHALATION RT-BID 10/09/16 03/13/20 History Furosemide [Lasix] 10 mg PO DAILY 12/02/16 03/13/20 History Atorvastatin [Lipitor] 40 mg PO DAILY 08/18/17 03/13/20 History Diltiazem Cd [Cardizem CD] 120 mg PO DAILY 08/18/17 03/13/20 History Ipratropium-Albuterol Nebulize 3 ml INHALATION RT-TID PRN 09/18/17 03/13/20 History [Duoneb 0.5 mg-3 mg/3 ml Soln] metFORMIN HCL 2,000 mg PO DAILY 09/25/17 03/13/20 History Calcium Citrate/Vitamin D3 1 tab PO DAILY 10/28/18 03/13/20 History [Calcitrate + Vit D Caplet] Cetirizine HCl [Zyrtec] 10 mg PO DAILY 10/28/18 03/13/20 History Famotidine 40 mg PO HS 10/28/18 03/13/20 History Tiotropium Br/Olodaterol HCl 1 spray INHALATION RT-DAILY 10/28/18 03/13/20 History [Stiolto Respimat Inhal [place]] Acetaminophen [Tylenol Arthritis] 650 mg PO Q6H PRN 02/17/20 03/13/20 History Albuterol Sulfate [Albuterol 1 - 2 puff INHALATION RT-Q4H PRN 02/17/20 03/13/20 History Sulfate Hfa] DULoxetine HCL [Cymbalta] 60 mg PO DAILY 02/17/20 03/13/20 History guaiFENesin [Mucinex] 1,200 mg PO Q12H 02/17/20 03/13/20 History metFORMIN HCL [Glucophage] 1,000 mg PO HS 02/17/20 03/13/20 History Ibuprofen [Motrin] 400 mg PO Q6HR PRN tab 02/25/20 03/13/20 Rx Pantoprazole Sodium [Protonix] 40 mg PO BID #60 tablet. 02/25/20 03/13/20 Rx oxyCODONE HCL/ACETAMINOPHEN 1 tab PO Q6HR PRN #120 tab 02/25/20 03/13/20 Rx [oxyCODONE HCL/ACETAMINOPHEN 2.5-325] Multivitamins, Thera [Multivitamin 1 tab PO DAILY 03/13/20 03/13/20 History (formulary)] Allergies Allergy/AdvReac Type Severity Reaction Status Date / Time bupropion [From Zyban] Allergy Rash/Hives Verified 03/13/20 15:51 cefaclor [From Ceclor] Allergy Rash/Hives Verified 03/13/20 15:51 formoterol [From Perforomist] Allergy Rapid Verified 03/13/20 15:51 Heart Rate, LOW O2 SATURATION Physical Exam Vitals: Vital Signs Temp Pulse Pulse Pulse Resp BP BP 03/14/20 19:01 98.2 F 98 18 121/69 03/14/20 14:42 98.6 F 95 18 117/66 03/14/20 07:14 98.6 F 103 H 20 119/72 03/14/20 02:00 97.4 F L 98 18 127/77 03/13/20 22:26 97 16 112/63 Pulse Ox 03/14/20 19:01 93 L 03/14/20 14:42 95 03/14/20 07:14 91 L 03/14/20 02:00 96 03/13/20 22:26 97 Intake and Output 03/14/20 03/14/2020 06:59 14:59 22:59 Output Total 300 Balance -300 Output: Urine 300 Other: Voiding Method External Catheter External Catheter # Bowel Movements 0 GENERAL DESCRIPTION: Elderly female lying in bed, no distress. No tachypnea or accessory muscle of respiration use. HEENT: Shows Pallor , no scleral icterus. Oral mucous membrane is dry. No phary ngeal erythema or thrush NECK: Trachea central, no thyromegaly. LUNGS: Unlabored breathing. Decreased breath sound the base. No wheeze or crackle. HEART: S1, S2, regular rate and rhythm. No loud murmur ABDOMEN: Soft, no tenderness , guarding or rigidity, no organomegaly EXTREMITIES: No edema of feet. Lumbar spine kyphoplasty site with no swelling no redness SKIN: No rash, no masses palpable. NEUROLOGICAL: The patient is awake, alert, oriented x3, mood and affect normal. Results CBC & Chem 7: 03/15/20 07:20 03/13/20 16:13 Labs: Abnormal Lab Results - Last 24 Hours (Table) 03/13/20 03/14/20 03/14/20 Range/Units 16:13 15:56 15:56 D-Dimer >35.20 H (<0.60) mg/L FEU C-Reactive Protein 502.3 H 423.8 H (<10.0) mg/L Microbiology - Last 24 Hours (Table) 03/13/20 16:18 Blood Culture Gram Stain - Preliminary Blood 03/13/20 16:18 Blood Culture - Final Blood Assessment and Plan Assessment: 1-patient is a 74-year-old female presented to hospital with multiple symptoms including abdominal pain and back pain in this patient recently did have L2 kyphoplasty however surgical site currently with no evidence of any cellulitis however the patient to have gram-positive bacteremia in the slightly concerning she was complaining of some abdominal pain but no significant tenderness was noticed on abdominal examination and the CT chest findings did show the mass but did not mention any postobstructive pneumonia. 2-patient with multiple antibiotic allergies that would limit the number of antibiotics safe to use (1) Leukocytosis Current Visit: Yes Status: Acute Code(s): D72.829 - ELEVATED WHITE BLOOD CELL COUNT, UNSPECIFIED SNOMED Code(s): 500148517 (2) Bacteremia Current Visit: Yes Status: Acute Code(s): R78.81 - BACTEREMIA SNOMED Code(s): 1271854 Plan: 1-blood cultures will be repeated document clearance of bacteremia 2-vancomycin pharmacy to dose target trough of 15 while watching kidney function and vancomycin trough closely We will follow on clinical condition and cultures to further adjust medication if needed Thank you for this consultation will follow this patient along with you Time with Patient: Greater than 30
[2020-03-15 14:51] LABS: AST 127 U/L (14-36); African American GFR (CKD) >90 (>60 ml/min/1.73 sqM); Albumin 2.2 g/dL (3.5-5.0); Anion Gap 5 mmol/L; Blood Urea Nitrogen 27 mg/dL (7-17); Calcium 7.4 mg/dL (8.4-10.2); Carbon Dioxide 21 mmol/L (22-30); Chloride 107 mmol/L (98-107); Glucose 160 mg/dL (74-99); Non-African American GFR(CKD) >90 (>60 ml/min/1.73 sqM); Potassium 4.7 mmol/L (3.5-5.1); Sodium 133 mmol/L (137-145); Total Bilirubin 0.4 mg/dL (0.2-1.3); Total Protein 4.9 g/dL (6.3-8.2)
[2020-03-15] MEDS: HYDROmorphone 0.5 MG/0.5 ML SYRINGE IVP PRN (16:30)
[2020-03-15] MEDS: metroNIDAZOLE 500 MG TAB PO SCH ×2 (16:30→21:25)
[2020-03-15 16:31] LABS: Glucose,Whole Blood 214 mg/dL (75-99)
[2020-03-15] MEDS: AZTREONAM 2 GM in SODIUM CHLORIDE 0.9% 100 ML IVPB SCH (17:29)
--- NOTE | 2020-03-15 17:59 | PN ---
PROGRESS NOTE I am covering for Dr. Puckett. DATE OF SERVICE: 03/15/2020 This 74-year-old woman who was admitted with multiple medical issues, including shortness of breath and change in mental status, also had tachycardia last night. It was thought to be SVT initially, but atrial fibrillation was suspected by Cardiology. Patient is being closely monitored. Patient was transferred to the cardiology unit and patient was started on amiodarone and heparin. The patient was started on Cardizem also because of persistent high heart rate. Ejection fraction was found to be 65% to 70%. The patient also had elevated white count. Patient is on empiric antibiotics. Blood culture is showing coagulase-negative Staph, one out of two. The patient also has been recommended MRI of the lumbosacral spine also. Past medical history reviewed. REVIEW OF SYSTEMS: CARDIOVASCULAR SYSTEM: No angina, palpitations. RESPIRATORY SYSTEM: As mentioned earlier. GI: As mentioned earlier. : No dysuria or retention. NERVOUS SYSTEM: As mentioned earlier. Mildly confused. CURRENT MEDICATIONS: Reviewed. They include Tylenol 325 mg, [place], DuoNeb, Xanax, amiodarone, Lipitor, aztreonam, diltiazem, Cymbalta, Duragesic patch, Lasix, heparin, NovoLog, Flagyl, multivitamins, Narcan, OxyIR, Protonix. PHYSICAL EXAMINATION: Patient is alert, oriented x2. Pulse 149, regular, blood pressure 113/61, respiration 20, temperature 97.3, pulse ox 94% on 4 L. HEENT: Conjunctivae normal. NECK: No jugular venous distention. CARDIOVASCULAR SYSTEM: S1, S2 irregular. RESPIRATORY SYSTEM: Breath sounds diminished at the bases. A few scattered rhonchi. ABDOMEN: Soft, non-tender. LEGS: No edema. No swelling. NERVOUS SYSTEM: Diffusely weak. LABS: Labs at this time show WBC 42.8, hemoglobin 9.6, platelets are 308. Sodium 133. Magnesium is 1.5. AST is 27, ALT is 88. ASSESSMENT: 1. Severe back pain, possible sepsis, present on admission. Etiology undetermined. 2. Change in mental status, acute metabolic encephalopathy secondary to sepsis. 3. Elevated white count with leukemoid reaction. 4. History of recent L2 vertebral kyphoplasty and biopsy. 5. History of recent L2 compression fracture. 6. History of [id number] lung cancer, lung mass. 7. 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 8. History of multiple falls and gait dysfunction. 9. Weakness. 10.Chronic obstructive pulmonary disease. 11.Diabetes mellitus, type 2. 12.History of colectomy. 13.Hyponatremia. 14.Hypomagnesemia. 15.Increased AST and ALT; possibly hepatitis. 16.Increased CRP. 17.Anemia, normocytic anemia of malignancy. 18.FULL CODE. RECOMMENDATIONS AND DISCUSSION: I recommend to continue current medications, continue with the monitoring, symptomatic treatment. Otherwise, repeat labs. Will continue to replace magnesium. Otherwise, COVID-19 rapid testing is negative. Will continue to monitor. The chest CTA was personally reviewed by me which showed irregular mass in the right upper lobe as like before, and adrenal mass was also noted. Hematology/oncology input appreciated. Overall prognosis extremely guarded because of multiple complex medical issues. Further recommendations to follow. The D-dimer is elevated significantly. MMODL / IJN: [id number] /
[2020-03-15] MEDS: DEXAMETHASONE SOD PHOSPHATE 4 MG/ML 1 ML VIAL IV SCH (18:18)
[2020-03-15] MEDS: MAGNESIUM OXIDE 400 MG TAB PO SCH (18:18)
[2020-03-15 19:46] LABS: African American GFR (CKD) 99.6 (60.0-200.0); Albumin/Globulin Ratio 1.5 (1.60-3.17); Anion Gap 14.3 mmol/L (4.00-12.00); BUN/Creat Ratio 44.29 Ratio (12.00-20.00); Calcium 7.6 mg/dL (8.7-10.3); Carbon Dioxide 19.7 mmol/L (21.6-31.8); Potassium 4.8 mmol/L (3.5-5.5); Total Bilirubin 0.4 mg/dL (0.3-1.2)
--- NOTE | 2020-03-15 19:50 | CONS ---
CONSULTATION PULMONARY/CRITICAL CARE CONSULTATION: REASON FOR CONSULTATION: Shortness of breath. This is a 74-year-old female with a history of multiple medical problems, including chronic falls at home, chronic low back pain with L2 compression fracture, multiple thoracic and lumbar vertebral compression deformities, right upper lobe nodule, likely representing lung cancer, in a patient who is not a candidate for a biopsy or any treatment other than potentially SBRT, chronic hypoxemic respiratory failure, COPD, chronic tobacco use, diabetes, hypothyroidism, DJD, colonic polyps, urinary tract infection and hyponatremia. The patient apparently presented to the emergency room on March 13 at 1531. She came in there complaining of shortness of breath. According to the [place], the patient actually noted that she had total body pain that was lasting for 3 weeks. She apparently was sent in from the alf. As mentioned, she has multiple comorbidities. She apparently has been having pain throughout her entire body for 3 weeks. Apparently she states that her back hurts, her chest hurts, her abdomen hurts. She also complained of weakness. She denied any fever, chills or night sweats. She also complained of pain to the chest, low back and legs. Apparently the patient is a no-intubation patient. She does have a history of suspected but not proven lung cancer involving the right upper lobe. The patient was evaluated in the emergency department and admitted for a diagnosis of "systemic inflammatory response syndrome." Currently the patient is resting in bed reasonably comfortably. She is a very poor historian. She is on oxygen at 4 L. Her temperature is 97.3. She is mildly tachycardic. HOME MEDICATIONS: Her home medications include Combivent, Synthroid, Pulmicort, Lasix, Lipitor, Cardizem CD, DuoNeb, metformin, calcium with vitamin D3, Zyrtec, famotidine, Stiolto Respimat, Tylenol, albuterol inhaler, Cymbalta, Mucinex, Glucophage, multiple vitamins, Motrin, Protonix, and oxycodone with Tylenol. ALLERGIES: ALLERGIES include ZYBAN, CECLOR AND PERFOROMIST. MEDICAL HISTORY: Medical history includes COPD, diabetes, hyperlipidemia, hypertension, DJD, hypothyroidism, chronic hypoxemic respiratory failure, on home oxygen, Mello's palsy, multiple compression fractures and multiple colonic polyps. In addition, she has a suspicious lesion in the right upper lobe, thought to be lung cancer, though she is not a candidate for anything other than stereotactic body radiotherapy (SBRT). SURGICAL HISTORY: Surgical history includes adenoidectomy, appendectomy, bowel resection, breast surgery, hysterectomy, tonsillectomy, several lumpectomies, D and C, cataract surgery and colonoscopy. SOCIAL HISTORY: Positive for previous tobacco use. She drinks alcohol rarely. No illicit drug use. FAMILY HISTORY: Positive for mother with macular degeneration and blindness, abdominal tumor and colon cancer. Her father apparently with prostate cancer with metastasis to the lungs. REVIEW OF SYSTEMS: Review of systems is totally unreliable. The patient is a very poor historian. She does complain of diffuse pain but is not real specific. PHYSICAL EXAMINATION: VITAL SIGNS: Current vital signs are reviewed. Temperature 97.3, heart rate 122, respiratory rate 20, blood pressure 113/61, mean 78. Four-liter saturation 94%. GENERAL APPEARANCE: Appears in no acute distress. HEENT: Examination is grossly unremarkable. NECK: Supple. Full range of motion. No adenopathy. Neck veins are flat. CARDIOVASCULAR: Examination reveals tachycardia. Heart rate about 115 to 120. S1, S2 normal. LUNGS: Lungs reveal a few scattered rhonchi. No wheezes or crackles. ABDOMEN: Soft. EXTREMITIES: Intact. No edema. SKIN: Without rash. NEUROLOGIC: Neurologic examination is difficult to assess. She does move all 4 extremities. Neurologically, she seems a bit confused. LABS/IMAGING: Labs are reviewed. White count 42.8, hemoglobin 9.6, hematocrit 31.8, platelet count 308,000. PT 13.3, INR 1.3, PTT 92.2. D-dimer 35.2. Sodium 130, potassium 4.8, chloride 94, CO2 29. Anion gap is 7. BUN and creatinine were 40 and 0.79. Calcium 7.9, magnesium 1.5. ALT 88, alkaline phosphatase 446. C-reactive protein 423. N-terminal proBNP was 483. TSH is 0.771. Urine was negative for infection. COVID testing was negative. Microbiology is showing coag-negative staph in the blood stream. This could be Staph epidermidis and may in fact be just a contaminant. The patient had an acute abdominal series which showed some minimal intestinal ileus. A chest x-ray done on 03/14 shows chronic changes without an acute pulmonary process. There is a lesion in the right upper lobe seen on the chest x-ray. The CT scan shows no evidence of pulmonary emboli. There is an irregular mass in the right upper lobe measuring 2.1 x 1.2 cm and several nodules in the right lower lobe measuring up to 6 mm, which are new. There were concerns about malignancy. There is a small left pleural effusion. Otherwise the lungs look reasonable on the CT scan. CURRENT MEDICATIONS: Current medications are reviewed. The patient is on Tylenol, albuterol updrafts, Xanax, amiodarone, Cordarone, Lipitor, aztreonam, Pulmicort, [place]vin, diltiazem, Cymbalta, Pepcid, fentanyl patch, folic acid, Lasix, Mucinex, IV heparin, [place], Dilaudid, ibuprofen, insulin, DuoNeb, Synthroid, loratadine, metoprolol, Flagyl, multiple vitamins, oxycodone, Protonix, vancomycin, Spiriva and thiamine. ASSESSMENT: 1. Rule out sepsis, source unclear. Chest x-ray is not showing an acute pneumonia. There is a mass in the right upper lobe consistent with probable lung cancer. 2. No evidence of pulmonary embolism on CT angiogram despite an elevated D-dimer. 3. Diffuse weakness and multiple falls at home. 4. Chronic low back pain secondary to multiple compression fractures of the spine. 5. Suspected lung cancer, right upper lobe, status post SBRT. 6. Chronic hypoxemic respiratory failure. 7. Severe chronic obstructive pulmonary disease. 8. Chronic tobacco use. 9. Diabetes mellitus. 10.Hypothyroidism. 11.Osteoarthritis. 12.History of colonic polyps. 13.Previous history of urinary tract infection. 14.Mild hyponatremia. PLAN: No evidence of pulmonary embolism on CT angiogram. Suspected lung cancer, right upper lobe, enlarging in size. The patient is currently receiving stereotactic body radiotherapy. No additional recommendations are made. Pulmonary status is otherwise stable. Will review the medications. Please see my changes. MMODL / IJN: [id number] /
[2020-03-15] MEDS: AMIODARONE 200 MG TAB PO SCH (20:07)
[2020-03-15 20:17] LABS: Glucose,Whole Blood 166 mg/dL (75-99)
[2020-03-15] MEDS: BUDESONIDE 1 MG/2 ML NEBU INHALATION SCH (21:13)
[2020-03-15] MEDS: FAMOTIDINE 20 MG TAB PO SCH (21:24)
--- NOTE | 2020-03-15 23:26 | PN ---
PROGRESS NOTE DATE OF SERVICE: 03/15/2020 REASON FOR FOLLOWUP: Leukocytosis and bacteremia. INTERVAL HISTORY: The patient was noted to have significant tachycardia, for which the patient has been transferred to telemetry unit. The patient is hemodynamically stable on her pressor support. When asked specifically, the patient denies having any chest pain. Minimal shortness of breath. Occasional cough. No further abdominal pain or diarrhea. Has been complaining of back pain but no worsening. PHYSICAL EXAMINATION: Blood pressure 129/70 with a pulse of 135, temperature 98.1. She is 95% on 6 L nasal cannula. General description is an elderly female lying in bed in no distress. RESPIRATORY SYSTEM: Unlabored breathing with decreased breath sounds at the base. No wheeze. HEART: S1, S2. Regular rate and rhythm. ABDOMEN: Soft. No tenderness. EXAMINATION OF THE LUMBAR SPINE AREA: Previous site of the kyphoplasty is currently healing, with no swelling or redness. LABS: BUN of 27, creatinine 0.61. Hemoglobin 9.6, white count 42.8. DIAGNOSTIC IMPRESSION AND PLAN: Patient with elevated white count which is multifactorial in this patient with a positive blood culture with initial concern for possible lumbar source. However, it has been identified as coagulase-negative staph and could be more likely a contaminant with worsening of the white count. We will add Gram-negative coverage with Azactam and Flagyl, as the patient does have an ALLERGY TO . Will repeat CT of the abdomen and pelvis and monitor her clinical course closely. MMODL / IJN: [id number] /
[2020-03-16] MEDS: AZTREONAM 2 GM in SODIUM CHLORIDE 0.9% 100 ML IVPB SCH ×3 (00:50→16:48)
[2020-03-16] MEDS: SODIUM CHLORIDE 0.9% 1,000 ML IV SCH ×4 (00:50→22:09)
[2020-03-16] MEDS: DEXAMETHASONE SOD PHOSPHATE 4 MG/ML 1 ML VIAL IV SCH ×3 (00:52→16:48)
[2020-03-16] MEDS: HEPARIN SOD,PORK IN 0.45% NACL 25,000 UNIT in 0.45% NACL 1 250ML.BAG IV SCH (03:55)
[2020-03-16] MEDS: HYDROcodone/APAP 5-325MG 1 EACH TAB PO PRN ×2 (04:13→10:08)
[2020-03-16 06:03] LABS: Glucose,Whole Blood 176 mg/dL (75-99)
[2020-03-16] MEDS: LEVOTHYROXINE 88 MCG TAB PO SCH (06:34)
[2020-03-16] MEDS: HYDROmorphone 0.5 MG/0.5 ML SYRINGE IVP PRN ×3 (06:34→19:07)
[2020-03-16] MEDS: INSULIN ASPART (NovoLOG) 100 UNIT/ML VIAL SQ SCH ×4 (06:34→18:34)
[2020-03-16 08:14] LABS: Basophils % (A) 0 %; Eosinophils % (A) 0 %; HGB 9.4 gm/dL (11.4-16.0); Hypochromasia Marked; Lymphocytes # (A) 0.5 k/uL (1.0-4.8); Lymphocytes % (A) 1 %; MCH 28.3 pg (25.0-35.0); MCHC 30.2 g/dL (31.0-37.0); MCV 93.7 fL (80.0-100.0); Mean Platelet Volume 7.6; Monocytes # (A) 0.8 k/uL (0-1.0); Monocytes % (A) 2 %; Neutrophils % (A) 97 %; Platelet Count 321 k/uL (150-450); RBC 3.31 m/uL (3.80-5.40); RDW 13.7 % (11.5-15.5)
[2020-03-16 08:19] LABS: WBC 50.6 k/uL (3.8-10.6)
[2020-03-16 08:36] LABS: ALT 114 U/L (4-34); AST 135 U/L (14-36); African American GFR (CKD) >90 (>60 ml/min/1.73 sqM); Albumin 2.3 g/dL (3.5-5.0); Alkaline Phosphatase 770 U/L (38-126); Anion Gap 6 mmol/L; Blood Urea Nitrogen 27 mg/dL (7-17); Carbon Dioxide 23 mmol/L (22-30); Chloride 107 mmol/L (98-107); Glucose 162 mg/dL (74-99); Non-African American GFR(CKD) >90 (>60 ml/min/1.73 sqM); Potassium 4.6 mmol/L (3.5-5.1); Sodium 136 mmol/L (137-145); Total Bilirubin 0.5 mg/dL (0.2-1.3)
[2020-03-16] MEDS: MAGNESIUM OXIDE 400 MG TAB PO SCH (09:03)
[2020-03-16] MEDS: FUROSEMIDE 20 MG TAB PO SCH (09:03)
[2020-03-16] MEDS: MULTIVITAMINS, THERA 1 EACH TAB PO SCH (09:03)
[2020-03-16] MEDS: AMIODARONE 200 MG TAB PO SCH ×2 (09:03→22:16)
[2020-03-16] MEDS: FOLIC ACID 1 MG TAB PO SCH (09:03)
[2020-03-16] MEDS: PANTOPRAZOLE 40 MG TABLET PO SCH ×2 (09:03→22:23)
[2020-03-16] MEDS: CALCIUM CARB-VIT D 500 MG-5 MCG TAB PO SCH (09:03)
[2020-03-16] MEDS: LORATADINE 10 MG TAB PO SCH (09:04)
[2020-03-16] MEDS: DULoxetine HCL 60 MG CAPSULE.DR PO SCH (09:04)
[2020-03-16] MEDS: THIAMINE 100 MG TAB PO SCH (09:04)
[2020-03-16] MEDS: guaiFENesin 600 MG TABLET.ER PO SCH ×2 (09:04→22:23)
[2020-03-16] MEDS: metroNIDAZOLE 500 MG TAB PO SCH ×4 (09:04→22:16)
--- NOTE | 2020-03-16 09:41 | P.PN ---
Subjective Progress Note Date: 03/16/20 Principal diagnosis: Paroxysmal atrial fibrillation This is a very pleasant 74-year-old female patient who was unfortunate with metastatic lung cancer and was somewhat poor historian was brought from an extended care facility to the hospital for further cardiac evaluation. Appa rently the patient was admitted initially with a change in mental status. She still have some change in mental status and she is not oriented to time very well. When she was seen and evaluated this morning. No prior cardiac history of coronary artery disease or congestive heart failure or cardiac arrhythmia. We consulted to see the patient for further evaluation of cardiac arrhythmia. The patient was admitted initially with a change in mental status to the fourth floor but subsequently she developed an episode of heart racing and the EKG showed what it seems to be in atrial flutter with 2-1 block. Subsequently the patient was transferred to the third floor. She continues to be in atrial flutter was controlled heart rate relatively. The patient was seen this morning. She does have change in mental status. WBC is elevated. She continues to be on heparin IV as well as Cardizem IV. I'm going to switch her to Cardizem by mouth. The echo showed normal left ventricular systolic function. Consider oral anticoagulation down the line. Objective - Vital Signs Vital signs: Vital Signs Temp 97.7 F 03/16/20 04:00 Pulse 96 03/16/20 04:00 Resp 21 03/16/20 04:00 BP 118/56 03/16/20 04:00 Pulse Ox 96 03/16/20 04:00 Intake & Output 03/15/20 03/16/20 03/16/20 18:59 06:59 18:59 Intake Total 98.572 246.667 Output Total 300 575 Balance -201.428 -328.333 Weight 76.5 kg 81 kg Intake: Intake, IV Titration 98.572 246.667 Amount Amiodarone 300 mg In 246.667 Dextrose 5% in Water 250 ml @ 0.5 MG/MIN 25 mls/hr IV .Q10H [facility] Rx#: [id number] Heparin Sod,Pork in 0.45% 98.572 NaCl 25,000 unit In 0.45 % NaCl 1 250ml.bag @ 12 UNITS/KG/HR 8.437 mls/hr IV .Q24H [facility] Rx#: [id number] Output: Urine 300 575 Other: Voiding Method External Catheter External Catheter # Voids 1 - Constitutional General appearance: Present: no acute distress - Respiratory Respiratory: bilateral: diminished - Cardiovascular Heart sounds: normal: S1, S2 - Labs CBC & Chem 7: 03/16/20 07:27 03/16/20 07:27 Labs: Abnormal Lab Results - Last 24 Hours (Table) 03/15/20 03/15/20 03/15/20 Range/Units 07:20 11:35 14:01 WBC (3.8-10.6) k/uL RBC (3.80-5.40) m/uL Hgb (11.4-16.0) gm/dL Hct (34.0-46.0) % MCHC (31.0-37.0) g/dL Neutrophils # (1.3-7.7) k/uL Lymphocytes # (1.0-4.8) k/uL APTT (22.0-30.0) sec Sodium 133 L (137-145) mmol/L Carbon Dioxide 19.7 L 21 L (21.6-31.8) mmol/L Anion Gap 14.30 H (4.00-12.00) mmol/L BUN 31.0 H 27 H (9.0-27.0) mg/dL BUN/Creatinine Ratio 44.29 H (12.00-20.00) Ratio Glucose 123 H 160 H (70-110) mg/dL POC Glucose (mg/dL) 146 H (75-99) mg/dL Calcium 7.6 L 7.4 L (8.7-10.3) mg/dL Magnesium 1.5 L (1.6-2.3) mg/dL AST 113 H 127 H (13-35) U/L ALT 83 H 88 H (8-44) U/L Alkaline Phosphatase 509 H 446 H (41-126) U/L Total Protein 5.0 L 4.9 L (6.2-8.2) g/dL Albumin 3.00 L 2.2 L (3.80-4.90) g/dL Albumin/Globulin Ratio 1.50 L (1.60-3.17) g/dL 03/15/20 03/15/20 03/15/20 Range/Units 16:29 18:43 20:15 WBC (3.8-10.6) k/uL RBC (3.80-5.40) m/uL Hgb (11.4-16.0) gm/dL Hct (34.0-46.0) % MCHC (31.0-37.0) g/dL Neutrophils # (1.3-7.7) k/uL Lymphocytes # (1.0-4.8) k/uL APTT 45.9 H (22.0-30.0) sec Sodium (137-145) mmol/L Carbon Dioxide (21.6-31.8) mmol/L Anion Gap (4.00-12.00) mmol/L BUN (9.0-27.0) mg/dL BUN/Creatinine Ratio (12.00-20.00) Ratio Glucose (70-110) mg/dL POC Glucose (mg/dL) 214 H 166 H (75-99) mg/dL Calcium (8.7-10.3) mg/dL Magnesium (1.6-2.3) mg/dL AST (13-35) U/L ALT (8-44) U/L Alkaline Phosphatase (41-126) U/L Total Protein (6.2-8.2) g/dL Albumin (3.80-4.90) g/dL Albumin/Globulin Ratio (1.60-3.17) g/dL 03/16/20 03/16/20 03/16/20 Range/Units 05:53 07:27 07:27 WBC 50.6 H* (3.8-10.6) k/uL RBC 3.31 L (3.80-5.40) m/uL Hgb 9.4 L (11.4-16.0) gm/dL Hct 31.0 L (34.0-46.0) % MCHC 30.2 L (31.0-37.0) g/dL Neutrophils # 49.0 H (1.3-7.7) k/uL Lymphocytes # 0.5 L (1.0-4.8) k/uL APTT (22.0-30.0) sec Sodium 136 L (137-145) mmol/L Carbon Dioxide (21.6-31.8) mmol/L Anion Gap (4.00-12.00) mmol/L BUN 27 H (9.0-27.0) mg/dL BUN/Creatinine Ratio (12.00-20.00) Ratio Glucose 162 H (70-110) mg/dL POC Glucose (mg/dL) 176 H (75-99) mg/dL Calcium 7.0 L (8.7-10.3) mg/dL Magnesium (1.6-2.3) mg/dL AST 135 H (13-35) U/L ALT 114 H (8-44) U/L Alkaline Phosphatase 770 H (41-126) U/L Total Protein 5.0 L (6.2-8.2) g/dL Albumin 2.3 L (3.80-4.90) g/dL Albumin/Globulin Ratio (1.60-3.17) g/dL 03/16/20 Range/Units 07:27 WBC (3.8-10.6) k/uL RBC (3.80-5.40) m/uL Hgb (11.4-16.0) gm/dL Hct (34.0-46.0) % MCHC (31.0-37.0) g/dL Neutrophils # (1.3-7.7) k/uL Lymphocytes # (1.0-4.8) k/uL APTT 45.2 H (22.0-30.0) sec Sodium (137-145) mmol/L Carbon Dioxide (21.6-31.8) mmol/L Anion Gap (4.00-12.00) mmol/L BUN (9.0-27.0) mg/dL BUN/Creatinine Ratio (12.00-20.00) Ratio Glucose (70-110) mg/dL POC Glucose (mg/dL) (75-99) mg/dL Calcium (8.7-10.3) mg/dL Magnesium (1.6-2.3) mg/dL AST (13-35) U/L ALT (8-44) U/L Alkaline Phosphatase (41-126) U/L Total Protein (6.2-8.2) g/dL Albumin (3.80-4.90) g/dL Albumin/Globulin Ratio (1.60-3.17) g/dL Microbiology - Last 24 Hours (Table) 03/14/20 12:40 Blood Culture Gram Stain - Preliminary Blood Blood Culture - Preliminary Coagulase Negative Staph 03/13/20 16:18 Blood Culture Gram Stain - Final Blood Blood Culture - Final Staph hominis sub sp. hominis 03/14/20 12:40 Blood Culture - Final Blood Assessment and Plan Assessment: Assessment #1 change in mental status #2 metastatic lung cancer #3 atrial flutter #4 multiple comorbid conditions Plan #1 the echo was reviewed and showed normal LV function #2 DC Cardizem IV and start the patient on Cardizem by mouth #3 consider oral anticoagulation #4 follow-up with the patient
[2020-03-16] MEDS: DILTIAZEM CD 120 MG CAP.ER.24H PO SCH (10:08)
[2020-03-16] MEDS: BUDESONIDE 1 MG/2 ML NEBU INHALATION SCH ×2 (10:51→21:50)
[2020-03-16] MEDS ORDERED: IOPAMIDOL CONTRAST (ORAL USE) VIAL PO PRN (11:21)
[2020-03-16 11:50] LABS: Glucose,Whole Blood 157 mg/dL (75-99)
[2020-03-16] MEDS ORDERED: VANCOMYCIN TROUGH DUE 1 EACH MISC MISCELLANE ONE (12:00)
--- NOTE | 2020-03-16 12:10 | PN ---
PROGRESS NOTE PULMONARY/CRITICAL CARE PROGRESS NOTE: DATE OF SERVICE: 03/16/2020 A 74-year-old female who we saw in consultation yesterday. We were asked to see her for an elevated D-dimer. Her CT angiogram was negative for pulmonary embolism. It did show a possible small infiltrate in the left lower lobe. We were concerned about the possibility of sepsis, although the source was unclear. I am not sure that this small area in the left lower lobe explains her clinical picture. She does have a mass in the right upper lobe consistent with probable bronchogenic carcinoma and on previous notations, it is noted that the patient is not a candidate for biopsy. She was apparently approved for stereotactic body radiotherapy to that lesion. The patient has multiple other medical problems including chronic tobacco use, diabetes, hypothyroidism, osteoarthritis, diffuse weakness and multiple falls at home, and prior history of urinary tract infections. PHYSICAL EXAMINATION: VITAL SIGNS: Currently, her vital signs include a temperature 97.7, heart rate 96, respiratory rate 21, blood pressure 118/56, mean 76, saturations on 6 L are 96%. Appears in no acute distress. No respiratory distress. HEENT: Examination is grossly unremarkable. Nasal O2 noted. NECK: Supple. Full range of motion. No adenopathy. Neck veins are flat. CARDIOVASCULAR: Examination reveals regular rhythm and rate. S1, S2 normal. No S3, S4, murmur. LUNGS: A few scattered mild rhonchi. No wheezes or crackles. She does not take deep breaths. ABDOMEN: Soft. Bowel sounds are heard. EXTREMITIES: Intact. No cyanosis, clubbing, or significant edema. SKIN: Without rash. NEUROLOGIC: Examination is difficult to assess. Please see my assessment yesterday. LABS: Reviewed. White count 50.6, hemoglobin 9.4, hematocrit 31.0, platelet count 321,000. PTT is 45.2. Sodium 136, potassium 4.6, chloride 107, CO2 23, anion gap is 6. BUN and creatinine were 27 and 0.61. Calcium is 7, bilirubin 0.5, AST 135, ALT 114, alkaline phosphatase 770, total protein 5, and albumin 2.3. COVID testing was negative. Microbiology showing evidence of staph hominis and coag-negative staph in the blood. IMAGING: The chest x-ray and CT scan are reviewed. There may be a minimal infiltrate at the left lung base. There is an enlarging lesion in the right upper lobe. CURRENT MEDICATIONS: Reviewed. The patient is on Xanax, Cordarone, Azactam, Symbicort, calcium with vitamin D, Decadron, Cardizem, Cymbalta, Pepcid, fentanyl patch, folic acid, Lasix, Mucinex, heparin, [place], Dilaudid, Motrin, insulin, DuoNeb, levothyroxine, Claritin, magnesium oxide, metoprolol, multivitamins, Narcan, oxycodone, Protonix, thiamine and vancomycin. ASSESSMENT: 1. Rule out sepsis, source unclear. Chest x-ray is normal. CT scan shows no evidence of PE but did show some minimal infiltrate of the left lung base. Blood cultures were positive for coag-negative staph and staph hominis. The patient is currently on vancomycin and aztreonam. 2. Mass, right upper lobe, consistent with probable lung cancer. 3. No evidence of pulmonary embolism on CT angiogram. 4. Diffuse weakness and multiple falls at home. 5. Chronic low back pain secondary to multiple compression fractures of the spine. 6. Lung cancer, suspected, right upper lobe, status post SBRT. 7. Chronic hypoxemic respiratory failure. 8. Severe COPD. 9. Chronic tobacco use. 10.Diabetes mellitus. 11.Hypothyroidism. 12.Osteoarthritis. 13.History of colonic polyps. 14.History of previous urinary tract infections. 15.Mild hyponatremia. PLAN: The patient is currently on vancomycin and aztreonam. CT scan shows a minimal infiltrate at the left lung base. The lesion in the right upper lobe is thought to be lung cancer. Her blood cultures were positive for coag-negative staph and staph hominis. ID is on the case. We will continue to follow. Prognosis is guarded. I do not suspect she has a significant pneumonia at this time. MMODL / IJN: [id number] /
[2020-03-16] MEDS: IOPAMIDOL CONTRAST (ORAL USE) VIAL PO PRN (12:45)
[2020-03-16] MEDS ORDERED: RX INFO: IV CONTRAST WAS GIVEN 1 EACH MISC MISCELLANE PRN (12:48)
--- NOTE | 2020-03-16 12:53 | XR ---
EXAMINATION TYPE: XR chest 1V portable DATE OF EXAM: 03/16/2020 COMPARISON: 03/14/2020 INDICATION: Shortness of breath TECHNIQUE: Single frontal view of the chest is obtained. Patient is rotated to the left. FINDINGS: The heart size is normal. The pulmonary vasculature is normal. Mild left lower lobe infiltrate is present. This is increasing over the interval. IMPRESSION: 1. Mild left lower lobe infiltrate developing. Correlate for pneumonia. Atelectasis could be consider ed.
--- NOTE | 2020-03-16 13:02 | P.PN ---
Subjective Progress Note Date: 03/16/20 Principal diagnosis: Metastatic Cancer CT of brain without evidence concerning for risk of hemorrage, masses seen on MRI earlier in the month not mentioned in CT, although repeat MRI was unable to be performed as the patient was unable to tolerate test. Objective - Vital Signs Vital signs: Vital Signs Temp 97.3 F L 03/16/20 08:00 Pulse 100 03/16/20 08:00 Resp 22 03/16/20 08:00 BP 128/66 03/16/20 08:00 Pulse Ox 96 03/16/20 08:00 Intake & Output 03/15/20 03/16/20 03/16/20 18:59 06:59 18:59 Intake Total 98.572 246.667 Output Total 300 575 Balance -201.428 -328.333 Weight 76.5 kg 81 kg Intake: Intake, IV Titration 98.572 246.667 Amount Amiodarone 300 mg In 246.667 Dextrose 5% in Water 250 ml @ 0.5 MG/MIN 25 mls/hr IV .Q10H [facility] Rx#: [id number] Heparin Sod,Pork in 0.45% 98.572 NaCl 25,000 unit In 0.45 % NaCl 1 250ml.bag @ 12 UNITS/KG/HR 8.437 mls/hr IV .Q24H [facility] Rx#: [id number] Output: Urine 300 575 Other: Voiding Method External Catheter External Catheter External Catheter # Voids 1 - Exam - Constitutional General appearance: cooperative, no acute distress, Appears ill - EENT Eyes: EOMI, poor dentition ENT: NA/AT - Respiratory Respiratory: bilateral: diminished, rhonchi, increased effort - Cardiovascular Irregular Irregular Tchy - Gastrointestinal General gastrointestinal: soft, Tender - Integumentary Integumentary: pale - Neurologic non focal - Musculoskeletal mobility greatly decreased after recent fall secondary to pathological vertebral fracture Musculoskeletal: generalized weakness - Psychiatric Psychiatric: A&O x's 3, appropriate affect, intact judgment & insight - Labs CBC & Chem 7: 03/16/20 07:27 03/16/20 07:27 Labs: Abnormal Lab Results - Last 24 Hours (Table) 03/15/20 03/15/20 03/15/20 Range/Units 07:20 14:01 16:29 WBC (3.8-10.6) k/uL RBC (3.80-5.40) m/uL Hgb (11.4-16.0) gm/dL Hct (34.0-46.0) % MCHC (31.0-37.0) g/dL Neutrophils # (1.3-7.7) k/uL Lymphocytes # (1.0-4.8) k/uL APTT (22.0-30.0) sec Sodium 133 L (137-145) mmol/L Carbon Dioxide 19.7 L 21 L (21.6-31.8) mmol/L Anion Gap 14.30 H (4.00-12.00) mmol/L BUN 31.0 H 27 H (9.0-27.0) mg/dL BUN/Creatinine Ratio 44.29 H (12.00-20.00) Ratio Glucose 123 H 160 H (70-110) mg/dL POC Glucose (mg/dL) 214 H (75-99) mg/dL Calcium 7.6 L 7.4 L (8.7-10.3) mg/dL Magnesium 1.5 L (1.6-2.3) mg/dL AST 113 H 127 H (13-35) U/L ALT 83 H 88 H (8-44) U/L Alkaline Phosphatase 509 H 446 H (41-126) U/L Total Protein 5.0 L 4.9 L (6.2-8.2) g/dL Albumin 3.00 L 2.2 L (3.80-4.90) g/dL Albumin/Globulin Ratio 1.50 L (1.60-3.17) g/dL 03/15/20 03/15/20 03/16/20 Range/Units 18:43 20:15 05:53 WBC (3.8-10.6) k/uL RBC (3.80-5.40) m/uL Hgb (11.4-16.0) gm/dL Hct (34.0-46.0) % MCHC (31.0-37.0) g/dL Neutrophils # (1.3-7.7) k/uL Lymphocytes # (1.0-4.8) k/uL APTT 45.9 H (22.0-30.0) sec Sodium (137-145) mmol/L Carbon Dioxide (21.6-31.8) mmol/L Anion Gap (4.00-12.00) mmol/L BUN (9.0-27.0) mg/dL BUN/Creatinine Ratio (12.00-20.00) Ratio Glucose (70-110) mg/dL POC Glucose (mg/dL) 166 H 176 H (75-99) mg/dL Calcium (8.7-10.3) mg/dL Magnesium (1.6-2.3) mg/dL AST (13-35) U/L ALT (8-44) U/L Alkaline Phosphatase (41-126) U/L Total Protein (6.2-8.2) g/dL Albumin (3.80-4.90) g/dL Albumin/Globulin Ratio (1.60-3.17) g/dL 03/16/20 03/16/20 03/16/20 Range/Units 07:27 07:27 07:27 WBC 50.6 H* (3.8-10.6) k/uL RBC 3.31 L (3.80-5.40) m/uL Hgb 9.4 L (11.4-16.0) gm/dL Hct 31.0 L (34.0-46.0) % MCHC 30.2 L (31.0-37.0) g/dL Neutrophils # 49.0 H (1.3-7.7) k/uL Lymphocytes # 0.5 L (1.0-4.8) k/uL APTT 45.2 H (22.0-30.0) sec Sodium 136 L (137-145) mmol/L Carbon Dioxide (21.6-31.8) mmol/L Anion Gap (4.00-12.00) mmol/L BUN 27 H (9.0-27.0) mg/dL BUN/Creatinine Ratio (12.00-20.00) Ratio Glucose 162 H (70-110) mg/dL POC Glucose (mg/dL) (75-99) mg/dL Calcium 7.0 L (8.7-10.3) mg/dL Magnesium (1.6-2.3) mg/dL AST 135 H (13-35) U/L ALT 114 H (8-44) U/L Alkaline Phosphatase 770 H (41-126) U/L Total Protein 5.0 L (6.2-8.2) g/dL Albumin 2.3 L (3.80-4.90) g/dL Albumin/Globulin Ratio (1.60-3.17) g/dL 03/16/20 Range/Units 11:49 WBC (3.8-10.6) k/uL RBC (3.80-5.40) m/uL Hgb (11.4-16.0) gm/dL Hct (34.0-46.0) % MCHC (31.0-37.0) g/dL Neutrophils # (1.3-7.7) k/uL Lymphocytes # (1.0-4.8) k/uL APTT (22.0-30.0) sec Sodium (137-145) mmol/L Carbon Dioxide (21.6-31.8) mmol/L Anion Gap (4.00-12.00) mmol/L BUN (9.0-27.0) mg/dL BUN/Creatinine Ratio (12.00-20.00) Ratio Glucose (70-110) mg/dL POC Glucose (mg/dL) 157 H (75-99) mg/dL Calcium (8.7-10.3) mg/dL Magnesium (1.6-2.3) mg/dL AST (13-35) U/L ALT (8-44) U/L Alkaline Phosphatase (41-126) U/L Total Protein (6.2-8.2) g/dL Albumin (3.80-4.90) g/dL Albumin/Globulin Ratio (1.60-3.17) g/dL Microbiology - Last 24 Hours (Table) 03/14/20 12:40 Blood Culture Gram Stain - Preliminary Blood Blood Culture - Preliminary Coagulase Negative Staph 03/13/20 16:18 Blood Culture Gram Stain - Final Blood Blood Culture - Final Staph hominis sub sp. 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. - We have asked Dr. Velasco to re-evaluate for radiation - Restart dexamethasone 4 TID with PPI once confirmed these have not been treated - Since Heparin drip has started per cardiology I have asked for another repeat MRI of the brain as we need to confirm the metastatic brain lesions are not active with therapeutic heparin. - Unable to tolerate MRI of brain last night therefore will attempt evaluation with CT brain and ask Nursing to premedicate Current Visit: No Status: Acute Code(s): C79.31 - SECONDARY MALIGNANT NEOPLASM OF BRAIN SNOMED Code(s): 80873395 (3) Lung mass Current Visit: No Status: Acute Code(s): R91.8 - OTHER NONSPECIFIC ABNORMAL FINDING OF LUNG FIELD SNOMED Code(s): 960582000 (4) Bacteremia Narrative/Plan: Dr. Mooney ID following. Current Visit: Yes Status: Acute Code(s): R78.81 - BACTEREMIA SNOMED Code(s): 8231774 (5) SIRS (systemic inflammatory response syndrome) Current Visit: Yes Status: Acute Code(s): R65.10 - SIRS OF NON-INFECTIOUS ORIGIN W/O ACUTE ORGAN DYSFUNCTION SNOMED Code(s): 891780694 (6) History of lung cancer Narrative/Plan: Biopsy risk was too high at time of diagnosis, therefore SRS radiation was performed, it was suspected to be NSCLCA at the time of findings 12/2019. Current Visit: Yes Status: Acute Code(s): Z85.118 - PERSONAL HISTORY OF MALIGNANT NEOPLASM OF BRONCHUS AND LUNG SNOMED Code(s): 074708376 Plan: Discussed with Dr. Velasco in detail. Patient was unable to tolerate any of the imaging yesterday. The concern is with anticoagulation as the known small brain mets (02/21) have not been treated or re-evalauted, therefore repeating imaging is imperative if AC therapy is needed. We are unable to obtain adrenal biopsy due to patient unable to lay on abdomen. Will need to discuss with patient and son their goals and if they want to pursue treatment options and further overall diagnostic work-up. As with the recurrent standstills are making her picture of metastatic cancer likely more difficult to treat and get a head of. We will ask nursing to administer ativan prior to testing, and see if biopsy can be done under anesthesia. Physician Attest: I have completed the full history and physical and agree with above dictation, dictated as a scribe.
[2020-03-16] MEDS ORDERED: LORazepam 2 MG/ML INJ IV STA (13:32)
[2020-03-16] MEDS: VANCOMYCIN 1,250 MG in SODIUM CHLORIDE 0.9% 250 ML IVPB SCH (13:41)
--- NOTE | 2020-03-16 13:47 | P.CONS ---
History of Present Illness - Reason for Consult Consult date: 03/16/20 metastatic disease Requesting physician: Nicole Meeks - Chief Complaint AMS, pain - History of Present Illness The patient is a 74-year-old female with a history of severe COPD requiring oxygen supplementation. She presents with an enlarging right upper lung lesion, suspicious for a clinical stage IA3(cT1c, cN0, M0) non-small cell lung cancer. Unfortunately it is felt that she is at too high of pulmonary risk for biopsy of this lesion. She underwent SBRT finishing on 12/17/2019. She now presents with concern for metastatic disease including lesions in the brain, pulmonary nodules and a left adrenal mass. She was hospitalized due to concern for sepsis. According to the patient's son, the patient was doing well and was likely to be [facility]. He states that her condition started worsening right around [place], and that she seemed out of it. She started to not eat and drink as well. She presented to the emergency room on March 13 with abdominal pain, back pain as well as chest discomfort. She was found to have markedly elevated white blood cells, dehydration as well as elevated liver function. This picture was concerning for sepsis. She underwent a CTA of the chest on 03/14 which revealed no pulmonary embolism. There were new lung nodules in the RLL however and the left adrenal nodule appears to be enlarging. The patient is currently in and out of alertness. She responds to commands and answers simple questions. She reports no pain at thsi time. She denies headaches or nausea. Review of Systems ROS unobtainable: due to mental status Past Medical History Past Medical History: Asthma, COPD, Diabetes Mellitus, Hyperlipidemia, Hypertension, Osteoarthritis (OA), Thyroid Disorder Additional Past Medical History / Comment(s): HX HYPERTHYROID, HAD IODINE TX. ON home oxygen 3 LITERS N/C. 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 T-8 COMPRESSION FX IN 2012. EDEMA MARIO ANKLES, LT WORSE. MULT COLON POLYPS 08/21/17. 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 Past Drug Use History: None Reported - Past Family History Mother Family Medical History: Cancer Additional Family Medical History / Comment(s): Mac deg, blind; abdominal tumor; colon cancer in old age, at 86 Father Family Medical History: Cancer Additional Family Medical History / Comment(s): Prostate CA mets to lungs Medications and Allergies Home Medications Medication Instructions Recorded Confirmed Type Ipratropium/Albuterol Sulfate 1 puff INHALATION RT-Q8H PRN 07/28/16 03/13/20 History [Combivent Respimat Inhaler] Levothyroxine Sodium [Synthroid] 88 mcg PO DAILY 07/28/16 03/13/20 History Budesonide [Pulmicort] 0.5 mg INHALATION RT-BID 10/09/16 03/13/20 History Furosemide [Lasix] 10 mg PO DAILY 12/02/16 03/13/20 History Atorvastatin [Lipitor] 40 mg PO DAILY 08/18/17 03/13/20 History Diltiazem Cd [Cardizem CD] 120 mg PO DAILY 08/18/17 03/13/20 History Ipratropium-Albuterol Nebulize 3 ml INHALATION RT-TID PRN 09/18/17 03/13/20 History [Duoneb 0.5 mg-3 mg/3 ml Soln] metFORMIN HCL 2,000 mg PO DAILY 09/25/17 03/13/20 History Calcium Citrate/Vitamin D3 1 tab PO DAILY 10/28/18 03/13/20 History [Calcitrate + Vit D Caplet] Cetirizine HCl [Zyrtec] 10 mg PO DAILY 10/28/18 03/13/20 History Famotidine 40 mg PO HS 10/28/18 03/13/20 History Tiotropium Br/Olodaterol HCl 1 spray INHALATION RT-DAILY 10/28/18 03/13/20 History [Stiolto Respimat Inhal [place]] Acetaminophen [Tylenol Arthritis] 650 mg PO Q6H PRN 02/17/20 03/13/20 History Albuterol Sulfate [Albuterol 1 - 2 puff INHALATION RT-Q4H PRN 02/17/20 03/13/20 History Sulfate Hfa] DULoxetine HCL [Cymbalta] 60 mg PO DAILY 02/17/20 03/13/20 History guaiFENesin [Mucinex] 1,200 mg PO Q12H 02/17/20 03/13/20 History metFORMIN HCL [Glucophage] 1,000 mg PO HS 02/17/20 03/13/20 History Ibuprofen [Motrin] 400 mg PO Q6HR PRN tab 02/25/20 03/13/20 Rx Pantoprazole Sodium [Protonix] 40 mg PO BID #60 tablet. 02/25/20 03/13/20 Rx oxyCODONE HCL/ACETAMINOPHEN 1 tab PO Q6HR PRN #120 tab 02/25/20 03/13/20 Rx [oxyCODONE HCL/ACETAMINOPHEN 2.5-325] Multivitamins, Thera [Multivitamin 1 tab PO DAILY 03/13/20 03/13/20 History (formulary)] Allergies Allergy/AdvReac Type Severity Reaction Status Date / Time bupropion [From Zyban] Allergy Rash/Hives Verified 03/13/20 15:51 cefaclor [From Ceclor] Allergy Rash/Hives Verified 03/13/20 15:51 formoterol [From Perforomist] Allergy Rapid Verified 03/13/20 15:51 Heart Rate, LOW O2 SATURATION Physical Exam Vitals: Vital Signs Temp Pulse Pulse Pulse Resp BP Pulse Ox 03/16/20 12:00 97.6 F 154 H 20 131/75 95 03/16/20 08:00 97.3 F L 100 22 128/66 96 03/16/20 04:00 97.7 F 96 21 118/56 96 03/16/20 02:00 20 03/16/20 00:00 97.6 F 93 20 120/56 96 03/15/20 21:13 135 H 18 03/15/20 20:00 97.9 F 96 16 108/56 96 03/15/20 16:00 98.1 F 135 H 20 129/70 95 03/15/20 14:00 149 H 20 Intake and Output 03/15/20 03/16/2003/16/20 22:59 06:59 14:59 Intake Total 246.667 Output Total 575 Balance 246.667 -575 Intake: Intake, IV Titration 246.667 Amount Amiodarone 300 mg In 246.667 Dextrose 5% in Water 250 ml @ 0.5 MG/MIN 25 mls/hr IV .Q10H [facility] Rx#: [id number] Output: Urine 575 Other: Voiding Method External Catheter External Catheter External Catheter # Voids 1 Weight 81 kg - Constitutional General appearance: disheveled, obese - EENT Eyes: EOMI, PERRLA ENT: hearing grossly normal - Neck Neck: no lymphadenopathy - Respiratory Respiratory: bilateral: CTA - Cardiovascular Rhythm: regular - Gastrointestinal General gastrointestinal: soft, no tenderness - Integumentary Integumentary: no cellulitis, no cyanotic - Psychiatric Psychiatric: no A&O x's 3 (Alert X1 ) Results CBC & Chem 7: 03/16/20 07:27 03/16/20 07:27 Labs: Abnormal Lab Results - Last 24 Hours (Table) 03/15/20 03/15/20 03/15/20 Range/Units 07:20 14:01 16:29 WBC (3.8-10.6) k/uL RBC (3.80-5.40) m/uL Hgb (11.4-16.0) gm/dL Hct (34.0-46.0) % MCHC (31.0-37.0) g/dL Neutrophils # (1.3-7.7) k/uL Lymphocytes # (1.0-4.8) k/uL APTT (22.0-30.0) sec Sodium 133 L (137-145) mmol/L Carbon Dioxide 19.7 L 21 L (21.6-31.8) mmol/L Anion Gap 14.30 H (4.00-12.00) mmol/L BUN 31.0 H 27 H (9.0-27.0) mg/dL BUN/Creatinine Ratio 44.29 H (12.00-20.00) Ratio Glucose 123 H 160 H (70-110) mg/dL POC Glucose (mg/dL) 214 H (75-99) mg/dL Calcium 7.6 L 7.4 L (8.7-10.3) mg/dL Magnesium 1.5 L (1.6-2.3) mg/dL AST 113 H 127 H (13-35) U/L ALT 83 H 88 H (8-44) U/L Alkaline Phosphatase 509 H 446 H (41-126) U/L Total Protein 5.0 L 4.9 L (6.2-8.2) g/dL Albumin 3.00 L 2.2 L (3.80-4.90) g/dL Albumin/Globulin Ratio 1.50 L (1.60-3.17) g/dL 03/15/20 03/15/20 03/16/20 Range/Units 18:43 20:15 05:53 WBC (3.8-10.6) k/uL RBC (3.80-5.40) m/uL Hgb (11.4-16.0) gm/dL Hct (34.0-46.0) % MCHC (31.0-37.0) g/dL Neutrophils # (1.3-7.7) k/uL Lymphocytes # (1.0-4.8) k/uL APTT 45.9 H (22.0-30.0) sec Sodium (137-145) mmol/L Carbon Dioxide (21.6-31.8) mmol/L Anion Gap (4.00-12.00) mmol/L BUN (9.0-27.0) mg/dL BUN/Creatinine Ratio (12.00-20.00) Ratio Glucose (70-110) mg/dL POC Glucose (mg/dL) 166 H 176 H (75-99) mg/dL Calcium (8.7-10.3) mg/dL Magnesium (1.6-2.3) mg/dL AST (13-35) U/L ALT (8-44) U/L Alkaline Phosphatase (41-126) U/L Total Protein (6.2-8.2) g/dL Albumin (3.80-4.90) g/dL Albumin/Globulin Ratio (1.60-3.17) g/dL 03/16/20 03/16/20 03/16/20 Range/Units 07:27 07:27 07:27 WBC 50.6 H* (3.8-10.6) k/uL RBC 3.31 L (3.80-5.40) m/uL Hgb 9.4 L (11.4-16.0) gm/dL Hct 31.0 L (34.0-46.0) % MCHC 30.2 L (31.0-37.0) g/dL Neutrophils # 49.0 H (1.3-7.7) k/uL Lymphocytes # 0.5 L (1.0-4.8) k/uL APTT 45.2 H (22.0-30.0) sec Sodium 136 L (137-145) mmol/L Carbon Dioxide (21.6-31.8) mmol/L Anion Gap (4.00-12.00) mmol/L BUN 27 H (9.0-27.0) mg/dL BUN/Creatinine Ratio (12.00-20.00) Ratio Glucose 162 H (70-110) mg/dL POC Glucose (mg/dL) (75-99) mg/dL Calcium 7.0 L (8.7-10.3) mg/dL Magnesium (1.6-2.3) mg/dL AST 135 H (13-35) U/L ALT 114 H (8-44) U/L Alkaline Phosphatase 770 H (41-126) U/L Total Protein 5.0 L (6.2-8.2) g/dL Albumin 2.3 L (3.80-4.90) g/dL Albumin/Globulin Ratio (1.60-3.17) g/dL 03/16/20 Range/Units 11:49 WBC (3.8-10.6) k/uL RBC (3.80-5.40) m/uL Hgb (11.4-16.0) gm/dL Hct (34.0-46.0) % MCHC (31.0-37.0) g/dL Neutrophils # (1.3-7.7) k/uL Lymphocytes # (1.0-4.8) k/uL APTT (22.0-30.0) sec Sodium (137-145) mmol/L Carbon Dioxide (21.6-31.8) mmol/L Anion Gap (4.00-12.00) mmol/L BUN (9.0-27.0) mg/dL BUN/Creatinine Ratio (12.00-20.00) Ratio Glucose (70-110) mg/dL POC Glucose (mg/dL) 157 H (75-99) mg/dL Calcium (8.7-10.3) mg/dL Magnesium (1.6-2.3) mg/dL AST (13-35) U/L ALT (8-44) U/L Alkaline Phosphatase (41-126) U/L Total Protein (6.2-8.2) g/dL Albumin (3.80-4.90) g/dL Albumin/Globulin Ratio (1.60-3.17) g/dL Microbiology - Last 24 Hours (Table) 03/14/20 12:40 Blood Culture Gram Stain - Preliminary Blood Blood Culture - Preliminary Coagulase Negative Staph 03/13/20 16:18 Blood Culture Gram Stain - Final Blood Blood Culture - Final Staph hominis sub sp. hominis 03/14/20 12:40 Blood Culture - Final Blood CT scan - chest: report reviewed, image reviewed Assessment and Plan Assessment: The patient is a 74-year-old female with a history of severe COPD requiring oxygen supplementation. She presents with an enlarging right upper lung lesion, suspicious for a clinical stage IA3(cT1c, cN0, M0) non-small cell lung cancer. Unfortunately it is felt that she is at too high of pulmonary risk for biopsy of this lesion. She underwent SBRT finishing on 12/17/2019. She now presents with concern for metastatic disease including lesions in the brain, pulmonary nodules and a left adrenal mass. She was hospitalized due to concern for sepsis. Plan: 1. AMS: Concern for sepsis - uncertain of source. Agree with imaging of abdomen as this may help determine source. Continue Dexamethasone. At last visit she had small brain metastases which have not been treated. Concerned that her mental status will now allow repeat MRI. Would at minimum check a CT- head to rule out any bleed from recent anticoagulation. Also would show if there has been significant change in mental status. 2. Likely metastatic non-small cell lung ca: Will need biopsy to prove malignancy, but I spoke to son and we have put this on hold for now. Will see if she improves clinically from this apparent infection before attempting to move forward with this. Time with Patient: Greater than 30
[2020-03-16 13:48] LABS: INR 1.3 (<1.2); Prothrombin Time 12.6 sec (9.0-12.0)
--- NOTE | 2020-03-16 14:46 | CT ---
EXAMINATION TYPE: CT brain w con DATE OF EXAM: 03/16/2020 COMPARISON: None HISTORY: Patient poor historian. CT DLP: 2484.7 mGycm Automated exposure control for dose reduction was used. CONTRAST: CT scan of the head is performed with IV Contrast, patient injected with 100 mL of Isovue 300. FINDINGS: There is no abnormal enhancing mass or midline shift identified. There is prominence at the level of the basilar tip correlated on coronal images is somewhat ectatic. Serpiginous vascularity is noted a t the cervical medullary level anteriorly into the right of midline, axial image #4 through 6 Periven tricular white matter shows patchy low attenuation. The ventricles and sulci are within normal limits in size. The globes are intact and the visualized sinuses are remarkable for distortion of the left maxillary sinus, partial opacification, irregular appearance of the lateral wall which is incomplete ly and shows areas of thickening. IMPRESSION: Prominence of the basilar tip appearance may be due to volume averaging, no definitive aneurysm is id entified. Alternate imaging could be performed for increased sensitivity and specificity. Difficult t o exclude vascular malformation at the cervical medullary junction level. Findings in the left maxill new sinus as described is indeterminate, correlate for history of prior trauma, infection.
--- NOTE | 2020-03-16 16:12 | CT ---
EXAMINATION TYPE: CT abdomen pelvis w con DATE OF EXAM: 03/16/2020 COMPARISON: PET/CT 03/19/2019, 10/27/2019 HISTORY: 74-year-old female abdominal pain and leukocytosis TECHNIQUE: Contiguous axial scanning of the abdomen and pelvis following administration of 100 ml Iso bautista 300 IV contrast. Delayed images through the kidneys and coronal/sagittal reconstructions perform ed. CT DLP: 2484.7 mGycm Automated exposure control for dose reduction was used. FINDINGS: Heart upper limits of normal in size. Mild generalized anasarca change. There is small to moderate left and small right effusions. Some underlying loculation present on the left, referred axial image 1. Prominent basilar opacity adjacent to the left pleural effusion. Small pulmonary nodules are present at the lung bases measuring up to 5 mm. Innumerable liver lesions measuring up to 5.5 cm are new from 03/19/2019. Gallbladder hydropic measuring 4.6 cm wide. An 8 mm gallstone is present. Portal venous system is patent. No biliary ductal dilatation. Slight 9 mm thickening of the right adrenal gland is new from 03/19/2019. The left adrenal mass measures 4.4 x 3.6 cm, new from 03/19/2028 and 10/27/2019. Kidneys, spleen, and pancreas show no gross abnormality. - Portacaval lymph node measures 1.7 cm, mildly enlarged. - 9 mm peripancreatic lymph node, axial image 34 may be new. - Left paraaortic lymph nodes borderline enlarged measuring up to 1 cm short axis, new from 03/19/2019. - Right common iliac chain lymph node measures 1.1 cm, mildly enlarged. - Borderline size 1 cm right external iliac chain lymph node is nonspecific. - Possible 1.7 cm soft tissue deposit within the subcutaneous adipose layer of the right paramedian l ower anterior abdominal wall, axial image 74. No dilated small bowel or free air. Oral contrast progressed to the rectum. Scattered mild stool. No peritransplant inflammatory change. Bladder urine distended. Uterus surgically absent. Neither ovary clearly visualized. Moderate pelvic ascites. Bones: Degenerative changes of the hips. Interval L2 vertebroplasty. T11 superior endplate deformity and T8 vertebral compression collapse are unchanged. IMPRESSION: 1. METASTATIC DISEASE CHARACTERIZED BY INNUMERABLE LIVER LESIONS, SMALL BASILAR PULMONARY NODULES VAN SURING UP TO 5 MM, LEFT ADRENAL MASS MEASURING 4.4 CM (NEW FROM 10/17/2019), PROBABLE LEFT PARACOLIC LY MPH NODES MEASURING UP TO 1 CM, , AND RIGHT COMMON ILIAC CHAIN LYMPH NODE AT 1.1 CM. POSSIBLE METASTA TIC 1.7 CM SOFT TISSUE DEPOSIT ALONG THE MIDLINE LOWER ABDOMINAL SUBCUTANEOUS ADIPOSE. 2. SMALL TO MODERATE LEFT AND SMALL RIGHT EFFUSIONS. THERE MAY BE SOME UNDERLYING LOCULATION OF THE L EFT EFFUSION. PROMINENT ADJACENT OPACITY COULD REPRESENT COMBINATION OF ATELECTASIS AND/OR PNEUMONIA. CORRELATE WITH PATIENT'S SYMPTOMS. 3. HYDROPIC GALLBLADDER WITH CHOLELITHIASIS. HYDROPIC CHANGES MAY RELATE TO FASTING STATE. IF CONCERN FOR EARLY ACUTE CHOLECYSTITIS, HIDA SCAN COULD BE CONSIDERED.
[2020-03-16 16:32] LABS: Glucose,Whole Blood 182 mg/dL (75-99)
--- NOTE | 2020-03-16 16:59 | PN ---
PROGRESS NOTE I am covering for Dr. Puckett. DATE OF SERVICE: 03/16/2020 This 74-year-old woman who was admitted with severe back pain and possible sepsis is being closely monitored. The patient also had change in mental status. MRI could not be done yesterday. Multiple consultants, including Hematology/Oncology, Infectious Disease and Radiation Oncology, are following the patient closely. The patient is on broad-spectrum IV antibiotics. Cultures are negative so far. The patient continues to be confused. The patient did have brain metastases, which are being treated at this time. Past medical history reviewed. REVIEW OF SYSTEMS: CARDIOVASCULAR SYSTEM: No angina, palpitations. RESPIRATORY SYSTEM: As mentioned earlier. GI: As mentioned earlier. : No dysuria or retention. NERVOUS SYSTEM: No numbness, weakness. CURRENT MEDICATIONS: Reviewed. They include [place], DuoNeb, Xanax, Cordarone, aztreonam, Pulmicort, Os-[place] with vitamin D, Decadron, Cardizem, Cymbalta, Pepcid, Duragesic, Lasix, Mucinex, Motrin, NovoLog, Claritin, magnesium oxide, Flagyl. Doses are reviewed. PHYSICAL EXAMINATION: Patient is alert, oriented x2. Pulse 154, blood pressure 131/75, respiration 20, temperature 97.6, pulse ox 94% on 4 L. HEENT: Conjunctivae normal. NECK: No jugular venous distention. CARDIOVASCULAR SYSTEM: S1, S2 muffled. RESPIRATORY SYSTEM: Breath sounds diminished at the bases. Scattered rhonchi and crackles. ABDOMEN: Soft, non-tender. No mass palpable. LEGS: No edema. No swelling. NERVOUS SYSTEM: Diffusely weak. LABS: WBC 15.6, hemoglobin 9.4. Sodium 136. The cultures are showing coagulase-negative Staph in the blood one time, and next time is Staph hominis. ASSESSMENT: 1. Severe back pain and possible sepsis, present on admission. Etiology undetermined. 2. Change in mental status, acute metabolic encephalopathy secondary to sepsis and multifactorial. 3. Staphylococcus hominis as well as coagulase-negative staphylococcus in the blood cultures. 4. Elevated white count and leukemoid reaction. 5. History of recent L2 vertebral kyphoplasty and biopsy for compression fracture. 6. 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 7. History of multiple falls and gait dysfunction. 8. Weakness. 9. Chronic obstructive pulmonary disease. 10.Diabetes mellitus, type 2. 11.History of colectomy. 12.Hyponatremia. 13.Hypomagnesemia. 14.Increased AST, ALT; possibly hepatitis. 15.Increased CRP. 16.Anemia, normocytic anemia of malignancy. 17.FULL CODE. RECOMMENDATIONS AND DISCUSSION: I recommend to continue current medications, continue with the monitoring, symptomatic treatment. Continue with the antibiotics. Also recommend MRI of the back and MRI of the brain as well as CT scan of the abdomen and pelvis. Prognosis is guarded because of multiple complex medical issues. Will follow with multiple consultants. Discussed with staff. Further recommendations to follow. See orders for further details. MMODL / IJN: [id number] /
[2020-03-16 21:03] LABS: Glucose,Whole Blood 160 mg/dL (75-99)
[2020-03-16] MEDS: IPRATROPIUM-ALBUTEROL 3 ML NEB INHALATION PRN (21:50)
[2020-03-16] MEDS: DILTIAZEM 125 MG in SODIUM CHLORIDE 0.9% 100 ML IV SCH (21:56)
--- NOTE | 2020-03-16 22:07 | PN ---
PROGRESS NOTE DATE OF SERVICE: 03/16/2020 REASON FOR FOLLOWUP: Leukocytosis and bacteremia. INTERVAL HISTORY: The patient is currently afebrile. The patient is breathing more comfortably. The patient denies having any chest pain. Minimal cough. No nausea. No vomiting. No abdominal pain or diarrhea. PHYSICAL EXAMINATION: Blood pressure 110/66, pulse of 130, temperature 97.6. She is 96% on 4 L nasal cannula. General description is an elderly female lying in bed in no distress. RESPIRATORY SYSTEM: Unlabored breathing with decreased breath sounds at the base. No wheeze. HEART: S1, S2. Regular rate and rhythm. ABDOMEN: Soft. No tenderness. EXTREMITIES: No edema of the feet. LABS/IMAGING: Hemoglobin is 9.4, white count 15.6, BUN of 27, creatinine 0.61. Liver enzymes are elevated. Blood culture is also showing a coagulase-negative Staph. CT of abdomen and pelvis shows evidence of metastatic disease and some distention of the rectum. No evidence of any abscess. DIAGNOSTIC IMPRESSION AND PLAN: Patient with significant elevated white count with worsening, more likely related to the that was started yesterday, as no worsening of clinical condition has been noticed. The patient's CT of abdomen and pelvis did not show any obvious focus of infection. It did show evidence of metastatic disease. MRI of the lumbar spine is currently pending. Patient is covered with Azactam, vancomycin and Flagyl; to continue. Will monitor clinical course closely. Continue supportive care. MMODL / IJN: [id number] /
[2020-03-16] MEDS: METOPROLOL TARTRATE 25 MG TAB PO SCH (22:16)
[2020-03-16] MEDS: FAMOTIDINE 20 MG TAB PO SCH (22:23)
[2020-03-17] MEDS: AZTREONAM 2 GM in SODIUM CHLORIDE 0.9% 100 ML IVPB SCH ×2 (01:04→08:12)
[2020-03-17] MEDS: VANCOMYCIN 1,250 MG in SODIUM CHLORIDE 0.9% 250 ML IVPB SCH ×2 (01:04→12:42)
[2020-03-17] MEDS: DEXAMETHASONE SOD PHOSPHATE 4 MG/ML 1 ML VIAL IV SCH ×2 (01:04→08:13)
[2020-03-17] MEDS: HYDROmorphone 0.5 MG/0.5 ML SYRINGE IVP PRN ×2 (01:11→12:44)
[2020-03-17] MEDS: SODIUM CHLORIDE 0.9% 1,000 ML IV SCH ×2 (03:36→09:22)
[2020-03-17] MEDS: HEPARIN SOD,PORK IN 0.45% NACL 25,000 UNIT in 0.45% NACL 1 250ML.BAG IV SCH (04:44)
[2020-03-17 06:12] LABS: Glucose,Whole Blood 193 mg/dL (75-99)
[2020-03-17 06:18] LABS: HCT 31.5 % (34.0-46.0); HGB 9.4 gm/dL (11.4-16.0); Hypochromasia Marked; MCH 28.3 pg (25.0-35.0); MCHC 29.9 g/dL (31.0-37.0); MCV 94.6 fL (80.0-100.0); Platelet Count 388 k/uL (150-450); RBC 3.33 m/uL (3.80-5.40); RDW 13.9 % (11.5-15.5)
[2020-03-17 06:25] LABS: WBC 58.3 k/uL (3.8-10.6)
[2020-03-17] MEDS: INSULIN ASPART (NovoLOG) 100 UNIT/ML VIAL SQ SCH ×2 (06:25→12:43)
[2020-03-17] MEDS: LEVOTHYROXINE 88 MCG TAB PO SCH (06:25)
[2020-03-17 06:29] LABS: Albumin 2.3 g/dL (3.5-5.0); Calcium 7.1 mg/dL (8.4-10.2); Potassium 5.1 mmol/L (3.5-5.1); Total Bilirubin 0.4 mg/dL (0.2-1.3)
[2020-03-17 06:38] LABS: Band Neutrophils % 1 %; Lymphocytes # (M) 0.58 k/uL (1.0-4.8); Monocytes # (M) 1.75 k/uL (0-1.0); Neutrophils % (M) 95 %; Nucleated Red Blood Cells 0 /100 WBC (0-0); Total Cells Counted 100
[2020-03-17 06:39] LABS: Large Platelets Present
--- NOTE | 2020-03-17 07:57 | US ---
EXAMINATION TYPE: US abdomen complete DATE OF EXAM: 03/17/2020 COMPARISON: CT from yesterday and 2018 CLINICAL HISTORY: increased LFTs. Elevated LFT's, abdominal pain EXAM MEASUREMENTS: Liver Length: 19.3 cm Gallbladder Wall: 0.5 cm Right Kidney: 10.3 x 4.3 x 4.6 cm Left Kidney: 10.7 x 5.0 x 5.0 cm Technical limitations due to patient's body habitus, large amount of overlying bowel content and pa tient's condition - unable to hold breath or move from supine position, rotated slightly toward left side Pancreas: Obscured by bowel gas Liver: innumerable hypoechoic areas noted, largest = 8.1cm Gallbladder: stone = 1.0cm, thickened GB wall Evidence for sonographic Medeiros's sign: no CBD: unable to visualize Spleen: unable to visualize due to patient position Right Kidney: no evidence of hydronephrosis Left Kidney: limited evaluation due to patient position Upper IVC: wnl Abd Aorta: Obscured by overlying bowel gas Suboptimal evaluation of pancreas on initial images saved, pancreas appeared within normal limits on CT one day earlier. No aneurysmal change in the visualized proximal abdominal aorta. IVC seen near he patic dome. Liver demonstrates innumerable heterogeneous hypodense masses corresponding to CT consistent with met astatic disease. No intrahepatic ductal dilatation. Gallbladder shows 1.0 cm shadowing gallstone. Gal lbladder wall measures up to 5 mm prepped mildly thickened. No surrounding fluid. Sonographic Medeiros sign negative. Common bile duct not well visualized but is not enlarged on recent CT. No hydronephrosis identified in either kidney. Left kidney is suboptimally seen. Spleen not well seen on images saved but appeared within normal limits on CT one day earlier. IMPRESSION: Confirmation of innumerable heterogeneous solid masses throughout the liver consistent wi th hepatic metastatic disease.
[2020-03-17 08:05] VITALS: BP 119/60; TEMP 97.9
[2020-03-17] MEDS: CALCIUM CARB-VIT D 500 MG-5 MCG TAB PO SCH (08:07)
[2020-03-17] MEDS: PANTOPRAZOLE 40 MG TABLET PO SCH (08:08)
[2020-03-17] MEDS: MAGNESIUM OXIDE 400 MG TAB PO SCH (08:08)
[2020-03-17] MEDS: MULTIVITAMINS, THERA 1 EACH TAB PO SCH (08:08)
[2020-03-17] MEDS: guaiFENesin 600 MG TABLET.ER PO SCH (08:13)
[2020-03-17] MEDS: DILTIAZEM CD 120 MG CAP.ER.24H PO SCH (08:13)
[2020-03-17] MEDS: metroNIDAZOLE 500 MG TAB PO SCH (08:13)
[2020-03-17] MEDS: LORATADINE 10 MG TAB PO SCH (08:13)
[2020-03-17] MEDS: FUROSEMIDE 20 MG TAB PO SCH (08:13)
[2020-03-17] MEDS: DULoxetine HCL 60 MG CAPSULE.DR PO SCH (08:13)
[2020-03-17] MEDS: AMIODARONE 200 MG TAB PO SCH (08:13)
[2020-03-17] MEDS: IPRATROPIUM-ALBUTEROL 3 ML NEB INHALATION PRN (08:14)
[2020-03-17] MEDS: BUDESONIDE 1 MG/2 ML NEBU INHALATION SCH (08:14)
[2020-03-17] MEDS: METOPROLOL TARTRATE 25 MG TAB PO SCH (08:15)
[2020-03-17] MEDS: HYDROcodone/APAP 5-325MG 1 EACH TAB PO PRN (08:15)
--- NOTE | 2020-03-17 08:37 | P.PN ---
Subjective Progress Note Date: 03/17/20 Principal diagnosis: Paroxysmal atrial fibrillation This is a very pleasant 74-year-old female patient who was unfortunate with metastatic lung cancer and was somewhat poor historian was brought from an extended care facility to the hospital for further cardiac evaluation. Appa rently the patient was admitted initially with a change in mental status. She still have some change in mental status and she is not oriented to time very well. When she was seen and evaluated this morning. No prior cardiac history of coronary artery disease or congestive heart failure or cardiac arrhythmia. We consulted to see the patient for further evaluation of cardiac arrhythmia. The patient was admitted initially with a change in mental status to the fourth floor but subsequently she developed an episode of heart racing and the EKG showed what it seems to be in atrial flutter with 2-1 block. Subsequently the patient was transferred to the third floor. She continues to be in atrial flutter was controlled heart rate relatively. The patient was seen this morning. Unfortunately she is not doing well. She does have change in mental status and she is also in mild respiratory distress. We had to restart her back on Cardizem drip yesterday because she went into A. fib with RVR. Currently she is on Cardizem drip at 10 mg per hour. She is on amiodarone. The patient need to be hospice Objective - Vital Signs Vital signs: Vital Signs Temp 97.9 F 03/17/20 08:00 Pulse 76 03/17/20 08:26 Resp 20 03/17/20 08:00 BP 119/60 03/17/20 08:00 Pulse Ox 95 03/17/20 08:00 Intake & Output 03/16/20 03/17/20 03/17/20 18:59 06:59 18:59 Intake Total 10 151.428 Output Total 320 Balance 10 -168.572 Weight 83.5 kg Intake: Intake, IV Titration 151.428 Amount Heparin Sod,Pork in 0.45% 151.428 NaCl 25,000 unit In 0.45 % NaCl 1 250ml.bag @ 12 UNITS/KG/HR 8.437 mls/hr IV .Q24H [facility] Rx#: [id number] Oral 10 Output: Urine 320 Other: Voiding Method External Catheter Indwelling Catheter # Voids 0 - Constitutional General appearance: Present: no acute distress - Respiratory Respiratory: bilateral: diminished - Cardiovascular Rhythm: irregularly irregular Heart sounds: normal: S1, S2 - Labs CBC & Chem 7: 03/17/20 05:53 03/17/20 05:53 Labs: Abnormal Lab Results - Last 24 Hours (Table) 03/16/20 03/16/20 03/16/20 Range/Units 07:27 07:27 07:27 WBC (3.8-10.6) k/uL RBC (3.80-5.40) m/uL Hgb (11.4-16.0) gm/dL Hct (34.0-46.0) % MCHC (31.0-37.0) g/dL Neutrophils # (Manual) (1.3-7.7) k/uL Lymphocytes # (Manual) (1.0-4.8) k/uL Monocytes # (Manual) (0-1.0) k/uL PT 12.6 H (9.0-12.0) sec INR 1.3 H (<1.2) APTT (22.0-30.0) sec Sodium 136 L (137-145) mmol/L Chloride (98-107) mmol/L Carbon Dioxide (22-30) mmol/L BUN 27 H (7-17) mg/dL Glucose 162 H (74-99) mg/dL POC Glucose (mg/dL) (75-99) mg/dL Calcium 7.0 L (8.4-10.2) mg/dL AST 135 H (14-36) U/L ALT 114 H (4-34) U/L Alkaline Phosphatase 770 H (38-126) U/L Total Protein 5.0 L (6.3-8.2) g/dL Albumin 2.3 L (3.5-5.0) g/dL Procalcitonin 1.53 H (0.02-0.09) ng/mL 03/16/20 03/16/20 03/16/20 Range/Units 11:49 16:31 20:38 WBC (3.8-10.6) k/uL RBC (3.80-5.40) m/uL Hgb (11.4-16.0) gm/dL Hct (34.0-46.0) % MCHC (31.0-37.0) g/dL Neutrophils # (Manual) (1.3-7.7) k/uL Lymphocytes # (Manual) (1.0-4.8) k/uL Monocytes # (Manual) (0-1.0) k/uL PT (9.0-12.0) sec INR (<1.2) APTT (22.0-30.0) sec Sodium (137-145) mmol/L Chloride (98-107) mmol/L Carbon Dioxide (22-30) mmol/L BUN (7-17) mg/dL Glucose (74-99) mg/dL POC Glucose (mg/dL) 157 H 182 H 160 H (75-99) mg/dL Calcium (8.4-10.2) mg/dL AST (14-36) U/L ALT (4-34) U/L Alkaline Phosphatase (38-126) U/L Total Protein (6.3-8.2) g/dL Albumin (3.5-5.0) g/dL Procalcitonin (0.02-0.09) ng/mL 03/17/20 03/17/20 03/17/20 Range/Units 05:53 05:53 05:53 WBC 58.3 H* (3.8-10.6) k/uL RBC 3.33 L (3.80-5.40) m/uL Hgb 9.4 L (11.4-16.0) gm/dL Hct 31.5 L (34.0-46.0) % MCHC 29.9 L (31.0-37.0) g/dL Neutrophils # (Manual) 55.90 H (1.3-7.7) k/uL Lymphocytes # (Manual) 0.58 L (1.0-4.8) k/uL Monocytes # (Manual) 1.75 H (0-1.0) k/uL PT (9.0-12.0) sec INR (<1.2) APTT 45.1 H (22.0-30.0) sec Sodium (137-145) mmol/L Chloride 111 H (98-107) mmol/L Carbon Dioxide 20 L (22-30) mmol/L BUN 40 H (7-17) mg/dL Glucose 171 H (74-99) mg/dL POC Glucose (mg/dL) (75-99) mg/dL Calcium 7.1 L (8.4-10.2) mg/dL AST 153 H (14-36) U/L ALT 126 H (4-34) U/L Alkaline Phosphatase 692 H (38-126) U/L Total Protein 5.0 L (6.3-8.2) g/dL Albumin 2.3 L (3.5-5.0) g/dL Procalcitonin (0.02-0.09) ng/mL 03/17/20 Range/Units 06:11 WBC (3.8-10.6) k/uL RBC (3.80-5.40) m/uL Hgb (11.4-16.0) gm/dL Hct (34.0-46.0) % MCHC (31.0-37.0) g/dL Neutrophils # (Manual) (1.3-7.7) k/uL Lymphocytes # (Manual) (1.0-4.8) k/uL Monocytes # (Manual) (0-1.0) k/uL PT (9.0-12.0) sec INR (<1.2) APTT (22.0-30.0) sec Sodium (137-145) mmol/L Chloride (98-107) mmol/L Carbon Dioxide (22-30) mmol/L BUN (7-17) mg/dL Glucose (74-99) mg/dL POC Glucose (mg/dL) 193 H (75-99) mg/dL Calcium (8.4-10.2) mg/dL AST (14-36) U/L ALT (4-34) U/L Alkaline Phosphatase (38-126) U/L Total Protein (6.3-8.2) g/dL Albumin (3.5-5.0) g/dL Procalcitonin (0.02-0.09) ng/mL Microbiology - Last 24 Hours (Table) 03/14/20 12:40 Blood Culture Gram Stain - Preliminary Blood Blood Culture - Preliminary Coagulase Negative Staph 03/13/20 16:18 Blood Culture Gram Stain - Final Blood Blood Culture - Final Staph hominis sub sp. hominis Assessment and Plan Assessment: Assessment #1 change in mental status #2 metastatic lung cancer #3 atrial flutter #4 multiple comorbid conditions Plan #1 the echo was reviewed and showed normal LV function #2 continue Cardizem drip #3 consider hospice
[2020-03-17] MEDS: DILTIAZEM 125 MG in SODIUM CHLORIDE 0.9% 100 ML IV SCH (09:21)
[2020-03-17] MEDS: THIAMINE 100 MG TAB PO SCH (11:58)
[2020-03-17] MEDS: FOLIC ACID 1 MG TAB PO SCH (11:58)
--- NOTE | 2020-03-17 12:59 | PN ---
PROGRESS NOTE PULMONARY/CRITICAL CARE PROGRESS NOTE: DATE OF SERVICE: 03/17/2020 This is a 74-year-old female who was seen in consultation a couple days ago. We were asked to see her for an elevated D-dimer. CT angiogram was negative for pulmonary embolism. She was found to have a small infiltrate in the left lower lobe but also had a suspicious lesion in the right upper lobe consistent with probable bronchogenic carcinoma. More recently, on February 21 she had an MRI of the brain which showed metastatic deposits in the brain, and she recently had a CT scan of the abdomen and pelvis which showed innumerable liver metastasis. Anyway, the patient is doing poorly. I think she is a good candidate for hospice or palliative care. I have mentioned that to the nurse. I asked the nurse to call the primary service, Dr. Marley's service. That should be dealt with immediately. The patient in my opinion is actively dying. The patient has multiple other medical problems as well like diabetes, hypothyroidism, osteoarthritis, urinary tract infections, and multiple falls at home. She apparently has received SBRT to the lesion in the right upper lobe. PHYSICAL EXAMINATION: VITAL SIGNS: Current vital signs are reviewed. Temperature 97.9, heart rate 76, respiratory rate 20, blood pressure 119/60, mean 79. 4 L saturation 95%. The patient is confused and disoriented. She is not alert. She is mumbling words. Seems not to be in any acute distress but obviously mental status is very poor. HEENT: Examination is grossly unremarkable. Nasal O2 noted. NECK: Supple, full range of motion. No adenopathy. Neck veins are flat. CARDIOVASCULAR: Examination reveals regular rhythm and rate. Heart rate about 80 beats per minute. S1, S2 normal. Heart sounds are distant. LUNGS: Reveal diffuse coarse rhonchi. Breath sounds equal. No wheezes or crackles. ABDOMEN: Soft. EXTREMITIES are intact. Minimal edema. SKIN: Without rash. NEUROLOGIC: Examination could not be adequately assessed. The patient is very confused and disoriented. She is not alert at all. She is mumbling words. She barely is able to respond to verbal stimuli. LAB DATA: Reviewed. White count is 58.3, hemoglobin 9.4, hematocrit 31.5, platelet count 388,000. PTT is 45.1. Sodium 138, potassium 5.1, chloride 111, CO2 20, anion gap is 7. BUN and creatinine were 40 and 0.9. Bilirubin is 0.4, calcium 7.1, AST 153, ALT 126, alkaline phosphatase 692, albumin 2.3. Microbiology showing blood cultures positive for Staph epidermidis on March 14 and Staph hominis on March 13. Abdominal ultrasound was done on March 17. It shows innumerable heterogeneous solid masses throughout the liver consistent with hepatic metastatic disease. CT scan of the abdomen and pelvis shows multiple liver metastasis. Brain CT did not show brain metastases. It was seen on an earlier MRI February 21. MEDICATIONS: Reviewed. Medications include Xanax, Cordarone, Azactam, Pulmicort, Os-Marvin, Cardizem, Decadron, oral Cardizem, Cymbalta, Pepcid, fentanyl patch, folic acid, Lasix, Mucinex, IV heparin, [place], Dilaudid, ibuprofen, insulin, DuoNeb, levothyroxine, loratadine, Ativan, magnesium oxide, metoprolol, Flagyl, multivitamins, Narcan, oxycodone, Protonix, thiamine and vancomycin. ASSESSMENT: 1. Suspected metastatic lung cancer with metastasis to the liver and brain. 2. Right upper lobe mass consistent with probable lung cancer although the patient has never had a biopsy. 3. Rule out sepsis, source unclear. Blood cultures positive for coag-negative Staph and Staph hominis. Currently, the patient is on antibiotics. 4. No evidence of pulmonary embolism on CT angiogram. 5. Profound weakness and multiple falls at home. 6. Chronic low back pain secondary to multiple compression fractures of the spine. 7. Lung cancer, suspected, right upper lobe, status post SBRT. 8. Chronic hypoxemic respiratory failure. 9. Severe chronic obstructive pulmonary disease. 10.Chronic tobacco use. 11.Diabetes mellitus. 12.Hypothyroidism. 13.Osteoarthritis. 14.History of colonic polyps. 15.History of previous urinary tract infection. PLAN: The patient in my opinion is doing very poorly. I did put in a consult for hospice to evaluate the patient. I asked the nurse to call the primary service and discuss code status with the family. This is a very bad situation in my opinion. The patient is not alert. She appears to be actively dying. We will continue to follow. No additional recommendations are made. Prognosis is very poor given the findings on the MRI on February [address] and a more recent CT scan of the abdomen and pelvis on this admission. MMODL / IJN: [id number] /
[2020-03-17] MEDS ORDERED: SCOPOLAMINE 1.5MG/72HR PATCH TRANSDERM SCH (13:45)
[2020-03-17] MEDS: MORPHINE SULFATE (100 MG/2 ML) 100 MG in SODIUM CHLORIDE 0.9% 100 ML IV SCH (14:23)
--- NOTE | 2020-03-17 16:04 | P.PN ---
Progress Note - Text Progress Note Date: 03/17/20 Attempted to call son and daughter, sons phone would not connect and unable to leave vm on daughters. If they have any questions from an oncology standpoint related to the agreed apon decision of hospice, RN can call us. Unable to further test with patients limited tolerability. Her disease is widespread and her overall performance continues to decline. Agree with goals of care - COmfort and hospice admission
--- NOTE | 2020-03-17 18:30 | PN ---
PROGRESS NOTE DATE OF SERVICE: 03/17/2019 I am covering for Dr. Puckett. This 75 -year-old woman was admitted with severe back pain and possible sepsis, also had multiple other medical problems including change in mental status and multiple blood cultures positive including Staph epidermidis and Staph hominis. The patient also had abdominal ultrasound showed multiple liver METS. Multiple evaluations could not be done because of the patient's inability to undergo the testing. Multiple consultants are following the patient. Hematology/Oncology also saw the patient. Discussed with the family and at this time hospice care is being continued because of multiple complex medical issues. Past medical history reviewed. Review of systems could not taken, the patient is stuporous. CURRENT MEDICATIONS: Reviewed and include: Xanax, scopolamine, other medications, which were recently discontinued. PHYSICAL EXAM: Patient is stuporous. Pulse 76. Blood pressure was 101/96, respiration 20, temperature 97.2, pulse ox 94% on 4 L. HEENT: Conjunctivae normal. NECK: No JVD. CARDIOVASCULAR: S1, S2 muffled. RESPIRATORY: Breath sounds diminished in the bases. A few scattered rhonchi and crackles. ABDOMEN: Soft, nontender. LEGS are no edema. No swelling. Nervous system: The patient is stuporous. LABS: WBC 15.3, hemoglobin 9.4. Sodium 138, potassium 5.2. Other labs are noted. ASSESSMENT: 1. Severe back pain and possible sepsis present on admission. Etiology undetermined. 2. Change in mental status acute metabolic encephalopathy secondary to sepsis and multifactorial. 3. Staph hominis as well as coagulase-negative Staph from the blood cultures. 4. Elevated WBC, leukemoid reaction. 5. History of recent L2 with kyphoplasty and biopsy for compression fracture. 6. Non-small cell lung cancer with lung mass and metastatic adrenal gland lumbar spine and brain and liver. 7. History of multiple falls and gait dysfunction. 8. Weakness. 9. Chronic obstructive pulmonary disease. 10.Diabetes mellitus type 2. 11.History of colectomy. 12.Hyponatremia. 13.Hypomagnesemia. 14.Increased AST/ALT, possibly hepatitis. 15.Increased CRP. 16.Anemia, normocytic anemia of malignancy. 17.NO CODE, NO CPR, NO VENT. HOSPICE AND COMFORT MEASURES. RECOMMENDATIONS AND DISCUSSION: In this 75-year-old woman who presented with multiple complex medical issues, has been transitioned to hospice care. The patient has multiple complex medical issues as mentioned earlier. The patient is not improving despite intensive medical treatment and intervention with multiple consultants. At this time, the family is agreeable to hospice. We will continue with hospice measures and comfort measures. Prognosis extremely guarded. Discussed with the patient's son at the bedside. Understands and agrees. A copy of this dictation being forwarded to Dr. Puckett who is the primary physician. JUS / BENJAMINN: [id number] /
[2020-03-18] MEDS ORDERED: VANCOMYCIN TROUGH DUE 1 EACH MISC MISCELLANE ONE (12:00)
--- NOTE | 2020-03-18 14:34 | PN ---
PROGRESS NOTE DATE OF SERVICE: 03/18/2020. This 76-year-old woman who was admitted with severe back pain and sepsis is on comfort care. The patient also had extensive malignancy. No chest pain. No palpitations. No fever. The patient is started on a morphine drip and sedated. EXAM: The patient is sedated. Pulse 141, respiration 14. HEENT: Conjunctivae normal. Neck: No JVD. CARDIOVASCULAR: S1, S2 muffled. Respiration: A few scattered rhonchi. ABDOMEN: Soft. Nervous system: Sedated. LABS: Labs not available. ASSESSMENT: 1. Metastatic [id number] lung cancer with lung mass and metastatic adrenal gland. Lumbar spine, brain and liver. 2. Severe back pain and possible sepsis present on admission. 3. Change in mental status acute metabolic encephalopathy secondary to sepsis and multifactorial. 4. Staph hominis as well as coagulase-negative Staph from the blood cultures. 5. Elevated WBC, leukemoid reaction. 6. History of recent L2 fracture with kyphoplasty and biopsy for compression fracture. 7. History of multiple falls and gait dysfunction. 8. Weakness. 9. Chronic obstructive pulmonary disease. 10.Diabetes mellitus type 2. 11.History of colectomy. 12.Hyponatremia. 13.Hypomagnesemia. 14.Increased AST ALT, possibly hepatitis. 15.Increased CRP. 16.Anemia, normocytic anemia of malignancy. 17.NO CODE NO CPR NO VENT. ON HOSPICE AND COMFORT MEASURES. PLAN AND DISCUSSION: Recommend to continue current management and continue the symptomatic treatment. Continue comfort measures. Prognosis guarded. Discussed with the family. Discussed with staff. Further recommendations to follow. See orders for details. MMODL / IJN: [id number] /
[2020-03-18] MEDS: MORPHINE SULFATE (100 MG/2 ML) 100 MG in SODIUM CHLORIDE 0.9% 100 ML IV SCH (15:04)
[2020-03-18 21:36] VITALS: PULSE 136
[2020-03-19 01:31] VITALS: RESP 7
--- NOTE | 2020-03-22 15:17 | DS ---
DISCHARGE SUMMARY I am covering for Dr. Puckett. The prelim cause of is metastatic [id number] lung cancer with lung mass and metastatic adrenal gland, lumbar spine, brain and liver. OTHER DIAGNOSES: 1. Severe back pain and possible sepsis, present on admission. 2. Change in mental status, acute metabolic encephalopathy secondary to sepsis and multifactorial. 3. Staphylococcus hominis as well as coagulase-negative Staphylococcus from the blood cultures. 4. Elevated WBC, leukemoid reaction. 5. History of recent L2 fracture kyphoplasty and biopsy with compression fracture. 6. History of multiple falls and gait dysfunction. 7. Weakness. 8. Chronic obstructive pulmonary disease. 9. Diabetes mellitus type 2. 10.History of colectomy. 11.Hyponatremia. 12.Hypomagnesemia. 13.Increased AST, ALT, possibly hepatitis. 14.Increased CRP. 15.Anemia, normocytic anemia of malignancy. 16.NO CODE, NO CPR, NO VENT. 17.On hospice and comfort measures. HISTORY OF PRESENT ILLNESS: This is a 75-year-old woman with a past medical history of multiple medical problems being followed by Dr. Puckett in the outpatient setting was admitted with features of sepsis and multiple medical problems. Patient also has features of metastatic non- small cell lung cancer with lung mass and other multiple medical issues. Patient treated aggressively with IV antibiotics. Cultures were showing findings as mentioned earlier. Despite aggressive treatment, patient condition did not improve and continue to deteriorate. Multiple consultants saw the patient including Hematology/Oncology, Infectious Disease. Please see the, multiple consult notes and progress notes and staff notes for the details and finally the case discussed at length with the family and the family decided to go with comfort measures and hospice and the patient succumbed to her above mentioned medical illness. The prognosis remained extremely guarded throughout the hospital stay. Please refer to the multiple consultations and progress notes as mentioned earlier. MMODL / IJN: [id number] / LAI
--- NOTE | 2020-03-28 10:01 | CDI ---
Documentation Clarification Form Date: 03/28/2020 09:47:40 AM From: Octavia Lira RN, CCDS Admit Date: 03/13/2020 07:32:00 PM Patient Name: Sandhya Jernigan Visit Number: [id number] Discharge Date: 03/19/2020 04:48:00 AM ATTENTION: The Clinical Documentation Specialists (CDI) and [facility] Coding Staff appreciate your assistance in clarifying documentation. Please respond to the clarification below the line at the bottom and electronically sign. The CDI & [facility] Coding staff will review the response and follow-up if needed. Please note: Queries are made part of the Legal Health Record. If you have any questions, please contact the author of this message via ITS. Dr. Glenn Cornejo Atrial Flutter is documented in the Cardiology Consult and progress notes and requires further specificity. History/Risk factors: COPD, chronic hypoxic respiratory failure, HTN, HLD, Lung Ca with mets to brain, bone, liver, adrenal gland, paroxysmal atrial fib Clinical Indicators: 03/15 A-team call note: "repeat EKG showing atrial flutter." 03/15 Cardiology Consult- 03/17 Cardiology Progress Notes: "The patient was admitted initially with a change in mental status to the fourth floor but subsequently she developed an episode of heart racing and the EKG showed what it seems to be in atrial flutter with 2-1 block.She continues to be in atrial flutter was controlled heart rate relatively.Assessment : #3 atrial flutter." 03/15 EKG: Atrial flutter Treatment: 03/14-03/15 Cardizem CD 120 mg PO QD 03/14 SQ Heparin 5000 units Q 12 hrs 03/15 5mg IVP Lopressor x 2 03/15 1 L 0.9% NS IVF Bolus followed by 120 cc/hr 03/15 [id number] Cardizem Gtt @ 5 mg/hr 03/15 IV heparin Low intensity protocol 03/15 IV Amio bolus and Gtt per protocol 03/15 Cordarone 400 mg Po BID 03/16 Cardizem CD 120 mg Po Daily 03/16 1930-03/17 0921 Cardizem Gtt 2 10 mg /hr 03/16-03/17 Lopressor 25 mg Po BID In your professional opinion, in order to capture the severity of condition; can you please clarify the type of Atrial Flutter if known? Typical/Type I Atypical/Type II Other, please specify Unable to determine (Last Revision: June 2017) MTDD
== END 2020-03-19 04:48 | disposition expired | DRG 871 ==
LOC: EC 15:31 → SUPCPDRO 15:31 → 4SSUR 19:32 → 3SCARD 03-15 01:11
PROVIDERS: ADMIT Hospitalist; ATTEND Hospitalist
DX: A41.1 Sepsis due to other specified staphylococcus (principal); G93.41 Metabolic encephalopathy; J96.11 Chronic respiratory failure with hypoxia; C79.51 Secondary malignant neoplasm of bone; C79.70 Secondary malignant neoplasm of unspecified adrenal gland; K56.7 Ileus, unspecified; M84.58XA Pathological fracture in neoplastic disease, other specified site, initial encounter for fracture; E87.1 Hypo-osmolality and hyponatremia; I48.92 Unspecified atrial flutter; C34.11 Malignant neoplasm of upper lobe, right bronchus or lung; C78.7 Secondary malignant neoplasm of liver and intrahepatic bile duct; C79.31 Secondary malignant neoplasm of brain; J98.11 Atelectasis; R65.20 Severe sepsis without septic shock; I11.9 Hypertensive heart disease without heart failure; I48.0 Paroxysmal atrial fibrillation; J44.9 Chronic obstructive pulmonary disease, unspecified; E11.9 Type 2 diabetes mellitus without complications; Z66 Do not resuscitate; Z51.5 Encounter for palliative care; Z20.828 Contact with and (suspected) exposure to other viral communicable diseases; K75.9 Inflammatory liver disease, unspecified; G89.29 Other chronic pain; E83.42 Hypomagnesemia; E86.0 Dehydration; D63.0 Anemia in neoplastic disease; D72.823 Leukemoid reaction; E78.5 Hyperlipidemia, unspecified; E03.9 Hypothyroidism, unspecified; I45.10 Unspecified right bundle-branch block; R29.6 Repeated falls; H91.90 Unspecified hearing loss, unspecified ear; M19.90 Unspecified osteoarthritis, unspecified site; R26.89 Other abnormalities of gait and mobility; Z99.81 Dependence on supplemental oxygen; Z79.84 Long term (current) use of oral hypoglycemic drugs; Z79.890 Hormone replacement therapy; Z79.51 Long term (current) use of inhaled steroids; Z79.899 Other long term (current) drug therapy; Z87.891 Personal history of nicotine dependence; Z86.010 Personal history of colon polyps; Z90.89 Acquired absence of other organs; Z90.710 Acquired absence of both cervix and uterus; Z90.49 Acquired absence of other specified parts of digestive tract; Z87.19 Personal history of other diseases of the digestive system; Z87.42 Personal history of other diseases of the female genital tract; Z98.42 Cataract extraction status, left eye; Z98.41 Cataract extraction status, right eye; Z87.2 Personal history of diseases of the skin and subcutaneous tissue; Z91.81 History of falling; Z87.440 Personal history of urinary (tract) infections; Z86.69 Personal history of other diseases of the nervous system and sense organs; Z98.890 Other specified postprocedural states; W19.XXXA Unspecified fall, initial encounter; Z88.1 Allergy status to other antibiotic agents; Z88.8 Allergy status to other drugs, medicaments and biological substances; Z80.0 Family history of malignant neoplasm of digestive organs; Z82.1 Family history of blindness and visual loss; Z83.518 Family history of other specified eye disorder; Z80.42 Family history of malignant neoplasm of prostate; Z80.1 Family history of malignant neoplasm of trachea, bronchus and lung
CPT/HCPCS: 36415; 70460; 71045; 71275; 74022; 74177; 76700; 80053; 80202; 81001; 82140; 83605; 83690; 83735; 83880; 84145; 84439; 84443; 84484; 85025; 85379; 85610; 85730; 86140; 87040; 87077; 87186; 87635; 93005; 93306; 94640; 96365; 96366; 96367; 96375; 96376; 99285